=== PATIENT | male | born 1965 | race Caucasian/White ===

== ENCOUNTER 2021-08-20 12:25 | Outpatient (CLI) | payer OTHER, SELFPAY ==
--- NOTE | ~2021-08-20 | CT_ITS ---
EXAMINATION: CT brain wo con EXAM DATE: 08/20/2021 12:45 INDICATION: R51.9 - Headache, unspecified . Reportedly patient's symptoms started acutely during Than ksgiving with episode of vomiting. Unable to read for 2 weeks. TECHNIQUE: Spiral CT of the head was performed without contrast. Axial, coronal and sagittal images were reviewed. The dose-length product (DLP) for this examination was 605.33 mGy-cm. The exposure w as tailored according to patient size, and iterative reconstruction (ASIR) was used as additional dos e reduction technique. There is no prior study for comparison. FINDINGS: There is hyperdense mass in the left occipital lobe measuring 2.3 x 1.7 cm, with extensive associated adjacent vasogenic edema. Differential diagnosis includes hemorrhagic mass or metastatic l esion, intraparenchymal hemorrhage without underlying mass. No other masses are identified, no extra- axial collections or subarachnoid hemorrhage. No obstructive hydrocephalus. IMPRESSION: Hyperdense left occipital lobe mass likely hemorrhagic mass or intraparenchymal hematoma without underlying mass. I discussed this case with Viki Greenberg NP at 08/20/2021 12:51 ELEMENTARY SCHOOL LIBRARIAN. Reviewed, dictated and finalized at location B. ENTARY SCHOOL LIBRARIAN IMPRESSION: Hyperdense left occipital lobe mass likely hemorrhagic mass or int raparenchymal hematoma without underlying mass. I discussed this case with Viki Greenberg NP at 08/20/2021 12:51 ELEMENTARY SCHOOL LIBRARIAN.
[2021-08-20 13:01] LABS: Hematocrit 39.6 % (42.0-52.0); Mean Corpuscular HGB Conc 30.3 g/dl (32-36); Mean Corpuscular Hemoglobin 23.3 pg (26-34); Mean Corpuscular Volume 76.9 fl (80-100); Mean Platelet Volume 8.3 fl (7.4-10.4); Platelet Count Result 354 k/mm3 (150-375); Red Blood Count 5.15 M/mm3 (4.6-6.20); Red Cell Distribution Width 16.6 % (11.5-14.5); White Blood Count 7.1 K/mm3 (4.5-10.0)
[2021-08-20 13:17] LABS: Alanine Aminotransferase 17 U/L (4-50); Albumin Level 4.1 g/dL (3.5-5.1); Alkaline Phosphatase 216 U/L (38-126); Anion Gap 11 mmol/L (8-16); Aspartate Amino Transferase 16 U/L (17-59); Bilirubin,Total 0.6 mg/dL (0.2-1.3); Blood Urea Nitrogen 25 mg/dL (9-20); Carbon Dioxide 27 mmol/L (22-30); Chloride 99 mmol/L (98-107); Estimated Glomerular Filt Rate 52; Glucose 157 mg/dL (65-110); Sodium 137 mmol/L (137-145)
== END 2021-08-20 12:26 | disposition home or self-care (01) ==
PROVIDERS: PCP Family Medicine; Visit Provider Nurse Practitioner Family
DX: R11.10 Vomiting, unspecified (principal); R51.9 Headache, unspecified; R41.3 Other amnesia; G93.89 Other specified disorders of brain
CPT/HCPCS: 36415; 70450; 80053; 84443; 85027

== ENCOUNTER 2021-08-20 13:18 | Emergency (ER) | payer OTHER, SELFPAY ==
[2021-08-20] VITALS (18 sets, daily range): BP systolic 121–141; BP diastolic 65–86; PULSE 85–98; RESP 10–27; TEMP 36.6–36.7; O2SAT 95–98
--- NOTE | ~2021-08-20 | XR_ITS ---
EXAMINATION: XR chest 2V DATE: 08/20/2021 16:20 INDICATION: Cough and shortness of breath. TECHNIQUE: Frontal and lateral views of the chest were obtained. COMPARISON: None. FINDINGS: There are multiple nodules in the lungs. There is a mass in left lower lung zone. No pleura l effusion or pneumothorax. The heart size is normal. IMPRESSION: 1. Lung mass and nodules, consistent with metastatic disease. Chest CT with contrast is recommended. Reviewed, dictated and finalized at location A. ENT GRINDER IMPRESSION: 1. Lung mass and nodules, consistent with metastatic disease. Chest CT with con trast is recommended.
--- NOTE | ~2021-08-20 | MR_ITS ---
EXAMINATION: MR brain/brain stem wo/w con DATE: 08/20/2021 18:35 INDICATION: Left occipital lobe mass seen on recent CT. TECHNIQUE: Magnetic resonance imaging (MRI) of the brain and brainstem was performed without and with 20 cc MultiHance intravenous contrast. Sequences included sagittal and axial T1-weighted SE, axial d iffusion-weighted FS SE, axial T2*-weighted GRE, axial T2-weighted FLAIR Propeller, and axial T2-weig hted Propeller. Apparent diffusion coefficient (ADC) maps were created. COMPARISON: CT dated 08/20/2020. FINDINGS: There is an avidly enhancing intra-axial mass left occipital lobe measuring 2.4 x 2.1 x 1.7 cm with surrounding vasogenic edema. There is no apparent associated hemorrhage on GRE imaging seque nce. There is a small 3 mm enhancing satellite lesion of the left occipital lobe inferior to the dianne nant mass. No evidence for diffusion restriction to suggest acute infarction. No midline shift. No ve ntriculomegaly. Midline sagittal images are unremarkable. Paranasal sinuses are unremarkable. IMPRESSION: 1. Enhancing 2.4 cm left occipital lobe mass with moderate surrounding vasogenic edema. Additional sm all 3 mm enhancing satellite lesion of the left occipital lobe. Findings suspicious for metastatic di sease. Correlate for history of malignancy. Reviewed, dictated and finalized at location A. NE EQUIPMENT SALES ENGINEER IMPRESSION: 1. Enhancing 2.4 cm left occipital lobe mass with moderate surrounding vasogeni c edema. Additional small 3 mm enhancing satellite lesion of the left occipital lobe. Findings suspicious for metastatic disease. Correlate for history of mal ignancy.
--- NOTE | ~2021-08-20 | CT_ITS ---
EXAMINATION: CT chest abdomen pelvis w con DATE: 08/20/2021 20:45 GENERATING STATION MECHANIC INDICATION: Intracranial masses, concerning for metastatic disease. TECHNIQUE: Computed tomography (CT) of the chest, abdomen, and pelvis was performed with 100 cc Omnip aque 350 intravenous contrast. The dose-length product was 1474.22 mGy-cm. Automated exposure control and iterative reconstruction technique were employed. COMPARISON: None FINDINGS: CHEST CT: Heart size is normal. No thoracic lymphadenopathy. There are multiple bilateral bilateral pulmonary n odules, consistent with metastatic disease. Largest mass in the left lower lobe measures 6.2 x 3.2 cm . No evidence for aortic aneurysm or dissection. ABDOMEN/PELVIS CT: Fatty infiltration of the liver. There is splenomegaly. The pancreas, right adrenal gland are unremar kable. There is a 2 cm right adrenal mass, nonspecific. There is a large complex right renal mass, co nsistent with regional cell carcinoma until proven otherwise. This mass measures approximately 18.6 x 12.6 x 11.9 cm. There is abnormal perinephric stranding and fluid. There is possible tumor extension into the right renal vein. Gallstones. There is retroperitoneal lymphadenopathy at the level of the right renal artery. Colonic diverticulosis without evidence for diverticulitis. Normal appendix. There are degenerative changes a t the sacroiliac joints. No focal lytic or blastic lesions.. IMPRESSION: 1. Large abnormal right renal mass, compatible with renal cell carcinoma until proven otherwise. [place] static disease to the perinephric space, retroperitoneum, lungs and possibly the left adrenal gland. There is possible tumor extension into the right renal vein. Reviewed, dictated and finalized at location A. RATING STATION MECHANIC IMPRESSION: 1. Large abnormal right renal mass, compatible with renal cell carcinoma until proven otherwise. Metastatic disease to the perinephric space, retroperitoneum, lungs and possibly the left adrenal gland. There is possible tumor extension i nto the right renal vein.
--- NOTE | 2021-08-20 16:19 | PC.NURSE ---
Patient refusing blood draw at this time, states he had blood drawn this morning.
--- NOTE | 2021-08-20 17:27 | ED.GENADULT ---
HPI - General Adult General Chief complaint: Unspecified Stated complaint: Brought over from CT Time Seen by Provider: 08/20/21 14:07 Source: patient Mode of arrival: ambulatory Limitations: no limitations History of Present Illness HPI narrative: 56-year-old male Referred from radiology after they found a bleed on his outpatient brain CT scan Patient reports that he has been having fairly subtle neurologic symptoms for a little bit over 2 weeks starting around Thanksgiving He first noted feeling badly and having soaking sweats 1 night but those never came back He has subsequently had some cognitive issues, oddly finds that he can solve geometry problems but not story problems, and is having trouble eating although he does not think he is having any trouble seeing or focusing on the text He does not have any gait issues and does not have any focal weakness that he has noticed Notably he never had much of a headache He drove himself to the doctor into the hospital today and worked every day last week Related Data Allergies Allergy/AdvReac Type Severity Reaction Status Date / Time No Known Allergies Allergy Verified 08/20/21 13:55 Review of Systems Review of Systems: All systems reviewed & are unremarkable except as noted in HPI and below Constitutional: Constitutional: Reports no additional constitutional complaints, Denies chills, Denies fever(s), Reports night sweats and Reports weight loss Eyes: Eyes: Reports no additional eye complaints, Reports change in vision and Reports other visual disturbances ENT: Denies vertigo, Denies dizziness and Denies sore throat Cardiovascular: Cardiovascular: Denies chest pain and Denies dyspnea Respiratory: Respiratory: Denies cough and Denies dyspnea Gastrointestinal: Gastrointestinal: Denies abdominal pain and Denies vomiting Genitourinary: Genitourinary: Denies hematuria, Denies dysuria and Reports flank pain Musculoskeletal: Musculoskeletal: Denies deformity, Denies arthralgias, Denies joint swelling and Denies numbness Integumentary/Breasts: Skin/Breast: Denies rash and Denies wounds Neurologic: Denies headache(s), Denies focal weakness and Denies numbness Psychiatric: Psychiatric: Reports no additional psychiatric complaints Endocrine: Endocrine: Reports no additional endocrine complaints Hematologic/Lymphatic: Hematologic/Lymphatic: Reports no additional hematologic/lymphatic complaints Allergic/Immunologic: Allergic/Immunologic: Reports no additional allergic/immunologic complaints PMFSH Past Medical History Medical History BMI 29.0-29.9,adult BMI 32.0-32.9,adult BMI 33.0-33.9,adult Diabetes Hypertension Surgical History Surgical History History of tonsillectomy and adenoidectomy Family History Family History Father No problems noted. Mother No problems noted. Sibling No problems noted. 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
--- NOTE | 2021-08-20 17:45 | PC.NURSE ---
Patient to MRI
[2021-08-20] MEDS: levETIRAcetam 500MG/NACL 100ML 500 MG/100 ML BAG 400 MG IVPB (18:34)
[2021-08-20 19:00] LABS: Basophils Absolute Auto 0.1 K/mm3 (0.0-0.1); Basophils Percent Auto 0.7 % (0.2-1.2); Eosinophils Absolute Auto 0.1 K/mm3 (0-0.3); Eosinophils Percent Auto 0.9 % (0-4.4); Hematocrit 40.1 % (42.0-52.0); Hemoglobin 12.2 g/dL (14.0-18.0); Immature Granulocyte Absolute 0.03 K/mm3 (0.00-0.031); Immature Granulocyte Percent A 0.4 % (0-0.5); Lymphocytes Absolute Auto 1.59 K/mm3 (0.9-3.2); Lymphocytes Percent Auto 20.8 % (18.3-44.2); Mean Corpuscular HGB Conc 30.4 g/dl (32-36); Mean Corpuscular Hemoglobin 23.5 pg (26-34); Mean Corpuscular Volume 77.1 fl (80-100); Mean Platelet Volume 8.2 fl (7.4-10.4); Monocytes Absolute Auto 0.7 K/mm3 (0.1-0.6); Monocytes Percent Auto 9.6 % (2.6-8.5); Neutrophils Absolute Auto 5.2 K/mm3 (1.3-6.7); Neutrophils Percent Auto 67.6 % (45.5-73.1); Platelet Count Result 347 k/mm3 (150-375); Red Cell Distribution Width 16.8 % (11.5-14.5); White Blood Count 7.6 K/mm3 (4.5-10.0)
[2021-08-20 19:10] LABS: Alanine Aminotransferase 16 U/L (4-50); Albumin Level 4.3 g/dL (3.5-5.1); Alkaline Phosphatase 227 U/L (38-126); Anion Gap 9 mmol/L (8-16); Aspartate Amino Transferase 23 U/L (17-59); Bilirubin,Total 0.7 mg/dL (0.2-1.3); Blood Urea Nitrogen 23 mg/dL (9-20); Calcium 12.1 mg/dL (8.4-10.2); Carbon Dioxide 26 mmol/L (22-30); Chloride 100 mmol/L (98-107); Estimated CRCL calculation 62 ml/min; Estimated Glomerular Filt Rate 57; Glucose 120 mg/dL (65-110); Potassium 4.6 mmol/L (3.4-5.0); Sodium 135 mmol/L (137-145)
[2021-08-20 19:12] LABS: INR 1.2; Prothrombin Time 14.7 Seconds (11.1-14.7)
--- NOTE | 2021-08-20 19:50 | PC.NURSE ---
pt refusing to wear cardiac cath tech and pulse ox.
== END 2021-08-20 21:42 | disposition home or self-care (01) ==
PROVIDERS: Emergency Provider Emergency Medicine; PCP Family Medicine
DX: G93.89 Other specified disorders of brain (principal); N28.89 Other specified disorders of kidney and ureter; R91.8 Other nonspecific abnormal finding of lung field; E11.9 Type 2 diabetes mellitus without complications; I10 Essential (primary) hypertension; Z79.84 Long term (current) use of oral hypoglycemic drugs
CPT/HCPCS: 36415; 70450; 70553; 71046; 71260; 74177; 80053; 84443; 85025; 85027; 85610; 96365; 96375; 99284; A9577; J1100; J1953; Q9967

== ENCOUNTER 2021-10-19 17:47 | Inpatient (IN) | payer OTHER, SELFPAY ==
[2021-10-19] VITALS (8 sets, daily range): BP systolic 72–100; BP diastolic 48–75; PULSE 92–97; RESP 16–27; TEMP 36.6; O2SAT 93–100
--- NOTE | ~2021-10-19 | XR_ITS ---
EXAMINATION: XR abdomen/kub 1V DATE: 11/07/2021 05:59 INDICATION: Adynamic ileus. TECHNIQUE: A supine view of the abdomen on 2 radiographs was obtained. COMPARISON: Abdomen radiographs 11/05/2021 FINDINGS: There are no dilated loops of bowel. There is a surgical drain overlying the pelvis. The na sogastric tube tip is in the distal stomach. There are airspace opacities at the lung bases. IMPRESSION: 1. Nonobstructive bowel gas pattern. 2. Airspace opacities at the lung bases, consistent with atelectasis versus pneumonia. Reviewed, dictated and finalized at location A. F RESOURCE OFFICER IMPRESSION: 1. Nonobstructive bowel gas pattern. 2. Airspace opacities at the lung bases, consistent with atelectasis versus pne umonia.
--- NOTE | ~2021-10-19 | XR_ITS ---
EXAMINATION: XR abdomen obstructive series EXAM DATE: 11/03/2021 09:06 INDICATION: F/U on suspected ileus TECHNIQUE: Frontal semierect projection of the upper abdomen, frontal projection of the lower abdomen for interpretation. Comparison is made to prior examination from 11/02/2021. FINDINGS: Feeding tube is in position. There are several loops of moderately distended air-filled sm all bowel again identified, improvement compared to yesterday. There is a pelvic surgical drain. Righ t midlung zone mass like density is patient's right kidney, correlate with recent CT report. There is bibasilar airspace disease most consistent with atelectasis. No free intraperitoneal gas suspected. IMPRESSION: 1. Several loops of moderately distended small bowel probably postoperative ileus. Mild improvement. 2. Scattered basilar atelectasis. Reviewed, dictated and finalized at location A. O SPECIALIST IMPRESSION: 1. Several loops of moderately distended small bowel probably postoperative ile us. Mild improvement. 2. Scattered basilar atelectasis.
--- NOTE | ~2021-10-19 | XR_ITS ---
EXAMINATION: XR abdomen NG/feed tube insert INDICATION: OG placement TECHNIQUE: Portable AP KUB-NG at 0047 hours COMPARISON: None available FINDINGS: The OG tube is in the stomach. There are no dilated loops of bowel. Free intraperitoneal ga s is noted, consistent with known bowel perforation. IMPRESSION: 1. OG tube in the stomach. Reviewed, dictated and finalized at location A. MIXER IMPRESSION: 1. OG tube in the stomach.
--- NOTE | ~2021-10-19 | XR_ITS ---
EXAMINATION: XR chest 1V portable DATE: 11/01/2021 12:44 INDICATION: Confusion. TECHNIQUE: A single frontal view of the chest was obtained. COMPARISON: Chest single view 10/25/2021, CT abdomen and pelvis 10/29/2021 FINDINGS: The lung volumes are small. There are airspace opacities in the lower lung zones, likely at electasis. There are nodules in left mid and lower lung zones. No pleural effusion or pneumothorax. T he heart size is normal. A left internal jugular central venous catheter is seen with tip in the supe rior vena cava. IMPRESSION: 1. Small lung volumes with airspace opacities in the lower lung zones, likely atelectasis. 2. Left lung nodules, consistent with metastatic disease. Reviewed, dictated and finalized at location A. ITURE ASSEMBLER IMPRESSION: 1. Small lung volumes with airspace opacities in the lower lung zones, likely a telectasis. 2. Left lung nodules, consistent with metastatic disease.
--- NOTE | ~2021-10-19 | XR_ITS ---
EXAMINATION: XR chest 1V portable DATE: 10/19/2021 18:23 INDICATION: Syncope. Weakness. TECHNIQUE: A single frontal view of the chest was obtained. COMPARISON: Chest CT 08/20/2021 FINDINGS: There is mild atelectasis in the lower lung zones. There are scattered nodules in the lungs that are less well visualized than on the prior exam. No pleural effusion or pneumothorax. The heart size is normal. There is possible free intraperitoneal gas. There are fractures of right second rib and left third and fourth ribs. IMPRESSION: 1. Mild atelectasis in lower lung zones. 2. Scattered pulmonary nodules, consistent with metastatic disease. 3. Age-indeterminate fractures of right second rib and left third and fourth ribs. 4. Possible free intraperitoneal gas. If there has not been recent surgery, this finding would be samantha picious for perforated viscus. I called this result to Dr. Mitchlel. Reviewed, dictated and finalized at location E. URY RECOVERER IMPRESSION: 1. Mild atelectasis in lower lung zones. 2. Scattered pulmonary nodules, consistent with metastatic disease. 3. Age-indeterminate fractures of right second rib and left third and fourth r ibs. 4. Possible free intraperitoneal gas. If there has not been recent surgery, thi s finding would be suspicious for perforated viscus. I called this result to Dr Jude Mitchell.
--- NOTE | ~2021-10-19 | XR_ITS ---
EXAMINATION: XR chest 1V portable DATE: 10/21/2021 05:30 INDICATION: Acute respiratory failure. TECHNIQUE: A single frontal view of the chest was obtained on 2 radiographs. COMPARISON: Chest single view 10/20/2021, CT abdomen and pelvis 10/19/2021 FINDINGS: There is mild atelectasis in the lower lung zones. No pleural effusion or pneumothorax. The heart size is normal. The endotracheal tube tip is 5.8 cm above the sandeep. The nasogastric tube tip is beyond the inferior margin of the radiograph, but at least to the stomach. A left internal jugula r central venous catheter is seen with tip in the superior vena cava. IMPRESSION: 1. Mild atelectasis in the lower lung zones. 2. Pulmonary metastatic disease seen on other imaging is not well visualized. Reviewed, dictated and finalized at location A. ARATION SUPERVISOR CANNING
--- NOTE | ~2021-10-19 | US_ITS ---
EXAMINATION: US pelvic limited EXAM DATE: 11/14/2021 14:44 INDICATION: clots and hematuria . TECHNIQUE: Multiple grayscale and Doppler images of the pelvis, bladder were obtained (by a technolog ist who performed the scan) and subsequently reviewed. Correlation is made to CT abdomen pelvis 2021. FINDINGS: There is echogenic material surrounding the Higgins catheter balloon and portion of the catheter tubing . Could be blood clot given the history provided. Patient could only tolerate small amount of bladder distention. Bladder wall thickening, acute and/or chronic cystitis. IMPRESSION: 1. Echogenic material surrounding Higgins balloon in portion of catheter, could be blood clot. 2. Diffuse bladder wall thickening, acute and/or chronic cystitis. Reviewed, dictated and finalized at location A. OR C SOFTWARE ENGINEER
--- NOTE | ~2021-10-19 | XR_ITS ---
EXAMINATION: XR abdomen NG/feed tube insert INDICATION: Nasogastric tube insertion TECHNIQUE: Portable AP KUB-NG at 1720 hours COMPARISON: CT from today FINDINGS: A nasogastric tube is in the stomach. There are multiple mildly dilated loops of small reg l. IMPRESSION: 1. Nasogastric tube in the stomach. 2. Mildly dilated small bowel, likely ileus. Reviewed, dictated and finalized at location F. TARY EXCHANGE WIRELESS MANAGER
--- NOTE | ~2021-10-19 | XR_ITS ---
XR abdomen/kub 1V 11/05/2021 07:47 Indication: Postop ileus Procedure: KUB Comparison: Comparison to multiple prior studies sequentially, with oldest reviewed study dated 10/23. Findings: Bowel gas pattern is nonobstructive. Partially visualized NG tube in the stomach. There is a drainage catheter in the pelvis. Masslike density overlying the right mid abdomen, likely related t o subcapsular hematoma of the right kidney seen on CT dated 11/02/2021. Impression: 1: Nonobstructive bowel gas pattern. Reviewed, dictated and finalized at location A. RUCTIONAL WRITER Impression: 1: Nonobstructive bowel gas pattern.
--- NOTE | ~2021-10-19 | XR_ITS ---
EXAMINATION: XR chest 1V portable DATE: 10/22/2021 05:48 INDICATION: Acute respiratory failure. TECHNIQUE: A single frontal view of the chest was obtained. COMPARISON: Chest single view 10/21/2021, CT abdomen and pelvis 10/19/2021 FINDINGS: The lung volumes are small. There are airspace opacities in the perihilar regions and lower lung zones. There is a small right pleural effusion. No pneumothorax. The heart size is normal. The endotracheal tube tip is 6.2 cm above the sandeep. A left internal jugular central venous catheter is seen with tip in the superior vena cava. The nasogastric tube tip is in the stomach. IMPRESSION: 1. Small lung volumes with worsened airspace opacities in the perihilar regions and lower lung zones, consistent with atelectasis versus pneumonia versus pulmonary edema. 2. Small right pleural effusion. 3. Pulmonary metastatic disease seen on other imaging is not well visualized. Reviewed, dictated and finalized at location A. IST INSTRUMENTATION IMPRESSION: 1. Small lung volumes with worsened airspace opacities in the perihilar regions and lower lung zones, consistent with atelectasis versus pneumonia versus pulm onary edema. 2. Small right pleural effusion. 3. Pulmonary metastatic disease seen on other imaging is not well visualized.
--- NOTE | ~2021-10-19 | XR_ITS ---
EXAMINATION: XR chest 1V portable DATE: 10/23/2021 05:50 INDICATION: Acute respiratory failure. TECHNIQUE: A single frontal view of the chest was obtained. COMPARISON: Chest single view 10/22/2021, CT abdomen and pelvis 10/19/2021 FINDINGS: The lung volumes are small. There are airspace opacities in the lower lung zones and right perihilar region. No pleural effusion or pneumothorax. The heart size is normal. The endotracheal tub e tip is 5.3 cm above the sandeep. A left internal jugular central venous catheter is seen with tip in the superior vena cava. The nasogastric tube tip is beyond the inferior margin of the radiograph, bu t at least to the stomach. IMPRESSION: 1. Small lung volumes with stable airspace opacities in the lower lung zones and right perihilar bret on, consistent with atelectasis versus pneumonia. 2. Pulmonary metastatic disease seen on other imaging is not well visualized. Reviewed, dictated and finalized at location A. C INSTRUCTOR IMPRESSION: 1. Small lung volumes with stable airspace opacities in the lower lung zones an d right perihilar region, consistent with atelectasis versus pneumonia. 2. Pulmonary metastatic disease seen on other imaging is not well visualized.
--- NOTE | ~2021-10-19 | XR_ITS ---
EXAMINATION: XR chest 1V portable DATE: 10/24/2021 06:00 INDICATION: Acute respiratory failure. TECHNIQUE: A single frontal view of the chest was obtained. COMPARISON: Chest single view 10/23/2021, CT abdomen and pelvis 10/19/2021 FINDINGS: There are airspace opacities in all lung zones bilaterally with a perihilar and lower lung predominance. Again seen are nodules in left lung. No pleural effusion or pneumothorax. The heart siz e is normal. There is right paratracheal widening. The nasogastric tube tip is beyond the inferior ma rgin of the radiograph, but at least to the stomach. A left internal jugular central venous catheter is seen with tip in the superior vena cava. IMPRESSION: 1. Worsened diffuse lung disease, consistent with pulmonary edema versus pneumonia. 2. Left lung nodules and right paratracheal widening, consistent with metastatic disease. Reviewed, dictated and finalized at location A. WARE ENGINEER IMPRESSION: 1. Worsened diffuse lung disease, consistent with pulmonary edema versus pneumo aly. 2. Left lung nodules and right paratracheal widening, consistent with metastati c disease.
--- NOTE | ~2021-10-19 | XR_ITS ---
EXAMINATION: XR chest ET placement INDICATION: Intubation and central line insertion TECHNIQUE: Portable AP chest at 0046 hours COMPARISON: 10/19/2021 FINDINGS: The endotracheal tube ends approximately 2.6 cm above the sandeep. The nasogastric tube is f ollowed as far as the stomach. Its tip is beyond the inferior margin of the radiograph. A right inter nal jugular central venous catheter ends with its tip in the proximal superior vena cava. The lung vo lumes are low. Previously described lung nodules are not well demonstrated due to low lung volumes. I n addition, known free intraperitoneal gas is not well seen. There is mild atelectasis of the lung ba ses. The cardiomediastinal silhouette is normal. IMPRESSION: 1. Nasogastric tube, endotracheal tube, and left internal jugular central venous catheter in adequate position. Reviewed, dictated and finalized at location A. SPERSON NECKTIES IMPRESSION: 1. Nasogastric tube, endotracheal tube, and left internal jugular central venou s catheter in adequate position.
--- NOTE | ~2021-10-19 | CT_ITS ---
EXAMINATION: CT abdomen pelvis wo con DATE: 10/19/2021 19:19 INDICATION: Abdominal pain. Perforated viscus. TECHNIQUE: Computed tomography (CT) of the abdomen and pelvis was performed without intravenous contr ast. Automated exposure control and iterative reconstruction technique were employed. The dose-length product was 1508.13 mGy-cm. COMPARISON: CT abdomen and pelvis 08/20/2021 FINDINGS: The visualized portions of the lung bases demonstrate multiple pulmonary nodules measuring up to 4.3 x 2.5 cm in left lower lobe, improved from 5.9 x 3.2 cm on 08/20/2021. Other pulmonary nodu les are similarly decreased in size. There is mild dependent atelectasis bilaterally. The heart size is normal. There are coronary artery calcifications. There is a small pericardial effusion. The liver and spleen are normal. The gallbladder is distended. The pancreas, adrenal glands, and left kidney a re normal. There is a 14.1 cm mass in right kidney that enhances on the prior CT, consistent with graham al cell carcinoma. There is a mixed attenuation subcapsular hematoma in right kidney measuring 12.8 x 5.8 x 10.7 cm. There is a small volume of hematoma in the right retroperitoneal fat. There is a left inguinal hernia containing fat. There are scattered diverticula in the colon. There is wall thickeni ng of the sigmoid colon with surrounding fat stranding. There is a large volume of free intraperitone al gas including around the sigmoid colon. The appendix is normal. There is no free intraperitoneal f luid. There are no pathologically enlarged lymph nodes. There is no free intraperitoneal fluid. There is chronic height loss of multiple vertebral bodies. There are scattered lytic lesions of bone in th e pelvis and spine. IMPRESSION: 1. Free intraperitoneal gas, likely from perforated sigmoid diverticulitis. 2. Large right kidney mass, consistent with renal cell carcinoma. 3. Subcapsular hematoma of right kidney. 4. Improved pulmonary nodules and worsening lytic lesions of bone, consistent with metastatic disease . 5. Gallbladder distention, which may be secondary to fasting. Reviewed, dictated and finalized at location E. OR ORE CONTROLLER IMPRESSION: 1. Free intraperitoneal gas, likely from perforated sigmoid diverticulitis. 2. Large right kidney mass, consistent with renal cell carcinoma. 3. Subcapsular hematoma of right kidney. 4. Improved pulmonary nodules and worsening lytic lesions of bone, consistent w ith metastatic disease. 5. Gallbladder distention, which may be secondary to fasting.
--- NOTE | ~2021-10-19 | XR_ITS ---
EXAMINATION: XR chest 1V portable INDICATION: Acute respiratory TECHNIQUE: Portable AP chest at 0503 hours COMPARISON: 10/24/2021 FINDINGS: A left internal jugular catheter ends with its tip in the proximal superior vena cava. The nasogastric tube is in the stomach. The lung volumes are low. Airspace opacities persist throughout a ll lung zones without significant change. The heart size is normal. There is no pleural effusion or p neumothorax. IMPRESSION: 1. Stable diffuse lung disease, consistent with pneumonia and/or pulmonary edema. Reviewed, dictated and finalized at location A. DING TRADES TEACHER IMPRESSION: 1. Stable diffuse lung disease, consistent with pneumonia and/or pulmonary citlaly a.
--- NOTE | ~2021-10-19 | CT_ITS ---
EXAMINATION: CT abdomen pelvis wo con DATE: 11/02/2021 15:30 INDICATION: Abdominal pain. TECHNIQUE: Computed tomography (CT) of the abdomen and pelvis was performed without intravenous contr ast. Automated exposure control and iterative reconstruction technique were employed. The dose-length product was 1423.15 mGy-cm. COMPARISON: None FINDINGS: Multiple bilateral pulmonary nodules and masses, the largest a 3.2 cm left lower lobe mass consistent with metastatic disease. Small bilateral pleural effusions with dependent atelectasis in the bilater al lower lobes. Tiny calcified gallstone in the dependent aspect of the gallbladder. Liver, pancreas, right adrenal gland and left kidney are normal. Unchanged 7 mm left adrenal nodule. Splenomegaly emelina suring 17.1 cm maximal length. No significant change in approximately 8.1 x 3.5 x 1.2 cm loculated li janice subcapsular fluid collection along the medial margin of the spleen without inflammatory strandin g in the overlying fat. No significant change in a large mass arising from the lower pole of the righ t kidney which measures 12.4 x 10.0 x 9.6 and meter. No significant change in a large heterogeneous a ttenuation subcapsular hematoma surrounding the kidney with dependently layering likely hematocrit le vishnu at the posterior inferior aspect of the fluid collection. Small amount of ascites primarily along the liver where there is an unchanged small focus of gas as well as along the left paracolic gutter. Surgical drain in unchanged position in the pelvis. Postoperative change of prior sigmoidectomy with Toro's pouch and left lower quadrant and colostomy. There is some inflammatory stranding along wi th some soft tissue gas in the subcutaneous fat surrounding the ostomy. Multiple diverticula along th e remaining more proximal colon. Persistent inflammatory stranding and small foci of extraluminal gas surrounding a diverticulum at the proximal transverse colon consistent with diverticulitis. Normal a ppendix. Gas and fluid distention of the stomach and proximal duodenum which transitions to normal ca liber in the left lower quadrant without a discrete transition point to suggest obstruction is more l ikely related to ileus. Higgins catheter and small amount of gas within the decompressed bladder. Small fat-containing left inguinal hernia. There are a few unchanged relatively recent-appearing compressi on fractures at T5, T11, L3 and L5 with up to 20% vertebral body height loss. No significant change i n multiple lytic bone lesions consistent with metastatic disease. IMPRESSION: 1. Persistent diverticulitis at the proximal transverse colon. 2. Postoperative change of recent partial sigmoidectomy with left lower quadrant end colostomy and Mccallum rtman's pouch. There is some inflammatory stranding and soft tissue gas surrounding the ostomy which may represent residual postoperative changes both correlate clinically for signs/symptoms of infectio n or mucosal breakdown of the ostomy. 3. Small amount of ascites and persistent tiny focus of perihepatic pneumoperitoneum, the latter whic h could be related to either the prior surgery or adjacent diverticulitis. 4. No interval change in a small loculated/subcapsular fluid collection along the medial margin of th e enlarged spleen. This is nonspecific with differential including hematoma or abscess although there is no adjacent from trace stranding to more specifically suggest the latter. 5. Large right renal mass consistent with renal cell carcinoma with widespread metastatic disease inc luding multiple pulmonary nodules, small left adrenal nodule, upper abdominal lymphadenopathy and ful l scattered lytic bone lesions. 6. Unchanged no significant change in a large right perinephric hematoma with layering hematocrit lev el. 7. Cholelithiasis. 8. Small bilateral pleural effusions dependent atelectasis in the bilateral lower lobes. 9. Dilat
--- NOTE | ~2021-10-19 | CT_ITS ---
EXAMINATION: CT abdomen pelvis w con DATE: 10/29/2021 08:14 INDICATION: Abdominal pain TECHNIQUE: Computed tomography (CT) of the abdomen and pelvis was performed with 100 mL Omnipaque-350 intravenous contrast. Automated exposure control and iterative reconstruction technique were employe d. The dose-length product was 1589.83 mGy-cm. COMPARISON: 08/20/2021 and 10/19/21 FINDINGS: There is been some decrease in size since 08/20/2021 and multiple scattered pulmonary nodules at the bilateral lung bases, the largest in the left lower lobe measuring up to 1.9 cm which is decreased fr om 3.4 cm consistent with response to treatment of metastatic disease. Small bilateral pleural effusi ons with dependent compressive atelectasis. There are several mildly prominent paraesophageal and epi phrenic lymph nodes also suspicious for metastatic disease and which also appears slightly decreased in size. Heart size is normal. Atherosclerotic coronary artery calcific location. No pericardial effu lesly. Small amount of ascites scattered throughout the abdomen and pelvis. There is also a tiny focus of pn eumoperitoneum anterior to the liver likely related to recent surgery. Surgical drain is present in t he pelvis with distal tip in the left hemipelvis. Postoperative change of recent partial sigmoidectom y with left lower quadrant and colostomy and Toro's pouch formation. Numerous diverticula along th e remaining colon. There is inflammatory stranding surrounding a diverticulum in the proximal transve rse colon consistent with diverticulitis. No dilated loops of bowel to suggest obstruction. Thyromegaly measuring 16.2 cm in maximal length. 8.0 x 5.3 x 1.5 cm loculated fluid collection with p eripherally enhancing rim along the medial margin of the spleen upon which it exerts mild mass effect . No evident underlying splenic injury. Pancreas and right adrenal gland and left kidney are normal. Interval decrease in size of a previously 1.3 cm now 8 mm likely metastatic left adrenal nodule. Gall bladder remains distended but there is no intra or extra hepatic ductal or ductal dilation. Again see n is a large heterogeneously enhancing mass centered at the lower pole of the right kidney which is d ecreased from 13.2 x 13.1 x 13.8 cm to currently measuring 11.0 x 8.3 x 12.5 cm consistent with respo nse to treatment of what is likely a primary renal cell carcinoma. Minimal change in a large heteroge neous attenuation subcapsular hematoma surrounding the right kidney. 4.6 x 2.6 x 1.9 cm intraluminal filling defect with some heterogeneous enhancement in the inferior vena cava which arises from the ri ght renal vein consistent with tumor thrombus. There is been some decrease in size of multiple likely metastatic retroperitoneal and periportal lymph nodes. Extensive mesenteric and body wall edema. Sma ll fat-containing left inguinal hernia. There are a few unchanged relatively recent-appearing kaitlin lesly fractures at T5, T11, L3 and L5 with up to 20% vertebral body height loss. No significant change in multiple lytic bone lesions consistent with metastatic disease. IMPRESSION: 1. Diverticulitis along the proximal transverse colon. 2. Postoperative change of recent partial sigmoidectomy with left lower quadrant and colostomy and Mccallum rtman's pouch. 3. Small amount of ascites and a few tiny foci of pneumoperitoneum most likely still related to the r ecent surgery. Surgical drain in the pelvis. 4. Small rim enhancing loculated fluid collection along the medial margin of the spleen which could r epresent an abscess or hematoma. No evident underlying splenic injury. 5. Interval decrease in size of a now 12.5 cm right renal mass as well consistent with response to tr eatment of a likely primary renal cell carcinoma. Large surrounding subcapsular hematoma of the right kidney is unchanged. 6. 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
--- NOTE | ~2021-10-19 | XR_ITS ---
EXAMINATION: XR abdomen NG/feed tube insert INDICATION: Nasogastric tube placement TECHNIQUE: Portable AP KUB-NG at 0912 hours COMPARISON: 10/20/2021 FINDINGS: The nasogastric tube on the comparison study appears unchanged in position. There appears t o be a second nasogastric tube inserted which also ends in the stomach. A small right pleural effusio n is suggested. There is atelectasis of the lung bases. IMPRESSION: 1. Two nasogastric tubes which projects in the stomach. Reviewed, dictated and finalized at location A. BUILDER
--- NOTE | ~2021-10-19 | XR_ITS ---
EXAMINATION: XR abdomen/kub 1V DATE: 10/28/2021 17:11 INDICATION: Abdominal pain. TECHNIQUE: A supine view of the abdomen on 3 radiographs was obtained. COMPARISON: Radiographs dated 10/23/[address] dated 10/19/2021 FINDINGS: Surgical drain in the pelvis. There are few mildly dilated gas-filled loops of small bowel in the upp er abdomen. Small amount of gas scattered throughout the colon. Large ovoid opacity in the right abdo men corresponding in size and shape to the previous noted right kidney with renal mass and subcapsula r hematoma. Airspace opacities at bilateral lung bases which could represent atelectasis and/or pneum onia. IMPRESSION: 1. A few mildly dilated gas-filled loops of small bowel which could represent either obstruction or p ostoperative ileus. 2. Opacities at the bilateral lung bases consistent with atelectasis and/or pneumonia. 3. Large ovoid opacity in the right abdomen corresponding to the previously noted right renal mass wi th subcapsular hematoma. Reviewed, dictated and finalized at location A. GER FAST FOOD IMPRESSION: 1. A few mildly dilated gas-filled loops of small bowel which could represent e ither obstruction or postoperative ileus. 2. Opacities at the bilateral lung bases consistent with atelectasis and/or pne umonia. 3. Large ovoid opacity in the right abdomen corresponding to the previously not ed right renal mass with subcapsular hematoma.
--- NOTE | 2021-10-19 18:04 | ECG_ITS ---
Measurements Intervals [place] Rate: 94 P: 60 NH: 157 QRS: 74 QRSD: 93 T: 57 QT: 375 QTc: 470 Interpretive Statements SINUS RHYTHM NORMAL ECG Electronically Signed On 10-19-2021 20:46:14 THERMOSTAT MACHINE TENDER by Jadon Durand D.O.
[2021-10-19 18:36] LABS: Basophils Absolute Auto 0.1 K/mm3 (0.0-0.1); Basophils Percent Auto 0.6 % (0.2-1.2); Eosinophils Absolute Auto 0.1 K/mm3 (0-0.3); Eosinophils Percent Auto 1.2 % (0-4.4); Hematocrit 45.7 % (42.0-52.0); Immature Granulocyte Absolute 0.06 K/mm3 (0.00-0.031); Immature Granulocyte Percent A 0.6 % (0-0.5); Lymphocytes Absolute Auto 1.15 K/mm3 (0.9-3.2); Lymphocytes Percent Auto 10.7 % (18.3-44.2); Mean Corpuscular HGB Conc 30.6 g/dl (32-36); Mean Corpuscular Hemoglobin 24.6 pg (26-34); Mean Corpuscular Volume 80.5 fl (80-100); Mean Platelet Volume 8.9 fl (7.4-10.4); Monocytes Absolute Auto 0.6 K/mm3 (0.1-0.6); Monocytes Percent Auto 5.1 % (2.6-8.5); Neutrophils Absolute Auto 8.8 K/mm3 (1.3-6.7); Neutrophils Percent Auto 81.8 % (45.5-73.1); Platelet Count Result 344 k/mm3 (150-375); Red Blood Count 5.68 M/mm3 (4.6-6.20); Red Cell Distribution Width 19.1 % (11.5-14.5); White Blood Count 10.8 K/mm3 (4.5-10.0)
--- NOTE | 2021-10-19 18:36 | PC.NURSE ---
Pt received full 1L bag that EMS started. Pt BP 72/48. VRBO received for another liter of NS from Dr. Pena
[2021-10-19] MEDS: SODIUM CHLORIDE 0.9% IV 1,000 ML 999 ML IV CONT (18:39)
[2021-10-19 19:03] LABS: Alanine Aminotransferase 28 U/L (4-50); Albumin Level 3.3 g/dL (3.5-5.1); Alkaline Phosphatase 262 U/L (38-126); Anion Gap 20 mmol/L (8-16); Aspartate Amino Transferase 45 U/L (17-59); Bilirubin,Total 1.2 mg/dL (0.2-1.3); Blood Urea Nitrogen 39 mg/dL (9-20); Carbon Dioxide 23 mmol/L (22-30); Chloride 89 mmol/L (98-107); Estimated CRCL calculation 38 ml/min; Estimated Glomerular Filt Rate 27; Glucose 114 mg/dL (65-110); Lactic Acid Reflex 8.8 mmol/L (0.7-2.1); Potassium 4.6 mmol/L (3.4-5.0); Sodium 132 mmol/L (137-145)
--- NOTE | 2021-10-19 19:03 | ED.WEAKNESS ---
HPI - Weakness General Chief complaint: Weakness Stated complaint: weakness, syncope Time Seen by Provider: 10/19/21 18:49 Source: patient Mode of arrival: ambulatory Limitations: no limitations History of Present Illness HPI Narrative: Patient is a 56-year-old male complaining of generalized weakness for the past few days and low blood pressure today. Patient states that he has history of metastatic renal cell carcinoma currently on chemotherapy, but unable to have his regular IV chemotherapy last week due to being dehydrated . Patient denies any chest pain, shortness of breath, abdominal pain, nausea, vomiting, diarrhea, fever or chills. Related Data Allergies Allergy/AdvReac Type Severity Reaction Status Date / Time No Known Allergies Allergy Verified 08/22/21 09:03 Review of Systems Review of Systems: All systems reviewed & are unremarkable except as noted in HPI and below Constitutional: Constitutional: Denies body ache(s), Denies chills, Denies excessive sweating, Denies fatigue, Denies fever(s), Denies headache(s), Denies lethargy and Denies weight loss Eyes: Eyes: Denies blurry vision, Denies change in vision and Denies loss of vision ENT: Denies dizziness, Denies ear discharge, Denies headache(s), Denies lip swelling, Denies epistaxis, Denies nasal congestion, Denies neck pain, Denies throat swelling and Denies tongue swelling Cardiovascular: Cardiovascular: Denies chest pain, Denies chest pain at rest, Denies chest pain with activity, Denies diaphoresis, Denies rapid heart rate, Denies edema, Denies irregular heart rhythm, Denies lightheadedness, Denies palpitations, Denies dyspnea and Denies dyspnea on exertion Respiratory: Respiratory: Denies chest congestion, Denies cough, Denies hemoptysis, Denies dyspnea and Denies dyspnea on exertion Gastrointestinal: Gastrointestinal: Denies abdominal pain, Denies melena, Denies hematochezia, Denies diarrhea, Denies nausea, Denies vomiting and Denies hematemesis Musculoskeletal: Musculoskeletal: Denies abnormal gait, Denies deformity, Denies joint swelling, Denies limited range of motion, Denies neck pain and Denies numbness Neurologic: Denies Abnormal speech present, Denies abnormal gait, Denies confusion, Denies dizziness, Denies headache(s), Denies focal weakness, Denies loss of vision, Denies numbness, Denies Other visual disturbances and Denies Sensory deficit (Neuro) Psychiatric: Psychiatric: Denies confusion, Denies depression, Denies auditory hallucinations, Denies homicidal ideation and Denies suicidal ideation Endocrine: Endocrine: Denies cold intolerance, Denies excessive sweating, Denies fatigue, Denies heat intolerance and Denies palpitations Hematologic/Lymphatic: Hematologic/Lymphatic: Denies easy bleeding and Denies easy bruising Allergic/Immunologic: Allergic/Immunologic: Denies lip swelling, Denies throat swelling and Denies tongue swelling PMFSH Past Medical History Medical History Abnormal CT of the abdomen Abnormal CT of the chest Abnormal CT of the head Abnormal MRI of head BMI 29.0-29.9,adult BMI 32.0-32.9,adult BMI 33.0-33.9,adult Diabetes Hypertension Renal mass Surgical History Surgical History History of tonsillectomy and adenoidectomy Family History Family History Father No problems noted. Mother No problems noted. Sibling No problems noted. 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
[2021-10-19] MEDS: LACTATED RINGERS 1,000 ML 999 ML IV CONT ×2 (19:48→20:36)
[2021-10-19] MEDS: LIDOCAINE HCL 2% GEL UROJET 10 ML PKG (19:48)
[2021-10-19] MEDS: PIPERACILLIN/TAZOBACTAM SOD 4.5 GM in SODIUM CHLORIDE 0.9% IV 100 ML 200 ML IVPB (19:48)
[2021-10-19 20:21] LABS: Add Urine Microscopic? YES; Appearance Urine Clear (Clear); Bacteria Urine Trace /hpf; Bilirubin Urine Negative (Negative); Blood Urine 3+ (Negative); Color Urine Amber (Yellow); Glucose Urine UA Negative (Negative); Ketones Urine Negative (Negative); Leukocyte Esterase Ur Negative LEU/UL (Negative); Nitrate Urine Negative (Negative); Protein Urine 1+ mg/dL (Negative); RBC Urine 21-50 /hpf (0-2); Specific Grav Ur 1.023 (1.001-1.035); Urobilinogen Urine Negative mg/dL (<2.0); WBC Urine 0-3 /hpf
[2021-10-19] MEDS: NOREPINEPHRINE 8 MG/D5W 250 ML 8 MG/250 ML BAG 13.13 MG IV CONT (20:43)
[2021-10-19 21:00] LABS: SARS-CoV-2 RNA PCR Negative
[2021-10-19 21:34] LABS: Reflex Lactic Acid Yes or No Add Lactic
--- NOTE | 2021-10-19 21:51 | PM.IMHP ---
H&P: HPI History of Present Illness Date/Time: 10/19/21 21:51 Pt is 56 y/o M presenting to ED c/o severe lower abdominal pain, weakness, anorexia over at least the last week. Pt reports he has hardly any appetite and is very nauseous. Pt reports he has become progressively weaker and now cannot even get out of bed. Pt recently dx'd metastatic renal cell cancer and currently undergoing chemotherapy. Pt reports he has had pressure, bloating, poor appetite over last month but significantly worse over last wk. Chief Complaint: perforated viscus Review of Systems Constitutional: Constitutional: Reports anorexia, Reports body ache(s), Reports chills, Reports fatigue, Reports lethargy, Reports malaise, Reports poor appetite and Reports weakness Eyes: Eyes: Reports no additional eye complaints ENT: Reports system reviewed and no additional complaints, except as documented Cardiovascular: Cardiovascular: Reports no additional cardiovascular complaints Respiratory: Respiratory: Reports no additional respiratory complaints Gastrointestinal: Gastrointestinal: Reports as per HPI, Reports abdominal pain, Reports bloating, Reports GI cramping, Reports diarrhea, Reports nausea and Reports vomiting Genitourinary: Genitourinary: Reports no additional male genitourinary complaints Musculoskeletal: Musculoskeletal: Reports muscle weakness Integumentary/Breasts: Skin/Breast: Reports system reviewed and no additional complaints, except as docu Neurologic: Reports system reviewed and no additional complaints, except as documented Psychiatric: Psychiatric: Reports no additional psychiatric complaints Endocrine: Endocrine: Reports no additional endocrine complaints Hematologic/Lymphatic: Hematologic/Lymphatic: Reports no additional hematologic/lymphatic complaints Allergic/Immunologic: Allergic/Immunologic: Reports no additional allergic/immunologic complaints [facility] Past Medical History Medical History Abnormal CT of the abdomen Abnormal CT of the chest Abnormal CT of the head Abnormal MRI of head BMI 29.0-29.9,adult BMI 32.0-32.9,adult BMI 33.0-33.9,adult Diabetes Hypertension Renal mass Surgical History Surgical History History of tonsillectomy and adenoidectomy Family History Family History Father No problems noted. Mother No problems noted. Sibling No problems noted. 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[employer] Gender identity (if verbalized by the patient): Male Meds Home Medications and Allergies Home Medications Medication Instructions Recorded Confirmed Type metoprolol tartrate 50 mg tablet 50 mg PO Q12H #60 tablet 06/19/21 08/22/21 Rx sildenafil 100 mg tablet 100 mg PO DAILY PRN #8 tablet 06/19/21 08/22/21 Rx tamsulosin 0.4 mg capsule 0.4 mg PO DAILY #30 cap 06/25/21 08/22/21 Rx dexamethasone [Decadron] 4 mg PO BID #30 tablet 08/20/21 08/22/21 Rx dexamethasone [Decadron] 4 mg PO BID #30 tablet 08/20/21 08/22/21 Rx levetiracetam [Keppra] 500 mg PO BID #30 tablet 08/20/21 08/22/21 Rx levetiracetam [Keppra] 500 mg PO BID #30 tablet 08/20/21 08/22/21 Rx metformin 500 mg tablet,extended 1,000 mg PO QPM #90 tablet 08/22/21 08/22/21 Rx release 24 hr alprazolam 0.5 mg tablet 0.5 mg PO BID PRN #30 tablet 09/04/21 Rx lisinopril 40 mg tablet 40 mg PO DAILY #30 tablet 09/17/21 Rx Allergies Allergy/AdvReac Type Severity Reaction Status Date / Time No Known Allergies Allergy Verified 08/22/21 09:03 Vital Signs Vital Signs - 24 hr 10/19/21 17:59 10/19/21 18:40 10/19/21 19:
--- NOTE | 2021-10-19 22:55 | SUR.OPER ---
left subclavian triple lumen per Dr Schaefer 23:55. Flushed 3 caps on. Exp 2023-01-05. Lot [id number].
[2021-10-20] VITALS (49 sets, daily range): BP systolic 88–145; BP diastolic 48–86; PULSE 61–109; RESP 16–32; TEMP 35.1–37.2; O2SAT 91–99; BMI 31.8
--- NOTE | 2021-10-20 00:07 | W.PM.PROC2 ---
Procedure Note - Detailed Date of Procedure 10/20/21 Pre-op Diagnosis perforated viscus, septic shock Post-op Diagnosis other (perforated sigmoid diverticulitis, septic shock) Procedure Performed exploratory laparotomy, Hartmans' procedure, mobilization of splenic flexure, extensive intraabdominal washout Surgeon Petrona Monroe MD Anesthesia general Indications 56 y/o M presenting c septic shock secondary to perforated viscus Findings perforated sigmoid diverticulitis Description of Procedure The patient was taken to the operating room and placed in the supine position. After adequate induction of general anesthesia, the patient was prepped and draped in the normal sterile fashion. A time-out was then done to verify the patient's identity, as well as the procedure being performed. A generous midline incision was then done and taken down into the peritoneal cavity. Upon entering the peritoneum, a large amount of free air was evacuated. There was then noted to be a copious amount of intra-abdominal ascites, as well as feculent contamination. The abdomen was washed out at this point and there was approximately 1L of purulent succus. The entire abdominal cavity was noted to be massively inflamed. I then did an extensive lysis of adhesions, freeing up the small bowel. I then was able to identify the left colon. Again the left colon was massively dilated and inflamed. Continuing my dissection down to the distal sigmoid, an area of perforation was noted. This perforation was noted to be quite extensive with active leakage. Using very careful dissection, I was able to identify the distal sigmoid colon and upper rectum. At this point, I was able to get around the distal sigmoid, upper rectum. I then used a thick tissue contour stapler to transect this area. I then used the LigaSure to take down the mesenteric attachments of the distal sigmoid colon. I then found an area for our proximal transection in the mid sigmoid colon. Although this area was inflamed and dilated, it would be chosen as an optimal ostomy site given the entirety of the colon was inflamed. I transected the mid sigmoid colon with a 75 PA stapler. All mesenteric attachments were then taken down with the LigaSure device. I then removed the specimen and sent this to pathology for further review. I then examined the pelvis and hemostasis was noted. I then left a 19 [place] drain in the pelvis coming out through a small incision in the right lower quadrant. At this point, I prepared the ostomy. Given the patient's body habitus, I mobilized the splenic flexure to allow mobilization of the ostomy. Once this was done, it was noted that we had plenty of length for ostomy creation. I then chose a site in the left mid abdomen for the ostomy. The ostomy site was opened and a cruciate incision was made in the fascia and the rectus was split in the direction of its fibers. I was able to get 2 fingerbreadths through the ostomy site. I then was able to bring the mid sigmoid colon that was previously transected through this site. I then once again copiously irrigated the abdomen. No other pathology or abscess cavities were seen. Then closed the fascia with looped 0 PDS suture x2. The skin was closed with skin gianni. I then matured the ostomy with interrupted 3-0 Vicryl suture. Sterile dressing and ostomy supplies were placed. The patient tolerated the procedure relatively well and will be sent to the ICU in critical condition. Estimated Blood Loss 150 Drains Yes Packing No Pathology yes Complications No immediate complications Condition critical Disposition ICU
--- NOTE | 2021-10-20 00:11 | WPDANESEPPF ---
Anes - Initial Pre Proc Eval Procedure: Operation Date: 10/19/21 21:30 Proposed Procedures p Exploratory Laparotomy, Pos Bowel Resec - Petrona Monroe MD Date/Time: 10/20/21 00:11 Surgeon: Petrona Monroe MD Pre Op Diagnosis: weakness, syncope Patient Data Age: 56 Gender: M Height: 1.83 m Weight: 104 kg Last Vital Signs Temp 36.6 C 10/19/21 17:59 Pulse 97 10/19/21 21:49 Resp 16 10/19/21 21:49 BP 100/73 10/19/21 21:49 Pulse Ox 94 10/19/21 21:49 Allergies Allergy/AdvReac Type Severity Reaction Status Date / Time No Known Allergies Allergy Verified 08/22/21 09:03 Home Medications Medication Instructions Recorded Confirmed Type metoprolol tartrate 50 mg tablet 50 mg PO Q12H #60 tablet 06/19/21 08/22/21 Rx sildenafil 100 mg tablet 100 mg PO DAILY PRN #8 tablet 06/19/21 08/22/21 Rx tamsulosin 0.4 mg capsule 0.4 mg PO DAILY #30 cap 06/25/21 08/22/21 Rx dexamethasone [Decadron] 4 mg PO BID #30 tablet 08/20/21 08/22/21 Rx dexamethasone [Decadron] 4 mg PO BID #30 tablet 08/20/21 08/22/21 Rx levetiracetam [Keppra] 500 mg PO BID #30 tablet 08/20/21 08/22/21 Rx levetiracetam [Keppra] 500 mg PO BID #30 tablet 08/20/21 08/22/21 Rx metformin 500 mg tablet,extended 1,000 mg PO QPM #90 tablet 08/22/21 08/22/21 Rx release 24 hr alprazolam 0.5 mg tablet 0.5 mg PO BID PRN #30 tablet 09/04/21 Rx lisinopril 40 mg tablet 40 mg PO DAILY #30 tablet 09/17/21 Rx Laboratory Tests 10/19/21 10/19/21 10/19/21 18:22 18:22 18:22 WBC 10.8 K/mm3 H K/mm3 (4.5-10.0) RBC 5.68 M/mm3 M/mm3 (4.6-6.20) Hgb 14.0 g/dL g/dL (14.0-18.0) Hct 45.7 % % (42.0-52.0) MCV 80.5 fl fl (80-100) MCH 24.6 pg L pg (26-34) MCHC 30.6 g/dl L g/dl (32-36) RDW 19.1 % H % (11.5-14.5) Plt Count 344 k/mm3 k/mm3 (150-375) MPV 8.9 fl fl (7.4-10.4) Immature Gran % (Auto) 0.6 % H % (0-0.5) Neut % (Auto) 81.8 % H % (45.5-73.1) Lymph % (Auto) 10.7 % L % (18.3-44.2) [place] % (Auto) 5.1 % % (2.6-8.5) Eos % (Auto) 1.2 % % (0-4.4) Baso % (Auto) 0.6 % % (0.2-1.2) Lymph # (Auto) 1.15 K/mm3 K/mm3 (0.9-3.2) [place] # (Auto) 0.6 K/mm3 K/mm3 (0.1-0.6) Eos # (Auto) 0.1 K/mm3 K/mm3 (0-0.3) Baso # (Auto) 0.1 K/mm3 K/mm3 (0.0-0.1) Abs Immat Gran (auto) 0.06 K/mm3 H K/mm3 (0.00-0.031) Absolute Neuts (auto) 8.8 K/mm3 H K/mm3 (1.3-6.7) Absolute Nucleated RBC 0.0 K/mm3 K/mm3 (0.0-0.012) Nucleated RBC % 0.0 % % (0.0-0.2) Sodium 132 mmol/L L mmol/L (137-145) Potassium 4.6 mmol/L mmol/L (3.4-5.0) Chloride 89 mmol/L L mmol/L (98-107) Carbon Dioxide 23 mmol/L mmol/L (22-30) Anion Gap 20 mmol/L H mmol/L (8-16) BUN 39 mg/dL H D mg/dL (9-20) Creatinine 2.50 mg/dL H mg/dL (0.7-1.3) Estim Creat Clear Calc 38 ml/min ml/min Estimated GFR 27 L (59 - ) Glucose 114 mg/dL H mg/dL (65-110) Lactic Acid 8.8 mmol/L H* mmol/L (0.7-2.1) Calcium 9.0 mg/dL mg/dL (8.4-10.2) Total Bilirubin 1.2 mg/dL mg/dL (0.2-1.3) AST 45 U/L U/L (17-59) ALT 28 U/L U/L (4-50) Alkaline Phosphatase 262 U/L H U/L (38-126) Total Protein 7.0 g/dL g/dL (6.3-8.2) Albumin 3.3 g/dL L g/dL (3.5-5.1) Urine Color Urine Appearance Urine pH Ur Specific [place] Urine Protein Urine Glucose (UA) Urine Ketones Ur Blood (Man) Urine Nitrate Urine Bilirubin Urine Urobilinogen Leukocyte Esterase Rfl Urine RBC Urine WBC Urine Bacteria SARS-CoV-2 RNA (RT-P
--- NOTE | 2021-10-20 00:12 | WPDANESCVCPN ---
Anes - Cent Venous Cath Note Consent: I have discussed with the patient/family/POA, the non-emergent placement of a central venous catheter, including its clinical necessity/indication and associated potential risks and complications. The patient/family/POA understand(s) and acknowledge(s) the need to proceed with central venous catheter insertion as an important element of the patient's clinical management given emergent patient conditions, temporal constraints may have precluded informed consent. Time-Out: A pre-procedural Time-Out was completed immediately before starting the procedure and confirmed: Patient Identification, Site, Procedure, Patient Position and the Availability of Requisite Equipment. Procedure Note Clinical Indications: sepsis Patient position: trendelenburg Central venous catheter insertion site: left internal jugular (cannulated carotid removed pressure held LIJ u/s used) CVC method of insertion: ultrasound-guided Hand hygiene/Aseptic technique: Hand hygiene procedures were performed. Aseptic technique was maintained throughout the procedure. Sterile barrier precautions: Maximal sterile barrier precautions, including use of a cap, mask, sterile gown, sterile gloves and a sterile full body drape. Site prep: chlorhexidine Skin anesthesia: placed under general anesthesia Croatian: 7 Lumen: 3 Length (cm): 15 cm Depth of insertion (cm): 15 Closure/Dressing: suture, biopatch and tegaderm Complications: None immediately noted/suspected. Chest X Ray: Ordered/review to follow. Procedure comments: attempt RIJ cannulated carotid. Cath removed. LIJ u/s used to visualize placed single stick.
--- NOTE | 2021-10-20 00:14 | SUR.OPER ---
correction triple lumen placement left IJ. to ICU anesthesia head of bed, full monitor on, O2 via endotracheal tube.
--- NOTE | 2021-10-20 00:42 | WPDANESACPN ---
Arterial Cath Proc Note Consent: I have discussed with the patient/family/POA, the non-emergent placement of an arterial catheter, including its clinical necessity/indication and associated potential risks and complications. The patient/family/POA and/or understand(s) and acknowledge(s) the need to proceed with the arterial catheter insertion as an important element of the patient's clinical management. Given emergent patient conditions, temporal constraints may have precluded informed consent. Time-Out: A pre-procedural Time-Out was completed immediately before starting the procedure and confirmed: Patient Identification, Site, Procedure, Patient Position and the Availability of Requisite Equipment. Procedure Note Patient position: supine Insertion site: left radial Method of insertion: surface landmarks [employer] prep: sterile gloves, mask and hat Site prep: chlorahexadine Skin anesthesia: general anesthesia Gauge: 20 gauge Length (cm): 4.4 cm Closure/Dressing: tegaderm Complications: None immediately noted/suspected.
--- NOTE | 2021-10-20 01:08 | PM.IMCN ---
Assessment and Plan Assessment and plan (1) Septic shock: Code(s): A41.9 - Sepsis, unspecified organism; R65.21 - Severe sepsis with septic shock Status: Acute Assessment and Plan: Due to perforated viscus. Blood cultures have been obtained. Empiric antibiotic therapy with Zosyn ordered. The patient received adequate volume resuscitation with 7 L of isotonic fluids between ER in OR. Will continue IV fluid hydration with LR at 150 mL an hour. Patient remains hypotensive despite Levophed subsequently vasopressin has been ordered. (2) Perforation of sigmoid colon due to diverticulitis: Code(s): K57.20 - Diverticulitis of large intestine with perforation and abscess without bleeding Status: Acute Assessment and Plan: Patient is postop and has a new colostomy. PINA drain output of 80 mL immediately postop. Management per primary service. (3) Acute kidney injury: Code(s): N17.9 - Acute kidney failure, unspecified Status: Acute Assessment and Plan: Due to hypotension/septic shock. Continue IV fluid hydration and pressor support. Monitor urine output closely. Repeat CMP with a.m. 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 Will change the patient's Keppra 500 mg IV q.12 hours. Patient does have a large left subcapsular hematoma correlating with his renal mass. (5) Respiratory failure: Qualifiers: Chronicity: acute Respiratory failure complication: unspecified whether with hypoxia or hypercapnia Qualified Code(s): J96.00 - Acute respiratory failure, unspecified whether with hypoxia or hypercapnia Code(s): J96.90 - Respiratory failure, unspecified, unspecified whether with hypoxia or hypercapnia Status: Acute Assessment and Plan: Patient remains intubated postop for airway protection. Initial vent settings AC CMV tidal volume 450 rate of 18 peep of 5 patient's morning ABG reviewed demonstrated PO2 greater than 100 subsequently FiO2 has been weaned to 50%. Patient remains on sedation with fentanyl and Versed. (6) Lactic acidosis: Code(s): E87.2 - Acidosis Status: Acute Additional Plan 80 minute spent in critical care activities Due to a high probability of clinically significant, life threatening deterioration, the patient required my highest level of preparedness to intervene emergently and I personally spent this critical care time directly and personally managing the patient. This critical care time included obtaining a history; examining the patient; pulse oximetry; ordering and review of studies; arranging urgent treatment with development of a management plan; evaluation of patient's response to treatment; frequent reassessment; and discussions with other providers. It was exclusive of separately billable procedures and treating other patients and teaching time. Please see Assessment and Plan section and the rest of the note for further information on patient assessment and treatment. HPI Data of Consult Consult date: 10/20/21 Requesting Physician: Petrona Monroe MD Primary Care Provider: Ottoniel Cline MD Consult Narrative Reason for consult: Medical management Narrative: Jeffry Shaffer is a 56 year old male with past medical history of hypertension, diabetes, BPH and recent diagnosis of metastatic renal cell carcinoma who presented to the ER via EMS due to weakness. The patient was recently diagnosed with renal cell carcinoma August 20, 2021. At that time he presented with neurologic symptoms and has CT scan of brain and MRI of the brain which demonstrated multiple focal lesions consistent with metastatic disease. He has a known lar
[2021-10-20] MEDS: MIDAZOLAM HCL (*CRX) 2 MG/2 ML VIAL IV PUSH (01:09)
[2021-10-20] MEDS: MIDAZOLAM 100MG/NS 100ML(*CRX) 100 MG/100 ML BAG IV CONT (01:09)
[2021-10-20] MEDS: FENTANYL 2,500MCG/NS250ML(*CRX 2,500 MCG/250 ML BAG IV CONT (01:10)
--- NOTE | 2021-10-20 01:12 | PC.NURSE ---
This patient, Jeffry Shaffer, was received from OR on 10/20/21 at 0020. Levophed infusing at 20 mcg/min via peripheral line. Report reveived from Aixa VOGT. Patient/family oriented to unit policies and routines
[2021-10-20 01:13] LABS: Lactic Acid 8.2 mmol/L (0.7-2.1)
[2021-10-20 02:00] LABS: Hemoglobin 12.2 g/dL (14.0-18.0)
[2021-10-20 02:23] LABS: Glucose Point of Care 118 mg/dl (65-105)
[2021-10-20] MEDS: VASOPRESSIN INJ 100 UNITS in DEXTROSE 5% 95 ML IV CONT (02:30)
[2021-10-20] MEDS: DEXAMETHASONE SOD PHOS INJ 4 MG/ML VIAL IV PUSH (02:31)
[2021-10-20] MEDS: SODIUM BICARBONATE 8.4% 50 MEQ/50 ML SYRINGE 100 MEQ IV PUSH ×2 (02:32→04:20)
[2021-10-20 02:47] LABS: Lactic Acid Reflex 7.9 mmol/L (0.7-2.1)
[2021-10-20] MEDS: LACTATED RINGERS 1,000 ML 150 ML IV CONT ×3 (03:03→17:24)
[2021-10-20] MEDS: NOREPINEPHRINE 8 MG/D5W 250 ML 8 MG/250 ML BAG 56.25 MG IV CONT ×2 (04:27→08:56)
[2021-10-20 05:21] LABS: Alveolar/Arterial O2 Gradient 521.1 mmHg; Base Excess ABG 2.8 mEq/l (+/-2.0); Fractional Inspired Oxygen 100 %; HCO3 ABG 27.4 mEq/l (22.0-26.0); Methemoglobin ABG 0.3 %THb (0-1.5); Oxygen Content ABG 20.3 %vol (16.0-22.0); Oxyhemoglobin 97.6 % THb (90.0-100.0); PCO2 ABG 42.1 mmHg (35.0-45.0); PO2 ABG 149.8 mmHg (80.0-100.0); Reduced Hemoglobin 1.1 %THb (0-5.0); Total Hemoglobin 14.6 g/dL (12.0-18.0); pH ABG 7.431 (7.350-7.450)
[2021-10-20 05:23] LABS: Device VENTILATOR; Modified Allen's Test Pass; Site Drawn RIGHT RADIAL
[2021-10-20 05:24] LABS: Arterial Blood Gas PEEP 5 cmH2O; Arterial Blood Gas Tidal Volume 450 ml; Arterial Blood Gas Vent Mode CMV; Arterial Blood Gas Ventilator rate 18 /MIN
[2021-10-20 06:42] LABS: Hematocrit 40.9 % (42.0-52.0); Hemoglobin 12.5 g/dL (14.0-18.0); Mean Corpuscular HGB Conc 30.6 g/dl (32-36); Mean Corpuscular Volume 81.8 fl (80-100); Mean Platelet Volume 9.3 fl (7.4-10.4); Platelet Count Result 321 k/mm3 (150-375); Red Cell Distribution Width 18.6 % (11.5-14.5); White Blood Count 8.9 K/mm3 (4.5-10.0)
[2021-10-20 06:49] LABS: Alanine Aminotransferase 18 U/L (4-50); Albumin Level 2.5 g/dL (3.5-5.1); Alkaline Phosphatase 141 U/L (38-126); Anion Gap 11 mmol/L (8-16); Aspartate Amino Transferase 43 U/L (17-59); Bilirubin,Total 1.3 mg/dL (0.2-1.3); Blood Urea Nitrogen 32 mg/dL (9-20); Calcium 7.6 mg/dL (8.4-10.2); Carbon Dioxide 26 mmol/L (22-30); Chloride 96 mmol/L (98-107); Estimated CRCL calculation 49 ml/min; Estimated Glomerular Filt Rate 35; Glucose 128 mg/dL (65-110); Potassium 4.3 mmol/L (3.4-5.0); Sodium 133 mmol/L (137-145)
[2021-10-20] MEDS: CENTRAL LINE FLUSH 10 ML IV PUSH ×4 (06:52→20:02)
--- NOTE | 2021-10-20 08:10 | WPDANESPN ---
Anes - Prog Note Post-Op Date/Time: 10/20/21 08:10 Cardiovascular status: other (on vasopressin& norepi gtt) Respiratory status: other (intubated and on vent) Airway patency: baseline Mental status: other (sedated versed & fent gtt) Post-Op hydration status: normal Vital Signs: Last Vital Signs Temp 37.2 C 10/20/21 06:00 Pulse 89 10/20/21 06:00 Resp 21 H 10/20/21 06:00 BP 99/86 L 10/20/21 06:00 Pulse Ox 95 10/20/21 06:00 Pain Score (VAS): 0 I/O: Intake & Output 10/19/21 10/20/21 10/20/21 23:59 07:59 15:59 Intake Total 3100 300 Output Total 1560 Balance 3100 -1260 Laboratory Tests 10/20/21 06:23 10/19/21 10/19/21 10/19/21 18:22 18:22 18:22 WBC 10.8 H RBC 5.68 Hgb 14.0 Hct 45.7 MCV 80.5 MCH 24.6 L MCHC 30.6 L RDW 19.1 H Plt Count 344 MPV 8.9 Immature Gran % (Auto) 0.6 H Neut % (Auto) 81.8 H Lymph % (Auto) 10.7 L [place] % (Auto) 5.1 Eos % (Auto) 1.2 Baso % (Auto) 0.6 Lymph # (Auto) 1.15 [place] # (Auto) 0.6 Eos # (Auto) 0.1 Baso # (Auto) 0.1 Abs Immat Gran (auto) 0.06 H Absolute Neuts (auto) 8.8 H Absolute Nucleated RBC 0.0 Nucleated RBC % 0.0 Puncture Site ABG pH ABG pCO2 ABG pO2 ABG PO2/FiO2 Ratio ABG HCO3 ABG O2 Saturation ABG O2 Content ABG Base Excess A-a Gradient Oxyhemoglobin Carboxyhemoglobin Methemoglobin Reduced Hemoglobin Total Hemoglobin O2 Delivery Device O2 Liters/Min Minute Volume Vent Rate Vent Mode FiO2 Tidal Volume PEEP Peak Inspir Pressure Pressure Support Sodium 132 L Potassium 4.6 Chloride 89 L Carbon Dioxide 23 Anion Gap 20 H BUN 39 H D Creatinine 2.50 H Estim Creat Clear Calc 38 Estimated GFR 27 L Glucose 114 H POC Capillary Glucose Lactic Acid 8.8 H* Calcium 9.0 Total Bilirubin 1.2 AST 45 ALT 28 Alkaline Phosphatase 262 H Total Protein 7.0 Albumin 3.3 L Urine Color Urine Appearance Urine pH Ur Specific [place] Urine Protein Urine Glucose (UA) Urine Ketones Ur Blood (Man) Urine Nitrate Urine Bilirubin Urine Urobilinogen Leukocyte Esterase Rfl Urine RBC Urine WBC Urine Bacteria SARS-CoV-2 RNA (RT-PCR) Blood Type Antibody Screen 10/19/21 10/19/21 10/19/21 19:53 19:58 22:04 WBC RBC Hgb Hct MCV MCH MCHC RDW Plt Count MPV Immature Gran % (Auto) Neut % (Auto) Lymph % (Auto) [place] % (Auto) Eos % (Auto) Baso % (Auto) Lymph # (Auto) [place] # (Auto) Eos # (Auto) Baso # (Auto) Abs Immat Gran (auto) Absolute Neuts (auto) Absolute Nucleated RBC Nucleated RBC % Puncture Site ABG pH ABG pCO2 ABG pO2 ABG PO2/FiO2 Ratio ABG HCO3 ABG O2 Saturation ABG O2 Content ABG Base Excess A-a Gradient Oxyhemoglobin Carboxyhemoglobin Methemoglobin Reduced Hemoglobin Total Hemoglobin O2 Delivery Device O2 Liters/Min Minute Volume Vent Rate Vent Mode FiO2 Tidal Volume PEEP Peak Inspir Pressure Pressure Support Sodium Potassium Chloride Carbon Dioxide Anion Gap BUN Creatinine Estim Creat Clear Calc Estimated GFR Glucose POC Capillary Glucose Lactic Acid 8.2 H* Calcium Total Bilirubin AST ALT Alkaline Phosphatase Total Protein Albumin Urine Color [place] Urine Appearance Clear Urine pH 5.0 Ur Specific [place] 1.023 Urine Protein 1+ H Urine Glucose (UA) Negative Urine Ketones Negative Ur Blood (Man) 3+ H Urine Nitrate Negative Urine Bilirubin Negative Urine Urobilinogen Negative Leukocyte Esterase Rfl Negative Urine RBC 21-50 H Urine WBC 0-3 Urine Bacteria Trace SARS-CoV-2 RNA (RT-PCR) Negative Blood Typ
[2021-10-20] MEDS: PANTOPRAZOLE 40 MG TABLET PO (08:25)
[2021-10-20] MEDS: ENOXAPARIN 40 MG/0.4 ML SYRINGE SUB-Q (08:25)
[2021-10-20] MEDS: levETIRAcetam 500MG/NACL 100ML 500 MG/100 ML BAG 400 MG IVPB ×2 (08:27→20:01)
[2021-10-20] MEDS: hetaSTARCH 6%/NACL 500 ML 250 ML IV CONT (08:43)
[2021-10-20] MEDS: MINERAL OIL/WHITE PETROLATUM OINTMENT 1 APPLIC EACH EYE ×2 (08:43→20:02)
[2021-10-20 09:01] LABS: Band Neutrophils Percent 40 % (0-6); Lymphocytes Absolute Manual 1.06 K/mm3 (1.1-4.5); Monocytes Absolute Manual 0.26 K/mm3 (0.1-0.90); Monocytes Percent Manual 3 % (3-9); Neutrophils Absolute Manual 7.56 K/mm3 (1.3-6.7); Neutrophils Percent Manual 45 % (46-73); Platelet Estimate Adequate (Adequate); Total Cells Counted 100
[2021-10-20 09:34] LABS: Reflex Lactic Acid Yes or No Add Lactic
--- NOTE | 2021-10-20 10:55 | WPDCNINT ---
Assessment and Plan Assessment and plan (1) Septic shock: Code(s): A41.9 - Sepsis, unspecified organism; R65.21 - Severe sepsis with septic shock Status: Acute Assessment and Plan: Septic shock most likely related perforated bowel status post Porfirio procedure, ostomy, washout -patient received total of 7 L of IV fluids between the ER in the OR. -currently on Levophed and vasopressin, will maintain mean arterial pressures greater than 65 mmHg for adequate end organ perfusion -continue Zosyn (10/20) -continue monitor urine -lactic acid trending down, continue to monitor -started patient was stress dose steroids (2) Respiratory failure: Qualifiers: Chronicity: acute Respiratory failure complication: unspecified whether with hypoxia or hypercapnia Qualified Code(s): J96.00 - Acute respiratory failure, unspecified whether with hypoxia or hypercapnia Code(s): J96.90 - Respiratory failure, unspecified, unspecified whether with hypoxia or hypercapnia Status: Acute Assessment and Plan: Respiratory failure likely related to septic shock, post surgery Currently on CMV mode of ventilation, increase PEEP to 5 and decreased FiO2 to 50%, also increase the tidal volume to 500 decrease the rate to 60 -chest x-ray and ABGs reviewed -will add bronchodilators -fentanyl Versed infusion, maintain RASS of 0 to -2 (3) Bowel perforation: Code(s): K63.1 - Perforation of intestine (nontraumatic) Status: Acute Assessment and Plan: 10/19/2021: Perforated viscus, septic shock, ex lap with Porfirio's procedure, mobilization of splenic flexure, extensive intra-abdominal washout, colostomy -surgery following the patient, -continue Zosyn (4) Acute kidney injury: Code(s): N17.9 - Acute kidney failure, unspecified Status: Acute Assessment and Plan: Acute kidney injury likely related to perforated viscus, septic shock, hypotension, hypovolemia, ATN, infection -patient has received adequate amount of IV fluids - Continue maintenance IV fluids -continue vasopressors to maintain adequate mean arterial pressures for adequate end organ perfusion -monitor renal function, lytes and urine out (5) Renal cell carcinoma: Qualifiers: Laterality: unspecified laterality Qualified Code(s): C64.9 - Malignant neoplasm of unspecified kidney, except renal pelvis Code(s): C64.9 - Malignant neoplasm of unspecified kidney, except renal pelvis Status: Acute Assessment and Plan: Patient has a history of renal cell carcinoma with Mets to the brain, bones, adrenals, lung nodules, retroperitoneal -patient is on Decadron, which will hold as patient is on stress dose steroids -continue Keppra IV (6) DVT prophylaxis: Code(s): Z29.9 - Encounter for prophylactic measures, unspecified Status: Acute Assessment and Plan: Prophylactic Lovenox Additional Plan Stress ulcer prophylaxis: Protonix Nutrition: NPO for now Will update family Code status: Full code Critical care time spent: 51 minutes This dictation may have been done utilizing a voice recognition system. Attempts have been made to correct errors. However, there may be uncorrected grammatical, spelling, and recognition errors present. Due to a high probability of clinically significant, life threatening deterioration, the patient required my highest level of preparedness to intervene emergently and I personally spent this critical care time directly and personally managing the patient. This critical care time included obtaining a history; examining the patient; pulse oximetry; ordering and review of studies; arranging urgent treatment with development of a management plan; evaluation of patient's response to treatment; frequent reassessment; and discussions with other providers. It was exclusive of separately billable procedures and treating other patients and teaching time. Please see Assessment and Plan
[2021-10-20 11:12] LABS: Lactic Acid 4.9 mmol/L (0.7-2.1)
--- NOTE | 2021-10-20 11:17 | PM.PNGS ---
Progress Note: A&P Assessment and Plan (1) Perforation of sigmoid colon due to diverticulitis: Code(s): K57.20 - Diverticulitis of large intestine with perforation and abscess without bleeding Status: Acute Assessment and Plan: s/p Hartmans', cont routine postop care, await ostomy fxn (2) Septic shock: Code(s): A41.9 - Sepsis, unspecified organism; R65.21 - Severe sepsis with septic shock Status: Acute Assessment and Plan: wean pressors as jeison, cont abx, vent mgmt per green material value added assessor Subjective Subjective Date/Time Seen: 10/20/21 11:17 intubated, sedated, no acute issues overnight Review of Systems Review of Systems: ROS unobtainable: Yes unobtainable due to endotracheal tube Exam Resp: Auscultation: diminished lung sounds Cardio: Rate: tachycardic Rhythm: regular rhythm GI: Inspection: normal to inspection, distended and incision GI Palp: Yes Soft to palpation Other: ostomy - dusky, +sweat Objective Data Vital Signs Vital Signs: Vital Signs - 24 hr 10/19/21 17:59 10/19/21 18:40 10/19/21 19:24 Temperature 36.6 C Pulse Rate 95 95 96 Respiratory Rate 20 19 26 H Blood Pressure 87/67 L 72/48 L 90/75 L Pulse Oximetry 100 94 96 10/19/21 19:25 10/19/21 20:43 10/19/21 21:06 Temperature Pulse Rate 94 92 Respiratory Rate 20 Blood Pressure 84/58 L 88/62 L Pulse Oximetry 97 94 10/19/21 21:38 10/19/21 21:49 10/20/21 00:30 Temperature Pulse Rate 96 97 98 Respiratory Rate 27 H 16 16 Blood Pressure 100/73 100/73 133/81 Pulse Oximetry 93 94 95 10/20/21 01:00 10/20/21 01:10 10/20/21 01:11 Temperature Pulse Rate 106 H 108 H 108 H Respiratory Rate 31 H 32 H Blood Pressure 131/63 129/64 Pulse Oximetry 93 10/20/21 01:15 10/20/21 01:27 10/20/21 01:31 Temperature 35.1 C L Pulse Rate 108 H 109 H Respiratory Rate 25 H 32 H Blood Pressure 120/60 Pulse Oximetry 91 92 10/20/21 01:45 02/12/22 02:00 10/20/21 02:30 Temperature 35.2 C L Pulse Rate 105 H 108 H 106 H Respiratory Rate 27 H Blood Pressure 88/48 L 96/53 L Pulse Oximetry 92 10/20/21 02:45 10/20/21 04:00 10/20/21 05:37 Temperature 36.2 C L Pulse Rate 106 H 99 Respiratory Rate 22 H Blood Pressure 89/49 L Pulse Oximetry 98 93 10/20/21 06:00 10/20/21 08:22 10/20/21 08:23 Temperature 37.2 C Pulse Rate 89 84 89 Respiratory Rate 21 H 20 Blood Pressure 99/86 L 105/80 Pulse Oximetry 95 10/20/21 08:24 10/20/21 08:40 10/20/21 08:54 Temperature Pulse Rate 89 82 83 Respiratory Rate 21 H Blood Pressure 99/86 L 99/86 L Pulse Oximetry 97 10/20/21 08:56 Temperature Pulse Rate 83 Respiratory Rate Blood Pressure Pulse Oximetry Intake/Output Intake/Output: Intake & Output 10/17/21 10/18/21 10/19/21 10/20/21 23:59 23:59 23:59 23:59 Intake Total 3100 650 Output Total 1560 Balance 3100 -910 Meds/Results Medications: Active Medications Generic Name Dose Route Start Last Admin Trade Name Freq PRN Reason Stop Dose Admin Dextrose 12.5 gm 10/20/21 01:09 Dextrose 50% 25 Gm/50 Ml Syringe IV PUSH PRN PRN Hypoglycemia Protocol Enoxaparin Sodium 40 mg 10/20/21 09:00 10/20/21 08:25 Enoxaparin 40 Mg/0.4 Ml Syringe SUB-Q 40 mg DAILY JOHNSON Administration Glucagon 1 mg 10/20/21 01:09 Glucagon For Inj 1 Mg Vial IM PRN PRN Hypoglycemia Protocol Glucose 15 gm 10/20/21 01:09 Glucose Oral Gel 15 Gm Of Glucse In 37.5 Gm Tube PO PRN PRN Hypoglycemia Protocol Hydrocortisone Sodium Succinate 100 mg 10/20/21 14:00 Hydrocortisone Sodium Succinate 100 Mg/2 Ml Vial IV PUSH Q8HR JOHNSON Norepinephrine Bitartrate 8 mg in 250 mls @ 56.25 mls/hr 10/19/21 20:30 10/20/21 08:56 Levophed 8 Mg/D5w 250 Ml IV CONT 30 mcg/min .Q4H27M JOHNSON 56.25 mls/hr Administration Protocol 30 MCG/MIN Fentanyl Citrate 2,500 mcg in 250 mls @ 7.5 mls/hr 02
[2021-10-20 11:57] LABS: Glucose Point of Care 140 mg/dl (65-105)
[2021-10-20] MEDS: HYDROCORTISONE SODIUM SUCCINATE 100 MG/2 ML VIAL IV PUSH ×2 (13:04→20:02)
--- NOTE | 2021-10-20 14:18 | PM.IMPN ---
Progress Note: A&P Assessment and Plan (1) Septic shock: Code(s): A41.9 - Sepsis, unspecified organism; R65.21 - Severe sepsis with septic shock Status: Acute Assessment and Plan: Septic shock most likely related perforated bowel status post Porfirio procedure, ostomy, washout -patient received total of 7 L of IV fluids between the ER in the OR. -currently on Levophed and vasopressin, will maintain mean arterial pressures greater than 65 mmHg for adequate end organ perfusion -continue Zosyn (10/20) -continue monitor urine -lactic acid trending down, continue to monitor -started patient was stress dose steroids 10/20/2021 interval history: patient is a 56-year-old male with recent history of metastatic renal cell carcinoma with the largest right renal mass presented emergency department with weakness and abdominal pain CT scan abdomen showed perforated viscus, patient was hypotensive received total of 7 L of fluids, currently patient on vent, on pressors, and Zosyn, seen by rug underlay machine operator and surgery service and appreciate. (2) Respiratory failure: Qualifiers: Chronicity: acute Respiratory failure complication: unspecified whether with hypoxia or hypercapnia Qualified Code(s): J96.00 - Acute respiratory failure, unspecified whether with hypoxia or hypercapnia Code(s): J96.90 - Respiratory failure, unspecified, unspecified whether with hypoxia or hypercapnia Status: Acute Assessment and Plan: Respiratory failure likely related to septic shock, post surgery Currently on CMV mode of ventilation, increase PEEP to 5 and decreased FiO2 to 50%, also increase the tidal volume to 500 decrease the rate to 60 -chest x-ray and ABGs reviewed -will add bronchodilators -fentanyl Versed infusion, maintain RASS of 0 to -2 (3) Bowel perforation: Code(s): K63.1 - Perforation of intestine (nontraumatic) Status: Acute Assessment and Plan: 10/19/2021: Perforated viscus, septic shock, ex lap with Porfirio's procedure, mobilization of splenic flexure, extensive intra-abdominal washout, colostomy -surgery following the patient, -continue Zosyn (4) Acute kidney injury: Code(s): N17.9 - Acute kidney failure, unspecified Status: Acute Assessment and Plan: Acute kidney injury likely related to perforated viscus, septic shock, hypotension, hypovolemia, ATN, infection -patient has received adequate amount of IV fluids - Continue maintenance IV fluids -continue vasopressors to maintain adequate mean arterial pressures for adequate end organ perfusion -monitor renal function, lytes and urine out (5) Renal cell carcinoma: Qualifiers: Laterality: unspecified laterality Qualified Code(s): C64.9 - Malignant neoplasm of unspecified kidney, except renal pelvis Code(s): C64.9 - Malignant neoplasm of unspecified kidney, except renal pelvis Status: Acute Assessment and Plan: Patient has a history of renal cell carcinoma with Mets to the brain, bones, adrenals, lung nodules, retroperitoneal -patient is on Decadron, which will hold as patient is on stress dose steroids -continue Keppra IV (6) DVT prophylaxis: Code(s): Z29.9 - Encounter for prophylactic measures, unspecified Status: Acute Assessment and Plan: Prophylactic Lovenox Subjective Date/time seen: 10/20/21 14:18 HPI Jeffry Shaffer is a 56 year old male with past medical history of hypertension, diabetes, BPH and recent diagnosis of metastatic renal cell carcinoma who presented to the ER via EMS due to weakness. The patient was recently diagnosed with renal cell carcinoma August 20, 2021. At that time he presented with neurologic symptoms and has CT scan of brain and MRI of the brain which demonstrated multiple focal lesions consistent with metastatic disease. He has a known large right renal mass with metastases to retroperitoneal, lungs and left adrenal gland. The patient has had p
[2021-10-20] MEDS: NOREPINEPHRINE 8 MG/D5W 250 ML 8 MG/250 ML BAG 35.63 MG IV CONT (15:19)
--- NOTE | 2021-10-20 17:22 | PCRCNOTE ---
Window of time for administration has passed. See next scheduled administration.
[2021-10-20 17:33] LABS: Glucose Point of Care 160 mg/dl (65-105)
[2021-10-20] MEDS: IPRATROPIUM BR 0.02% INH SOLN 0.5 MG/2.5 ML VIAL INHALATION (20:24)
[2021-10-20] MEDS: LEVALBUTEROL NEB 1.25 MG/3 ML 0.63 MG INHALATION (20:24)
[2021-10-20] MEDS: NOREPINEPHRINE 8 MG/D5W 250 ML 8 MG/250 ML BAG 30 MG IV CONT (22:01)
[2021-10-21] VITALS (54 sets, daily range): BP systolic 92–131; BP diastolic 47–86; PULSE 60–109; RESP 14–32; TEMP 36.1–36.9; O2SAT 92–98
[2021-10-21] MEDS: LACTATED RINGERS 1,000 ML 150 ML IV CONT (00:21)
[2021-10-21 01:01] LABS: Glucose Point of Care 195 mg/dl (65-105)
[2021-10-21] MEDS: LEVALBUTEROL NEB 1.25 MG/3 ML 0.63 MG INHALATION ×4 (02:20→20:02)
[2021-10-21] MEDS: IPRATROPIUM BR 0.02% INH SOLN 0.5 MG/2.5 ML VIAL INHALATION ×4 (02:20→20:02)
[2021-10-21 05:02] LABS: Alveolar/Arterial O2 Gradient 151.3 mmHg; Fractional Inspired Oxygen 40 %; Methemoglobin ABG 0.3 %THb (0-1.5); Oxygen Content ABG 17.7 %vol (16.0-22.0); Oxygen Saturation ABG 96.4 % (95.0-100.0); Oxyhemoglobin 94.8 % THb (90.0-100.0); PCO2 ABG 42.9 mmHg (35.0-45.0); PO2 ABG 84.6 mmHg (80.0-100.0); PO2 FiO2 Ratio Arterial Blood 2.12 %; Reduced Hemoglobin 3.9 %THb (0-5.0); Total Hemoglobin 13.2 g/dL (12.0-18.0)
[2021-10-21 05:09] LABS: Device VENTILATOR; Site Drawn ARTLINE
[2021-10-21 05:10] LABS: Arterial Blood Gas PEEP 8 cmH2O; Arterial Blood Gas Tidal Volume 500 ml; Arterial Blood Gas Vent Mode CMV; Arterial Blood Gas Ventilator rate 16 /MIN
[2021-10-21 05:25] LABS: Hematocrit 34.9 % (42.0-52.0); Hemoglobin 10.5 g/dL (14.0-18.0); Mean Corpuscular HGB Conc 30.1 g/dl (32-36); Mean Corpuscular Hemoglobin 24.5 pg (26-34); Mean Corpuscular Volume 81.4 fl (80-100); Mean Platelet Volume 8.9 fl (7.4-10.4); Platelet Count Result 282 k/mm3 (150-375); Red Blood Count 4.29 M/mm3 (4.6-6.20); Red Cell Distribution Width 18.8 % (11.5-14.5); White Blood Count 10.2 K/mm3 (4.5-10.0)
[2021-10-21] MEDS: FENTANYL 2,500MCG/NS250ML(*CRX 2,500 MCG/250 ML BAG 10 MCG IV CONT (05:26)
[2021-10-21] MEDS: HYDROCORTISONE SODIUM SUCCINATE 100 MG/2 ML VIAL IV PUSH ×3 (05:27→21:02)
[2021-10-21] MEDS: CENTRAL LINE FLUSH 10 ML IV PUSH ×3 (05:27→21:15)
[2021-10-21 05:37] LABS: Lactic Acid Reflex 2.1 mmol/L (0.7-2.1)
[2021-10-21 05:41] LABS: Alanine Aminotransferase 16 U/L (4-50); Albumin Level 2.2 g/dL (3.5-5.1); Alkaline Phosphatase 126 U/L (38-126); Anion Gap 9 mmol/L (8-16); Aspartate Amino Transferase 34 U/L (17-59); Bilirubin,Total 0.9 mg/dL (0.2-1.3); Blood Urea Nitrogen 30 mg/dL (9-20); Calcium 7.1 mg/dL (8.4-10.2); Carbon Dioxide 28 mmol/L (22-30); Chloride 97 mmol/L (98-107); Estimated CRCL calculation 57 ml/min; Estimated Glomerular Filt Rate 42; Glucose 208 mg/dL (65-110); Magnesium 2.6 mg/dL (1.6-2.3); Phosphorus 4.6 mg/dL (2.5-4.5); Potassium 3.6 mmol/L (3.4-5.0); Sodium 134 mmol/L (137-145)
[2021-10-21] MEDS: INSULIN ASPART (*BKC) 100 UNITS/ML SUB-Q ×2 (06:40→18:18)
[2021-10-21] MEDS: LACTATED RINGERS 1,000 ML 100 ML IV CONT (06:42)
[2021-10-21 06:48] LABS: Glucose Point of Care 205 mg/dl (65-105)
[2021-10-21 06:58] LABS: Hemoglobin A1C 8.7 % (<5.7)
[2021-10-21 07:21] LABS: Band Neutrophils Percent 14 % (0-6); Lymphocytes Absolute Manual 1.53 K/mm3 (1.1-4.5); Monocytes Absolute Manual 0.51 K/mm3 (0.1-0.90); Monocytes Percent Manual 5 % (3-9); Neutrophils Absolute Manual 8.16 K/mm3 (1.3-6.7); Neutrophils Percent Manual 66 % (46-73); Platelet Estimate Adequate (Adequate); Total Cells Counted 100
[2021-10-21 08:22] LABS: Reflex Lactic Acid Yes or No Add Lactic
[2021-10-21] MEDS: NOREPINEPHRINE 8 MG/D5W 250 ML 8 MG/250 ML BAG 16.88 MG IV CONT (08:41)
[2021-10-21] MEDS: PANTOPRAZOLE SODIUM IV 40 MG VIAL IV PUSH ×2 (08:43→20:32)
[2021-10-21] MEDS: ENOXAPARIN 40 MG/0.4 ML SYRINGE SUB-Q (08:44)
[2021-10-21] MEDS: levETIRAcetam 500MG/NACL 100ML 500 MG/100 ML BAG 400 MG IVPB ×2 (08:46→20:54)
[2021-10-21 09:17] LABS: Lactic Acid 1.4 mmol/L (0.7-2.1)
--- NOTE | 2021-10-21 09:57 | WPDINTPN ---
Progress Note: A&P Assessment and Plan (1) Septic shock: Code(s): A41.9 - Sepsis, unspecified organism; R65.21 - Severe sepsis with septic shock Status: Acute Assessment and Plan: Septic shock most likely related perforated bowel status post Porfirio procedure, ostomy, washout -patient was adequately fluid-resuscitated in the ER and in the OR.. - Levophed and vasopressin requirements trending down, will maintain mean arterial pressures greater than 65 mmHg for adequate end organ perfusion -continue Zosyn (10/20) -lactic acid has normalized -continue stress dose steroids -urine output is much improved, renal function also improved -10/19: blood cultures growing gram-negative bacillary 10/10 bottles, identification and sensitivities pending (2) Respiratory failure: Qualifiers: Chronicity: acute Respiratory failure complication: unspecified whether with hypoxia or hypercapnia Qualified Code(s): J96.00 - Acute respiratory failure, unspecified whether with hypoxia or hypercapnia Code(s): J96.90 - Respiratory failure, unspecified, unspecified whether with hypoxia or hypercapnia Status: Acute Assessment and Plan: Respiratory failure likely related to septic shock, post surgery Currently on CMV mode of ventilation, increase PEEP to 5 and decreased FiO2 to 40%, also increase the tidal volume to 500 decrease the rate to 60 -chest x-ray and ABGs reviewed -continue bronchodilators -fentanyl Versed infusion, maintain RASS of 0 to -2, the vast bedside into wean of the sedation to try patient breathing trial (3) Bowel perforation: Code(s): K63.1 - Perforation of intestine (nontraumatic) Status: Acute Assessment and Plan: 10/19/2021: Perforated viscus, septic shock, ex lap with Porfirio's procedure, mobilization of splenic flexure, extensive intra-abdominal washout, colostomy -surgery following the patient, -continue Zosyn (4) Acute kidney injury: Code(s): N17.9 - Acute kidney failure, unspecified Status: Acute Assessment and Plan: Acute kidney injury likely related to perforated viscus, septic shock, hypotension, hypovolemia, ATN, infection -patient has received adequate amount of IV fluids - Continue maintenance IV fluids -continue vasopressors to maintain adequate mean arterial pressures for adequate end organ perfusion -monitor renal function, lytes and urine out -urine output and renal function improving (5) Renal cell carcinoma: Qualifiers: Laterality: unspecified laterality Qualified Code(s): C64.9 - Malignant neoplasm of unspecified kidney, except renal pelvis Code(s): C64.9 - Malignant neoplasm of unspecified kidney, except renal pelvis Status: Acute Assessment and Plan: Patient has a history of renal cell carcinoma with Mets to the brain, bones, adrenals, lung nodules, retroperitoneal -patient is on Decadron, which will hold as patient is on stress dose steroids -continue Keppra IV (6) DVT prophylaxis: Code(s): Z29.9 - Encounter for prophylactic measures, unspecified Status: Acute Assessment and Plan: Prophylactic Lovenox Additional Plan Stress ulcer prophylaxis: Protonix Nutrition: NPO for now Code status: Full code Critical care time spent: 35 minutes This dictation may have been done utilizing a voice recognition system. Attempts have been made to correct errors. However, there may be uncorrected grammatical, spelling, and recognition errors present. Due to a high probability of clinically significant, life threatening deterioration, the patient required my highest level of preparedness to intervene emergently and I personally spent this critical care time directly and personally managing the patient. This critical care time included obtaining a history; examining the patient; pulse oximetry; ordering and review of studies; arranging urgent treatment with development of a management plan; evaluation of
--- NOTE | 2021-10-21 10:44 | PM.IMPN ---
Progress Note: A&P Assessment and Plan (1) Septic shock: Code(s): A41.9 - Sepsis, unspecified organism; R65.21 - Severe sepsis with septic shock Status: Acute Assessment and Plan: Septic shock most likely related perforated bowel status post Porfirio procedure, ostomy, washout -patient received total of 7 L of IV fluids between the ER in the OR. -currently on Levophed and vasopressin, will maintain mean arterial pressures greater than 65 mmHg for adequate end organ perfusion -continue Zosyn (10/20) -continue monitor urine -lactic acid trending down, continue to monitor -started patient was stress dose steroids 10/20/2021 interval history: patient is a 56-year-old male with recent history of metastatic renal cell carcinoma with the largest right renal mass presented emergency department with weakness and abdominal pain CT scan abdomen showed perforated viscus, patient was hypotensive received total of 7 L of fluids, currently patient on vent, on pressors, and Zosyn, seen by religion department chair and surgery service and appreciate. 10/21/2021 interval history: patient is a 56-year-old male with recent history of metastatic renal cell carcinoma with the largest right renal mass presented emergency department with weakness and abdominal pain CT scan abdomen showed perforated viscus, patient was taken to the OR and had exploratory laparotomy and washout, patient was hypotensive received total of 7 L of fluids, currently patient on vent, on pressors, and Zosyn, seen by religion department chair and surgery service and appreciate. (2) Respiratory failure: Qualifiers: Chronicity: acute Respiratory failure complication: unspecified whether with hypoxia or hypercapnia Qualified Code(s): J96.00 - Acute respiratory failure, unspecified whether with hypoxia or hypercapnia Code(s): J96.90 - Respiratory failure, unspecified, unspecified whether with hypoxia or hypercapnia Status: Acute Assessment and Plan: Respiratory failure likely related to septic shock, post surgery Currently on CMV mode of ventilation, increase PEEP to 5 and decreased FiO2 to 50%, also increase the tidal volume to 500 decrease the rate to 60 -chest x-ray and ABGs reviewed -will add bronchodilators -fentanyl Versed infusion, maintain RASS of 0 to -2 (3) Bowel perforation: Code(s): K63.1 - Perforation of intestine (nontraumatic) Status: Acute Assessment and Plan: 10/19/2021: Perforated viscus, septic shock, ex lap with Porfirio's procedure, mobilization of splenic flexure, extensive intra-abdominal washout, colostomy -surgery following the patient, -continue Zosyn (4) Acute kidney injury: Code(s): N17.9 - Acute kidney failure, unspecified Status: Acute Assessment and Plan: Acute kidney injury likely related to perforated viscus, septic shock, hypotension, hypovolemia, ATN, infection -patient has received adequate amount of IV fluids - Continue maintenance IV fluids -continue vasopressors to maintain adequate mean arterial pressures for adequate end organ perfusion -monitor renal function, lytes and urine out (5) Renal cell carcinoma: Qualifiers: Laterality: unspecified laterality Qualified Code(s): C64.9 - Malignant neoplasm of unspecified kidney, except renal pelvis Code(s): C64.9 - Malignant neoplasm of unspecified kidney, except renal pelvis Status: Acute Assessment and Plan: Patient has a history of renal cell carcinoma with Mets to the brain, bones, adrenals, lung nodules, retroperitoneal -patient is on Decadron, which will hold as patient is on stress dose steroids -continue Keppra IV (6) DVT prophylaxis: Code(s): Z29.9 - Encounter for prophylactic measures, unspecified Status: Acute Assessment and Plan: Prophylactic Lovenox Subjective Date/time seen: 10/21/21 10:44 10/21/2021 interval history: patient is a 56-year-old male with recent history of metastati
[2021-10-21] MEDS: EUCERIN CREAM 120 GM JAR 1 APPLIC TOPICAL (12:09)
[2021-10-21 12:18] LABS: Glucose Point of Care 163 mg/dl (65-105)
--- NOTE | 2021-10-21 13:53 | PM.PNGS ---
Progress Note: A&P Assessment and Plan (1) Perforation of sigmoid colon due to diverticulitis: Code(s): K57.20 - Diverticulitis of large intestine with perforation and abscess without bleeding Status: Acute Assessment and Plan: improving, cont abx, wean pressor and vent as jeison, await ostomy fxn Subjective Subjective Date/Time Seen: 10/21/21 13:53 no acute issues, labs improved, pressor requirements significantly decreased Review of Systems Review of Systems: ROS unobtainable: Yes unobtainable due to endotracheal tube Exam Const: Other: intubated, sedated Resp: Effort & Inspection: normal respiratory effort Auscultation: diminished lung sounds Cardio: Rate: regular rate Rhythm: regular rhythm GI: Inspection: normal to inspection, distended and incision GI Palp: Yes Soft to palpation Other: ostomy - dusky, sweat noted, PINA c s/s output Objective Data Vital Signs Vital Signs: Vital Signs - 24 hr 10/20/21 14:00 10/20/21 15:19 10/20/21 15:37 Temperature 37.2 C Pulse Rate 77 77 77 Respiratory Rate 17 Blood Pressure 108/76 108/76 112/78 Pulse Oximetry 99 10/20/21 15:38 10/20/21 16:00 10/20/21 17:12 Temperature 37.2 C Pulse Rate 98 88 70 Respiratory Rate 27 H 18 Blood Pressure 130/81 Pulse Oximetry 96 97 99 10/20/21 18:00 10/20/21 19:56 10/20/21 20:00 Temperature 36.7 C Pulse Rate 71 63 Respiratory Rate 17 16 Blood Pressure 104/73 108/56 L Pulse Oximetry 99 99 10/20/21 20:03 10/20/21 20:20 10/20/21 20:30 Temperature Pulse Rate 62 72 72 Respiratory Rate 16 16 16 Blood Pressure 114/59 L Pulse Oximetry 97 10/20/21 22:00 10/20/21 22:30 10/20/21 23:03 Temperature Pulse Rate 62 61 62 Respiratory Rate 16 16 Blood Pressure 118/57 L 129/65 Pulse Oximetry 97 10/20/21 23:05 10/21/21 00:00 10/21/21 00:45 Temperature 36.4 C Pulse Rate 69 62 65 Respiratory Rate 16 Blood Pressure 117/57 L 117/55 L Pulse Oximetry 96 96 10/21/21 00:48 10/21/21 01:02 10/21/21 01:23 Temperature Pulse Rate 65 89 70 Respiratory Rate 17 Blood Pressure 131/64 123/60 Pulse Oximetry 10/21/21 02:00 10/21/21 02:15 10/21/21 02:25 Temperature Pulse Rate 66 68 68 Respiratory Rate 16 16 16 Blood Pressure 109/54 L Pulse Oximetry 96 96 10/21/21 03:01 10/21/21 04:00 10/21/21 04:05 Temperature 36.4 C L Pulse Rate 61 81 78 Respiratory Rate 16 16 Blood Pressure 106/51 L 126/62 Pulse Oximetry 95 10/21/21 04:06 10/21/21 05:26 10/21/21 05:45 Temperature Pulse Rate 78 69 65 Respiratory Rate 16 Blood Pressure 126/61 125/62 Pulse Oximetry 96 10/21/21 05:46 10/21/21 06:00 10/21/21 06:53 Temperature Pulse Rate 69 72 73 Respiratory Rate 32 H Blood Pressure 118/54 L 120/57 L 111/55 L Pulse Oximetry 96 10/21/21 07:48 10/21/21 07:52 10/21/21 07:53 Temperature Pulse Rate 77 63 71 Respiratory Rate 15 14 Blood Pressure Pulse Oximetry 96 10/21/21 08:00 10/21/21 08:41 10/21/21 08:50 Temperature 36.3 C L Pulse Rate 76 84 78 Respiratory Rate 14 16 Blood Pressure 114/55 L 125/80 Pulse Oximetry 96 10/21/21 08:51 10/21/21 08:54 10/21/21 09:50 Temperature Pulse Rate 78 75 66 Respiratory Rate 16 16 Blood Pressure 110/57 L Pulse Oximetry 10/21/21 10:00 10/21/21 10:32 10/21/21 10:58 Temperature Pulse Rate 60 62 65 Respiratory Rate 16 16 Blood Pressure 98/51 L 99/52 L Pulse Oximetry 96 10/21/21 11:23 10/21/21 11:50 10/21/21 11:59 Temperature Pulse Rate 75 72 70 Respiratory Rate 20 20 Blood Pressure Pulse Oximetry 97 10/21/21 12:00 10/21/21 12:08 10/21/21 12:17 Temperature 36.1 C L Pulse Rate 100 103 H 85 Respiratory Rate 27 H Blood Pressure 121/66 122/66 96/50 L Pulse Oximetry 94 10/21/21 12:47 10/21/21 13:33 10/21/21 13:35 Temperature Pulse Rate 85 88 93 Respiratory Rate 20 Blood Pressure 96/51 L Pulse Oximetry
[2021-10-21] MEDS: dexmedeTOMIDine 400 MCG/100 ML 400 MCG/100 ML BAG 5.49 MCG IV CONT (17:05)
[2021-10-21 17:41] LABS: Glucose Point of Care 207 mg/dl (65-105)
[2021-10-21] MEDS: FENTANYL 2,500MCG/NS250ML(*CRX 2,500 MCG/250 ML BAG IV CONT (18:39)
[2021-10-21] MEDS: MINERAL OIL/WHITE PETROLATUM OINTMENT 1 APPLIC EACH EYE (20:33)
[2021-10-21] MEDS: LACTATED RINGERS 1,000 ML 75 ML IV CONT (20:33)
[2021-10-21] MEDS: VASOPRESSIN INJ 100 UNITS in DEXTROSE 5% 95 ML IV CONT (20:53)
[2021-10-22] VITALS (40 sets, daily range): BP systolic 98–140; BP diastolic 67–107; PULSE 50–112; RESP 16–34; TEMP 36.2–36.9; O2SAT 91–98; BMI 32.4
[2021-10-22 00:19] LABS: Glucose Point of Care 187 mg/dl (65-105)
[2021-10-22] MEDS: LEVALBUTEROL NEB 1.25 MG/3 ML 0.63 MG INHALATION ×4 (02:41→19:50)
[2021-10-22] MEDS: IPRATROPIUM BR 0.02% INH SOLN 0.5 MG/2.5 ML VIAL INHALATION ×4 (02:41→19:50)
[2021-10-22] MEDS: dexmedeTOMIDine 400 MCG/100 ML 400 MCG/100 ML BAG 8.24 MCG IV CONT (03:10)
[2021-10-22 04:32] LABS: Alveolar/Arterial O2 Gradient 99.9 mmHg; Base Excess ABG 3.7 mEq/l (+/-2.0); Carboxyhemoglobin 0.4 % THb (0-2.0); Fractional Inspired Oxygen 30 %; HCO3 ABG 27.2 mEq/l (22.0-26.0); Methemoglobin ABG 0.1 %THb (0-1.5); Oxygen Content ABG 15.6 %vol (16.0-22.0); Oxygen Saturation ABG 95.4 % (95.0-100.0); Oxyhemoglobin 93.8 % THb (90.0-100.0); PCO2 ABG 36.7 mmHg (35.0-45.0); PO2 ABG 70.9 mmHg (80.0-100.0); PO2 FiO2 Ratio Arterial Blood 2.36 %; Reduced Hemoglobin 5.7 %THb (0-5.0); Total Hemoglobin 11.8 g/dL (12.0-18.0); pH ABG 7.487 (7.350-7.450)
[2021-10-22 04:39] LABS: Arterial Blood Gas PEEP 8 cmH2O; Arterial Blood Gas Vent Mode CMV; Arterial Blood Gas Ventilator rate 16 /MIN; Device VENTILATOR; Site Drawn ARTLINE
[2021-10-22 04:40] LABS: Arterial Blood Gas Tidal Volume 500 ml
[2021-10-22 04:55] LABS: Basophils Percent Auto 0.2 % (0.2-1.2); Hematocrit 34.7 % (42.0-52.0); Hemoglobin 10.4 g/dL (14.0-18.0); Immature Granulocyte Absolute 0.07 K/mm3 (0.00-0.031); Immature Granulocyte Percent A 0.8 % (0-0.5); Lymphocytes Absolute Auto 0.67 K/mm3 (0.9-3.2); Lymphocytes Percent Auto 7.2 % (18.3-44.2); Mean Corpuscular Hemoglobin 24.5 pg (26-34); Mean Corpuscular Volume 81.6 fl (80-100); Mean Platelet Volume 8.8 fl (7.4-10.4); Monocytes Absolute Auto 0.7 K/mm3 (0.1-0.6); Monocytes Percent Auto 7.3 % (2.6-8.5); Neutrophils Absolute Auto 7.9 K/mm3 (1.3-6.7); Neutrophils Percent Auto 84.5 % (45.5-73.1); Platelet Count Result 234 k/mm3 (150-375); Red Blood Count 4.25 M/mm3 (4.6-6.20); Red Cell Distribution Width 19.2 % (11.5-14.5); White Blood Count 9.3 K/mm3 (4.5-10.0)
[2021-10-22 05:03] LABS: Alanine Aminotransferase 16 U/L (4-50); Albumin Level 2.3 g/dL (3.5-5.1); Alkaline Phosphatase 134 U/L (38-126); Anion Gap 8 mmol/L (8-16); Aspartate Amino Transferase 32 U/L (17-59); Bilirubin,Total 0.9 mg/dL (0.2-1.3); Blood Urea Nitrogen 34 mg/dL (9-20); Calcium 7.2 mg/dL (8.4-10.2); Carbon Dioxide 30 mmol/L (22-30); Chloride 96 mmol/L (98-107); Estimated CRCL calculation 64 ml/min; Estimated Glomerular Filt Rate 48; Glucose 219 mg/dL (65-110); Magnesium 2.6 mg/dL (1.6-2.3); Phosphorus 3.7 mg/dL (2.5-4.5); Potassium 3.3 mmol/L (3.4-5.0); Sodium 134 mmol/L (137-145)
[2021-10-22 05:05] LABS: Lactic Acid Reflex 1.8 mmol/L (0.7-2.1)
[2021-10-22] MEDS: CENTRAL LINE FLUSH 10 ML IV PUSH ×3 (05:40→21:12)
[2021-10-22] MEDS: HYDROCORTISONE SODIUM SUCCINATE 100 MG/2 ML VIAL IV PUSH (05:52)
[2021-10-22] MEDS: INSULIN ASPART (*BKC) 100 UNITS/ML SUB-Q ×2 (05:55→12:15)
[2021-10-22 06:04] LABS: Glucose Point of Care 220 mg/dl (65-105)
[2021-10-22] MEDS: levETIRAcetam 500MG/NACL 100ML 500 MG/100 ML BAG 400 MG IVPB ×2 (08:06→21:38)
[2021-10-22] MEDS: MINERAL OIL/WHITE PETROLATUM OINTMENT 1 APPLIC EACH EYE ×2 (08:06→21:12)
[2021-10-22] MEDS: ENOXAPARIN 40 MG/0.4 ML SYRINGE SUB-Q (08:07)
[2021-10-22] MEDS: PANTOPRAZOLE SODIUM IV 40 MG VIAL IV PUSH ×2 (08:08→21:11)
[2021-10-22] MEDS: KCL 40 MEQ/WATER 100 ML 100 ML 25 ML IVPB (09:19)
--- NOTE | 2021-10-22 09:36 | WPDINTPN ---
Progress Note: A&P Assessment and Plan (1) Septic shock: Code(s): A41.9 - Sepsis, unspecified organism; R65.21 - Severe sepsis with septic shock Status: Acute Assessment and Plan: Septic shock most likely related perforated bowel status post Porfirio procedure, ostomy, washout -patient was adequately fluid-resuscitated in the ER and in the OR.. - continue levophed, OFF vasopressin, maintain mean arterial pressures greater than 65 mmHg for adequate end organ perfusion -continue Zosyn (10/20) -lactic acid has normalized -continue stress dose steroids -urine output low but renal function continue to improve -lactic is normal -10/19: blood cultures growing gram-negative bacilli 10/10 bottles, identification and sensitivities pending (2) Respiratory failure: Qualifiers: Chronicity: acute Respiratory failure complication: unspecified whether with hypoxia or hypercapnia Qualified Code(s): J96.00 - Acute respiratory failure, unspecified whether with hypoxia or hypercapnia Code(s): J96.90 - Respiratory failure, unspecified, unspecified whether with hypoxia or hypercapnia Status: Acute Assessment and Plan: Respiratory failure likely related to septic shock, post surgery Currently on CMV mode of ventilation,PEEP of 8 and FiO2 to 30%, -chest x-ray this morning Small lung volumes with worsened airspace opacities in the perihilar regions and lower lung zones, consistent with atelectasis versus pneumonia versus pulmonary edema ABGs reviewed -continue bronchodilators -currently on precedex,infusion, hve asked the RN to decrease and wake up the pt to evaluate for SBT (3) Bowel perforation: Code(s): K63.1 - Perforation of intestine (nontraumatic) Status: Acute Assessment and Plan: 10/19/2021: Perforated viscus, septic shock, ex lap with Porfirio's procedure, mobilization of splenic flexure, extensive intra-abdominal washout, colostomy -surgery following the patient, -continue Zosyn (4) Acute kidney injury: Code(s): N17.9 - Acute kidney failure, unspecified Status: Acute Assessment and Plan: Acute kidney injury likely related to perforated viscus, septic shock, hypotension, hypovolemia, ATN, infection -patient has received adequate amount of IV fluids - Continue maintenance IV fluids -continue vasopressors to maintain adequate mean arterial pressures for adequate end organ perfusion -monitor renal function, lytes and urine out -urine output and renal function improving (5) Renal cell carcinoma: Qualifiers: Laterality: unspecified laterality Qualified Code(s): C64.9 - Malignant neoplasm of unspecified kidney, except renal pelvis Code(s): C64.9 - Malignant neoplasm of unspecified kidney, except renal pelvis Status: Acute Assessment and Plan: Patient has a history of renal cell carcinoma with Mets to the brain, bones, adrenals, lung nodules, retroperitoneal -patient is on Decadron, which will hold as patient is on stress dose steroids -continue Keppra IV (6) DVT prophylaxis: Code(s): Z29.9 - Encounter for prophylactic measures, unspecified Status: Acute Assessment and Plan: Prophylactic Lovenox (7) Electrolyte abnormality: Code(s): E87.8 - Other disorders of electrolyte and fluid balance, not elsewhere classified Status: Acute Assessment and Plan: replace potassium Additional Plan Stress ulcer prophylaxis: Protonix Nutrition: NPO for now Code status: Full code Critical care time spent: 33 minutes This dictation may have been done utilizing a voice recognition system. Attempts have been made to correct errors. However, there may be uncorrected grammatical, spelling, and recognition errors present. Due to a high probability of clinically significant, life threatening deterioration, the patient required my highest level of preparedness to intervene emergently and I personally spent this criti
--- NOTE | 2021-10-22 10:51 | PM.PNGS ---
Progress Note: A&P Assessment and Plan (1) Perforation of sigmoid colon due to diverticulitis: Code(s): K57.20 - Diverticulitis of large intestine with perforation and abscess without bleeding Status: Acute Assessment and Plan: Improving. Continue IV antibiotics. Ostomy functioning, stoma dark/dusky, monitor Wean vent as tolerated. If patient unable to extubated, okay to start tube feeding diet. (2) Septic shock: Code(s): A41.9 - Sepsis, unspecified organism; R65.21 - Severe sepsis with septic shock Status: Acute Assessment and Plan: Secondary to perforated diverticulitis. WBC trending to normal. Lactic normalized. continue broad-spectrum IV antibiotics Wean vasopressors as tolerated blood cx NGTD (3) Respiratory failure: Qualifiers: Chronicity: acute Respiratory failure complication: unspecified whether with hypoxia or hypercapnia Qualified Code(s): J96.00 - Acute respiratory failure, unspecified whether with hypoxia or hypercapnia Code(s): J96.90 - Respiratory failure, unspecified, unspecified whether with hypoxia or hypercapnia Status: Acute Assessment and Plan: Wean vent per [employer]. Possibly trying to extubate today. Additional Plan I have discussed the plan of care with Dr. Monroe. Subjective Subjective Date/Time Seen: 10/22/21 10:51 Post Op day: 2 Patient reports: afebrile Interval history: Patient seen and examined in the ICU with the nurses at the bedside. Patient intubated and sedated. Nursing reports they are weaning sedation for possible extubation today. Only on very minimal vasopressor support with small dose of levophed, nurse reports planning on trying to wean this off this morning. No other reported acute issues at this time. Review of Systems Review of Systems: ROS unobtainable: Yes unobtainable due to endotracheal tube Exam Const: General: ill appearing and other (restless, weaning sedation, opens eyes) Orientation/consciousness: Other orientation findings (intubated) Resp: Effort & Inspection: other (on mechanical ventilator) Auscultation: clear to auscultation bilaterally Cardio: Rate: regular rate Rhythm: regular rhythm GI: Inspection: other (mildly distended) GI Palp: Yes Soft to palpation and Yes Other GI palpation findings present (limited d/t sedation/intubated) Auscultation: Hypoactive bowel sounds present Other: midline incision with gianni intact, small amount of perea drainage from bottom of incision and at the incision near umbilicus, no erythema or induration ostomy with brown stool in bag, stoma dark and dusky PINA drain RLQ with serosanguineous drainage : General: Yes other (bilateral groin and scrotum with erythematous rash and superf. maceration) Urinary Catheter: Urinary Catheter: patent and draining Skin: General skin exam: normal color Neuro: General: moves all extremities Other: opens eyes, does not follow commands purposefully, restless, nurse is weaning sedation Extrem: General: no clubbing, cyanosis or edema Psych: Insight: Limited insight present (Psych) Judgement: Limited judgement present (Psych) Objective Data Vital Signs Vital Signs: Vital Signs - 24 hr 10/21/21 10:58 10/21/21 11:23 10/21/21 11:50 Temperature Pulse Rate 65 75 72 Respiratory Rate 16 20 Blood Pressure Pulse Oximetry 97 10/21/21 11:59 10/21/21 12:00 10/21/21 12:08 Temperature 97.0 F L Pulse Rate 70 100 103 H Respiratory Rate 20 27 H Blood Pressure 121/66 122/66 Pulse Oximetry 94 10/21/21 12:17 10/21/21 12:47 10/21/21 13:33 Temperature Pulse Rate 85 85 88 Respiratory Rate 20 Blood Pressure 96/50 L 96/51 L Pulse Oximetry 10/21/21 13:35 10/21/21 14:00 10/21/21 14:46 Temperature Pulse Rate 93 71 69 Respiratory Rate 15 Blood Pressure 94/48 L 92/47 L Pulse Oximetry 95 96 10/21/21 16:00 10/21/21 17:03 10/21/21 17:05 Temperature 97.8 F Pulse Rate 63
[2021-10-22 11:54] LABS: Glucose Point of Care 202 mg/dl (65-105)
[2021-10-22] MEDS: LACTATED RINGERS 1,000 ML 75 ML IV CONT (12:15)
[2021-10-22 12:19] LABS: Add Urine Microscopic? YES; Appearance Urine Clear (Clear); Bilirubin Urine Negative (Negative); Blood Urine 3+ (Negative); Color Urine Amber (Yellow); Glucose Urine UA Negative (Negative); Ketones Urine Trace mg/dL (Negative); Leukocyte Esterase Ur Trace LEU/UL (Negative); Mucus Urine Rare /lpf; Nitrate Urine Negative (Negative); Protein Urine 2+ mg/dL (Negative); RBC Urine 21-50 /hpf (0-2); Squamous Epithelial Cell Urine Rare /hpf (Few); Urobilinogen Urine Negative mg/dL (<2.0)
[2021-10-22 12:20] LABS: Specific Grav Ur 1.033 (1.001-1.035)
--- NOTE | 2021-10-22 16:33 | PM.IMPN ---
Progress Note: A&P Assessment and Plan (1) Septic shock: Code(s): A41.9 - Sepsis, unspecified organism; R65.21 - Severe sepsis with septic shock Status: Acute Assessment and Plan: Septic shock most likely related perforated bowel status post Porfirio procedure, ostomy, washout -patient received total of 7 L of IV fluids between the ER in the OR. -currently on Levophed and vasopressin, will maintain mean arterial pressures greater than 65 mmHg for adequate end organ perfusion -continue Zosyn (10/20) -continue monitor urine -lactic acid trending down, continue to monitor -started patient was stress dose steroids 10/20/2021 interval history: patient is a 56-year-old male with recent history of metastatic renal cell carcinoma with the largest right renal mass presented emergency department with weakness and abdominal pain CT scan abdomen showed perforated viscus, patient was hypotensive received total of 7 L of fluids, currently patient on vent, on pressors, and Zosyn, seen by dot etcher apprentice and surgery service and appreciate. 10/21/2021 interval history: patient is a 56-year-old male with recent history of metastatic renal cell carcinoma with the largest right renal mass presented emergency department with weakness and abdominal pain CT scan abdomen showed perforated viscus, patient was taken to the OR and had exploratory laparotomy and washout, patient was hypotensive received total of 7 L of fluids, currently patient on vent, on pressors, and Zosyn, seen by dot etcher apprentice and surgery service and appreciate. 10/22/2021 interval history: patient is a 56-year-old male with recent history of metastatic renal cell carcinoma with the largest right renal mass presented emergency department with weakness and abdominal pain, CT scan abdomen showed perforated viscus, patient was taken to the OR and had exploratory laparotomy and washout, patient is seen surgery service ostomy is function and may start the tube feeding, continue IV antibiotic, patient was hypotensive received total of 7 L of fluids, currently patient on vent, on pressors, and Zosyn, seen by dot etcher apprentice and surgery service and appreciate. (2) Respiratory failure: Qualifiers: Chronicity: acute Respiratory failure complication: unspecified whether with hypoxia or hypercapnia Qualified Code(s): J96.00 - Acute respiratory failure, unspecified whether with hypoxia or hypercapnia Code(s): J96.90 - Respiratory failure, unspecified, unspecified whether with hypoxia or hypercapnia Status: Acute Assessment and Plan: Respiratory failure likely related to septic shock, post surgery Currently on CMV mode of ventilation, increase PEEP to 5 and decreased FiO2 to 50%, also increase the tidal volume to 500 decrease the rate to 60 -chest x-ray and ABGs reviewed -will add bronchodilators -fentanyl Versed infusion, maintain RASS of 0 to -2 (3) Bowel perforation: Code(s): K63.1 - Perforation of intestine (nontraumatic) Status: Acute Assessment and Plan: 10/19/2021: Perforated viscus, septic shock, ex lap with Porfirio's procedure, mobilization of splenic flexure, extensive intra-abdominal washout, colostomy -surgery following the patient, -continue Zosyn (4) Acute kidney injury: Code(s): N17.9 - Acute kidney failure, unspecified Status: Acute Assessment and Plan: Acute kidney injury likely related to perforated viscus, septic shock, hypotension, hypovolemia, ATN, infection -patient has received adequate amount of IV fluids - Continue maintenance IV fluids -continue vasopressors to maintain adequate mean arterial pressures for adequate end organ perfusion -monitor renal function, lytes and urine out (5) Renal cell carcinoma: Qualifiers: Laterality: unspecified laterality Qualified Code(s): C64.9 - Malignant neoplasm of unspecified kidney, except renal pelvis Code(s): C64.9 - Malignant neoplasm of unspec
[2021-10-22] MEDS: HYDROCORTISONE SODIUM SUCCINATE 100 MG/2 ML VIAL 50 MG IV PUSH (17:12)
[2021-10-22 17:20] LABS: Glucose Point of Care 171 mg/dl (65-105)
[2021-10-22] MEDS: FENTANYL 2,500MCG/NS250ML(*CRX 2,500 MCG/250 ML BAG IV CONT (22:23)
[2021-10-23] VITALS (30 sets, daily range): BP systolic 121–146; BP diastolic 85–97; PULSE 87–113; RESP 12–35; TEMP 36.4–37.1; O2SAT 90–99
[2021-10-23 00:06] LABS: Glucose Point of Care 164 mg/dl (65-105)
[2021-10-23] MEDS: IPRATROPIUM BR 0.02% INH SOLN 0.5 MG/2.5 ML VIAL INHALATION ×4 (02:36→20:31)
[2021-10-23] MEDS: LEVALBUTEROL NEB 1.25 MG/3 ML 0.63 MG INHALATION ×4 (02:37→20:31)
[2021-10-23 04:13] LABS: Basophils Percent Auto 0.1 % (0.2-1.2); Hemoglobin 9.1 g/dL (14.0-18.0); Immature Granulocyte Absolute 0.12 K/mm3 (0.00-0.031); Immature Granulocyte Percent A 1.4 % (0-0.5); Lymphocytes Absolute Auto 0.61 K/mm3 (0.9-3.2); Mean Corpuscular HGB Conc 29.4 g/dl (32-36); Mean Corpuscular Hemoglobin 23.9 pg (26-34); Mean Corpuscular Volume 81.6 fl (80-100); Mean Platelet Volume 8.7 fl (7.4-10.4); Monocytes Absolute Auto 0.6 K/mm3 (0.1-0.6); Monocytes Percent Auto 6.8 % (2.6-8.5); Neutrophils Absolute Auto 7.4 K/mm3 (1.3-6.7); Neutrophils Percent Auto 84.7 % (45.5-73.1); Platelet Count Result 178 k/mm3 (150-375); Red Cell Distribution Width 18.7 % (11.5-14.5); White Blood Count 8.7 K/mm3 (4.5-10.0)
[2021-10-23 04:24] LABS: Lactic Acid Reflex 1.3 mmol/L (0.7-2.1)
[2021-10-23 04:44] LABS: Alanine Aminotransferase 17 U/L (4-50); Alkaline Phosphatase 143 U/L (38-126); Anion Gap 3 mmol/L (8-16); Aspartate Amino Transferase 46 U/L (17-59); Bilirubin,Total 1.3 mg/dL (0.2-1.3); Blood Urea Nitrogen 29 mg/dL (9-20); Calcium 7.2 mg/dL (8.4-10.2); Carbon Dioxide 33 mmol/L (22-30); Chloride 104 mmol/L (98-107); Estimated CRCL calculation 87 ml/min; Estimated Glomerular Filt Rate > 60; Glucose 161 mg/dL (65-110); Magnesium 2.4 mg/dL (1.6-2.3); Phosphorus 1.7 mg/dL (2.5-4.5); Potassium 2.9 mmol/L (3.4-5.0); Sodium 140 mmol/L (137-145)
[2021-10-23 04:58] LABS: Hypochromasia 2+ (NORMAL); Platelet Estimate Adequate (Adequate)
[2021-10-23 04:59] LABS: Ovalocytes 1+ (NORMAL)
[2021-10-23 05:27] LABS: Base Excess ABG 7.7 mEq/l (+/-2.0); Carboxyhemoglobin 0.3 % THb (0-2.0); Fractional Inspired Oxygen 30 %; HCO3 ABG 30.7 mEq/l (22.0-26.0); Methemoglobin ABG 0.3 %THb (0-1.5); Oxygen Content ABG 13.6 %vol (16.0-22.0); Oxygen Saturation ABG 96.1 % (95.0-100.0); Oxyhemoglobin 94.1 % THb (90.0-100.0); PCO2 ABG 36.9 mmHg (35.0-45.0); PO2 ABG 72.5 mmHg (80.0-100.0); PO2 FiO2 Ratio Arterial Blood 2.42 %; Reduced Hemoglobin 5.3 %THb (0-5.0); Total Hemoglobin 10.2 g/dL (12.0-18.0)
[2021-10-23 05:28] LABS: Device VENTILATOR; Modified Allen's Test Unable to perform; Site Drawn RIGHT RADIAL; pH ABG 7.538 (7.350-7.450)
[2021-10-23 05:29] LABS: Arterial Blood Gas PEEP 5 cmH2O; Arterial Blood Gas Vent Mode ASV
[2021-10-23] MEDS: LACTATED RINGERS 1,000 ML 75 ML IV CONT ×2 (05:43→17:45)
[2021-10-23] MEDS: HYDROCORTISONE SODIUM SUCCINATE 100 MG/2 ML VIAL 50 MG IV PUSH ×2 (05:45→18:13)
[2021-10-23] MEDS: CENTRAL LINE FLUSH 10 ML IV PUSH ×3 (05:45→19:50)
[2021-10-23] MEDS: MORPHINE SULFATE (*CRX) 2 MG/ML INJ IV PUSH (08:42)
[2021-10-23] MEDS: levETIRAcetam 500MG/NACL 100ML 500 MG/100 ML BAG 400 MG IVPB ×2 (09:38→19:49)
[2021-10-23] MEDS: POTASSIUM PHOS,M-BASIC-D-BASIC 20 MMOL in SODIUM CHLORIDE 0.9% IV 250 ML 64.17 MMOL IVPB (09:39)
[2021-10-23] MEDS: CALCIUM GLUC 2,000 MG/NS 100ML 2,000 MG/100 ML BAG 100 MG IVPB (09:40)
[2021-10-23 09:41] LABS: Alveolar/Arterial O2 Gradient 97.7 mmHg; Base Excess ABG 7.6 mEq/l (+/-2.0); Fractional Inspired Oxygen 30 %; HCO3 ABG 30.8 mEq/l (22.0-26.0); Oxygen Content ABG 13.8 %vol (16.0-22.0); Oxygen Saturation ABG 95.9 % (95.0-100.0); Oxyhemoglobin 93.9 % THb (90.0-100.0); PCO2 ABG 38.1 mmHg (35.0-45.0); PO2 ABG 71.4 mmHg (80.0-100.0); PO2 FiO2 Ratio Arterial Blood 2.38 %; Total Hemoglobin 10.4 g/dL (12.0-18.0)
[2021-10-23] MEDS: ENOXAPARIN 40 MG/0.4 ML SYRINGE SUB-Q (09:41)
[2021-10-23] MEDS: MINERAL OIL/WHITE PETROLATUM OINTMENT 1 APPLIC EACH EYE (09:42)
[2021-10-23] MEDS: PANTOPRAZOLE SODIUM IV 40 MG VIAL IV PUSH ×2 (09:42→19:54)
[2021-10-23 09:43] LABS: Site Drawn RIGHT RADIAL; pH ABG 7.526 (7.350-7.450)
[2021-10-23 09:44] LABS: Arterial Blood Gas Vent Mode SPONTANEOUS; Device VENTILATOR; Modified Allen's Test Pass
[2021-10-23 09:45] LABS: Arterial Blood Gas PEEP 5 cmH2O; Arterial Blood Gas Pressure Support 5 cmH2O
[2021-10-23] MEDS: POTASSIUM CHLORIDE 20 MEQ PACKET (FOR LIQUID) 40 MEQ FEED TUBE (09:45)
--- NOTE | 2021-10-23 10:17 | WPDINTPN ---
Progress Note: A&P Assessment and Plan (1) Septic shock: Code(s): A41.9 - Sepsis, unspecified organism; R65.21 - Severe sepsis with septic shock Status: Acute Assessment and Plan: Septic shock most likely related perforated bowel status post Porfirio procedure, ostomy, washout -patient was adequately fluid-resuscitated in the ER and in the OR.. -off vasopressors at this time continue to monitor and maintain map> 65 mmHg for adequate end organ perfusion -continue Zosyn (10/20) -lactic acid has normalized -weaning stress dose steroids -urine output low but renal function continue to improve -lactic is normal -10/19: blood cultures growing gram-negative bacilli 10/10 bottles, identification and sensitivities pending (2) Respiratory failure: Qualifiers: Chronicity: acute Respiratory failure complication: unspecified whether with hypoxia or hypercapnia Qualified Code(s): J96.00 - Acute respiratory failure, unspecified whether with hypoxia or hypercapnia Code(s): J96.90 - Respiratory failure, unspecified, unspecified whether with hypoxia or hypercapnia Status: Acute Assessment and Plan: Respiratory failure likely related to septic shock, post surgery Currently on CMV mode of ventilation,PEEP of 8 and FiO2 to 30%, -chest x-ray reviewed - 01/10 PSV SBT done for more than 30 minutes. His RSBI slightly elevated but ABGI and Vitals acceptable. This could be secondary to pain or anxiety. Pt awake and following commands. Will extubate and monitor. NPO for now. -continue bronchodilators (3) Bowel perforation: Code(s): K63.1 - Perforation of intestine (nontraumatic) Status: Acute Assessment and Plan: 10/19/2021: Perforated viscus, septic shock, ex lap with Porfirio's procedure, mobilization of splenic flexure, extensive intra-abdominal washout, colostomy -surgery following the patient and managing -continue Zosyn (4) Acute kidney injury: Code(s): N17.9 - Acute kidney failure, unspecified Status: Acute Assessment and Plan: Acute kidney injury likely related to perforated viscus, septic shock, hypotension, hypovolemia, ATN, infection -patient has received adequate amount of IV fluids and renal function is improved - Continue maintenance IV fluids -monitor renal function, lytes and urine out -urine output and renal function improving (5) Renal cell carcinoma: Qualifiers: Laterality: unspecified laterality Qualified Code(s): C64.9 - Malignant neoplasm of unspecified kidney, except renal pelvis Code(s): C64.9 - Malignant neoplasm of unspecified kidney, except renal pelvis Status: Acute Assessment and Plan: Patient has a history of renal cell carcinoma with Mets to the brain, bones, adrenals, lung nodules, retroperitoneal -patient is on Decadron, which is hold as patient is on stress dose steroids -continue Keppra IV (6) DVT prophylaxis: Code(s): Z29.9 - Encounter for prophylactic measures, unspecified Status: Acute Assessment and Plan: Prophylactic Lovenox (7) Electrolyte abnormality: Code(s): E87.8 - Other disorders of electrolyte and fluid balance, not elsewhere classified Status: Acute Assessment and Plan: replace potassium, phosphate and calcium Additional Plan Stress ulcer prophylaxis: Protonix Nutrition: Patient was on trickle tube feeds which are on hold for breathing trial and potential extubation Code status: Full code Critical care time spent: 35 minutes This dictation may have been done utilizing a voice recognition system. Attempts have been made to correct errors. However, there may be uncorrected grammatical, spelling, and recognition errors present. Due to a high probability of clinically significant, life threatening deterioration, the patient required my highest level of preparedness to intervene emergently and I personally spent this critical care time directly and perso
--- NOTE | 2021-10-23 11:25 | PCNFU ---
Nutrition Follow-Up Complete: Inadequate Oral Intake as related to mechanical vent as evidenced by tube feedings. Goal: Meet estimated nutritional needs Patient is progressing towards goal. We will continue current goal. Pt current nutrition is NPO. Last recorded weight is 109.3 kg-stable. Bowel Motility:ostomy Labs Reviewed:Mg 2.4, BUN 29, Glu 161, Alb 2.0,Hct 31.0,Hgb 9.1 Meds Noted:Potassium Phosphate, Keppra, Protonix, LR, Atrovent, Lovenox, Solu-Cortef. Skin: WNL Additional Notes: Patient has been extubated today. NPO at this time. Monitoring: Will monitor in ICU rounds and reassessing every 3 days.
--- NOTE | 2021-10-23 13:22 | PM.PNGS ---
Progress Note: A&P Assessment and Plan (1) Perforation of sigmoid colon due to diverticulitis: Code(s): K57.20 - Diverticulitis of large intestine with perforation and abscess without bleeding Status: Acute Assessment and Plan: Improving. Continue IV antibiotics. Ostomy functioning, stoma dark/dusky, monitor Patient extubated today. Okay to initiate trickle tube feeding or try swallow eval for clear liquids from our standpoint when okay with CCP post extubation (2) Septic shock: Code(s): A41.9 - Sepsis, unspecified organism; R65.21 - Severe sepsis with septic shock Status: Acute Assessment and Plan: Secondary to perforated diverticulitis. WBC trending to normal. Lactic normalized. No longer on vasopressors. Creatinine and urine output improving. continue broad-spectrum IV antibiotics (3) Respiratory failure: Qualifiers: Chronicity: acute Respiratory failure complication: unspecified whether with hypoxia or hypercapnia Qualified Code(s): J96.00 - Acute respiratory failure, unspecified whether with hypoxia or hypercapnia Code(s): J96.90 - Respiratory failure, unspecified, unspecified whether with hypoxia or hypercapnia Status: Acute Assessment and Plan: Extubated this morning. Continue to monitor. Currently on 2 L NC and doing well. Additional Plan I have discussed the plan of care with Dr. Monroe. Subjective Subjective Date/Time Seen: 10/23/21 11:22 Post Op day: 3 (Porfirio's procedure) Patient reports: afebrile Interval history: Patient seen and examined in the ICU with his daughter, Margarita, at the bedside. He was extubated this morning and is alert when walking in the room. He is oriented to self and place, but was disoriented to time (easily redirected to be oriented). He reports having pain in his buttocks and sort of hurting all over but denies specifically abdominal pain. Denies nausea. He is currently NPO and still has an NG in place. No other complaints at this time. Per nursing, the patient had high residuals with the trickle tube feeding this morning (300 cc residual). Currently TF on hold. Exam Const: General: alert and ill appearing; No acute distress Orientation/consciousness: oriented to person, oriented to place and No oriented to time Resp: Effort & Inspection: no respiratory distress Auscultation: clear to auscultation bilaterally Cardio: Rate: regular rate Rhythm: regular rhythm GI: Inspection: other (mildly distended) GI Palp: Yes Soft to palpation, Yes Tenderness to palpation present (GI) (incisional), No Guarding due to palpation present (GI) and No Rebound tenderness present Other: midline incision with gianni intact, small amount of perea drainage from bottom of incision and at the middle of the incision near umbilicus, no erythema or induration stoma dark and dusky but ostomy functioning PINA drain RLQ with cloudy serosanguineous drainage : General: Yes other (bilateral groin and scrotum with erythematous rash and superf. maceration) Urinary Catheter: Urinary Catheter: patent and draining Extrem: General: normal to inspection and no clubbing, cyanosis or edema Psych: Insight: Fair insight present (Psych) Objective Data Vital Signs Vital Signs: Vital Signs - 24 hr 10/22/21 13:32 10/22/21 14:00 10/22/21 14:24 Temperature Pulse Rate 78 89 Respiratory Rate 18 Blood Pressure 106/75 Pulse Oximetry 93 94 94 10/22/21 16:00 10/22/21 17:04 10/22/21 18:00 Temperature 98 F Pulse Rate 95 88 96 Respiratory Rate 28 H 27 H Blood Pressure 102/67 113/75 Pulse Oximetry 95 94 93 10/22/21 19:49 10/22/21 19:53 10/22/21 20:00 Temperature 98.0 F Pulse Rate 100 97 100 Respiratory Rate 34 H 20 Blood Pressure 140/80 Pulse Oximetry 95 93 10/22/21 20:01 10/22/21 22:00 10/22/21 22:16 Temperature Pulse Rate 103 H 112 H 109 H Respiratory Rate 26 H 24 H Blood Pressure 139/90 Pulse Oximetry 91
[2021-10-23] MEDS: POTASSIUM CHLORIDE 20 MEQ PACKET (FOR LIQUID) FEED TUBE (13:27)
[2021-10-23 13:37] LABS: Glucose Point of Care 144 mg/dl (65-105)
[2021-10-23] MEDS: MORPHINE SULFATE (*CRX) 4 MG/ML INJ IV PUSH ×4 (13:40→23:08)
[2021-10-23 18:23] LABS: Glucose Point of Care 116 mg/dl (65-105)
[2021-10-23 19:09] LABS: Anion Gap 3 mmol/L (8-16); Blood Urea Nitrogen 25 mg/dL (9-20); Calcium 7.6 mg/dL (8.4-10.2); Carbon Dioxide 33 mmol/L (22-30); Chloride 104 mmol/L (98-107); Estimated CRCL calculation 86 ml/min; Estimated Glomerular Filt Rate > 60; Glucose 132 mg/dL (65-110); Potassium 3.5 mmol/L (3.4-5.0); Sodium 140 mmol/L (137-145)
[2021-10-23 23:31] LABS: Glucose Point of Care 146 mg/dl (65-105)
[2021-10-24] VITALS (24 sets, daily range): BP systolic 139–155; BP diastolic 90–98; PULSE 77–135; RESP 17–44; TEMP 36.8–37.4; O2SAT 92–99
[2021-10-24] MEDS: MORPHINE SULFATE (*CRX) 4 MG/ML INJ IV PUSH ×3 (01:28→05:54)
[2021-10-24] MEDS: LEVALBUTEROL NEB 1.25 MG/3 ML 0.63 MG INHALATION ×4 (02:50→20:11)
[2021-10-24] MEDS: IPRATROPIUM BR 0.02% INH SOLN 0.5 MG/2.5 ML VIAL INHALATION ×4 (02:50→20:11)
[2021-10-24 05:13] LABS: Alveolar/Arterial O2 Gradient 154.6 mmHg; Carboxyhemoglobin 0.2 % THb (0-2.0); Fractional Inspired Oxygen 36 %; HCO3 ABG 31.2 mEq/l (22.0-26.0); Oxygen Content ABG 13.7 %vol (16.0-22.0); Oxygen Saturation ABG 93.1 % (95.0-100.0); Oxyhemoglobin 90.8 % THb (90.0-100.0); PCO2 ABG 37.7 mmHg (35.0-45.0); PO2 ABG 58.4 mmHg (80.0-100.0); PO2 FiO2 Ratio Arterial Blood 1.62 %; Total Hemoglobin 10.7 g/dL (12.0-18.0)
[2021-10-24 05:17] LABS: Device NASAL CANNULA; Modified Allen's Test Pass; Site Drawn RIGHT RADIAL; pH ABG 7.535 (7.350-7.450)
[2021-10-24] MEDS: CENTRAL LINE FLUSH 10 ML IV PUSH ×3 (05:54→20:24)
[2021-10-24 06:21] LABS: Glucose Point of Care 131 mg/dl (65-105)
[2021-10-24 06:21] LABS: Basophils Percent Auto 0.3 % (0.2-1.2); Hematocrit 32.5 % (42.0-52.0); Hemoglobin 9.6 g/dL (14.0-18.0); Immature Granulocyte Absolute 0.29 K/mm3 (0.00-0.031); Immature Granulocyte Percent A 3.8 % (0-0.5); Lymphocytes Absolute Auto 0.98 K/mm3 (0.9-3.2); Lymphocytes Percent Auto 12.9 % (18.3-44.2); Mean Corpuscular HGB Conc 29.5 g/dl (32-36); Mean Corpuscular Volume 81.3 fl (80-100); Mean Platelet Volume 9.1 fl (7.4-10.4); Monocytes Absolute Auto 0.7 K/mm3 (0.1-0.6); Monocytes Percent Auto 9.4 % (2.6-8.5); Neutrophils Absolute Auto 5.6 K/mm3 (1.3-6.7); Neutrophils Percent Auto 73.6 % (45.5-73.1); Nucleated Red Blood Cells Perc 0.3 % (0.0-0.2); Platelet Count Result 195 k/mm3 (150-375); Red Cell Distribution Width 19.1 % (11.5-14.5); White Blood Count 7.6 K/mm3 (4.5-10.0)
[2021-10-24] MEDS: LACTATED RINGERS 1,000 ML 75 ML IV CONT (06:35)
[2021-10-24 06:39] LABS: Lactic Acid Reflex 1.4 mmol/L (0.7-2.1)
[2021-10-24 06:42] LABS: Alanine Aminotransferase 20 U/L (4-50); Albumin Level 2.4 g/dL (3.5-5.1); Alkaline Phosphatase 187 U/L (38-126); Anion Gap 4 mmol/L (8-16); Aspartate Amino Transferase 43 U/L (17-59); Bilirubin,Total 1.4 mg/dL (0.2-1.3); Blood Urea Nitrogen 22 mg/dL (9-20); Calcium 7.4 mg/dL (8.4-10.2); Carbon Dioxide 34 mmol/L (22-30); Chloride 105 mmol/L (98-107); Estimated CRCL calculation 86 ml/min; Estimated Glomerular Filt Rate > 60; Glucose 138 mg/dL (65-110); Magnesium 1.9 mg/dL (1.6-2.3); Phosphorus 2.4 mg/dL (2.5-4.5); Potassium 2.9 mmol/L (3.4-5.0); Sodium 143 mmol/L (137-145)
[2021-10-24] MEDS: ENOXAPARIN 40 MG/0.4 ML SYRINGE SUB-Q (08:42)
[2021-10-24] MEDS: PANTOPRAZOLE SODIUM IV 40 MG VIAL IV PUSH ×2 (08:42→20:24)
[2021-10-24] MEDS: POTASSIUM CHLORIDE 20 MEQ PACKET (FOR LIQUID) 40 MEQ FEED TUBE (08:50)
[2021-10-24] MEDS: KCL 40 MEQ/WATER 100 ML 100 ML 25 ML IVPB (08:50)
[2021-10-24] MEDS: MORPHINE SULFATE (*CRX) 2 MG/ML INJ IV PUSH (09:06)
[2021-10-24] MEDS: MORPHINE SULFATE PCA (*CRX) 30 MG/30 ML SYR IV CONT ×2 (10:10→18:55)
[2021-10-24] MEDS: TOLNAFTATE 1% POWDER 45 GM BTL 1 APPLIC TOPICAL ×2 (10:21→20:24)
[2021-10-24] MEDS: levETIRAcetam 500MG/NACL 100ML 500 MG/100 ML BAG 400 MG IVPB ×2 (10:25→20:25)
--- NOTE | 2021-10-24 10:27 | WPDINTPN ---
Progress Note: A&P Assessment and Plan (1) Septic shock: Code(s): A41.9 - Sepsis, unspecified organism; R65.21 - Severe sepsis with septic shock Status: Acute Assessment and Plan: Septic shock most likely related perforated bowel status post Porfirio procedure, ostomy, washout -patient was adequately fluid-resuscitated in the ER and in the OR.. -off vasopressors at this time continue to monitor and maintain map> 65 mmHg for adequate end organ perfusion -continue Zosyn (10/20) -lactic acid has normalized -weaning stress dose steroids -urine output low but renal function continue to improve -lactic is normal -DC IV fluids -10/19: blood cultures growing gram-negative bacilli 10/10 bottles, identification and sensitivities pending (2) Respiratory failure: Qualifiers: Chronicity: acute Respiratory failure complication: unspecified whether with hypoxia or hypercapnia Qualified Code(s): J96.00 - Acute respiratory failure, unspecified whether with hypoxia or hypercapnia Code(s): J96.90 - Respiratory failure, unspecified, unspecified whether with hypoxia or hypercapnia Status: Acute Assessment and Plan: Respiratory failure likely related to septic shock, post surgery He was extubated yesterday after a successful weaning trial. Maintaining adequate oxygenation on nasal cannula Chest x-ray reviewed DC IV fluids, incentive spirometry, up in chair, PT OT consult -continue bronchodilators (3) Bowel perforation: Code(s): K63.1 - Perforation of intestine (nontraumatic) Status: Acute Assessment and Plan: 10/19/2021: Perforated viscus, septic shock, ex lap with Porfirio's procedure, mobilization of splenic flexure, extensive intra-abdominal washout, colostomy -surgery following the patient and managing -continue Zosyn -his ostomy looks dusky and surgery is aware -trial of clear liquid diet and if patient tolerates will discontinue tube feeding and continue liquid diet (4) Acute kidney injury: Code(s): N17.9 - Acute kidney failure, unspecified Status: Acute Assessment and Plan: Acute kidney injury likely related to perforated viscus, septic shock, hypotension, hypovolemia, ATN, infection -patient has received adequate amount of IV fluids and renal function is improved -will discontinue maintenance IV fluids -monitor renal function, lytes and urine out -urine output and renal function improving (5) Renal cell carcinoma: Qualifiers: Laterality: unspecified laterality Qualified Code(s): C64.9 - Malignant neoplasm of unspecified kidney, except renal pelvis Code(s): C64.9 - Malignant neoplasm of unspecified kidney, except renal pelvis Status: Acute Assessment and Plan: Patient has a history of renal cell carcinoma with Mets to the brain, bones, adrenals, lung nodules, retroperitoneal -patient is on Decadron, will resume tomorrow -continue Keppra IV (6) DVT prophylaxis: Code(s): Z29.9 - Encounter for prophylactic measures, unspecified Status: Acute Assessment and Plan: Prophylactic Lovenox (7) Electrolyte abnormality: Code(s): E87.8 - Other disorders of electrolyte and fluid balance, not elsewhere classified Status: Acute Assessment and Plan: replace potassium, phosphate (8) Postoperative pain: Code(s): G89.18 - Other acute postprocedural pain Status: Acute Assessment and Plan: 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 She has been seeing patients since admission and states that area looks better Tolnaftate powder ordered for groin and miconazole cream ordered for back Additional Plan Stress ulcer prophylaxis: Protonix Nutrition: Patient was on trickle tube feeds will do a trial of justina
--- NOTE | 2021-10-24 11:26 | PCOTNOTE ---
Attempted OT evaluation, despite max encouragement from therapist and RN, patient adamantly refused all out of bed activities including rolling R/L in bed, stating f*ck that . Patient also stated I will punch you and f*ck you when attempting to assist position patient. Will follow and attempt at later time.
--- NOTE | 2021-10-24 11:43 | PM.PNGS ---
Progress Note: A&P Assessment and Plan (1) Perforation of sigmoid colon due to diverticulitis: Code(s): K57.20 - Diverticulitis of large intestine with perforation and abscess without bleeding Status: Acute Assessment and Plan: Improving. Continue IV antibiotics. Ostomy functioning, stoma dark/dusky, monitor Spoke with Tobacco Stemmer Machine. Plan for swallow test today, and okay to start clear liquids if passes swallow eval. (2) Septic shock: Code(s): A41.9 - Sepsis, unspecified organism; R65.21 - Severe sepsis with septic shock Status: Acute Assessment and Plan: Secondary to perforated diverticulitis. WBC normal. Lactic acid normalized. No longer on vasopressors. Creatinine and urine output improving. Continue broad-spectrum IV antibiotics Possibly will move out of ICU later today if patient continues to progress well. (3) Respiratory failure: Qualifiers: Chronicity: acute Respiratory failure complication: unspecified whether with hypoxia or hypercapnia Qualified Code(s): J96.00 - Acute respiratory failure, unspecified whether with hypoxia or hypercapnia Code(s): J96.90 - Respiratory failure, unspecified, unspecified whether with hypoxia or hypercapnia Status: Acute Assessment and Plan: Resolved. Extubated and stable. Continue to monitor. Additional Plan I have discussed the plan of care with Dr. Monroe. Subjective Subjective Date/Time Seen: 10/24/21 09:13 Post Op day: 4 (Porfirio's) Patient reports: feels better and afebrile Interval history: Patient seen and examined in the ICU. He has no new complaints. Currently has NG in place and [employer] Stem[employer] Machine reported that he has been tolerating tube feedings overnight. +ostomy functioning. Review of Systems Review of Systems: All systems reviewed & are unremarkable except as noted in HPI and below Exam Const: General: alert and ill appearing; No acute distress Orientation/consciousness: patient oriented x3 Resp: Effort & Inspection: no respiratory distress Auscultation: diminished lung sounds Cardio: Rate: tachycardic Rhythm: regular rhythm GI: Inspection: other (mildly distended) GI Palp: Yes Soft to palpation, Yes Tenderness to palpation present (GI) (incisional), No Guarding due to palpation present (GI) and No Rebound tenderness present Auscultation: Hypoactive bowel sounds present Other: midline incision with gianni intact, small amount of perea drainage from bottom of incision and at the middle of the incision near umbilicus, no erythema or induration stoma dark and dusky but ostomy functioning PINA drain RLQ with serosanguineous drainage : General: Yes other (bilateral groin and scrotum with erythematous rash and superf. maceration) Urinary Catheter: Urinary Catheter: patent and draining Neuro: General: moves all extremities Extrem: General: no clubbing, cyanosis or edema Psych: Insight: Fair insight present (Psych) Objective Data Vital Signs Vital Signs: Vital Signs - 24 hr 10/23/21 12:00 10/23/21 13:51 10/23/21 14:00 Temperature Pulse Rate 102 H 101 H 104 H Respiratory Rate 26 H 27 H 26 H Blood Pressure 132/97 H 142/96 H Pulse Oximetry 92 99 10/23/21 14:01 10/23/21 15:58 10/23/21 16:00 Temperature 98 F Pulse Rate 103 H 108 H 109 H Respiratory Rate 24 H 25 H 25 H Blood Pressure 146/95 H Pulse Oximetry 94 10/23/21 18:00 10/23/21 20:00 10/23/21 20:32 Temperature 98.7 F Pulse Rate 107 H 112 H 110 H Respiratory Rate 24 H 32 H 28 H Blood Pressure 143/85 H 138/91 H Pulse Oximetry 92 90 92 10/23/21 20:40 10/23/21 22:00 10/23/21 22:01 Temperature Pulse Rate 107 H 113 H 113 H Respiratory Rate 29 H 18 Blood Pressure 132/93 H Pulse Oximetry 92 92 10/24/21 00:00 10/24/21 00:01 10/24/21 02:00 Temperature 98.3 F Pulse Rate 110 H 109 H 106 H Respiratory Rate 44 H 31 H Blood Pressure 148/90 H 147/91 H Pulse Oximetry 93 92 94 10/24/21 02:51
--- NOTE | 2021-10-24 11:47 | PCFNICU ---
ICU Rounding Note: Pt current nutrition is Vital AF 1.2 at 10 ml/hr. Last recorded weight is 112.5 kg, up from 111.6 kg on admit. Bowel Motility:No BM Labs Reviewed:Alb 2.4,Hct 32.5, Hgb 9.6, K 29,P04 2.4 Meds Noted:Zosyn, Keppra, Protonix, Potassium Chloride. Skin: WNL Additional Notes:Patient on trickle feedings of Vital AF 1.2 at 10 ml/hr. Plans for trial of clear liquids today. Tube feeding is providing 264 kcals/17 gms protein/178 ml water. Following daily in ICU rounds. Will monitor every Friday and Friday.
--- NOTE | 2021-10-24 11:51 | PCPTNOTE ---
Attempted PT evaluation, despite max encouragement from therapist and RN, patient adamantly refused all out of bed activities including rolling R/L in bed, stating f*ck that . Patient also stated I will punch you and f*ck you when attempting to assist position patient. Will follow and attempt at later time.
[2021-10-24] MEDS: SODIUM PHOSPHATE 20 MM in DEXTROSE 5% IN WATER 250 ML 50 MM IVPB (15:51)
[2021-10-24 16:06] LABS: Glucose Point of Care 148 mg/dl (65-105)
--- NOTE | 2021-10-24 18:08 | PC.NURSE ---
Patient is requesting a transfer to [facility]. Dr Galarza informed.
[2021-10-24] MEDS: DEXAMETHASONE SOD PHOS INJ 4 MG/ML VIAL IV PUSH (20:24)
[2021-10-25] VITALS (20 sets, daily range): BP systolic 107–154; BP diastolic 71–107; PULSE 98–193; RESP 12–33; TEMP 36.6–36.8; O2SAT 88–97
[2021-10-25 00:08] LABS: Glucose Point of Care 201 mg/dl (65-105)
[2021-10-25] MEDS: INSULIN ASPART (*BKC) 100 UNITS/ML SUB-Q ×2 (00:28→17:28)
[2021-10-25] MEDS: LEVALBUTEROL NEB 1.25 MG/3 ML 0.63 MG INHALATION ×4 (02:11→19:50)
[2021-10-25] MEDS: IPRATROPIUM BR 0.02% INH SOLN 0.5 MG/2.5 ML VIAL INHALATION ×4 (02:11→19:50)
[2021-10-25 04:08] LABS: Basophils Percent Auto 0.2 % (0.2-1.2); Hematocrit 36.4 % (42.0-52.0); Hemoglobin 10.8 g/dL (14.0-18.0); Immature Granulocyte Absolute 0.19 K/mm3 (0.00-0.031); Immature Granulocyte Percent A 1.6 % (0-0.5); Lymphocytes Absolute Auto 0.91 K/mm3 (0.9-3.2); Lymphocytes Percent Auto 7.5 % (18.3-44.2); Mean Corpuscular HGB Conc 29.7 g/dl (32-36); Mean Corpuscular Hemoglobin 24.3 pg (26-34); Mean Platelet Volume 9.5 fl (7.4-10.4); Monocytes Percent Auto 8.3 % (2.6-8.5); Neutrophils Percent Auto 82.4 % (45.5-73.1); Platelet Count Result 164 k/mm3 (150-375); Red Blood Count 4.44 M/mm3 (4.6-6.20); Red Cell Distribution Width 19.3 % (11.5-14.5); White Blood Count 12.1 K/mm3 (4.5-10.0)
[2021-10-25 04:22] LABS: Lactic Acid Reflex 1.4 mmol/L (0.7-2.1)
[2021-10-25 04:34] LABS: Alanine Aminotransferase 19 U/L (4-50); Albumin Level 2.2 g/dL (3.5-5.1); Alkaline Phosphatase 186 U/L (38-126); Anion Gap 7 mmol/L (8-16); Aspartate Amino Transferase 36 U/L (17-59); Bilirubin,Total 2.4 mg/dL (0.2-1.3); Blood Urea Nitrogen 19 mg/dL (9-20); Calcium 7.4 mg/dL (8.4-10.2); Carbon Dioxide 27 mmol/L (22-30); Chloride 104 mmol/L (98-107); Estimated CRCL calculation 106 ml/min; Estimated Glomerular Filt Rate > 60; Glucose 176 mg/dL (65-110); Magnesium 1.5 mg/dL (1.6-2.3); Phosphorus 3.4 mg/dL (2.5-4.5); Potassium 3.5 mmol/L (3.4-5.0); Sodium 138 mmol/L (137-145)
[2021-10-25 04:35] LABS: Hypochromasia 1+ (NORMAL); Platelet Estimate Adequate (Adequate)
[2021-10-25] MEDS: CENTRAL LINE FLUSH 10 ML IV PUSH ×3 (05:08→21:10)
[2021-10-25] MEDS: MORPHINE SULFATE PCA (*CRX) 30 MG/30 ML SYR IV CONT ×3 (05:18→21:56)
[2021-10-25 05:21] LABS: Alveolar/Arterial O2 Gradient 138.5 mmHg; Base Excess ABG 4.5 mEq/l (+/-2.0); Carboxyhemoglobin 0.5 % THb (0-2.0); Device NASAL CANNULA; Fractional Inspired Oxygen 36 %; HCO3 ABG 28.2 mEq/l (22.0-26.0); Methemoglobin ABG 0.1 %THb (0-1.5); Modified Allen's Test Pass; Oxygen Content ABG 16.3 %vol (16.0-22.0); Oxygen Saturation ABG 95.7 % (95.0-100.0); PCO2 ABG 38.7 mmHg (35.0-45.0); PO2 ABG 73.3 mmHg (80.0-100.0); PO2 FiO2 Ratio Arterial Blood 2.04 %; Reduced Hemoglobin 5.4 %THb (0-5.0); Site Drawn RIGHT RADIAL; Total Hemoglobin 12.3 g/dL (12.0-18.0); pH ABG 7.481 (7.350-7.450)
--- NOTE | 2021-10-25 07:45 | PM.PNGS ---
Progress Note: A&P Assessment and Plan (1) Perforation of sigmoid colon due to diverticulitis: Code(s): K57.20 - Diverticulitis of large intestine with perforation and abscess without bleeding Status: Acute Assessment and Plan: stable, start clears and ADAT if mental status allows otherwise would increase TFs to goal, encouraged OOB/IS and work c PT/OT, cont abx, local wound care Subjective Subjective Date/Time Seen: 10/25/21 07:45 no acute issues, jeison ice chips, jeison trophic feeds, somewhat confused Review of Systems Review of Systems: All systems reviewed & are unremarkable except as noted in HPI and below Exam Const: General: alert, awake, Physically active and confusion Resp: Auscultation: diminished lung sounds Cardio: Rate: tachycardic GI: Inspection: Abdominal wall edema, distended and incision GI Palp: Yes Soft to palpation and Yes Tenderness to palpation present (GI) Other: PINA s/s, ostomy - +fxn, incision c some thick discharge near inferior portion Objective Data Vital Signs Vital Signs: Vital Signs - 24 hr 10/24/21 08:00 10/24/21 08:02 10/24/21 08:09 Temperature Pulse Rate 107 H 102 H 110 H Respiratory Rate 30 H 36 H 32 H Blood Pressure 154/92 H Pulse Oximetry 93 10/24/21 08:19 10/24/21 10:00 10/24/21 12:00 Temperature 37.3 C 37.2 C Pulse Rate 102 H 117 H 117 H Respiratory Rate 36 H 17 28 H Blood Pressure 153/97 H 141/92 H Pulse Oximetry 97 92 93 10/24/21 13:55 10/24/21 14:00 10/24/21 14:02 Temperature Pulse Rate 78 133 H 77 Respiratory Rate 27 H 33 H 25 H Blood Pressure 150/97 H Pulse Oximetry 94 10/24/21 16:00 10/24/21 18:00 10/24/21 18:55 Temperature 37.2 C 37.1 C Pulse Rate 135 H 134 H Respiratory Rate 22 H 22 H 26 H Blood Pressure 155/97 H 155/98 H Pulse Oximetry 94 94 96 10/24/21 20:00 10/24/21 20:12 10/24/21 20:22 Temperature 37.4 C Pulse Rate 125 H 130 H 125 H Respiratory Rate 23 H 35 H 30 H Blood Pressure 142/94 H Pulse Oximetry 95 10/24/21 21:10 10/24/21 22:00 10/25/21 00:00 Temperature 36.8 C Pulse Rate 118 H 118 H Respiratory Rate 19 22 H Blood Pressure 139/92 H 154/107 H Pulse Oximetry 95 94 95 10/25/21 02:00 10/25/21 02:11 10/25/21 02:21 Temperature Pulse Rate 116 H 113 H 111 H Respiratory Rate 17 33 H 33 H Blood Pressure 109/71 Pulse Oximetry 96 10/25/21 03:49 10/25/21 04:00 10/25/21 05:43 Temperature 36.8 C Pulse Rate 115 H 112 H 106 H Respiratory Rate 25 H 16 Blood Pressure 130/96 H 114/80 Pulse Oximetry 95 96 94 Intake/Output Intake/Output: Intake & Output 10/22/21 10/23/21 10/24/21 10/25/21 23:59 23:59 23:59 23:59 Intake Total 1600 3171.667 1802 439 Output Total 1425 2835 2780 880 Balance 175 336.667 -978 -441 Meds/Results Medications: Active Medications Generic Name Dose Route Start Last Admin Trade Name Freq PRN Reason Stop Dose Admin Dexamethasone Sodium Phosphate 4 mg 10/24/21 21:00 10/24/21 20:24 Dexamethasone Sod Phos Inj 4 Mg/Ml Vial IV PUSH 4 mg Q12H JOHNSON Administration Dextrose 12.5 gm 10/20/21 01:09 Dextrose 50% 25 Gm/50 Ml Syringe IV PUSH PRN PRN Hypoglycemia Protocol Enoxaparin Sodium 40 mg 10/20/21 09:00 10/24/21 08:42 Enoxaparin 40 Mg/0.4 Ml Syringe SUB-Q 40 mg DAILY JOHNSON Administration Glucagon 1 mg 10/20/21 01:09 Glucagon For Inj 1 Mg Vial IM PRN PRN Hypoglycemia Protocol Glucose 15 gm 10/20/21 01:09 Glucose Oral Gel 15 Gm Of Glucse In 37.5 Gm Tube PO PRN PRN Hypoglycemia Protocol Levetiracetam 500 mg in 100 mls @ 400 mls/hr 10/20/21 09:00 10/24/21 20:40 Keppra Iv IVPB Infused Q12HR JOHNSON Infusion Dextrose 1,000 mls @ 100 mls/hr 10/20/21 01:09 Dextrose 5% 1,000 Ml IVPB PRN PRN Hypoglycemia Protocol Piperacillin/Tazobactam/Dextrose 3.375 gm in 50 mls @ 100 mls/hr 10/20/21 13:00 10/25/21 05:07 Zosyn 3.375 Gm/D5w
[2021-10-25] MEDS: ENOXAPARIN 40 MG/0.4 ML SYRINGE SUB-Q (08:05)
[2021-10-25] MEDS: levETIRAcetam 500MG/NACL 100ML 500 MG/100 ML BAG 400 MG IVPB ×2 (08:05→21:13)
[2021-10-25] MEDS: DEXAMETHASONE SOD PHOS INJ 4 MG/ML VIAL IV PUSH ×2 (08:09→21:09)
[2021-10-25] MEDS: PANTOPRAZOLE SODIUM IV 40 MG VIAL IV PUSH ×2 (08:09→21:09)
[2021-10-25] MEDS: TOLNAFTATE 1% POWDER 45 GM BTL 1 APPLIC TOPICAL ×2 (08:13→21:09)
[2021-10-25] MEDS: MAGNESIUM SULF 2 GM/WATER 50ML 2 GM/50 ML BAG IVPB (09:05)
[2021-10-25] MEDS: POTASSIUM CHLORIDE 20 MEQ TABLET 40 MEQ PO (09:05)
[2021-10-25] MEDS: CALCIUM GLUC 2,000 MG/NS 100ML 2,000 MG/100 ML BAG 100 MG IVPB (09:48)
--- NOTE | 2021-10-25 11:02 | PM.IMPN ---
Progress Note: A&P Assessment and Plan (1) Septic shock: Code(s): A41.9 - Sepsis, unspecified organism; R65.21 - Severe sepsis with septic shock Status: Acute Assessment and Plan: Septic shock most likely related perforated bowel status post Porfirio procedure, ostomy, washout -patient was adequately fluid-resuscitated in the ER and in the OR.. -off vasopressors at this time continue to monitor and maintain map> 65 mmHg for adequate end organ perfusion -continue Zosyn (10/20) -lactic acid has normalized -of stress dose steroids -urine output low but renal function continue to improve -of IV fluids -10/19: blood cultures growing fusobacterium which will be covered by Zosyn (2) Respiratory failure: Qualifiers: Chronicity: acute Respiratory failure complication: unspecified whether with hypoxia or hypercapnia Qualified Code(s): J96.00 - Acute respiratory failure, unspecified whether with hypoxia or hypercapnia Code(s): J96.90 - Respiratory failure, unspecified, unspecified whether with hypoxia or hypercapnia Status: Acute Assessment and Plan: Respiratory failure likely related to septic shock, post surgery He was extubated yesterday after a successful weaning trial. Maintaining adequate oxygenation on nasal cannula Chest x-ray reviewed Of IV fluids, incentive spirometry, up in chair, PT OT consult Continue bronchodilators (3) Bowel perforation: Code(s): K63.1 - Perforation of intestine (nontraumatic) Status: Acute Assessment and Plan: 10/19/2021: Perforated viscus, septic shock, ex lap with Porfirio's procedure, mobilization of splenic flexure, extensive intra-abdominal washout, colostomy -surgery following the patient and managing -continue Zosyn -his ostomy looks dusky and surgery is aware -he tolerated clear liquid diet this morning. -will DC NG tube. Further diet advancement per General surgery (4) Acute kidney injury: Code(s): N17.9 - Acute kidney failure, unspecified Status: Acute Assessment and Plan: Acute kidney injury likely related to perforated viscus, septic shock, hypotension, hypovolemia, ATN, infection -patient has received adequate amount of IV fluids and renal function is improved -will discontinue maintenance IV fluids -monitor renal function, lytes and urine out -urine output and renal function improving (5) Renal cell carcinoma: Qualifiers: Laterality: unspecified laterality Qualified Code(s): C64.9 - Malignant neoplasm of unspecified kidney, except renal pelvis Code(s): C64.9 - Malignant neoplasm of unspecified kidney, except renal pelvis Status: Acute Assessment and Plan: Patient has a history of renal cell carcinoma with Mets to the brain, bones, adrenals, lung nodules, retroperitoneal -patient is on Decadron, will resume tomorrow -continue Keppra IV (6) DVT prophylaxis: Code(s): Z29.9 - Encounter for prophylactic measures, unspecified Status: Acute Assessment and Plan: Prophylactic Lovenox (7) Electrolyte abnormality: Code(s): E87.8 - Other disorders of electrolyte and fluid balance, not elsewhere classified Status: Acute Assessment and Plan: replace potassium and Mag (8) Postoperative pain: Code(s): G89.18 - Other acute postprocedural pain Status: Acute Assessment and Plan: 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 She has been seeing patients since admission and states that area looks better Continue Tolnaftate powder for groin and miconazole cream for back Additional Plan Stress ulcer prophylaxis: Protonix Nutrition: Clear liquid diet Code status: Full code Subjective Date/time seen: 10/25/21 11:02 Patient states
--- NOTE | 2021-10-25 11:16 | PCFNICU ---
ICU Rounding Note: Pt current nutrition is Clear liquids. Last recorded weight is 111.4 kg-stable Bowel Motility: colostomy Labs Reviewed:Mg 1.5,Alb 2.2,Hct 36.4,Hgb 10.8 Meds Noted:Lovenox, Atrovent, Keppra,Zosyn, Protonix. Skin: WNL Additional Notes: Spoke with nursing today. Tube feedings have been discontinues. Diet order is clear liquids with plans to advance as tolerated. Ensure clear will be provided on clear liquids trays providing an additional 240 kcals and 8 gms protein. Following daily in ICU rounds. Will monitor every Friday and Friday.
[2021-10-25 12:04] LABS: Glucose Point of Care 200 mg/dl (65-105)
[2021-10-25 17:47] LABS: Glucose Point of Care 229 mg/dl (65-105)
[2021-10-26] VITALS (21 sets, daily range): BP systolic 115–131; BP diastolic 79–97; PULSE 65–112; RESP 12–22; TEMP 36.3–36.9; O2SAT 92–100
[2021-10-26 00:01] LABS: Glucose Point of Care 206 mg/dl (65-105)
[2021-10-26] MEDS: INSULIN ASPART (*BKC) 100 UNITS/ML SUB-Q (00:07)
[2021-10-26] MEDS: IPRATROPIUM BR 0.02% INH SOLN 0.5 MG/2.5 ML VIAL INHALATION ×3 (01:50→19:34)
[2021-10-26] MEDS: LEVALBUTEROL NEB 1.25 MG/3 ML 0.63 MG INHALATION ×3 (01:50→19:34)
[2021-10-26] MEDS: MORPHINE SULFATE PCA (*CRX) 30 MG/30 ML SYR IV CONT ×3 (04:53→22:27)
[2021-10-26] MEDS: CENTRAL LINE FLUSH 10 ML IV PUSH ×3 (05:00→22:07)
[2021-10-26 05:07] LABS: Glucose Point of Care 169 mg/dl (65-105)
[2021-10-26 08:20] LABS: Hematocrit 34.8 % (42.0-52.0); Hemoglobin 10.4 g/dL (14.0-18.0); Mean Corpuscular HGB Conc 29.9 g/dl (32-36); Mean Corpuscular Hemoglobin 24.9 pg (26-34); Mean Corpuscular Volume 83.3 fl (80-100); Mean Platelet Volume 9.5 fl (7.4-10.4); Platelet Count Result 170 k/mm3 (150-375); Red Blood Count 4.18 M/mm3 (4.6-6.20); Red Cell Distribution Width 18.8 % (11.5-14.5); White Blood Count 11.3 K/mm3 (4.5-10.0)
[2021-10-26 08:32] LABS: Alanine Aminotransferase 22 U/L (4-50); Albumin Level 2.6 g/dL (3.5-5.1); Alkaline Phosphatase 233 U/L (38-126); Anion Gap 2 mmol/L (8-16); Aspartate Amino Transferase 40 U/L (17-59); Bilirubin,Total 1.7 mg/dL (0.2-1.3); Blood Urea Nitrogen 23 mg/dL (9-20); Calcium 8.3 mg/dL (8.4-10.2); Carbon Dioxide 31 mmol/L (22-30); Chloride 105 mmol/L (98-107); Estimated CRCL calculation 87 ml/min; Estimated Glomerular Filt Rate > 60; Glucose 156 mg/dL (65-110); Potassium 3.9 mmol/L (3.4-5.0); Sodium 138 mmol/L (137-145)
--- NOTE | 2021-10-26 08:52 | PM.PNGS ---
Progress Note: A&P Assessment and Plan (1) Perforation of sigmoid colon due to diverticulitis: Code(s): K57.20 - Diverticulitis of large intestine with perforation and abscess without bleeding Status: Acute Assessment and Plan: doing well, ADAT, ostomy care (2) Wound infection: Code(s): T14.8XXA - Other injury of unspecified body region, initial encounter; L08.9 - Local infection of the skin and subcutaneous tissue, unspecified Status: Acute Assessment and Plan: opened at bedside and will place vac, cont abx Subjective Subjective Date/Time Seen: 10/26/21 08:52 no acute issues, more alert this am Review of Systems Review of Systems: All systems reviewed & are unremarkable except as noted in HPI and below Exam Const: General: cooperative, no acute distress, confusion and ill appearing Orientation/consciousness: oriented to person and oriented to place Resp: Auscultation: diminished lung sounds Cardio: Rate: regular rate Rhythm: regular rhythm GI: Inspection: normal to inspection, distended and incision GI Palp: Yes Soft to palpation, Yes Tenderness to palpation present (GI), No Guarding due to palpation present (GI) and No Rigid due to palpation Other: wound c purulent drainage, sl redness, opened at bedside c mod amount of purulent drainage, fascia intact, ostomy dusky but viable and +fxn Objective Data Vital Signs Vital Signs: Vital Signs - 24 hr 10/25/21 10:00 10/25/21 12:00 10/25/21 14:00 Temperature 36.8 C Pulse Rate 111 H 115 H 120 H Respiratory Rate 22 H 18 24 H Blood Pressure 133/94 H 131/90 134/89 Pulse Oximetry 88 L 92 91 10/25/21 16:00 10/25/21 18:00 10/25/21 19:50 Temperature 36.6 C Pulse Rate 100 112 H 105 H Respiratory Rate 12 17 19 Blood Pressure 107/71 129/90 Pulse Oximetry 93 92 10/25/21 19:57 10/25/21 19:58 10/25/21 20:00 Temperature 36.8 C Pulse Rate 112 H 110 H Respiratory Rate 18 16 Blood Pressure 142/87 H Pulse Oximetry 96 97 10/25/21 22:00 10/26/21 00:00 10/26/21 02:00 Temperature 36.9 C Pulse Rate 98 98 98 Respiratory Rate 14 17 14 Blood Pressure 116/86 115/81 127/84 Pulse Oximetry 94 93 93 10/26/21 02:20 10/26/21 03:50 10/26/21 04:00 Temperature 36.8 C Pulse Rate 112 H 94 95 Respiratory Rate 18 14 13 Blood Pressure 117/80 Pulse Oximetry 96 95 10/26/21 04:53 10/26/21 06:00 10/26/21 08:04 Temperature 36.7 C Pulse Rate 92 98 Respiratory Rate 19 14 18 Blood Pressure 117/90 Pulse Oximetry 95 96 94 10/26/21 08:14 Temperature Pulse Rate 101 H Respiratory Rate 18 Blood Pressure Pulse Oximetry Intake/Output Intake/Output: Intake & Output 10/23/21 10/24/21 10/25/21 10/26/21 23:59 23:59 23:59 23:59 Intake Total 3171.667 1802 2099 180 Output Total 2835 2780 1590 420 Balance 336.773 -446 509 -347 Meds/Results Medications: Active Medications Generic Name Dose Route Start Last Admin Trade Name Freq PRN Reason Stop Dose Admin Dexamethasone Sodium Phosphate 4 mg 10/24/21 21:00 10/25/21 21:09 Dexamethasone Sod Phos Inj 4 Mg/Ml Vial IV PUSH 4 mg Q12H JOHNSON Administration Dextrose 12.5 gm 10/20/21 01:09 Dextrose 50% 25 Gm/50 Ml Syringe IV PUSH PRN PRN Hypoglycemia Protocol Enoxaparin Sodium 40 mg 10/20/21 09:00 10/25/21 08:05 Enoxaparin 40 Mg/0.4 Ml Syringe SUB-Q 40 mg DAILY JOHNSON Administration Glucagon 1 mg 10/20/21 01:09 Glucagon For Inj 1 Mg Vial IM PRN PRN Hypoglycemia Protocol Glucose 15 gm 10/20/21 01:09 Glucose Oral Gel 15 Gm Of Glucse In 37.5 Gm Tube PO PRN PRN Hypoglycemia Protocol Levetiracetam 500 mg in 100 mls @ 400 mls/hr 10/20/21 09:00 10/25/21 21:28 Keppra Iv IVPB Infused Q12HR JOHNSON Infusion Dextrose 1,000 mls @ 100 mls/hr 10/20/21 01:09 Dextrose 5% 1,000 Ml IVPB PRN PRN Hypoglycemia Protocol Piperacillin/Tazobactam/Dextrose 3.375 gm in 50
--- NOTE | 2021-10-26 09:09 | PM.IMPN ---
Progress Note: A&P Assessment and Plan (1) Septic shock: Code(s): A41.9 - Sepsis, unspecified organism; R65.21 - Severe sepsis with septic shock Status: Acute Assessment and Plan: Septic shock most likely related perforated bowel status post Porfirio procedure, ostomy, washout -patient was adequately fluid-resuscitated in the ER and in the OR.. -off vasopressors at this time continue to monitor and maintain map> 65 mmHg for adequate end organ perfusion -continue Zosyn (10/20) -lactic acid has normalized -off stress dose steroids and IVF -urine output low but renal function continue to improve -10/19: blood cultures growing fusobacterium which will be covered by Zosyn (2) Respiratory failure: Qualifiers: Chronicity: acute Respiratory failure complication: unspecified whether with hypoxia or hypercapnia Qualified Code(s): J96.00 - Acute respiratory failure, unspecified whether with hypoxia or hypercapnia Code(s): J96.90 - Respiratory failure, unspecified, unspecified whether with hypoxia or hypercapnia Status: Acute Assessment and Plan: Respiratory failure likely related to septic shock, post surgery He was extubated yesterday after a successful weaning trial. Maintaining adequate oxygenation on nasal cannula Chest x-ray reviewed Off IV fluids, incentive spirometry, up in chair, PT OT consult Continue bronchodilators (3) Bowel perforation: Code(s): K63.1 - Perforation of intestine (nontraumatic) Status: Acute Assessment and Plan: 10/19/2021: Perforated viscus, septic shock, ex lap with Porfirio's procedure, mobilization of splenic flexure, extensive intra-abdominal washout, colostomy -surgery following the patient and managing -continue Zosyn -his ostomy looks dusky and surgery is aware -he tolerated clear liquid diet this morning. -tolerating oral diet -discussed with Dr. Monroe who open and examined patient's wound and plans to place wound VAC at the site (4) Acute kidney injury: Code(s): N17.9 - Acute kidney failure, unspecified Status: Acute Assessment and Plan: Acute kidney injury likely related to perforated viscus, septic shock, hypotension, hypovolemia, ATN, infection -patient has received adequate amount of IV fluids and renal function is improved -patient now off of maintenance IV fluids -monitor renal function, lytes and urine out -his urine output has trended down over last 24 hours -his p.o. intake is still marginal. Will give small amount IV fluids in add 25% albumin to minimize third-spacing (5) Renal cell carcinoma: Qualifiers: Laterality: unspecified laterality Qualified Code(s): C64.9 - Malignant neoplasm of unspecified kidney, except renal pelvis Code(s): C64.9 - Malignant neoplasm of unspecified kidney, except renal pelvis Status: Acute Assessment and Plan: Patient has a history of renal cell carcinoma with Mets to the brain, bones, adrenals, lung nodules, retroperitoneal -patient is on Decadron which has been resumed -continue Keppra IV (6) DVT prophylaxis: Code(s): Z29.9 - Encounter for prophylactic measures, unspecified Status: Acute Assessment and Plan: Prophylactic Lovenox (7) Electrolyte abnormality: Code(s): E87.8 - Other disorders of electrolyte and fluid balance, not elsewhere classified Status: Acute Assessment and Plan: Improved after placement (8) Postoperative pain: Code(s): G89.18 - Other acute postprocedural pain Status: Acute Assessment and Plan: Improved with morphine PEARL HAND (9) Skin maceration: Code(s): L98.8 - Other specified disorders of the skin and subcutaneous tissue Status: Acute Assessment and Plan: Patient seen by and case discussed with wound care nurse. She has been seeing patients since admission and states that area looks better Continue Tolnaftate powder for groin and miconazole cream
[2021-10-26] MEDS: levETIRAcetam 500MG/NACL 100ML 500 MG/100 ML BAG 400 MG IVPB ×2 (09:19→22:06)
[2021-10-26] MEDS: TOLNAFTATE 1% POWDER 45 GM BTL 1 APPLIC TOPICAL ×2 (09:19→22:07)
[2021-10-26] MEDS: ENOXAPARIN 40 MG/0.4 ML SYRINGE SUB-Q (09:19)
[2021-10-26] MEDS: PANTOPRAZOLE SODIUM IV 40 MG VIAL IV PUSH ×2 (09:19→22:06)
[2021-10-26] MEDS: DEXAMETHASONE SOD PHOS INJ 4 MG/ML VIAL IV PUSH ×2 (09:19→22:06)
[2021-10-26] MEDS: SODIUM CHLORIDE 0.9% IV 500 ML IV CONT (10:12)
--- NOTE | 2021-10-26 11:15 | PCFNICU ---
ICU Rounding Note: Pt current nutrition is Soft and Bite Sized, Level 6 Last recorded weight is 111.6 kg, stable Bowel Motility:ostomy Labs Reviewed:Mg 1.5, Alb 2.2,Hct 36.4,Hgb 10.8 Meds Noted: Protonix, Decadron,Atrovent, Xopenex, Lovenox. Skin: WNL Additional Notes: Diet order has advanced to a soft and bite sized, Level 6/[facility] diet. Oral Intake has good, at least 75% of meals. Agree with diet orders. No further nutritional interventions needed. Monitoring: will monitor weekly.
[2021-10-26] MEDS: ALBUMIN HUMAN 25% 25 GM/100 ML 100 ML IVPB ×2 (11:31→18:30)
[2021-10-26 11:42] LABS: Glucose Point of Care 146 mg/dl (65-105)
--- NOTE | 2021-10-26 12:43 | PC.NURSE ---
Report given to TORIE Schaefer with the IMU department. All questions answered and plan of care reviewed. Patient to go to IMU room 204.
[2021-10-26 16:54] LABS: Glucose Point of Care 189 mg/dl (65-105)
--- NOTE | 2021-10-26 18:39 | PC.NURSE ---
Per Dr Cheek run LR at KVO 30 ml/hr to run with morphine.
[2021-10-26] MEDS: LACTATED RINGERS 1,000 ML 30 ML IV CONT (18:49)
[2021-10-27] VITALS (22 sets, daily range): BP systolic 116–135; BP diastolic 74–83; PULSE 70–118; RESP 12–22; TEMP 35.7–36.8; O2SAT 93–98
[2021-10-27] MEDS: ALBUMIN HUMAN 25% 25 GM/100 ML 100 ML IVPB ×2 (00:22→06:13)
[2021-10-27 01:30] LABS: Glucose Point of Care 151 mg/dl (65-105)
[2021-10-27] MEDS: IPRATROPIUM BR 0.02% INH SOLN 0.5 MG/2.5 ML VIAL INHALATION ×4 (01:40→20:13)
[2021-10-27] MEDS: LEVALBUTEROL NEB 1.25 MG/3 ML 0.63 MG INHALATION ×4 (01:40→20:13)
[2021-10-27] MEDS: MORPHINE SULFATE PCA (*CRX) 30 MG/30 ML SYR IV CONT (04:57)
[2021-10-27 06:12] LABS: Hematocrit 32.9 % (42.0-52.0); Hemoglobin 9.6 g/dL (14.0-18.0); Mean Corpuscular HGB Conc 29.2 g/dl (32-36); Mean Corpuscular Hemoglobin 24.8 pg (26-34); Mean Platelet Volume 9.9 fl (7.4-10.4); Platelet Count Result 162 k/mm3 (150-375); Red Blood Count 3.87 M/mm3 (4.6-6.20); Red Cell Distribution Width 18.7 % (11.5-14.5); White Blood Count 11.4 K/mm3 (4.5-10.0)
[2021-10-27 06:14] LABS: Glucose Point of Care 164 mg/dl (65-105)
[2021-10-27] MEDS: CENTRAL LINE FLUSH 10 ML IV PUSH ×3 (06:14→20:53)
[2021-10-27 06:24] LABS: Alanine Aminotransferase 21 U/L (4-50); Alkaline Phosphatase 214 U/L (38-126); Anion Gap 3 mmol/L (8-16); Aspartate Amino Transferase 40 U/L (17-59); Blood Urea Nitrogen 23 mg/dL (9-20); Calcium 8.6 mg/dL (8.4-10.2); Carbon Dioxide 32 mmol/L (22-30); Chloride 104 mmol/L (98-107); Estimated CRCL calculation 87 ml/min; Estimated Glomerular Filt Rate > 60; Glucose 152 mg/dL (65-110); Magnesium 1.8 mg/dL (1.6-2.3); Potassium 4.1 mmol/L (3.4-5.0); Sodium 139 mmol/L (137-145)
--- NOTE | 2021-10-27 10:48 | PCPTNOTE ---
The patient treatment was not able to be completed on 10/27 due to pt stating he was busy with his son. Will plan to continue treatment per plan of care.
[2021-10-27] MEDS: levETIRAcetam 500MG/NACL 100ML 500 MG/100 ML BAG 400 MG IVPB ×2 (12:38→20:51)
[2021-10-27] MEDS: DEXAMETHASONE SOD PHOS INJ 4 MG/ML VIAL IV PUSH ×2 (12:44→20:51)
[2021-10-27] MEDS: ENOXAPARIN 40 MG/0.4 ML SYRINGE SUB-Q (12:44)
[2021-10-27] MEDS: PANTOPRAZOLE SODIUM IV 40 MG VIAL IV PUSH ×2 (12:44→20:51)
[2021-10-27] MEDS: TOLNAFTATE 1% POWDER 45 GM BTL 1 APPLIC TOPICAL ×2 (12:44→20:52)
[2021-10-27 12:56] LABS: Glucose Point of Care 122 mg/dl (65-105)
--- NOTE | 2021-10-27 13:04 | PM.PNGS ---
Progress Note: A&P Assessment and Plan (1) Perforation of sigmoid colon due to diverticulitis: Code(s): K57.20 - Diverticulitis of large intestine with perforation and abscess without bleeding Status: Acute Assessment and Plan: Transition to oral pain meds MiraLax daily Continue wound vac and monitor ostomy function (2) Wound infection: Code(s): T14.8XXA - Other injury of unspecified body region, initial encounter; L08.9 - Local infection of the skin and subcutaneous tissue, unspecified Status: Acute (3) Renal cell carcinoma: Qualifiers: Laterality: unspecified laterality Qualified Code(s): C64.9 - Malignant neoplasm of unspecified kidney, except renal pelvis Code(s): C64.9 - Malignant neoplasm of unspecified kidney, except renal pelvis Status: Acute Subjective Subjective Date/Time Seen: 10/27/21 13:04 Interval history: Tolerates solid diet. Not much output from ostomy the past 2 days. 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 No nausea or vomiting. Exam GI: Other: Wound vac in place over midline incision. Ostomy dark but still intact at skin, no stool output in bag but appears patent. PINA drain serous. Objective Data Vital Signs Vital Signs: Vital Signs - 24 hr 10/26/21 14:00 10/26/21 16:00 10/26/21 17:16 Temperature 36.8 C Pulse Rate 96 98 93 Respiratory Rate 22 H Blood Pressure 126/84 Pulse Oximetry 95 92 10/26/21 18:00 10/26/21 19:32 10/26/21 20:00 Temperature 36.5 C Pulse Rate 93 90 Respiratory Rate 16 Blood Pressure 127/79 Pulse Oximetry 94 100 10/26/21 22:00 10/26/21 22:27 10/27/21 00:00 Temperature 35.7 C L Pulse Rate 91 85 Respiratory Rate 16 12 Blood Pressure 133/78 Pulse Oximetry 100 96 10/27/21 01:39 10/27/21 02:00 10/27/21 04:00 Temperature 36.2 C L Pulse Rate 96 73 70 Respiratory Rate 18 16 Blood Pressure 135/81 Pulse Oximetry 94 10/27/21 04:57 10/27/21 06:00 10/27/21 08:00 Temperature 36.8 C Pulse Rate 88 96 Respiratory Rate 20 18 Blood Pressure 116/74 Pulse Oximetry 98 93 10/27/21 08:15 10/27/21 08:22 10/27/21 08:33 Temperature Pulse Rate 99 100 Respiratory Rate 18 20 Blood Pressure Pulse Oximetry 95 Intake/Output Intake/Output: Intake & Output 10/24/21 10/25/21 10/26/21 10/27/21 23:59 23:59 23:59 23:59 Intake Total 1802 2099 1130 530 Output Total 2780 1590 820 490 Balance -978 509 310 40 Meds/Results Medications: Active Medications Generic Name Dose Route Start Last Admin Trade Name Freq PRN Reason Stop Dose Admin Dexamethasone Sodium Phosphate 4 mg 10/24/21 21:00 10/27/21 12:44 Dexamethasone Sod Phos Inj 4 Mg/Ml Vial IV PUSH 4 mg Q12H JOHNSON Administration Dextrose 12.5 gm 10/20/21 01:09 Dextrose 50% 25 Gm/50 Ml Syringe IV PUSH PRN PRN Hypoglycemia Protocol Enoxaparin Sodium 40 mg 10/20/21 09:00 10/27/21 12:44 Enoxaparin 40 Mg/0.4 Ml Syringe SUB-Q 40 mg DAILY JOHNSON Administration Glucagon 1 mg 10/20/21 01:09 Glucagon For Inj 1 Mg Vial IM PRN PRN Hypoglycemia Protocol Glucose 15 gm 10/20/21 01:09 Glucose Oral Gel 15 Gm Of Glucse In 37.5 Gm Tube PO PRN PRN Hypoglycemia Protocol Levetiracetam 500 mg in 100 mls @ 400 mls/hr 10/20/21 09:00 10/27/21 12:38 Keppra Iv IVPB 400 mls/hr Q12HR JOHNSON Administration Dextrose 1,000 mls @ 100 mls/hr 10/20/21 01:09 Dextrose 5% 1,000 Ml IVPB PRN PRN Hypoglycemia Protocol Piperacillin/Tazobactam/Dextrose 3.375 gm in 50 mls @ 100 mls/hr 10/20/21 13:00 10/27/21 06:42 Zosyn 3.375 Gm/D5w 50ml Pm IVPB Infused Q6HR JOHNSON Infusion Lactated Ringer's 1,000 mls @ 30 mls/hr 10/26/21 18:40 10/26/21 18:49 Lr - Lactated Ringers Iv IV CONT 30 mls/hr .Q24H JOHNSON Administration Insulin Aspart 2 - 5 units 10/20/21 06:00 10/27/21 12:45 Insulin Aspart (*Bkc) 100 Units/Ml SUB-Q Not Given Q6HR
[2021-10-27] MEDS: polyethylene glycoL 3350 17 GM POWD.PACK PO (13:33)
--- NOTE | 2021-10-27 13:59 | PM.IMPN ---
Progress Note: A&P Assessment and Plan (1) Septic shock: Code(s): A41.9 - Sepsis, unspecified organism; R65.21 - Severe sepsis with septic shock Status: Acute Assessment and Plan: Septic shock most likely related perforated bowel status post Porfirio procedure, ostomy, washout -patient was adequately fluid-resuscitated in the ER and in the OR.. -off vasopressors at this time continue to monitor and maintain map> 65 mmHg for adequate end organ perfusion -continue Zosyn (10/20) -lactic acid has normalized -off stress dose steroids and IVF -urine output low but renal function continue to improve -10/19: blood cultures growing fusobacterium which will be covered by Zosyn 10/20/2021 interval history: patient is a 56-year-old male with recent history of metastatic renal cell carcinoma with the largest right renal mass presented emergency department with weakness and abdominal pain CT scan abdomen showed perforated viscus, patient was hypotensive received total of 7 L of fluids, currently patient on vent, on pressors, and Zosyn, seen by upstairs maid and surgery service and appreciate. 10/21/2021 interval history: patient is a 56-year-old male with recent history of metastatic renal cell carcinoma with the largest right renal mass presented emergency department with weakness and abdominal pain CT scan abdomen showed perforated viscus, patient was taken to the OR and had exploratory laparotomy and washout, patient was hypotensive received total of 7 L of fluids, currently patient on vent, on pressors, and Zosyn, seen by upstairs maid and surgery service and appreciate. 10/22/2021 interval history: patient is a 56-year-old male with recent history of metastatic renal cell carcinoma with the largest right renal mass presented emergency department with weakness and abdominal pain, CT scan abdomen showed perforated viscus, patient was taken to the OR and had exploratory laparotomy and washout, patient is seen surgery service ostomy is function and may start the tube feeding, continue IV antibiotic, patient was hypotensive received total of 7 L of fluids, currently patient on vent, on pressors, and Zosyn, seen by upstairs maid and surgery service and appreciate. 10/27/2021 interval history: patient was successfully extubated on 10/26/2021 and now patient is on 4L NC and out of ICU, patient GI function have returned able to tolerate his diet and has a BM, patient seen by surgery service recommended continue wound VAC and monitor ostotomy function, patient complains of sore throat as he was intubated for sometime we will give the patient Chloraseptic lozenges, patient remains clinically stable will continue to monitor. (2) Respiratory failure: Qualifiers: Chronicity: acute Respiratory failure complication: unspecified whether with hypoxia or hypercapnia Qualified Code(s): J96.00 - Acute respiratory failure, unspecified whether with hypoxia or hypercapnia Code(s): J96.90 - Respiratory failure, unspecified, unspecified whether with hypoxia or hypercapnia Status: Acute Assessment and Plan: Respiratory failure likely related to septic shock, post surgery He was extubated yesterday after a successful weaning trial. Maintaining adequate oxygenation on nasal cannula Chest x-ray reviewed Off IV fluids, incentive spirometry, up in chair, PT OT consult Continue bronchodilators (3) Bowel perforation: Code(s): K63.1 - Perforation of intestine (nontraumatic) Status: Acute Assessment and Plan: 10/19/2021: Perforated viscus, septic shock, ex lap with Porfirio's procedure, mobilization of splenic flexure, extensive intra-abdominal washout, colostomy -surgery following the patient and managing -continue Zosyn -his ostomy looks dusky and surgery is aware -he tolerated clear liquid diet this morning. -tolerating oral diet -discussed with Dr. Monroe who open and examined patient's wound and plans to place wo
[2021-10-27 17:57] LABS: Glucose Point of Care 188 mg/dl (65-105)
[2021-10-27 23:22] LABS: Glucose Point of Care 182 mg/dl (65-105)
[2021-10-28] VITALS (16 sets, daily range): BP systolic 123–143; BP diastolic 70–88; PULSE 90–102; RESP 14–20; TEMP 35.9–36.7; O2SAT 91–99
[2021-10-28] MEDS: IPRATROPIUM BR 0.02% INH SOLN 0.5 MG/2.5 ML VIAL INHALATION ×3 (01:42→19:14)
[2021-10-28] MEDS: LEVALBUTEROL NEB 1.25 MG/3 ML 0.63 MG INHALATION ×3 (01:42→19:14)
[2021-10-28] MEDS: oxyCODONE HCL (*CRX) 5 MG TAB IR PO ×2 (04:20→14:49)
[2021-10-28] MEDS: CENTRAL LINE FLUSH 10 ML IV PUSH ×3 (05:56→20:37)
[2021-10-28 06:00] LABS: Hematocrit 34.3 % (42.0-52.0); Hemoglobin 10.3 g/dL (14.0-18.0); Mean Corpuscular Hemoglobin 25.2 pg (26-34); Mean Corpuscular Volume 84.1 fl (80-100); Mean Platelet Volume 10.1 fl (7.4-10.4); Platelet Count Result 228 k/mm3 (150-375); Red Blood Count 4.08 M/mm3 (4.6-6.20); Red Cell Distribution Width 18.6 % (11.5-14.5); White Blood Count 18.7 K/mm3 (4.5-10.0)
[2021-10-28 06:16] LABS: Alanine Aminotransferase 29 U/L (4-50); Albumin Level 2.9 g/dL (3.5-5.1); Alkaline Phosphatase 316 U/L (38-126); Anion Gap 5 mmol/L (8-16); Aspartate Amino Transferase 48 U/L (17-59); Bilirubin,Total 2.2 mg/dL (0.2-1.3); Blood Urea Nitrogen 22 mg/dL (9-20); Calcium 8.5 mg/dL (8.4-10.2); Carbon Dioxide 28 mmol/L (22-30); Chloride 102 mmol/L (98-107); Estimated CRCL calculation 95 ml/min; Estimated Glomerular Filt Rate > 60; Glucose 175 mg/dL (65-110); Magnesium 1.6 mg/dL (1.6-2.3); Potassium 3.8 mmol/L (3.4-5.0); Sodium 135 mmol/L (137-145)
[2021-10-28] MEDS: PANTOPRAZOLE SODIUM IV 40 MG VIAL IV PUSH ×2 (08:39→20:36)
[2021-10-28] MEDS: polyethylene glycoL 3350 17 GM POWD.PACK PO (08:40)
[2021-10-28] MEDS: DEXAMETHASONE SOD PHOS INJ 4 MG/ML VIAL IV PUSH ×2 (08:40→20:36)
[2021-10-28] MEDS: ENOXAPARIN 40 MG/0.4 ML SYRINGE SUB-Q (08:40)
[2021-10-28] MEDS: TOLNAFTATE 1% POWDER 45 GM BTL 1 APPLIC TOPICAL ×2 (08:41→20:37)
[2021-10-28] MEDS: levETIRAcetam 500MG/NACL 100ML 500 MG/100 ML BAG 400 MG IVPB ×2 (08:46→20:30)
[2021-10-28] MEDS: oxyCODONE HCL (*CRX) 5 MG TAB IR 10 MG PO ×2 (08:49→18:10)
[2021-10-28 12:17] LABS: Glucose Point of Care 177 mg/dl (65-105)
--- NOTE | 2021-10-28 12:35 | PM.PNGS ---
Progress Note: A&P Assessment and Plan (1) Perforation of sigmoid colon due to diverticulitis: Code(s): K57.20 - Diverticulitis of large intestine with perforation and abscess without bleeding Status: Acute Assessment and Plan: Stool noted in Ostomy bag today. Continue daily MiraLax and stimulate more as needed Continue oral pain meds Increase activity Will plan to change wound vac tomorrow (2) Wound infection: Code(s): T14.8XXA - Other injury of unspecified body region, initial encounter; L08.9 - Local infection of the skin and subcutaneous tissue, unspecified Status: Acute (3) Renal cell carcinoma: Qualifiers: Laterality: unspecified laterality Qualified Code(s): C64.9 - Malignant neoplasm of unspecified kidney, except renal pelvis Code(s): C64.9 - Malignant neoplasm of unspecified kidney, except renal pelvis Status: Acute Subjective Subjective Date/Time Seen: 10/28/21 12:35 Interval history: Still having abdominal pain. No fevers. Tolerating diet. Exam GI: Other: Wound vac in place over midline incision. Ostomy dark but still intact at skin, stool in bag. PINA drain serous. Objective Data Vital Signs Vital Signs: Vital Signs - 24 hr 10/27/21 13:50 10/27/21 14:00 10/27/21 16:00 Temperature 36.7 C Pulse Rate 97 118 H 118 H Respiratory Rate 20 20 Blood Pressure 122/83 Pulse Oximetry 96 10/27/21 18:00 10/27/21 20:00 10/27/21 20:15 Temperature 36.2 C L Pulse Rate 118 H 110 H 107 H Respiratory Rate 22 H 20 Blood Pressure 121/79 Pulse Oximetry 96 10/27/21 20:25 10/27/21 20:29 10/27/21 22:00 Temperature Pulse Rate 106 H 100 Respiratory Rate 20 Blood Pressure Pulse Oximetry 93 10/27/21 23:32 10/28/21 00:00 10/28/21 01:44 Temperature 36.5 C Pulse Rate 95 90 95 Respiratory Rate 22 H 20 Blood Pressure 127/77 Pulse Oximetry 96 96 10/28/21 02:00 10/28/21 03:45 10/28/21 04:00 Temperature 36.5 C Pulse Rate 90 91 95 Respiratory Rate 20 Blood Pressure 123/76 Pulse Oximetry 97 97 10/28/21 06:00 02/20/22 07:00 10/28/21 09:17 Temperature 36.7 C Pulse Rate 95 101 H 98 Respiratory Rate 20 20 Blood Pressure 125/75 Pulse Oximetry 99 10/28/21 09:19 10/28/21 12:00 Temperature 35.9 C L Pulse Rate 97 Respiratory Rate 14 Blood Pressure Pulse Oximetry 91 93 Intake/Output Intake/Output: Intake & Output 10/25/21 10/26/21 10/27/21 10/28/21 23:59 23:59 23:59 23:59 Intake Total 2099 1130 1740 340 Output Total 7585 920 6723 475 Balance 509 310 410 -135 Meds/Results Medications: Active Medications Generic Name Dose Route Start Last Admin Trade Name Freq PRN Reason Stop Dose Admin Dexamethasone Sodium Phosphate 4 mg 10/24/21 21:00 10/28/21 08:40 Dexamethasone Sod Phos Inj 4 Mg/Ml Vial IV PUSH 4 mg Q12H JOHNSON Administration Dextrose 12.5 gm 10/20/21 01:09 Dextrose 50% 25 Gm/50 Ml Syringe IV PUSH PRN PRN Hypoglycemia Protocol Enoxaparin Sodium 40 mg 10/20/21 09:00 10/28/21 08:40 Enoxaparin 40 Mg/0.4 Ml Syringe SUB-Q 40 mg DAILY JOHNSON Administration Glucagon 1 mg 10/20/21 01:09 Glucagon For Inj 1 Mg Vial IM PRN PRN Hypoglycemia Protocol Glucose 15 gm 10/20/21 01:09 Glucose Oral Gel 15 Gm Of Glucse In 37.5 Gm Tube PO PRN PRN Hypoglycemia Protocol Levetiracetam 500 mg in 100 mls @ 400 mls/hr 10/20/21 09:00 10/28/21 08:46 Keppra Iv IVPB 400 mls/hr Q12HR JOHNSON Administration Dextrose 1,000 mls @ 100 mls/hr 10/20/21 01:09 Dextrose 5% 1,000 Ml IVPB PRN PRN Hypoglycemia Protocol Piperacillin/Tazobactam/Dextrose 3.375 gm in 50 mls @ 100 mls/hr 10/20/21 13:00 10/28/21 06:39 Zosyn 3.375 Gm/D5w 50ml Pm IVPB Infused Q6HR JOHNSON Infusion Insulin Aspart 2 - 5 units 10/28/21 12:35 Insulin Aspart (*Bkc) 100 Units/Ml SUB-Q TIDWM JOHNSON Protocol Ipr
[2021-10-28] MEDS: MORPHINE SULFATE (*CRX) 2 MG/ML INJ IV PUSH ×4 (12:53→22:37)
--- NOTE | 2021-10-28 15:13 | PM.IMPN ---
Progress Note: A&P Assessment and Plan (1) Septic shock: Code(s): A41.9 - Sepsis, unspecified organism; R65.21 - Severe sepsis with septic shock Status: Acute Assessment and Plan: Septic shock most likely related perforated bowel status post Porfirio procedure, ostomy, washout -patient was adequately fluid-resuscitated in the ER and in the OR.. -off vasopressors at this time continue to monitor and maintain map> 65 mmHg for adequate end organ perfusion -continue Zosyn (10/20) -lactic acid has normalized -off stress dose steroids and IVF -urine output low but renal function continue to improve -10/19: blood cultures growing fusobacterium which will be covered by Zosyn 10/20/2021 interval history: patient is a 56-year-old male with recent history of metastatic renal cell carcinoma with the largest right renal mass presented emergency department with weakness and abdominal pain CT scan abdomen showed perforated viscus, patient was hypotensive received total of 7 L of fluids, currently patient on vent, on pressors, and Zosyn, seen by flatwork supervisor and surgery service and appreciate. 10/21/2021 interval history: patient is a 56-year-old male with recent history of metastatic renal cell carcinoma with the largest right renal mass presented emergency department with weakness and abdominal pain CT scan abdomen showed perforated viscus, patient was taken to the OR and had exploratory laparotomy and washout, patient was hypotensive received total of 7 L of fluids, currently patient on vent, on pressors, and Zosyn, seen by flatwork supervisor and surgery service and appreciate. 10/22/2021 interval history: patient is a 56-year-old male with recent history of metastatic renal cell carcinoma with the largest right renal mass presented emergency department with weakness and abdominal pain, CT scan abdomen showed perforated viscus, patient was taken to the OR and had exploratory laparotomy and washout, patient is seen surgery service ostomy is function and may start the tube feeding, continue IV antibiotic, patient was hypotensive received total of 7 L of fluids, currently patient on vent, on pressors, and Zosyn, seen by flatwork supervisor and surgery service and appreciate. 10/27/2021 interval history: patient was successfully extubated on 10/26/2021 and now patient is on 4L NC and out of ICU, patient GI function have returned able to tolerate his diet and has a BM, patient seen by surgery service recommended continue wound VAC and monitor ostotomy function, patient complains of sore throat as he was intubated for sometime we will give the patient Chloraseptic lozenges, patient remains clinically stable will continue to monitor. 10/28/2021 interval history: patient was successfully extubated on 10/26/2021 and now patient is on 4L NC and out of ICU, patient GI function have returned able to tolerate his diet and has a BM, patient seen by surgery service recommended continue wound VAC and will remove VAC tomorrow, monitor ostotomy function, today patient c/o abodminal pain, patient is recieving norco, will add flexreil and lidoderm patches, will do KUB, patient remains clinically stable will continue to monitor. (2) Respiratory failure: Qualifiers: Chronicity: acute Respiratory failure complication: unspecified whether with hypoxia or hypercapnia Qualified Code(s): J96.00 - Acute respiratory failure, unspecified whether with hypoxia or hypercapnia Code(s): J96.90 - Respiratory failure, unspecified, unspecified whether with hypoxia or hypercapnia Status: Acute Assessment and Plan: Respiratory failure likely related to septic shock, post surgery He was extubated yesterday after a successful weaning trial. Maintaining adequate oxygenation on nasal cannula Chest x-ray reviewed Off IV fluids, incentive spirometry, up in chair, PT OT consult Continue bronchodilators (3) Bowel perforation: Code(s): K63.1 - Perforat
--- NOTE | 2021-10-28 15:24 | PC.NURSE ---
This patient, Jeffry Shaffer, was received from [[facility]] on 10/28/21 at 1500. Patient/family oriented to unit policies and routines
[2021-10-28] MEDS: LIDOCAINE 5% PATCH 2 PATCH TRANSDERM (16:27)
[2021-10-28 16:56] LABS: Glucose Point of Care 175 mg/dl (65-105)
[2021-10-28] MEDS: CENTRAL LINE FLUSH 20 ML IV PUSH (18:20)
[2021-10-28] MEDS: CYCLOBENZAPRINE HCL 5 MG TABLET PO (20:30)
[2021-10-29] VITALS (12 sets, daily range): BP systolic 132–154; BP diastolic 72–91; PULSE 80–106; RESP 18–20; TEMP 36.5–36.8; O2SAT 92–96
[2021-10-29] MEDS: MORPHINE SULFATE (*CRX) 2 MG/ML INJ IV PUSH ×3 (02:12→07:15)
[2021-10-29] MEDS: CENTRAL LINE FLUSH 10 ML IV PUSH ×3 (05:39→22:26)
[2021-10-29] MEDS: CYCLOBENZAPRINE HCL 5 MG TABLET PO ×3 (05:39→22:26)
[2021-10-29] MEDS: oxyCODONE HCL (*CRX) 5 MG TAB IR 10 MG PO (05:48)
[2021-10-29 06:12] LABS: Hematocrit 32.9 % (42.0-52.0); Hemoglobin 9.9 g/dL (14.0-18.0); Mean Corpuscular HGB Conc 30.1 g/dl (32-36); Mean Corpuscular Hemoglobin 24.6 pg (26-34); Mean Corpuscular Volume 81.8 fl (80-100); Platelet Count Result 271 k/mm3 (150-375); Red Blood Count 4.02 M/mm3 (4.6-6.20); Red Cell Distribution Width 18.6 % (11.5-14.5); White Blood Count 21.5 K/mm3 (4.5-10.0)
[2021-10-29 06:20] LABS: Alanine Aminotransferase 23 U/L (4-50); Albumin Level 2.8 g/dL (3.5-5.1); Alkaline Phosphatase 251 U/L (38-126); Anion Gap 9 mmol/L (8-16); Aspartate Amino Transferase 35 U/L (17-59); Bilirubin,Total 1.5 mg/dL (0.2-1.3); Blood Urea Nitrogen 22 mg/dL (9-20); Calcium 8.3 mg/dL (8.4-10.2); Carbon Dioxide 25 mmol/L (22-30); Chloride 103 mmol/L (98-107); Estimated CRCL calculation 95 ml/min; Estimated Glomerular Filt Rate > 60; Glucose 144 mg/dL (65-110); Magnesium 1.7 mg/dL (1.6-2.3); Potassium 3.6 mmol/L (3.4-5.0); Sodium 137 mmol/L (137-145)
[2021-10-29] MEDS: LORazepam INJ (*CRX) 2 MG/ML VIAL 1 MG IV PUSH (07:49)
[2021-10-29] MEDS: HYDROmorphone HCL INJ (*CRX) 1 MG/ML SYR ×2 (07:56→07:57)
--- NOTE | 2021-10-29 08:00 | PC.NURSE ---
patient to CT per bed
[2021-10-29 08:12] LABS: Glucose Point of Care 138 mg/dl (65-105)
--- NOTE | 2021-10-29 08:30 | PC.NURSE ---
patient returned to floor from CT
[2021-10-29] MEDS: IPRATROPIUM BR 0.02% INH SOLN 0.5 MG/2.5 ML VIAL INHALATION ×3 (08:44→21:12)
[2021-10-29] MEDS: LEVALBUTEROL NEB 1.25 MG/3 ML 0.63 MG INHALATION ×3 (08:45→21:12)
[2021-10-29] MEDS: KETOROLAC 30 MG/ML VIAL (*BKC) IV PUSH ×2 (10:07→17:14)
[2021-10-29] MEDS: PANTOPRAZOLE SODIUM IV 40 MG VIAL IV PUSH ×2 (10:08→22:25)
[2021-10-29] MEDS: levETIRAcetam 500MG/NACL 100ML 500 MG/100 ML BAG 400 MG IVPB ×2 (10:08→22:21)
[2021-10-29] MEDS: DEXAMETHASONE SOD PHOS INJ 4 MG/ML VIAL IV PUSH ×2 (10:08→22:24)
[2021-10-29] MEDS: LIDOCAINE 5% PATCH 2 PATCH TRANSDERM (10:08)
--- NOTE | 2021-10-29 10:08 | PM.PNGS ---
Progress Note: A&P Assessment and Plan (1) Perforation of sigmoid colon due to diverticulitis: Code(s): K57.20 - Diverticulitis of large intestine with perforation and abscess without bleeding Status: Acute Assessment and Plan: Worsening abdominal pain this am and WBC up to 21,000. Repeat CT abd/pelvis ordered and showed diverticulitis of the transverse colon and some free fluid. No fluid collection amenable to drainage or perforation. Continue IV abx. Stool noted in Ostomy bag today. Continue daily MiraLax and stimulate more as needed Wound vac changed today. Midline wound is granulating well, continue wound vac therapy. Increase activity (2) Wound infection: Code(s): T14.8XXA - Other injury of unspecified body region, initial encounter; L08.9 - Local infection of the skin and subcutaneous tissue, unspecified Status: Acute (3) Renal cell carcinoma: Qualifiers: Laterality: unspecified laterality Qualified Code(s): C64.9 - Malignant neoplasm of unspecified kidney, except renal pelvis Code(s): C64.9 - Malignant neoplasm of unspecified kidney, except renal pelvis Status: Acute Additional Plan I have discussed the plan of care with Dr. Monroe. Subjective Subjective Date/Time Seen: 10/29/21 10:08 Post Op day: 9 Patient reports: afebrile Interval history: Patient seen and examined this morning with the wound care nurse. He has been complaining of severe abdominal pain most of the morning. He has had IV Dilaudid and now reports his pain has improved. He reports abdominal pain is across his entire abdomen. About 1/3 of the ostomy bag is filled with soft brown stool on my exam. Denies any nausea or bloating. No other complaints at this time. Exam Const: General: alert and awake; No acute distress Orientation/consciousness: oriented to person, oriented to place and No oriented to time Resp: Effort & Inspection: no respiratory distress Auscultation: clear to auscultation bilaterally Cardio: Rate: regular rate Rhythm: regular rhythm GI: Inspection: distended GI Palp: Yes Soft to palpation, Yes Tenderness to palpation present (GI) (throughout), No Guarding due to palpation present (GI) and No Rebound tenderness present Auscultation: normal bowel sounds Other: Wound vac changed, canister with perea/pink drainage, midline wound mostly with granulating pink tissue and a small area of slough on the lateral edge of the middle of the wound, fascia intact. Ostomy dark but still intact at skin, stool in bag, ostomy appliance changed and small area of dark tissues at the skin on the medial edge of stoma. PINA drain serous. Urinary Catheter: Urinary Catheter: patent and draining and urine clear Neuro: General: moves all extremities and no focal motor deficits Extrem: General: normal to inspection, no calf tenderness and no edema Psych: Insight: Fair insight present (Psych) Judgement: Fair judgement present (Psych) Objective Data Vital Signs Vital Signs: Vital Signs - 24 hr 10/28/21 12:00 10/28/21 15:10 10/28/21 19:13 Temperature 96.7 F L 97.7 F Pulse Rate 94 100 100 Respiratory Rate 14 16 20 Blood Pressure 133/70 Pulse Oximetry 93 96 10/28/21 19:41 10/28/21 22:26 10/29/21 02:14 Temperature 97.9 F Pulse Rate 100 99 Respiratory Rate 20 18 Blood Pressure 143/88 H Pulse Oximetry 96 91 94 10/29/21 06:22 10/29/21 08:30 10/29/21 08:40 Temperature 98.2 F Pulse Rate 81 88 89 Respiratory Rate 18 20 20 Blood Pressure 154/89 H Pulse Oximetry 92 10/29/21 08:45 Temperature Pulse Rate Respiratory Rate Blood Pressure Pulse Oximetry 94 Intake/Output Intake/Output: Intake & Output 10/26/21 10/27/21 10/28/21 10/29/21 23:59 23:59 23:59 23:59 Intake Total 1130 1740 1130 760 Output Total 820 1330 1075 580 Balance 310 410 55 180 Meds/Results Medications: Active Medications Generic Name Dose Route Start Last Admin Trade Name Freq
[2021-10-29] MEDS: TOLNAFTATE 1% POWDER 45 GM BTL 1 APPLIC TOPICAL ×2 (10:09→22:25)
[2021-10-29] MEDS: ENOXAPARIN 40 MG/0.4 ML SYRINGE SUB-Q (10:09)
--- NOTE | 2021-10-29 10:55 | PCOTNOTE ---
Attempted to see patient this date at 10:52am, patient refused OT services this date due to increased pain. RN aware.
[2021-10-29 11:56] LABS: Glucose Point of Care 149 mg/dl (65-105)
--- NOTE | 2021-10-29 13:46 | PM.IMPN ---
Progress Note: A&P Assessment and Plan (1) Septic shock: Code(s): A41.9 - Sepsis, unspecified organism; R65.21 - Severe sepsis with septic shock Status: Acute Assessment and Plan: Septic shock most likely related perforated bowel status post Porfirio procedure, ostomy, washout -patient was adequately fluid-resuscitated in the ER and in the OR.. -off vasopressors at this time continue to monitor and maintain map> 65 mmHg for adequate end organ perfusion -continue Zosyn (10/20) -lactic acid has normalized -off stress dose steroids and IVF -urine output low but renal function continue to improve -10/19: blood cultures growing fusobacterium which will be covered by Zosyn 10/20/2021 interval history: patient is a 56-year-old male with recent history of metastatic renal cell carcinoma with the largest right renal mass presented emergency department with weakness and abdominal pain CT scan abdomen showed perforated viscus, patient was hypotensive received total of 7 L of fluids, currently patient on vent, on pressors, and Zosyn, seen by abrasive mixer and surgery service and appreciate. 10/21/2021 interval history: patient is a 56-year-old male with recent history of metastatic renal cell carcinoma with the largest right renal mass presented emergency department with weakness and abdominal pain CT scan abdomen showed perforated viscus, patient was taken to the OR and had exploratory laparotomy and washout, patient was hypotensive received total of 7 L of fluids, currently patient on vent, on pressors, and Zosyn, seen by abrasive mixer and surgery service and appreciate. 10/22/2021 interval history: patient is a 56-year-old male with recent history of metastatic renal cell carcinoma with the largest right renal mass presented emergency department with weakness and abdominal pain, CT scan abdomen showed perforated viscus, patient was taken to the OR and had exploratory laparotomy and washout, patient is seen surgery service ostomy is function and may start the tube feeding, continue IV antibiotic, patient was hypotensive received total of 7 L of fluids, currently patient on vent, on pressors, and Zosyn, seen by abrasive mixer and surgery service and appreciate. 10/27/2021 interval history: patient was successfully extubated on 10/26/2021 and now patient is on 4L NC and out of ICU, patient GI function have returned able to tolerate his diet and has a BM, patient seen by surgery service recommended continue wound VAC and monitor ostotomy function, patient complains of sore throat as he was intubated for sometime we will give the patient Chloraseptic lozenges, patient remains clinically stable will continue to monitor. 10/28/2021 interval history: patient was successfully extubated on 10/26/2021 and now patient is on 4L NC and out of ICU, patient GI function have returned able to tolerate his diet and has a BM, patient seen by surgery service recommended continue wound VAC and will remove VAC tomorrow, monitor ostotomy function, today patient c/o abodminal pain, patient is recieving norco, will add flexreil and lidoderm patches, will do KUB, patient remains clinically stable will continue to monitor. 10/29/2021 interval history: patient was successfully extubated on 10/26/2021 and now patient is on RA and out of ICU, patient GI function have returned able to tolerate his diet and has a BM, patient seen by surgery service recommended continue wound VAC was changed today, ostotomy function, today patient c/o abdominal pain, his white counts are elevated 21,000, Patient was seen by surgery service and CT scan was done, concerning for diverticulitis of transverse colon, and no perforation surgeries recommending continue IV antibiotic, patient remains clinically stable will continue to monitor. (2) Respiratory failure: Qualifiers: Chronicity: acute Respiratory failure complication: unspecified whether with hypoxia or hypercapnia
--- NOTE | 2021-10-29 14:03 | PCOTNOTE ---
Attempted OT treatment, despite max encouragement to participate, patient reports I am not going to work with you today. . Will follow. RN notified.
[2021-10-29 17:05] LABS: Glucose Point of Care 154 mg/dl (65-105)
--- NOTE | 2021-10-29 21:19 | PCRCNOTE ---
Pt asking to not be woken up at 0200 for UPD treatment. Pt stated he would like to sleep due to exhaustion.
[2021-10-29 22:59] LABS: Glucose Point of Care 129 mg/dl (65-105)
[2021-10-30] VITALS (7 sets, daily range): BP systolic 141–152; BP diastolic 72–80; PULSE 86–97; RESP 18–24; TEMP 36.3–36.5; O2SAT 89–92
[2021-10-30] MEDS: KETOROLAC 30 MG/ML VIAL (*BKC) IV PUSH ×4 (01:30→23:13)
[2021-10-30] MEDS: ONDANSETRON INJ 4 MG/2 ML VIAL IV PUSH (02:31)
[2021-10-30] MEDS: HYDROmorphone HCL INJ (*CRX) 1 MG/ML SYR IV PUSH ×8 (03:46→23:14)
[2021-10-30] MEDS: CENTRAL LINE FLUSH 10 ML IV PUSH ×3 (06:21→21:11)
[2021-10-30 06:34] LABS: Hematocrit 32.4 % (42.0-52.0); Hemoglobin 9.6 g/dL (14.0-18.0); Mean Corpuscular HGB Conc 29.6 g/dl (32-36); Mean Corpuscular Hemoglobin 24.4 pg (26-34); Mean Corpuscular Volume 82.4 fl (80-100); Mean Platelet Volume 9.6 fl (7.4-10.4); Platelet Count Result 287 k/mm3 (150-375); Red Blood Count 3.93 M/mm3 (4.6-6.20); Red Cell Distribution Width 18.6 % (11.5-14.5); White Blood Count 19.2 K/mm3 (4.5-10.0)
[2021-10-30 06:52] LABS: Alanine Aminotransferase 21 U/L (4-50); Albumin Level 2.5 g/dL (3.5-5.1); Alkaline Phosphatase 250 U/L (38-126); Anion Gap 7 mmol/L (8-16); Aspartate Amino Transferase 29 U/L (17-59); Bilirubin,Total 1.4 mg/dL (0.2-1.3); Blood Urea Nitrogen 24 mg/dL (9-20); Calcium 8.2 mg/dL (8.4-10.2); Carbon Dioxide 25 mmol/L (22-30); Chloride 103 mmol/L (98-107); Estimated CRCL calculation 91 ml/min; Estimated Glomerular Filt Rate > 60; Glucose 130 mg/dL (65-110); Magnesium 1.7 mg/dL (1.6-2.3); Sodium 135 mmol/L (137-145)
[2021-10-30 08:05] LABS: Glucose Point of Care 129 mg/dl (65-105)
[2021-10-30] MEDS: LEVALBUTEROL NEB 1.25 MG/3 ML 0.63 MG INHALATION ×2 (08:25→20:37)
[2021-10-30] MEDS: IPRATROPIUM BR 0.02% INH SOLN 0.5 MG/2.5 ML VIAL INHALATION ×2 (08:25→20:37)
--- NOTE | 2021-10-30 10:33 | PCOTNOTE ---
Attempted to see Patient for A.M. treatment session. Patient refused stating, he had a dressing change this morning, it was horrible , i'm in to much pain to move . Per RN he is due for pain medications but has not called for them and has been sleeping.
--- NOTE | 2021-10-30 10:41 | PM.PNGS ---
Progress Note: A&P Assessment and Plan (1) Perforation of sigmoid colon due to diverticulitis: Code(s): K57.20 - Diverticulitis of large intestine with perforation and abscess without bleeding Status: Acute Assessment and Plan: WBC down to 19.2K, afebrile. Abd pain improving. Continue IV abx and low fiber diet. If pain worsens, may need to consider backing his diet off to liquids again. Ostomy functioning well, continue Miralax. Continue wound vac therapy, will change again tomorrow. Will plan on continuing this on discharge to SNF. Increase activity, continue PT/OT (2) Wound infection: Code(s): T14.8XXA - Other injury of unspecified body region, initial encounter; L08.9 - Local infection of the skin and subcutaneous tissue, unspecified Status: Acute (3) Renal cell carcinoma: Qualifiers: Laterality: unspecified laterality Qualified Code(s): C64.9 - Malignant neoplasm of unspecified kidney, except renal pelvis Code(s): C64.9 - Malignant neoplasm of unspecified kidney, except renal pelvis Status: Acute Additional Plan I have discussed the plan of care with Dr. Monroe. Subjective Subjective Date/Time Seen: 10/30/21 10:41 Patient reports: no new complaints, feels better, pain is less and afebrile Interval history: Patient seen and examined. He reports his abdominal pain has improved overnight. He did require a dose of Dilaudid IV this morning. He refused his lunch and dinner yesterday due to the abdominal pain. He did eat breakfast this morning and is having some pain now. No nausea or vomiting. Ostomy function well with 400 out overnight. Review of Systems Review of Systems: All systems reviewed & are unremarkable except as noted in HPI and below Exam Const: General: no acute distress, alert and awake; No acute distress Orientation/consciousness: patient oriented x3 GI: Inspection: normal to inspection and obesity GI Palp: Yes Soft to palpation and Yes Tenderness to palpation present (GI) (mild TTP in upper abdomen, and incisional tenderness) Auscultation: normal bowel sounds Other: Wound vac dry and intact. Ostomy functioning well, stoma dark. PINA drain serous. Urinary Catheter: Urinary Catheter: patent and draining and urine clear Skin: General skin exam: normal color Neuro: General: moves all extremities and no focal motor deficits Extrem: General: no calf tenderness and no edema Psych: Insight: Fair insight present (Psych) Judgement: Fair judgement present (Psych) Objective Data Vital Signs Vital Signs: Vital Signs - 24 hr 10/29/21 14:40 10/29/21 14:50 10/29/21 15:00 Temperature 97.7 F Pulse Rate 84 86 80 Respiratory Rate 20 20 18 Blood Pressure 132/72 Pulse Oximetry 96 10/29/21 20:00 10/29/21 21:14 10/29/21 21:18 Temperature Pulse Rate 99 106 H Respiratory Rate 20 20 Blood Pressure Pulse Oximetry 92 94 10/29/21 23:00 10/30/21 06:12 10/30/21 08:29 Temperature 97.7 F 97.3 F L Pulse Rate 99 95 88 Respiratory Rate 18 18 24 H Blood Pressure 138/91 H 142/80 H Pulse Oximetry 92 89 L 90 Intake/Output Intake/Output: Intake & Output 10/27/21 10/28/21 10/29/21 10/30/21 23:59 23:59 23:59 23:59 Intake Total 1740 1230 1110 950 Output Total 1330 1075 705 900 Balance 410 155 405 50 Meds/Results Medications: Active Medications Generic Name Dose Route Start Last Admin Trade Name Freq PRN Reason Stop Dose Admin Cyclobenzaprine HCl 5 mg 10/28/21 22:00 10/30/21 06:11 Cyclobenzaprine Hcl 5 Mg Tablet PO Not Given Q8HR JOHNSON Dexamethasone Sodium Phosphate 4 mg 10/24/21 21:00 10/29/21 22:24 Dexamethasone Sod Phos Inj 4 Mg/Ml Vial IV PUSH 4 mg Q12H JOHNSON Administration Dextrose 12.5 gm 10/20/21 01:09 Dextrose 50% 25 Gm/50 Ml Syringe IV PUSH PRN PRN Hypoglycemia Protocol Enoxaparin Sodium 40 mg 10/20/21 09:00 10/29/21 10:09 Enoxaparin 40 Mg/0.4 Ml Syringe OCONNOR
[2021-10-30] MEDS: levETIRAcetam 500MG/NACL 100ML 500 MG/100 ML BAG 400 MG IVPB ×2 (10:48→21:10)
[2021-10-30] MEDS: polyethylene glycoL 3350 17 GM POWD.PACK PO (10:49)
[2021-10-30] MEDS: ENOXAPARIN 40 MG/0.4 ML SYRINGE SUB-Q (10:49)
[2021-10-30] MEDS: PANTOPRAZOLE SODIUM IV 40 MG VIAL IV PUSH ×2 (10:49→21:09)
[2021-10-30] MEDS: LIDOCAINE 5% PATCH 2 PATCH TRANSDERM (10:49)
[2021-10-30] MEDS: DEXAMETHASONE SOD PHOS INJ 4 MG/ML VIAL IV PUSH ×2 (10:50→21:09)
[2021-10-30] MEDS: TOLNAFTATE 1% POWDER 45 GM BTL 1 APPLIC TOPICAL ×2 (10:50→21:11)
[2021-10-30 11:46] LABS: Glucose Point of Care 105 mg/dl (65-105)
[2021-10-30] MEDS: CYCLOBENZAPRINE HCL 5 MG TABLET PO ×2 (13:45→21:09)
[2021-10-30 16:44] LABS: Glucose Point of Care 134 mg/dl (65-105)
--- NOTE | 2021-10-30 17:37 | PM.IMPN ---
Progress Note: A&P Assessment and Plan (1) Septic shock: Code(s): A41.9 - Sepsis, unspecified organism; R65.21 - Severe sepsis with septic shock Status: Acute Assessment and Plan: Septic shock most likely related perforated bowel status post exploratory laparotomy with Porfirio procedure, ostomy, washout -patient was adequately fluid-resuscitated in the ER and in the OR.. -required vasopressor in the ICU currently off vasopressors -continue Zosyn (started 10/20) -lactic acid has normalized -received stress dose steroid but now back to his baseline steroid dose now Blood culture growing fusobacterium Repeat CT scan 10/29/2021 with diverticulitis of transverse colon with no perforation. General surgery recommending continuing IV antibiotics (2) Respiratory failure: Qualifiers: Chronicity: acute Respiratory failure complication: unspecified whether with hypoxia or hypercapnia Qualified Code(s): J96.00 - Acute respiratory failure, unspecified whether with hypoxia or hypercapnia Code(s): J96.90 - Respiratory failure, unspecified, unspecified whether with hypoxia or hypercapnia Status: Acute Assessment and Plan: Respiratory failure likely related to septic shock, post surgery He was extubated 10/26/2021 after a successful weaning trial. Maintaining adequate oxygenation on nasal cannula now currently off oxygen Chest x-ray reviewed Off IV fluids, incentive spirometry, up in chair, PT OT consult Continue bronchodilators (3) Bowel perforation: Code(s): K63.1 - Perforation of intestine (nontraumatic) Status: Acute Assessment and Plan: 10/19/2021: Perforated viscus, septic shock, ex lap with Porfirio's procedure, mobilization of splenic flexure, extensive intra-abdominal washout, colostomy -surgery following the patient and managing -continue Zosyn started 10/20/2021 -his ostomy looks dusky and surgery is aware -he tolerated diet or early Abdominal wound with wound VAC in place managed by General surgery (4) Acute kidney injury: Code(s): N17.9 - Acute kidney failure, unspecified Status: Acute Assessment and Plan: Acute kidney injury likely related to perforated viscus, septic shock, hypotension, hypovolemia, ATN, infection. 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, bones, adrenals, lung nodules, retroperitoneal -patient is on Decadron which has been resumed -continue Keppra IV (6) DVT prophylaxis: Code(s): Z29.9 - Encounter for prophylactic measures, unspecified Status: Acute Assessment and Plan: Prophylactic Lovenox (7) Electrolyte abnormality: Code(s): E87.8 - Other disorders of electrolyte and fluid balance, not elsewhere classified Status: Acute Assessment and Plan: Improved after placement (8) Postoperative pain: Code(s): G89.18 - Other acute postprocedural pain Status: Acute Assessment and Plan: Improved with morphine [employer] Now morphine [employer] is off (9) Skin maceration: Code(s): L98.8 - Other specified disorders of the skin and subcutaneous tissue Status: Acute Assessment and Plan: Patient seen by and case discussed with wound care nurse. She has been seeing patients since admission and states that area looks better Continue Tolnaftate powder for groin and miconazole cream for back Additi
[2021-10-30 22:24] LABS: Glucose Point of Care 127 mg/dl (65-105)
[2021-10-31] VITALS (14 sets, daily range): BP systolic 130–146; BP diastolic 77–88; PULSE 81–97; RESP 16–20; TEMP 35.9–36.4; O2SAT 91–94
[2021-10-31] MEDS: HYDROmorphone HCL INJ (*CRX) 1 MG/ML SYR IV PUSH ×8 (01:40→22:52)
[2021-10-31] MEDS: IPRATROPIUM BR 0.02% INH SOLN 0.5 MG/2.5 ML VIAL INHALATION ×4 (01:47→20:07)
[2021-10-31] MEDS: LEVALBUTEROL NEB 1.25 MG/3 ML 0.63 MG INHALATION ×4 (01:47→20:07)
[2021-10-31 04:48] LABS: Hematocrit 31.2 % (42.0-52.0); Hemoglobin 9.5 g/dL (14.0-18.0); Mean Corpuscular HGB Conc 30.4 g/dl (32-36); Mean Corpuscular Hemoglobin 24.5 pg (26-34); Mean Corpuscular Volume 80.6 fl (80-100); Mean Platelet Volume 9.8 fl (7.4-10.4); Platelet Count Result 333 k/mm3 (150-375); Red Blood Count 3.87 M/mm3 (4.6-6.20); Red Cell Distribution Width 18.7 % (11.5-14.5); White Blood Count 16.9 K/mm3 (4.5-10.0)
[2021-10-31 05:08] LABS: Alanine Aminotransferase 20 U/L (4-50); Albumin Level 2.8 g/dL (3.5-5.1); Alkaline Phosphatase 240 U/L (38-126); Anion Gap 8 mmol/L (8-16); Aspartate Amino Transferase 27 U/L (17-59); Bilirubin,Total 1.3 mg/dL (0.2-1.3); Blood Urea Nitrogen 25 mg/dL (9-20); Calcium 7.9 mg/dL (8.4-10.2); Carbon Dioxide 24 mmol/L (22-30); Chloride 104 mmol/L (98-107); Estimated CRCL calculation 75 ml/min; Estimated Glomerular Filt Rate > 60; Glucose 143 mg/dL (65-110); Magnesium 1.8 mg/dL (1.6-2.3); Potassium 3.9 mmol/L (3.4-5.0); Sodium 136 mmol/L (137-145)
[2021-10-31] MEDS: CYCLOBENZAPRINE HCL 5 MG TABLET PO ×3 (05:08→21:41)
[2021-10-31] MEDS: KETOROLAC 30 MG/ML VIAL (*BKC) IV PUSH ×4 (05:08→23:53)
[2021-10-31] MEDS: CENTRAL LINE FLUSH 10 ML IV PUSH ×3 (05:08→20:24)
[2021-10-31] MEDS: oxyCODONE HCL (*CRX) 5 MG TAB IR 10 MG PO (05:08)
[2021-10-31] MEDS: ONDANSETRON INJ 4 MG/2 ML VIAL IV PUSH (06:14)
--- NOTE | 2021-10-31 07:07 | PM.PNGS ---
Progress Note: A&P Assessment and Plan (1) Perforation of sigmoid colon due to diverticulitis: Code(s): K57.20 - Diverticulitis of large intestine with perforation and abscess without bleeding Status: Acute Assessment and Plan: stable, encourage po, encourage OOB/IS, cont abx, PINA, cont to work on transfer to [facility] Subjective Subjective Date/Time Seen: 10/31/21 07:07 feels ok, some mod abd pain, poor po intake Review of Systems Review of Systems: All systems reviewed & are unremarkable except as noted in HPI and below Exam Const: General: cooperative, no acute distress and ill appearing Orientation/consciousness: patient oriented x3 Resp: Auscultation: diminished lung sounds Cardio: Rate: regular rate Rhythm: regular rhythm GI: Inspection: normal to inspection, distended and incision GI Palp: Yes Soft to palpation, Yes Tenderness to palpation present (GI), No Guarding due to palpation present (GI) and No Rigid due to palpation Other: ostomy - +fxn, vac - C/D/I Objective Data Vital Signs Vital Signs: Vital Signs - 24 hr 10/30/21 08:29 10/30/21 15:00 10/30/21 20:39 Temperature 36.5 C Pulse Rate 88 87 90 Respiratory Rate 24 H 18 20 Blood Pressure 152/72 H Pulse Oximetry 90 91 10/30/21 20:41 10/30/21 20:49 10/30/21 22:07 Temperature 36.3 C L Pulse Rate 86 97 Respiratory Rate 20 18 Blood Pressure 141/80 H Pulse Oximetry 92 91 10/31/21 01:49 10/31/21 01:57 10/31/21 06:41 Temperature 36.0 C L Pulse Rate 82 81 84 Respiratory Rate 20 20 18 Blood Pressure 135/77 Pulse Oximetry 91 Intake/Output Intake/Output: Intake & Output 10/28/21 10/29/21 10/30/21 10/31/21 23:59 23:59 23:59 23:59 Intake Total 1230 1110 1200 150 Output Total 9468 238 4092 385 Balance 155 395 90 -235 Meds/Results Medications: Active Medications Generic Name Dose Route Start Last Admin Trade Name Freq PRN Reason Stop Dose Admin Cyclobenzaprine HCl 5 mg 10/28/21 22:00 10/31/21 05:08 Cyclobenzaprine Hcl 5 Mg Tablet PO 5 mg Q8HR JOHNSON Administration Dexamethasone Sodium Phosphate 4 mg 10/24/21 21:00 10/30/21 21:09 Dexamethasone Sod Phos Inj 4 Mg/Ml Vial IV PUSH 4 mg Q12H JOHNSON Administration Dextrose 12.5 gm 10/20/21 01:09 Dextrose 50% 25 Gm/50 Ml Syringe IV PUSH PRN PRN Hypoglycemia Protocol Enoxaparin Sodium 40 mg 10/20/21 09:00 10/30/21 10:49 Enoxaparin 40 Mg/0.4 Ml Syringe SUB-Q 40 mg DAILY JOHNSON Administration Glucagon 1 mg 10/20/21 01:09 Glucagon For Inj 1 Mg Vial IM PRN PRN Hypoglycemia Protocol Glucose 15 gm 10/20/21 01:09 Glucose Oral Gel 15 Gm Of Glucse In 37.5 Gm Tube PO PRN PRN Hypoglycemia Protocol Hydromorphone HCl 1 mg 10/29/21 10:15 10/31/21 06:43 Hydromorphone Hcl Inj (*Crx) 1 Mg/Ml Syr IV PUSH 1 mg Q2H PRN Administration Pain Rated 7-10 Levetiracetam 500 mg in 100 mls @ 400 mls/hr 10/20/21 09:00 10/30/21 21:10 Keppra Iv IVPB 400 mls/hr Q12HR JOHNSON Administration Dextrose 1,000 mls @ 100 mls/hr 10/20/21 01:09 Dextrose 5% 1,000 Ml IVPB PRN PRN Hypoglycemia Protocol Piperacillin/Tazobactam/Dextrose 3.375 gm in 50 mls @ 100 mls/hr 10/20/21 13:00 10/31/21 05:08 Zosyn 3.375 Gm/D5w 50ml Pm IVPB 100 mls/hr Q6HR JOHNSON Administration Insulin Aspart 2 - 5 units 10/28/21 12:35 10/30/21 17:03 Insulin Aspart (*Bkc) 100 Units/Ml SUB-Q Not Given TIDWM [facility] Protocol Ipratropium [place] 0.5 mg 10/20/21 14:00 10/31/21 01:47 Ipratropium Br 0.02% Inh Soln 0.5 Mg/2.5 Ml Vial INHALATION 0.5 mg Q6HRT JOHNSON Administration Ketorolac Tromethamine 30 mg 10/29/21 08:00 10/31/21 05:08 Ketorolac 30 Mg/Ml Vial (*Bkc) IV PUSH 30 mg Q6HR JOHNSON Administration Levalbuterol HCl 0.63 mg 10/20/21 14:00 10/31/21 01:47 Levalbuterol Neb 1.25 Mg/3 Ml INHALATION 0.63 mg Q6HRT JOHNSON Administration Lidocaine 2 patch
[2021-10-31 08:05] LABS: Glucose Point of Care 118 mg/dl (65-105)
[2021-10-31 08:43] LABS: Glucose Point of Care 127 mg/dl (65-105)
[2021-10-31] MEDS: polyethylene glycoL 3350 17 GM POWD.PACK PO (09:08)
[2021-10-31] MEDS: LIDOCAINE 5% PATCH 2 PATCH TRANSDERM (09:08)
[2021-10-31] MEDS: TOLNAFTATE 1% POWDER 45 GM BTL 1 APPLIC TOPICAL ×2 (09:10→20:23)
[2021-10-31] MEDS: ENOXAPARIN 40 MG/0.4 ML SYRINGE SUB-Q (09:12)
[2021-10-31] MEDS: DEXAMETHASONE SOD PHOS INJ 4 MG/ML VIAL IV PUSH ×2 (09:47→20:21)
[2021-10-31] MEDS: PANTOPRAZOLE SODIUM IV 40 MG VIAL IV PUSH ×2 (09:47→20:23)
[2021-10-31] MEDS: levETIRAcetam 500MG/NACL 100ML 500 MG/100 ML BAG 400 MG IVPB ×2 (09:48→20:22)
[2021-10-31 11:19] LABS: Glucose Point of Care 112 mg/dl (65-105)
--- NOTE | 2021-10-31 13:10 | PCWOUND ---
Addendum entered by Lisa Beltrán RN 10/31/21 13:39: Education was not positively received. Further education is required. Original Note: WOCN NOTE Met daughter in patient room to answer questions on wound care needs if patient would be discharged to home. Explained, ostomy needs, wound vac needs, skin care needs for healing maceration to buttocks, groin, scrotum, penis. Assistance with urinary needs, bathing, eating, Q2H turns, pressure reduction to high risk areas. Daughter requested we speak to her brother as patients will be taken care of by him. Let her know I would be happy to explain needs to brother.
--- NOTE | 2021-10-31 14:17 | P.PNIM_ITS ---
Progress Note: A&P Assessment and Plan (1) Septic shock: Code(s): A41.9 - Sepsis, unspecified organism; R65.21 - Severe sepsis with septic shock Status: Acute Assessment and Plan: Septic shock most likely related perforated bowel status post exploratory laparotomy with Porfirio procedure, ostomy, washout -patient was adequately fluid-resuscitated in the ER and in the OR.. -required vasopressor in the ICU currently off vasopressors -continue Zosyn (started 10/20) -lactic acid has normalized -received stress dose steroid but now back to his baseline steroid dose now Blood culture growing fusobacterium Repeat CT scan 10/29/2021 with diverticulitis of transverse colon with no perforation. General surgery recommending continuing IV antibiotics (2) Respiratory failure: Qualifiers: Chronicity: acute Respiratory failure complication: unspecified whether with hypoxia or hypercapnia Qualified Code(s): J96.00 - Acute respiratory failure, unspecified whether with hypoxia or hypercapnia Code(s): J96.90 - Respiratory failure, unspecified, unspecified whether with hypoxia or hypercapnia Status: Acute Assessment and Plan: Respiratory failure likely related to septic shock, post surgery He was extubated 10/26/2021 after a successful weaning trial. Maintaining adequate oxygenation on nasal cannula now currently off oxygen Chest x-ray reviewed Off IV fluids, incentive spirometry, up in chair, PT OT consult Continue bronchodilators (3) Bowel perforation: Code(s): K63.1 - Perforation of intestine (nontraumatic) Status: Acute Assessment and Plan: 10/19/2021: Perforated viscus, septic shock, ex lap with Porfirio's procedure, mobilization of splenic flexure, extensive intra-abdominal washout, colostomy -surgery following the patient and managing -continue Zosyn started 10/20/2021 -his ostomy looks dusky and surgery is aware -he tolerated diet or early Abdominal wound with wound VAC in place managed by General surgery (4) Acute kidney injury: Code(s): N17.9 - Acute kidney failure, unspecified Status: Acute Assessment and Plan: Acute kidney injury likely related to perforated viscus, septic shock, hypotension, hypovolemia, ATN, infection. 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, bones, adrenals, lung nodules, retroperitoneal -patient is on Decadron which has been resumed -continue Keppra IV (6) DVT prophylaxis: Code(s): Z29.9 - Encounter for prophylactic measures, unspecified Status: Acute Assessment and Plan: Prophylactic Lovenox (7) Electrolyte abnormality: Code(s): E87.8 - Other disorders of electrolyte and fluid balance, not elsewhere classified Status: Acute Assessment and Plan: Improved after placement (8) Postoperative pain: Code(s): G89.18 - Other acute postprocedural pain Status: Acute Assessment and Plan: Improved with morphine [employer]IST Now morphine [employer]IST is off (9)
--- NOTE | 2021-10-31 14:54 | PC.NURSE ---
On 10/31/21, the student, Milly Poon, provided care and completed [facility] documentation on this patient. I have reviewed the student's documentation and agree with the findings.
[2021-10-31 16:33] LABS: Glucose Point of Care 145 mg/dl (65-105)
[2021-10-31 22:00] LABS: Glucose Point of Care 125 mg/dl (65-105)
[2021-11-01] VITALS (8 sets, daily range): BP systolic 128–151; BP diastolic 62–89; PULSE 75–106; RESP 16–20; TEMP 36.1–36.8; O2SAT 92–95
[2021-11-01] MEDS: oxyCODONE HCL (*CRX) 5 MG TAB IR 10 MG PO (00:06)
[2021-11-01] MEDS: LORazepam INJ (*CRX) 2 MG/ML VIAL 1 MG IV PUSH (00:28)
[2021-11-01] MEDS: ONDANSETRON INJ 4 MG/2 ML VIAL IV PUSH (00:28)
[2021-11-01] MEDS: IPRATROPIUM BR 0.02% INH SOLN 0.5 MG/2.5 ML VIAL INHALATION ×2 (02:30→14:05)
[2021-11-01] MEDS: LEVALBUTEROL NEB 1.25 MG/3 ML 0.63 MG INHALATION ×2 (02:30→14:05)
[2021-11-01] MEDS: CYCLOBENZAPRINE HCL 5 MG TABLET PO (05:30)
[2021-11-01] MEDS: KETOROLAC 30 MG/ML VIAL (*BKC) IV PUSH (05:31)
[2021-11-01] MEDS: CENTRAL LINE FLUSH 10 ML IV PUSH ×3 (05:37→21:03)
[2021-11-01] MEDS: DEXAMETHASONE SOD PHOS INJ 4 MG/ML VIAL IV PUSH (05:40)
[2021-11-01 05:56] LABS: Basophils Percent Auto 0.2 % (0.2-1.2); Eosinophils Percent Auto 0.2 % (0-4.4); Hematocrit 31.3 % (42.0-52.0); Hemoglobin 9.3 g/dL (14.0-18.0); Immature Granulocyte Absolute 0.15 K/mm3 (0.00-0.031); Immature Granulocyte Percent A 1.1 % (0-0.5); Lymphocytes Absolute Auto 0.88 K/mm3 (0.9-3.2); Lymphocytes Percent Auto 6.4 % (18.3-44.2); Mean Corpuscular HGB Conc 29.7 g/dl (32-36); Mean Corpuscular Hemoglobin 24.7 pg (26-34); Mean Platelet Volume 9.7 fl (7.4-10.4); Monocytes Absolute Auto 0.7 K/mm3 (0.1-0.6); Neutrophils Percent Auto 87.1 % (45.5-73.1); Platelet Count Result 355 k/mm3 (150-375); Red Blood Count 3.77 M/mm3 (4.6-6.20); Red Cell Distribution Width 18.6 % (11.5-14.5); White Blood Count 13.8 K/mm3 (4.5-10.0)
[2021-11-01 06:14] LABS: Alanine Aminotransferase 18 U/L (4-50); Albumin Level 2.6 g/dL (3.5-5.1); Alkaline Phosphatase 221 U/L (38-126); Anion Gap 8 mmol/L (8-16); Aspartate Amino Transferase 28 U/L (17-59); Bilirubin,Total 1.1 mg/dL (0.2-1.3); Blood Urea Nitrogen 28 mg/dL (9-20); Calcium 7.8 mg/dL (8.4-10.2); Carbon Dioxide 25 mmol/L (22-30); Chloride 103 mmol/L (98-107); Estimated CRCL calculation 94 ml/min; Estimated Glomerular Filt Rate > 60; Glucose 126 mg/dL (65-110); Magnesium 1.8 mg/dL (1.6-2.3); Potassium 3.8 mmol/L (3.4-5.0); Sodium 136 mmol/L (137-145)
[2021-11-01] MEDS: polyethylene glycoL 3350 17 GM POWD.PACK PO (08:08)
[2021-11-01] MEDS: ENOXAPARIN 40 MG/0.4 ML SYRINGE SUB-Q (08:08)
[2021-11-01] MEDS: PANTOPRAZOLE SODIUM IV 40 MG VIAL IV PUSH (08:09)
[2021-11-01] MEDS: LIDOCAINE 5% PATCH 2 PATCH TRANSDERM (08:09)
[2021-11-01] MEDS: levETIRAcetam 500MG/NACL 100ML 500 MG/100 ML BAG 400 MG IVPB (08:13)
[2021-11-01] MEDS: oxyCODONE HCL (*CRX) 5 MG TAB IR PO ×2 (08:31→17:58)
--- NOTE | 2021-11-01 09:23 | PCWOUND ---
WOCN NOTE Left message with son to try and schedule colostomy teaching for today or tomorrow in case patient is being discharged over the weekend. Received report from managed care manager that son is not willing to come in during the day only in the evening. will try to connect with son again.
[2021-11-01 10:55] LABS: Glucose Point of Care 121 mg/dl (65-105)
[2021-11-01] MEDS: TOLNAFTATE 1% POWDER 45 GM BTL 1 APPLIC TOPICAL ×2 (11:00→21:02)
--- NOTE | 2021-11-01 11:25 | PCNFU ---
Nutrition Follow-Up Complete: Inadequate Oral Intake as related to mechanical vent as evidenced by tube feedings. Goal: Meet estimated nutritional needs Limited progress towards goal. We will continue current goal. Pt current nutrition is Soft and Bite Sized, Level 6/DBCC/Low Fiber Last recorded weight is 107 kg, down from 111.6 kg on admit. Bowel Motility:colostomy Labs Reviewed:Glu 126, BUN 28, Na 136, Alb 2.6 Meds Noted:Flexeril, Decadron, Lovenox, Keppra, Ativan, Lidoderm, Protonix, Zosyn, Miralax. Skin: Maceration-buttock/groin. Additional Notes: spoke with YOLANDA Lau today regarding patients nutritional status. He has been refusing meals. orders for Glucerna shakes BID providing an additional 220 kcals and 10 gms protein. Agree with diet orders. Monitoring: Will monitor every 5 days.
[2021-11-01 11:56] LABS: Glucose Point of Care 142 mg/dl (65-105)
--- NOTE | 2021-11-01 12:19 | PM.IMPN ---
Progress Note: A&P Assessment and Plan (1) Septic shock: Code(s): A41.9 - Sepsis, unspecified organism; R65.21 - Severe sepsis with septic shock Status: Acute Assessment and Plan: Septic shock most likely related perforated bowel status post exploratory laparotomy with Porfirio procedure, ostomy, washout -patient was adequately fluid-resuscitated in the ER and in the OR.. -required vasopressor in the ICU currently off vasopressors -continue Zosyn (started 10/20) -lactic acid has normalized -received stress dose steroid but now back to his baseline steroid dose now Blood culture growing fusobacterium Repeat CT scan 10/29/2021 with diverticulitis of transverse colon with no perforation. General surgery recommending continuing IV antibiotics (2) Respiratory failure: Qualifiers: Chronicity: acute Respiratory failure complication: unspecified whether with hypoxia or hypercapnia Qualified Code(s): J96.00 - Acute respiratory failure, unspecified whether with hypoxia or hypercapnia Code(s): J96.90 - Respiratory failure, unspecified, unspecified whether with hypoxia or hypercapnia Status: Acute Assessment and Plan: Respiratory failure likely related to septic shock, post surgery He was extubated 10/26/2021 after a successful weaning trial. Maintaining adequate oxygenation on nasal cannula now currently off oxygen Chest x-ray reviewed Off IV fluids, incentive spirometry, up in chair, PT OT consult Continue bronchodilators (3) Bowel perforation: Code(s): K63.1 - Perforation of intestine (nontraumatic) Status: Acute Assessment and Plan: 10/19/2021: Perforated viscus, septic shock, ex lap with Porfirio's procedure, mobilization of splenic flexure, extensive intra-abdominal washout, colostomy -surgery following the patient and managing -continue Zosyn started 10/20/2021 -his ostomy looks dusky and surgery is aware -he tolerated diet Abdominal wound with wound VAC in place managed by General surgery (4) Acute kidney injury: Code(s): N17.9 - Acute kidney failure, unspecified Status: Acute Assessment and Plan: Acute kidney injury likely related to perforated viscus, septic shock, hypotension, hypovolemia, ATN, infection. 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, bones, adrenals, lung nodules, retroperitoneal -patient is on Decadron which has been resumed -continue Keppra IV (6) DVT prophylaxis: Code(s): Z29.9 - Encounter for prophylactic measures, unspecified Status: Acute Assessment and Plan: Prophylactic Lovenox (7) Electrolyte abnormality: Code(s): E87.8 - Other disorders of electrolyte and fluid balance, not elsewhere classified Status: Acute Assessment and Plan: Improved after placement (8) Postoperative pain: Code(s): G89.18 - Other acute postprocedural pain Status: Acute Assessment and Plan: Improved with morphine GRINDER NEEDLE TIP Now morphine GRINDER NEEDLE TIP is off (9) Skin maceration: Code(s): L98.8 - Other specified disorders of the skin and subcutaneous tissue Status: Acute Assessment and Plan: Patient seen by and case discussed with wound care nurse. She has been seeing patients since admission and states that area looks better Continue Tolnaftate powder for groin and miconazole cream for back (10) Encephalop
[2021-11-01 12:40] LABS: Alveolar/Arterial O2 Gradient 42.9 mmHg; Fractional Inspired Oxygen 21 %; HCO3 ABG 23.7 mEq/l (22.0-26.0); Oxygen Content ABG 13.9 %vol (16.0-22.0); Oxygen Saturation ABG 95.5 % (95.0-100.0); Oxyhemoglobin 93.1 % THb (90.0-100.0); PO2 ABG 69.7 mmHg (80.0-100.0); PO2 FiO2 Ratio Arterial Blood 3.32 %; Total Hemoglobin 10.6 g/dL (12.0-18.0)
[2021-11-01 12:41] LABS: Device ROOM AIR; Modified Allen's Test Pass; Site Drawn LEFT RADIAL; pH ABG 7.501 (7.350-7.450)
[2021-11-01 12:58] LABS: Ammonia < 9 umol/L (9-30)
--- NOTE | 2021-11-01 13:32 | PCOTNOTE ---
Attempted to see patient this date at 13:30pm, patient asleep, unable to arouse patient this date, continue POC.
[2021-11-01 16:01] LABS: Glucose Point of Care 112 mg/dl (65-105)
[2021-11-01] MEDS: DEXAMETHASONE 4 MG TABLET PO (17:51)
[2021-11-01] MEDS: PANTOPRAZOLE 40 MG TABLET PO (21:02)
[2021-11-01] MEDS: levETIRAcetam 500 MG TABLET PO (21:02)
[2021-11-01] MEDS: HYDROmorphone HCL INJ (*CRX) 1 MG/ML SYR IV PUSH ×2 (21:04→23:55)
[2021-11-02] MEDS: oxyCODONE HCL (*CRX) 5 MG TAB IR PO ×2 (01:56→08:25)
[2021-11-02 03:54] LABS: Glucose Point of Care 125 mg/dl (65-105)
[2021-11-02] MEDS: HYDROmorphone HCL INJ (*CRX) 1 MG/ML SYR IV PUSH ×5 (04:33→20:32)
[2021-11-02] MEDS: CENTRAL LINE FLUSH 10 ML IV PUSH ×3 (06:09→20:18)
[2021-11-02 06:47] LABS: Basophils Absolute Auto 0.1 K/mm3 (0.0-0.1); Basophils Percent Auto 0.4 % (0.2-1.2); Eosinophils Absolute Auto 0.1 K/mm3 (0-0.3); Eosinophils Percent Auto 0.5 % (0-4.4); Hematocrit 34.2 % (42.0-52.0); Hemoglobin 10.2 g/dL (14.0-18.0); Immature Granulocyte Absolute 0.15 K/mm3 (0.00-0.031); Immature Granulocyte Percent A 0.9 % (0-0.5); Lymphocytes Absolute Auto 1.04 K/mm3 (0.9-3.2); Lymphocytes Percent Auto 6.4 % (18.3-44.2); Mean Corpuscular HGB Conc 29.8 g/dl (32-36); Mean Corpuscular Hemoglobin 24.1 pg (26-34); Mean Corpuscular Volume 80.7 fl (80-100); Mean Platelet Volume 9.8 fl (7.4-10.4); Monocytes Absolute Auto 1.1 K/mm3 (0.1-0.6); Monocytes Percent Auto 6.7 % (2.6-8.5); Neutrophils Absolute Auto 13.9 K/mm3 (1.3-6.7); Neutrophils Percent Auto 85.1 % (45.5-73.1); Platelet Count Result 420 k/mm3 (150-375); Red Blood Count 4.24 M/mm3 (4.6-6.20); White Blood Count 16.3 K/mm3 (4.5-10.0)
[2021-11-02 06:48] LABS: Alanine Aminotransferase 18 U/L (4-50); Albumin Level 2.5 g/dL (3.5-5.1); Alkaline Phosphatase 240 U/L (38-126); Anion Gap 8 mmol/L (8-16); Aspartate Amino Transferase 25 U/L (17-59); Bilirubin,Total 1.1 mg/dL (0.2-1.3); Blood Urea Nitrogen 22 mg/dL (9-20); Calcium 8.1 mg/dL (8.4-10.2); Carbon Dioxide 24 mmol/L (22-30); Chloride 102 mmol/L (98-107); Estimated CRCL calculation 103 ml/min; Estimated Glomerular Filt Rate > 60; Glucose 129 mg/dL (65-110); Magnesium 1.7 mg/dL (1.6-2.3); Sodium 134 mmol/L (137-145)
[2021-11-02 08:22] LABS: Glucose Point of Care 136 mg/dl (65-105)
[2021-11-02] MEDS: ENOXAPARIN 40 MG/0.4 ML SYRINGE SUB-Q (08:22)
[2021-11-02] MEDS: DEXAMETHASONE 4 MG TABLET PO (08:22)
[2021-11-02] MEDS: levETIRAcetam 500 MG TABLET PO (08:22)
[2021-11-02] MEDS: polyethylene glycoL 3350 17 GM POWD.PACK PO (08:22)
[2021-11-02] MEDS: PANTOPRAZOLE 40 MG TABLET PO (08:22)
[2021-11-02] MEDS: ALTEPLASE 2 MG VIAL (CATHFLO) IV PUSH (09:50)
[2021-11-02] MEDS: CYCLOBENZAPRINE HCL 5 MG TABLET PO (11:27)
[2021-11-02] MEDS: oxyCODONE HCL (*CRX) 5 MG TAB IR 10 MG PO (12:01)
--- NOTE | 2021-11-02 12:48 | PCOTNOTE ---
Per RN and patient report, patient in severe abdominal pain. Stabbing, pressure pain. RN aware and just gave pain meds. RN to talk with MD for additional pain meds. Patient declining to participate in OT secondary to pain. Will continue plan of care tomorrow, 11/03/21.
[2021-11-02 13:13] LABS: Glucose Point of Care 139 mg/dl (65-105)
[2021-11-02 14:00] VITALS: BP 142/74; PULSE 88; RESP 20; TEMP 36.4; O2SAT 96
--- NOTE | 2021-11-02 14:23 | PM.IMPN ---
Progress Note: A&P Assessment and Plan (1) Septic shock: Code(s): A41.9 - Sepsis, unspecified organism; R65.21 - Severe sepsis with septic shock Status: Acute Assessment and Plan: Septic shock most likely related perforated bowel status post exploratory laparotomy with Porfirio procedure, ostomy, washout -patient was adequately fluid-resuscitated in the ER and in the OR.. -required vasopressor in the ICU currently off vasopressors -continue Zosyn (started 10/20) -lactic acid has normalized -received stress dose steroid but now back to his baseline steroid dose now Blood culture growing fusobacterium Repeat CT scan 10/29/2021 with diverticulitis of transverse colon with no perforation. General surgery recommending continuing IV antibiotics (2) Respiratory failure: Qualifiers: Chronicity: acute Respiratory failure complication: unspecified whether with hypoxia or hypercapnia Qualified Code(s): J96.00 - Acute respiratory failure, unspecified whether with hypoxia or hypercapnia Code(s): J96.90 - Respiratory failure, unspecified, unspecified whether with hypoxia or hypercapnia Status: Acute Assessment and Plan: Respiratory failure likely related to septic shock, post surgery He was extubated 10/26/2021 after a successful weaning trial. Maintaining adequate oxygenation on nasal cannula now currently off oxygen Chest x-ray reviewed Off IV fluids, incentive spirometry, up in chair, PT OT consult Continue bronchodilators (3) Bowel perforation: Code(s): K63.1 - Perforation of intestine (nontraumatic) Status: Acute Assessment and Plan: 10/19/2021: Perforated viscus, septic shock, ex lap with Porfirio's procedure, mobilization of splenic flexure, extensive intra-abdominal washout, colostomy -surgery following the patient and managing -continue Zosyn started 10/20/2021 -his ostomy looks dusky and surgery is aware -he tolerated diet Abdominal wound with wound VAC in place managed by General surgery Abdominal pain today will recheck CT abdomen for further evaluation (4) Acute kidney injury: Code(s): N17.9 - Acute kidney failure, unspecified Status: Acute Assessment and Plan: Acute kidney injury likely related to perforated viscus, septic shock, hypotension, hypovolemia, ATN, infection. 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, bones, adrenals, lung nodules, retroperitoneal -patient is on Decadron which has been resumed -continue Keppra IV (6) DVT prophylaxis: Code(s): Z29.9 - Encounter for prophylactic measures, unspecified Status: Acute Assessment and Plan: Prophylactic Lovenox (7) Electrolyte abnormality: Code(s): E87.8 - Other disorders of electrolyte and fluid balance, not elsewhere classified Status: Acute Assessment and Plan: Improved after replacement (8) Postoperative pain: Code(s): G89.18 - Other acute postprocedural pain Status: Acute Assessment and Plan: Improved with morphine NEON INSTALLER Now morphine NEON INSTALLER is off (9) Skin maceration: Code(s): L98.8 - Other specified disorders of the skin and subcutaneous tissue Status: Acute Assessment and Plan: Patient seen by and case discussed with wound care nurse. She has been seeing patients since admission and states that area looks better Continue Evan
--- NOTE | 2021-11-02 14:39 | PCPTNOTE ---
Patient declined PT stating he has 10 out of 10 abdominal pain. RN is aware of patient's c/o pain and M.D. has been notified. PT will continue to follow per plan of care.
[2021-11-02] MEDS: CENTRAL LINE FLUSH 20 ML IV PUSH (15:01)
[2021-11-02 15:10] VITALS: BP 156/99; PULSE 108; RESP 20; TEMP 36.6; O2SAT 95
[2021-11-02 15:15] LABS: Lactic Acid Reflex 1.1 mmol/L (0.7-2.1)
[2021-11-02] MEDS: SODIUM CHLORIDE 0.9% IV 1,000 ML 100 ML IV CONT (15:15)
--- NOTE | 2021-11-02 15:34 | PM.PNGS ---
Progress Note: A&P Assessment and Plan (1) Wound infection: Code(s): T14.8XXA - Other injury of unspecified body region, initial encounter; L08.9 - Local infection of the skin and subcutaneous tissue, unspecified Status: Acute (2) Bowel perforation: Onset Date: ~10/23/21 Code(s): K63.1 - Perforation of intestine (nontraumatic) Status: Acute Assessment and Plan: Patient now proximally 12 days postoperative and stoma is apparently worsening. May have necrosis of some of the colon just below lower at the abdominal wall level. Also CT scan earlier this week showed possible diverticulitis of the proximal transverse colon in the upper abdomen just anterior to his large right kidney cancer. He has been on antibiotics but his white count went up again today. Therefore, I agree with proceeding back to a repeat CT scan and evaluation of the area of the stoma. It may be that the patient will need re-exploration if he wishes in view of his multiple medical problems he will be a high risk for need for re-intubation and mechanical ventilation after a repeat surgery and is at high risk for multiple complications in view of his diabetes and the fact that he is on steroids. This time I will talk to his son about these factors. Also reviewed the CT scan with radiologist prior to final decision about the surgery. At this time I am thinking that if we do do surgery I will probably remove the remaining of remainder of the colon if he can tolerate it and do ileostomy on the right side. The stoma therapy nurses have marked the right side in case I need to do this. We would then revised his midline incision and leave it open. We would also probably leave open the stoma site and wound VAC it after the surgery. (3) Diabetes: Qualifiers: Diabetes mellitus type: type 2 Diabetes mellitus exterminator helper insulin use: without mcc use Diabetes mellitus complication status: without complication Qualified Code(s): E11.9 - Type 2 diabetes mellitus without complications Code(s): E11.9 - Type 2 diabetes mellitus without complications Status: Acute (4) Hypertension: Qualifiers: Hypertension type: unspecified Qualified Code(s): I10 - Essential (primary) hypertension Code(s): I10 - Essential (primary) hypertension Status: Acute (5) Renal cell carcinoma: Qualifiers: Laterality: unspecified laterality Qualified Code(s): C64.9 - Malignant neoplasm of unspecified kidney, except renal pelvis Code(s): C64.9 - Malignant neoplasm of unspecified kidney, except renal pelvis Status: Acute Subjective Subjective Date/Time Seen: 11/02/21 15:34 Post Op day: Pod # 12 Interval history: I came in the room today when the ostomy nurses for changing his ostomy bag. They were also teaching his son how to take care of it. They noticed bleeding at the edge of the ostomy and that the entire surface of the ostomy was brownish in necrotic looking. Since I was called to the room to look at it also because there was some dark blood oozing out in 2 places 1 on the edge of the ostomy medially the other one laterally. Patient is wide awake and alert and complaining of pain in the area surrounding the ostomy and in the left upper quadrant. Discussion with his hospitalist Dr. Rebollar reveals that he is notice the patient was having increased pain poor appetite and today his white count went up some again. Patient states that he drank to discern is yesterday but did not feel like eating and had trouble eating. Review of Systems Review of Systems: All systems reviewed & are unremarkable except as noted in HPI and below Constitutional: Constitutional: Reports as per HPI, Denies chills and Denies fever(s) Cardiovascular: Cardiovascular: Denies chest pain and Denies dyspnea Respiratory: Respiratory: Reports no additional respiratory complaints and Denies dyspnea Gastrointestinal: Adrian
[2021-11-02] MEDS: TOLNAFTATE 1% POWDER 45 GM BTL 1 APPLIC TOPICAL ×2 (15:48→20:18)
[2021-11-02 16:24] LABS: Glucose Point of Care 161 mg/dl (65-105)
--- NOTE | 2021-11-02 17:12 | PM.PNGS ---
Progress Note: A&P Assessment and Plan (1) Complication of ostomy: Onset Date: ~10/2021 Status: Acute Assessment and Plan: See note above under exam. Since there is no intra-abdominal changes will try to stent the abdominal wall portion of the ostomy so that it drains well into the bag and continue to see if the mucosal sloughing occurring will allow healing without further surgery. For now will hold Lovenox. Also CT showed significantly dilated stomach possibly secondary to gastric ileus with air-fluid level. Therefore NG tube was placed and will recheck abdominal film in the morning. (2) Wound infection: Code(s): T14.8XXA - Other injury of unspecified body region, initial encounter; L08.9 - Local infection of the skin and subcutaneous tissue, unspecified Status: Acute (3) Ileus, postoperative: Onset Date: ~11/02/21 Code(s): K91.89 - Other postprocedural complications and disorders of digestive system; K56.7 - Ileus, unspecified Status: Acute Assessment and Plan: Seen on CT scan today. Will place NG tube to low intermittent suction. Time Spent With Patient Time with patient: 25 - 35 minutes Subjective Subjective Date/Time Seen: 11/02/21 17:12 Patient reports: feels better (After vomiting about 100 cc) Interval history: No other changes but more alert at this time. Exam Narrative: I reviewed the CT scan of the abdomen and pelvis just done with Dr. Samuel from her in Radiology. There are no changes inside the abdomen. The patient still has some element of some [id number] inflammation, diverticulitis in the proximal transverse colon. The colon just inferior to the ostomy is decompressed and fluid filled. There is no sign of obstruction at the ostomy level. There is some signs of inflammation in the subcu tissues surrounding the ostomy and on the colon itself within the ostomy. Probably also some blood that shows up. Therefore at this time since the patient is not a good candidate for surgical intervention and wishes to avoid surgery if possible I believe the best solution is to try to bypass the portion of the ostomy which is within abdominal wall and will do this with a Higgins catheter was which has a couple of holes extra holes cut in it. This was lubricated and slid down into the stoma such that the distal fiber 6 cm of the 24 Sami coude tip Higgins catheter is within the colon in the abdomen and the other end is cut off and left in the ostomy bag. This will help stent the lumen of the ostomy area and allow continued flow of stool out either around the tube or through it. Const: General: alert, awake, ill appearing and uncomfortable Nutritional Appearance: obese Orientation/consciousness: patient oriented x3 HENMT: Head: normal to inspection Mouth: Yes moist mucous membranes Eyes: Sclera: sclerae normal Pupils: Equal, round and reactive pupils present Neck: Neck: normal visual inspection and no JVD Chest: Chest palpation & inspection: normal inspection of the chest Resp: Effort & Inspection: normal respiratory effort Auscultation: clear to auscultation bilaterally Cardio: Jugular venous distension: no JVD Rate: regular rate Neuro: General: patient oriented x3 Cranial nerves: Yes Equal, round and reactive pupils present Objective Data Vital Signs Vital Signs: Vital Signs - 24 hr 11/01/21 22:00 11/02/21 14:00 11/02/21 15:10 Temperature 36.8 C 36.4 C L 36.6 C Pulse Rate 106 H 88 108 H Respiratory Rate 16 20 20 Blood Pressure 151/89 H 142/74 H 156/99 H Pulse Oximetry 92 96 95 Intake/Output Intake/Output: Intake & Output 10/30/21 10/31/21 11/01/21 11/02/21 23:59 23:59 23:59 23:59 Intake Total 1200 600 780 530 Output Total 7485 838 6971 1970 Balance 96 -205 -292 -1373 Meds/Results Medications: Active Medications Generic Name Dose Route Start Last Admin Trade Name Freq PRN Reason Stop Dose Admin Alteplase, Recombinant 2 mg
[2021-11-02 18:04] LABS: Hematocrit 34.7 % (42.0-52.0); Hemoglobin 10.6 g/dL (14.0-18.0)
--- NOTE | 2021-11-02 19:33 | PC.NURSE ---
Emptied 370cc of blood from patients colostomy bag. Day shift MD aware of the colostomy draining blood. To check H&H at 2300. Will continue to monitor.
[2021-11-02] MEDS: DEXAMETHASONE SOD PHOS INJ 4 MG/ML VIAL 2 MG IV PUSH (20:17)
[2021-11-02] MEDS: PANTOPRAZOLE SODIUM IV 40 MG VIAL IV PUSH (20:18)
[2021-11-02] MEDS: levETIRAcetam 500MG/NACL 100ML 500 MG/100 ML BAG 400 MG IVPB (20:18)
[2021-11-02 22:00] VITALS: BP 125/86; PULSE 133; RESP 16; TEMP 35.8; O2SAT 95
[2021-11-02 22:34] LABS: Glucose Point of Care 168 mg/dl (65-105)
[2021-11-02 22:40] LABS: Hematocrit 31.1 % (42.0-52.0); Hemoglobin 9.3 g/dL (14.0-18.0)
--- NOTE | 2021-11-02 23:04 | ECG_ITS ---
Measurements Intervals [place] Rate: 124 P: 34 AL: 135 QRS: 32 QRSD: 82 T: 19 QT: 333 QTc: 479 Interpretive Statements SINUS TACHYCARDIA FREQUENT ATRIAL PREMATURE COMPLEXES MINIMAL Q WAVES- INFERIOR LEADS ABNORMAL ECG Electronically Signed On 11-03-2021 6:19:21 CLINICAL REHABILITATION AIDE by Jadon Durand D.O.
[2021-11-03] VITALS (11 sets, daily range): BP systolic 118–153; BP diastolic 64–84; PULSE 89–126; RESP 16–20; TEMP 36.1–37.1; O2SAT 95–98
[2021-11-03] MEDS: SODIUM CHLORIDE 0.9% IV 1,000 ML 100 ML IV CONT (03:29)
[2021-11-03] MEDS: CENTRAL LINE FLUSH 10 ML IV PUSH ×2 (05:03→14:29)
[2021-11-03 05:14] LABS: Basophils Absolute Auto 0.1 K/mm3 (0.0-0.1); Basophils Percent Auto 0.4 % (0.2-1.2); Eosinophils Absolute Auto 0.1 K/mm3 (0-0.3); Eosinophils Percent Auto 0.4 % (0-4.4); Hematocrit 28.6 % (42.0-52.0); Hemoglobin 8.6 g/dL (14.0-18.0); Immature Granulocyte Absolute 0.24 K/mm3 (0.00-0.031); Immature Granulocyte Percent A 1.5 % (0-0.5); Lymphocytes Absolute Auto 1.57 K/mm3 (0.9-3.2); Lymphocytes Percent Auto 9.7 % (18.3-44.2); Mean Corpuscular HGB Conc 30.1 g/dl (32-36); Mean Corpuscular Hemoglobin 24.9 pg (26-34); Mean Corpuscular Volume 82.7 fl (80-100); Mean Platelet Volume 9.3 fl (7.4-10.4); Monocytes Percent Auto 6.2 % (2.6-8.5); Neutrophils Absolute Auto 13.3 K/mm3 (1.3-6.7); Neutrophils Percent Auto 81.8 % (45.5-73.1); Platelet Count Result 397 k/mm3 (150-375); Red Blood Count 3.46 M/mm3 (4.6-6.20); Red Cell Distribution Width 18.6 % (11.5-14.5); White Blood Count 16.2 K/mm3 (4.5-10.0)
[2021-11-03 05:26] LABS: Alanine Aminotransferase 16 U/L (4-50); Albumin Level 2.5 g/dL (3.5-5.1); Alkaline Phosphatase 177 U/L (38-126); Anion Gap 9 mmol/L (8-16); Aspartate Amino Transferase 24 U/L (17-59); Blood Urea Nitrogen 23 mg/dL (9-20); Calcium 7.8 mg/dL (8.4-10.2); Carbon Dioxide 25 mmol/L (22-30); Chloride 103 mmol/L (98-107); Estimated CRCL calculation 85 ml/min; Estimated Glomerular Filt Rate > 60; Glucose 146 mg/dL (65-110); Magnesium 1.8 mg/dL (1.6-2.3); Potassium 3.8 mmol/L (3.4-5.0); Sodium 137 mmol/L (137-145)
[2021-11-03 05:29] LABS: INR 1.3; Prothrombin Time 15.4 Seconds (11.1-14.7)
[2021-11-03 07:40] LABS: Glucose Point of Care 143 mg/dl (65-105)
[2021-11-03] MEDS: HYDROmorphone HCL INJ (*CRX) 1 MG/ML SYR IV PUSH ×3 (08:56→22:06)
[2021-11-03] MEDS: PANTOPRAZOLE SODIUM IV 40 MG VIAL IV PUSH ×2 (09:20→20:37)
[2021-11-03] MEDS: DEXAMETHASONE SOD PHOS INJ 4 MG/ML VIAL 2 MG IV PUSH ×2 (09:22→20:38)
[2021-11-03] MEDS: levETIRAcetam 500MG/NACL 100ML 500 MG/100 ML BAG 400 MG IVPB ×2 (09:26→20:38)
--- NOTE | 2021-11-03 09:27 | PM.IMPN ---
Progress Note: A&P Assessment and Plan (1) Septic shock: Code(s): A41.9 - Sepsis, unspecified organism; R65.21 - Severe sepsis with septic shock Status: Acute Assessment and Plan: Septic shock most likely related perforated bowel status post exploratory laparotomy with Porfirio procedure, ostomy, washout -patient was adequately fluid-resuscitated in the ER and in the OR.. -required vasopressor in the ICU currently off vasopressors -continue Zosyn (started 10/20) -lactic acid has normalized -received stress dose steroid but now back to his baseline steroid dose now Blood culture growing fusobacterium Repeat CT scan 10/29/2021 with diverticulitis of transverse colon with no perforation. General surgery recommending continuing IV antibiotics (2) Respiratory failure: Qualifiers: Chronicity: acute Respiratory failure complication: unspecified whether with hypoxia or hypercapnia Qualified Code(s): J96.00 - Acute respiratory failure, unspecified whether with hypoxia or hypercapnia Code(s): J96.90 - Respiratory failure, unspecified, unspecified whether with hypoxia or hypercapnia Status: Acute Assessment and Plan: Respiratory failure likely related to septic shock, post surgery He was extubated 10/26/2021 after a successful weaning trial. Maintaining adequate oxygenation on nasal cannula now currently off oxygen Chest x-ray reviewed Off IV fluids, incentive spirometry, up in chair, PT OT consult Continue bronchodilators (3) Bowel perforation: Onset Date: ~10/23/21 Code(s): K63.1 - Perforation of intestine (nontraumatic) Status: Acute Assessment and Plan: 10/19/2021: Perforated viscus, septic shock, ex lap with Porfirio's procedure, mobilization of splenic flexure, extensive intra-abdominal washout, colostomy -surgery following the patient and managing -continue Zosyn started 10/20/2021 -his ostomy looks dusky and surgery is aware -he tolerated diet Abdominal wound with wound VAC in place managed by General surgery Abdominal pain 11/02/[address] abdomen for further evaluation which revealed gaseous distension persistent transfers diverticulitis Bowel rest IV TPN this started today which is already been ordered by General surgery (4) Acute kidney injury: Code(s): N17.9 - Acute kidney failure, unspecified Status: Acute Assessment and Plan: Acute kidney injury likely related to perforated viscus, septic shock, hypotension, hypovolemia, ATN, infection. 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, bones, adrenals, lung nodules, retroperitoneal -patient is on Decadron which has been resumed -continue Keppra IV Discussed with his primary oncologist 11/02/2021 start tapering Decadron for the next few days (6) DVT prophylaxis: Code(s): Z29.9 - Encounter for prophylactic measures, unspecified Status: Acute Assessment and Plan: Prophylactic Lovenox this is been on hold due to ongoing GI bleed (7) Electrolyte abnormality: Code(s): E87.8 - Other disorders of electrolyte and fluid balance, not elsewhere classified Status: Acute Assessment and Plan: Improved after replacement (8) Postoperative pain: Code(s): G89.18 - Other acute postprocedural pain Status: Acute Assessment and Plan: Improved with morphine HARBOR TUG CAPTAIN Now morp
[2021-11-03] MEDS: TOLNAFTATE 1% POWDER 45 GM BTL 1 APPLIC TOPICAL (09:32)
--- NOTE | 2021-11-03 11:20 | PM.PNGS ---
Progress Note: A&P Assessment and Plan (1) Complication of ostomy: Onset Date: ~10/2021 Status: Acute Assessment and Plan: See note above under exam. Since there is no intra-abdominal changes will try to stent the abdominal wall portion of the ostomy so that it drains well into the bag and continue to see if the mucosal sloughing is occurring and whether or not it will allow healing without further surgery. Today's exam reveals less acute bleeding and significant swelling and maceration of the portion of the colon at the skin surface and in the subQ. For now will hold Lovenox. ( PT PT normal today) Also CT showed significantly dilated stomach possibly secondary to gastric ileus with air-fluid level. Therefore NG tube was placed and will recheck abdominal film in the morning. (2) Wound infection: Code(s): T14.8XXA - Other injury of unspecified body region, initial encounter; L08.9 - Local infection of the skin and subcutaneous tissue, unspecified Status: Acute Assessment and Plan: Wound VAC replaced yesterday. Wound/ostomy Nurses note that there is not good active granulation or healing yet and that they can see the fascial sutures. I but I believe it may be sorto to consider changing the wound VAC in the OR on Friday and at the same time carefully examining the ostomy and seen if I can pull up healthy year colon to the skin surface. ( Review all of Dr. Beltrán's operative note reveals that he did do a mobilization of the splenic flexure so there may still yet be some laxity that would allow healthy our colon to be pulled up into the ostomy site and then that that is seeming to now necrosis be able to be removed. Will re-evaluate ostomy tomorrow. (3) Ileus, postoperative: Onset Date: ~11/02/21 Code(s): K91.89 - Other postprocedural complications and disorders of digestive system; K56.7 - Ileus, unspecified Status: Acute Assessment and Plan: Seen on CT scan 11/02 . Has NG tube to low intermittent suction. There was last out overnight then initially and the patient feels significantly better. He has good bowel sounds now. He has had flatus come into the bag but not much stool. Will begin placing mylanta and down the NG and clamping for 1 hour q.6 hours. Additional Plan I have discussed the plan of care with Dr. Rebollar Since patient has ileus and NG, I have started TPN today with 10 units of regular insulin included. Subjective Subjective Date/Time Seen: 11/03/21 11:20 Post Op day: POD #15 Patient reports: feels better and still having pain Interval history: Patient's daughter in the room with patient. He states his comfort level is much better today compared to before NG was placed yesterday. Not having pain in the ostomy area at this time. Daughter states she heard gas come out the ostomy. Review of Systems Review of Systems: All systems reviewed & are unremarkable except as noted in HPI and below ROS unobtainable: Yes unobtainable due to endotracheal tube Eyes: Eyes: Reports no additional eye complaints ENT: Reports system reviewed and no additional complaints, except as documented Cardiovascular: Cardiovascular: Reports no additional cardiovascular complaints, Denies chest pain and Denies dyspnea Respiratory: Respiratory: Reports no additional respiratory complaints, Reports no additional respiratory complaints and Denies dyspnea Genitourinary: Genitourinary: Reports no additional male genitourinary complaints Musculoskeletal: Musculoskeletal: Reports no additional musculoskeletal complaints and Reports muscle weakness Integumentary/Breasts: Skin/Breast: Reports system reviewed and no additional complaints, except as docu Neurologic: Reports system reviewed and no additional complaints, except as documented, Reports confusion, Denies memory loss and Reports weakness Psychiatric: Psychiatric: Reports no additional psychiatric complaints, Denies anxiety, Reports
[2021-11-03] MEDS: SODIUM CHLORIDE 0.9% IV 250 ML 30 ML IV CONT (11:35)
[2021-11-03 11:40] LABS: Transferrin 100 mg/dL (206-381)
[2021-11-03] MEDS: BENZOCAINE/MENTHOL (*BKC) 18 EA LOZENGE 1 LOZENGE PO (11:47)
[2021-11-03 11:50] LABS: Glucose Point of Care 147 mg/dl (65-105)
[2021-11-03] MEDS: AMINO ACIDS 5%/D15W/E-LYTES/CA 2,000 ML with MULTIVITAMINS-12 INJ VIAL 1 2.5 ML, MULTIV... 40 ML IV CONT (12:35)
[2021-11-03] MEDS: FAT EMULSIONS IV 20% 250 ML 20.83 ML IVPB (12:36)
[2021-11-03] MEDS: MAG HYDROX/AL HYDROX/SIMETH 30 ML UDC FEED TUBE ×2 (12:37→18:11)
--- NOTE | 2021-11-03 15:20 | PCPTNOTE ---
Attempted to see patient for PT this date. Pt. was out of the room this morning when therapy attempted to see patient. This afternoon pt. declined therapy due to pt. feeling too fatigued.
[2021-11-03 17:43] LABS: Hematocrit 27.7 % (42.0-52.0); Hemoglobin 8.4 g/dL (14.0-18.0)
[2021-11-03] MEDS: SODIUM CHLORIDE 0.9% IV 1,000 ML 40 ML IV CONT (18:12)
[2021-11-03 18:16] LABS: Glucose Point of Care 195 mg/dl (65-105)
[2021-11-04] VITALS (9 sets, daily range): BP systolic 129–152; BP diastolic 75–90; PULSE 86–103; RESP 16–20; TEMP 36.1–37; O2SAT 93–96
[2021-11-04] MEDS: MAG HYDROX/AL HYDROX/SIMETH 30 ML UDC FEED TUBE ×5 (00:55→23:23)
[2021-11-04] MEDS: TOLNAFTATE 1% POWDER 45 GM BTL 1 APPLIC TOPICAL ×3 (00:56→21:04)
[2021-11-04] MEDS: CENTRAL LINE FLUSH 10 ML IV PUSH ×4 (00:57→21:02)
[2021-11-04 03:17] LABS: Glucose Point of Care 208 mg/dl (65-105)
[2021-11-04 07:02] LABS: Glucose Point of Care 182 mg/dl (65-105)
[2021-11-04 07:10] LABS: Triglycerides 170 mg/dL (<150)
[2021-11-04 07:13] LABS: Alanine Aminotransferase 16 U/L (4-50); Albumin Level 2.5 g/dL (3.5-5.1); Alkaline Phosphatase 148 U/L (38-126); Anion Gap 3 mmol/L (8-16); Aspartate Amino Transferase 27 U/L (17-59); Bilirubin,Total 0.8 mg/dL (0.2-1.3); Blood Urea Nitrogen 21 mg/dL (9-20); Calcium 7.8 mg/dL (8.4-10.2); Carbon Dioxide 27 mmol/L (22-30); Chloride 104 mmol/L (98-107); Estimated CRCL calculation 103 ml/min; Estimated Glomerular Filt Rate > 60; Glucose 189 mg/dL (65-110); Magnesium 1.8 mg/dL (1.6-2.3); Potassium 3.4 mmol/L (3.4-5.0); Sodium 134 mmol/L (137-145)
[2021-11-04] MEDS: levETIRAcetam 500MG/NACL 100ML 500 MG/100 ML BAG 400 MG IVPB ×2 (08:52→20:48)
[2021-11-04] MEDS: HYDROmorphone HCL INJ (*CRX) 1 MG/ML SYR IV PUSH ×4 (08:53→21:07)
[2021-11-04] MEDS: PANTOPRAZOLE SODIUM IV 40 MG VIAL IV PUSH ×2 (08:56→20:48)
[2021-11-04] MEDS: DEXAMETHASONE SOD PHOS INJ 4 MG/ML VIAL 2 MG IV PUSH ×2 (08:56→20:48)
[2021-11-04] MEDS: CENTRAL LINE FLUSH 20 ML IV PUSH (09:45)
[2021-11-04 10:00] LABS: Basophils Percent Auto 0.4 % (0.2-1.2); Eosinophils Absolute Auto 0.2 K/mm3 (0-0.3); Eosinophils Percent Auto 1.5 % (0-4.4); Hematocrit 26.9 % (42.0-52.0); Hemoglobin 8.1 g/dL (14.0-18.0); Immature Granulocyte Absolute 0.13 K/mm3 (0.00-0.031); Immature Granulocyte Percent A 1.2 % (0-0.5); Lymphocytes Absolute Auto 1.19 K/mm3 (0.9-3.2); Mean Corpuscular HGB Conc 30.1 g/dl (32-36); Mean Corpuscular Hemoglobin 24.5 pg (26-34); Mean Corpuscular Volume 81.5 fl (80-100); Mean Platelet Volume 9.3 fl (7.4-10.4); Monocytes Absolute Auto 0.7 K/mm3 (0.1-0.6); Monocytes Percent Auto 6.3 % (2.6-8.5); Neutrophils Absolute Auto 8.6 K/mm3 (1.3-6.7); Neutrophils Percent Auto 79.6 % (45.5-73.1); Platelet Count Result 329 k/mm3 (150-375); Red Cell Distribution Width 18.7 % (11.5-14.5); White Blood Count 10.8 K/mm3 (4.5-10.0)
[2021-11-04 12:00] LABS: Glucose Point of Care 228 mg/dl (65-105)
[2021-11-04] MEDS: FAT EMULSIONS IV 20% 250 ML 20.83 ML IVPB (12:09)
[2021-11-04] MEDS: AMINO ACIDS 5%/D15W/E-LYTES/CA 2,000 ML with MULTIVITAMINS-12 INJ VIAL 1 2.5 ML, MULTIV... 40 ML IV CONT (12:10)
[2021-11-04] MEDS: INSULIN ASPART (*BKC) 100 UNITS/ML SUB-Q ×2 (12:29→18:24)
--- NOTE | 2021-11-04 15:18 | PM.IMPN ---
Progress Note: A&P Assessment and Plan (1) Septic shock: Code(s): A41.9 - Sepsis, unspecified organism; R65.21 - Severe sepsis with septic shock Status: Acute Assessment and Plan: Septic shock most likely related perforated bowel status post exploratory laparotomy with Porfirio procedure, ostomy, washout -patient was adequately fluid-resuscitated in the ER and in the OR.. -required vasopressor in the ICU currently off vasopressors -continue Zosyn (started 10/20) -lactic acid has normalized -received stress dose steroid but now back to his baseline steroid dose now Blood culture growing fusobacterium Repeat CT scan 10/29/2021 with diverticulitis of transverse colon with no perforation. General surgery recommending continuing IV antibiotics (2) Respiratory failure: Qualifiers: Chronicity: acute Respiratory failure complication: unspecified whether with hypoxia or hypercapnia Qualified Code(s): J96.00 - Acute respiratory failure, unspecified whether with hypoxia or hypercapnia Code(s): J96.90 - Respiratory failure, unspecified, unspecified whether with hypoxia or hypercapnia Status: Acute Assessment and Plan: Respiratory failure likely related to septic shock, post surgery He was extubated 10/26/2021 after a successful weaning trial. Maintaining adequate oxygenation on nasal cannula now currently off oxygen Chest x-ray reviewed Off IV fluids, incentive spirometry, up in chair, PT OT consult Continue bronchodilators (3) Bowel perforation: Onset Date: ~10/23/21 Code(s): K63.1 - Perforation of intestine (nontraumatic) Status: Acute Assessment and Plan: 10/19/2021: Perforated viscus, septic shock, ex lap with Porfirio's procedure, mobilization of splenic flexure, extensive intra-abdominal washout, colostomy -surgery following the patient and managing -continue Zosyn started 10/20/2021 -his ostomy looks dusky and surgery is aware -he tolerated diet Abdominal wound with wound VAC in place managed by General surgery Abdominal pain 11/02/[address] abdomen for further evaluation which revealed gaseous distension persistent transfers diverticulitis Bowel rest IV TPN started 11/03/2021 Continue TPN (4) Acute kidney injury: Code(s): N17.9 - Acute kidney failure, unspecified Status: Acute Assessment and Plan: Acute kidney injury likely related to perforated viscus, septic shock, hypotension, hypovolemia, ATN, infection. 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, bones, adrenals, lung nodules, retroperitoneal -patient is on Decadron which has been resumed -continue Keppra IV Discussed with his primary oncologist 11/02/2021 start tapering Decadron every 3 days (6) DVT prophylaxis: Code(s): Z29.9 - Encounter for prophylactic measures, unspecified Status: Acute Assessment and Plan: Prophylactic Lovenox this is been on hold due to ongoing GI bleed (7) Electrolyte abnormality: Code(s): E87.8 - Other disorders of electrolyte and fluid balance, not elsewhere classified Status: Acute Assessment and Plan: Improved after replacement (8) Postoperative pain: Code(s): G89.18 - Other acute postprocedural pain Status: Acute Assessment and Plan: Improved with morphine CIRCULAR SAWYER STONE Now morphine CIRCULAR SAWYER STONE is off IV p.r.n. pain medication
--- NOTE | 2021-11-04 16:37 | PM.PNGS ---
Progress Note: A&P Assessment and Plan (1) Wound infection: Code(s): T14.8XXA - Other injury of unspecified body region, initial encounter; L08.9 - Local infection of the skin and subcutaneous tissue, unspecified Status: Acute Assessment and Plan: Wound VAC replaced yesterday. Wound/ostomy Nurses note that there is not good active granulation or healing yet and that they can see the fascial sutures. Current plan is that I will contact the Wound ostomy nurses early Friday a.m. and try to change the ostomy with them to re-evaluated after cleansing it carefully and being able to possibly do a digital exam on it in the room. Then depending on that exam will consider possibly further surgery to pull up healthier: If need be. At the current time he is not showing symptoms of problems or stool leakage within the abdomen. I believe it may be sorto to consider changing the wound VAC in the OR on Friday and at the same time carefully examining the ostomy and seen if I can pull up healthier colon to the skin surface. ( I reviewed all of Dr. Melendez operative note which reveals that he did do a mobilization of the splenic flexure so there may still yet be some laxity that would allow healthier colon to be pulled up into the ostomy [id number] the actual ostomy opening and then that is which is seeming to now be necrotic may be able to be removed). Will re-evaluate ostomy tomorrow. (2) Ileus, postoperative: Onset Date: ~11/02/21 Code(s): K91.89 - Other postprocedural complications and disorders of digestive system; K56.7 - Ileus, unspecified Status: Acute Assessment and Plan: Seen on CT scan 11/02 . Has NG tube to low intermittent suction. There was less out overnight then initially(375) and the patient feels significantly better. He has good bowel sounds now. He has had flatus come into the bag and also some khloe brown -red stool. On 11/04 I started placing mylanta and down the NG and clamping for 1 hour q.6 hours. (3) Complication of ostomy: Onset Date: ~10/2021 Status: Acute (4) Perforation of sigmoid colon due to diverticulitis: Code(s): K57.20 - Diverticulitis of large intestine with perforation and abscess without bleeding Status: Acute Assessment and Plan: This was the main reason for the patient's admission. He has had a Porfirio's procedure. To repeat CT scans of the abdomen reveals some diverticulitis still of the proximal transverse colon just under the right lobe of the liver but no signs of perforation there. Most recent CT scan also showed no significant inflammation of the colon underlying the ostomy and no signs of obstruction there. WBC count down to high normal today seeming to indicate lessening of his inflammation. Additional Plan I have discussed the plan of care with Dr. Rebollar Since patient has ileus and NG, I have started TPN with 10 units of regular insulin included. (started 11/03). will get repeat KUB of abdomen in a.m. to check on possible ileus. Continue current antibiotics. Subjective Subjective Date/Time Seen: 11/04/21 11:37 The patient is lying in bed watching TV with his son. States his abdominal pain is not bad. NG tube does not bother him a lot. Nurse reports slightly bloody stool in ostomy bag. Also gas in bag. Review of Systems Review of Systems: All systems reviewed & are unremarkable except as noted in HPI and below ROS unobtainable: Yes unobtainable due to endotracheal tube Constitutional: Constitutional: Reports as per HPI, Reports anorexia, Reports body ache(s), Denies chills, Reports fatigue, Denies fever(s), Reports lethargy, Reports malaise and Reports weakness Eyes: Eyes: Reports no additional eye complaints ENT: Reports system reviewed and no additional complaints, except as documented Cardiovascular: Cardiovascular: Reports no additional cardiovascular complaints, Denies chest pain and Denies dyspnea Respirator
[2021-11-04 17:04] LABS: Glucose Point of Care 210 mg/dl (65-105)
[2021-11-04] MEDS: SODIUM CHLORIDE 0.9% IV 1,000 ML 40 ML IV CONT (18:17)
[2021-11-04 19:51] LABS: Glucose Point of Care 184 mg/dl (65-105)
[2021-11-04 19:53] LABS: Hematocrit 27.6 % (42.0-52.0); Hemoglobin 8.2 g/dL (14.0-18.0)
[2021-11-05] VITALS (8 sets, daily range): BP systolic 125–148; BP diastolic 75–84; PULSE 87–104; RESP 16–20; TEMP 36.2–37; O2SAT 94–96
[2021-11-05] MEDS: HYDROmorphone HCL INJ (*CRX) 1 MG/ML SYR IV PUSH ×5 (01:49→23:02)
[2021-11-05] MEDS: MAG HYDROX/AL HYDROX/SIMETH 30 ML UDC FEED TUBE ×3 (05:55→17:33)
[2021-11-05] MEDS: CENTRAL LINE FLUSH 10 ML IV PUSH ×4 (05:57→21:46)
[2021-11-05 06:01] LABS: Glucose Point of Care 213 mg/dl (65-105)
[2021-11-05 06:01] LABS: Basophils Percent Auto 0.4 % (0.2-1.2); Eosinophils Absolute Auto 0.1 K/mm3 (0-0.3); Eosinophils Percent Auto 1.1 % (0-4.4); Hematocrit 26.6 % (42.0-52.0); Immature Granulocyte Absolute 0.15 K/mm3 (0.00-0.031); Immature Granulocyte Percent A 1.5 % (0-0.5); Lymphocytes Absolute Auto 1.29 K/mm3 (0.9-3.2); Lymphocytes Percent Auto 13.3 % (18.3-44.2); Mean Corpuscular HGB Conc 30.1 g/dl (32-36); Mean Corpuscular Hemoglobin 24.8 pg (26-34); Mean Corpuscular Volume 82.6 fl (80-100); Mean Platelet Volume 9.5 fl (7.4-10.4); Monocytes Absolute Auto 0.7 K/mm3 (0.1-0.6); Monocytes Percent Auto 7.1 % (2.6-8.5); Neutrophils Absolute Auto 7.4 K/mm3 (1.3-6.7); Neutrophils Percent Auto 76.6 % (45.5-73.1); Platelet Count Result 284 k/mm3 (150-375); Red Blood Count 3.22 M/mm3 (4.6-6.20); Red Cell Distribution Width 18.6 % (11.5-14.5); White Blood Count 9.7 K/mm3 (4.5-10.0)
[2021-11-05 06:10] LABS: INR 1.2; Prothrombin Time 14.8 Seconds (11.1-14.7)
[2021-11-05 06:11] LABS: Partial Thromboplastin Time 33.5 SECONDS (22.3-36.8)
[2021-11-05] MEDS: INSULIN ASPART (*BKC) 100 UNITS/ML SUB-Q ×2 (06:13→18:40)
[2021-11-05 06:15] LABS: Alanine Aminotransferase 16 U/L (4-50); Albumin Level 2.4 g/dL (3.5-5.1); Alkaline Phosphatase 132 U/L (38-126); Anion Gap 4 mmol/L (8-16); Aspartate Amino Transferase 26 U/L (17-59); Bilirubin,Total 0.8 mg/dL (0.2-1.3); Blood Urea Nitrogen 18 mg/dL (9-20); Calcium 7.8 mg/dL (8.4-10.2); Carbon Dioxide 27 mmol/L (22-30); Chloride 104 mmol/L (98-107); Estimated CRCL calculation 105 ml/min; Estimated Glomerular Filt Rate > 60; Glucose 211 mg/dL (65-110); Magnesium 1.8 mg/dL (1.6-2.3); Potassium 3.4 mmol/L (3.4-5.0); Sodium 135 mmol/L (137-145)
[2021-11-05 06:22] LABS: Transferrin 111 mg/dL (206-381)
[2021-11-05 07:41] LABS: Glucose Point of Care 192 mg/dl (65-105)
[2021-11-05] MEDS: levETIRAcetam 500MG/NACL 100ML 500 MG/100 ML BAG 400 MG IVPB ×2 (08:24→21:44)
[2021-11-05] MEDS: DEXAMETHASONE SOD PHOS INJ 4 MG/ML VIAL 2 MG IV PUSH ×2 (09:22→20:46)
[2021-11-05] MEDS: PANTOPRAZOLE SODIUM IV 40 MG VIAL IV PUSH ×2 (09:22→20:48)
[2021-11-05] MEDS: TOLNAFTATE 1% POWDER 45 GM BTL 1 APPLIC TOPICAL ×2 (09:26→20:47)
--- NOTE | 2021-11-05 10:13 | PCOTNOTE ---
Patient unavailable, having wound vac and ostomy changed. Will try again later to see for OT.
[2021-11-05] MEDS: FAT EMULSIONS IV 20% 250 ML 20.8 ML IVPB (11:23)
--- NOTE | 2021-11-05 11:24 | PC.NURSE ---
pt c/o of 10/10 pain but is sleeping (and snoring) every time I enter the room. With each new person that enters his room (surgeon, care coordination, COMPUTER SYSTEMS TECHNOLOGY INSTRUCTOR, student, et al.) he c/o of 10/10 pain but is awake only long enough to demand more Dilaudid. When administering the med, I inquired as to his pain level, location, description, etc. and pt stated that is more pressure from gas/bloating than pain but he still wants the pain med.
[2021-11-05 11:38] LABS: Glucose Point of Care 193 mg/dl (65-105)
--- NOTE | 2021-11-05 12:25 | PM.IMPN ---
Progress Note: A&P Assessment and Plan (1) Septic shock: Code(s): A41.9 - Sepsis, unspecified organism; R65.21 - Severe sepsis with septic shock Status: Acute Assessment and Plan: Septic shock most likely related perforated bowel status post exploratory laparotomy with Porfirio procedure, ostomy, washout -patient was adequately fluid-resuscitated in the ER and in the OR.. -required vasopressor in the ICU currently off vasopressors -continue Zosyn (started 10/20) -lactic acid has normalized -received stress dose steroid but now back to his baseline steroid dose now Blood culture growing fusobacterium Repeat CT scan 10/29/2021 with diverticulitis of transverse colon with no perforation. General surgery recommending continuing IV antibiotics currently on IV Zosyn. Normal WBC count today and continues to improve every day (2) Respiratory failure: Qualifiers: Chronicity: acute Respiratory failure complication: unspecified whether with hypoxia or hypercapnia Qualified Code(s): J96.00 - Acute respiratory failure, unspecified whether with hypoxia or hypercapnia Code(s): J96.90 - Respiratory failure, unspecified, unspecified whether with hypoxia or hypercapnia Status: Acute Assessment and Plan: Respiratory failure likely related to septic shock, post surgery He was extubated 10/26/2021 after a successful weaning trial. Maintaining adequate oxygenation on nasal cannula now currently off oxygen Chest x-ray reviewed Off IV fluids, incentive spirometry, up in chair, PT OT consult Continue bronchodilators (3) Bowel perforation: Onset Date: ~10/23/21 Code(s): K63.1 - Perforation of intestine (nontraumatic) Status: Acute Assessment and Plan: 10/19/2021: Perforated viscus, septic shock, ex lap with Porfirio's procedure, mobilization of splenic flexure, extensive intra-abdominal washout, colostomy -surgery following the patient and managing -continue Zosyn started 10/20/2021 -his ostomy looks dusky and surgery is aware -he tolerated diet Abdominal wound with wound VAC in place managed by General surgery Abdominal pain 11/02/[address] abdomen for further evaluation which revealed gaseous distension persistent transfers diverticulitis Bowel rest IV TPN started 11/03/2021 Continue TPN (4) Acute kidney injury: Code(s): N17.9 - Acute kidney failure, unspecified Status: Acute Assessment and Plan: Acute kidney injury likely related to perforated viscus, septic shock, hypotension, hypovolemia, ATN, infection. 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, bones, adrenals, lung nodules, retroperitoneal -patient is on Decadron which has been resumed -continue Keppra IV Discussed with his primary oncologist 11/02/2021 start tapering Decadron every 3 days (6) DVT prophylaxis: Code(s): Z29.9 - Encounter for prophylactic measures, unspecified Status: Acute Assessment and Plan: Prophylactic Lovenox this is been on hold due to ongoing GI bleed (7) Electrolyte abnormality: Code(s): E87.8 - Other disorders of electrolyte and fluid balance, not elsewhere classified Status: Acute Assessment and Plan: Improved after replacement. Due to ileus will replace potassium today (8) Postoperative pain: Code(s): G89.18 - Other acute postprocedural pain
--- NOTE | 2021-11-05 14:04 | PCNFU ---
Nutrition Follow-Up Complete: Inadequate Oral Intake as related to mechanical vent as evidenced by tube feedings. Goal: Meet estimanted nutritional needs Pt is slowly progressing towards goal. No new goal at this time. Pt current nutrition is NPO Last recorded weight is 110.7 kg, up 3.8kg from last reported weight on 11/04/21. Bowel Motility: +Colostomy output - Brown/dark red liquid Labs Reviewed: Hgb 8.0, Hct 26.6, Alb 2.4, Na 135, ALP 132, Triglycerides 170, Ca 7.8, Glu 193, Transferrin 111 Meds Noted: Mylanta, Decadron, Clinimix E 5%/15%, 20% Lipid Emulsion, Dilaudid, Keppra, Protonix, Zosyn Skin: medial abdomen incision - wound vac Additional Notes: Pt is currently NPO. NG tube in place. Per MD notes, ostomy site appears necrotic. TPN has been initiated and running at 40mL/hr over 24 hours with lipids to provide 1182kcal and 48g of protein meeting 62% of estimated kcal needs and 44% of estimated protein needs. Recommend increasing TPN rate by 10mL each day until a goal rate of 70mL/hr is met. TPN running at 70mL/hr over 24 hours with lipids will provide 1693kcal and 84g of protein to meet 89% of estimated kcal needs and 77% of estimated protein needs. Recommend re-checking triglycerides and holding lipids if triglyceride levels continue to rise. Agree with diet orders at this time. Will continue to follow. Will monitor every Friday and Friday.
--- NOTE | 2021-11-05 14:22 | PCOTNOTE ---
Patient in IV procedure this PM when attempted, unavailable to see for OT. Will continue per plan of care 11/06/21.
[2021-11-05] MEDS: LIDOCAINE HCL 1% PF INJ 5 ML VIAL INFILTRATE (14:30)
[2021-11-05] MEDS: MAGNESIUM HYDROXIDE SUSP 30 ML UDC FEED TUBE (15:16)
[2021-11-05] MEDS: KCL 40 MEQ/WATER 100 ML 100 ML 25 ML IVPB (15:16)
[2021-11-05] MEDS: SODIUM CHLORIDE 0.9% IV 1,000 ML 40 ML IV CONT (15:17)
--- NOTE | 2021-11-05 15:55 | PCPTNOTE ---
The patient treatment was not able to be completed today. Attempted PT in A.M. however patient requested therapy return in P.M. since he had wound vac changed this morning. Returned in P.M. and patient was having PIC line placed. Will plan to continue treatment per plan of care.
--- NOTE | 2021-11-05 16:01 | PM.PNGS ---
Progress Note: A&P Assessment and Plan (1) Ileus, postoperative: Onset Date: ~11/02/21 Code(s): K91.89 - Other postprocedural complications and disorders of digestive system; K56.7 - Ileus, unspecified Status: Acute Assessment and Plan: Seen on CT scan 11/02 . Has NG tube to low intermittent suction. ( total last 24 hours out N cc ). He has some bowel sounds now. He has had flatus come into the bag and also some khloe brown -red stool. On 11/04 I started placing mylanta and down the NG and clamping for 1 hour q.6 hours. X-ray today shows ileus seems to be improved will give a dose of milk of magnesia down the NG tube this afternoon. (2) Complication of ostomy: Onset Date: ~10/2021 Status: Acute Assessment and Plan: Ostomy site reexamined again with wound ostomy nurse. It is still dark and at least mucosa is necrotic. However the deeper portions of the bowel seemed to palpate as intact and patient has been having appropriate output through the ostomy of both gas and liquid stool. He is at significant risk for problems if we taken back to surgery so my decision today was to reapply the wound VAC and the ostomy the bleeding around the ostomy has subsided with holding his Lovenox and getting his INR under control. We now also know he will have trouble healing and sealing this area in view of the affects of the VEGF inhibitor axitinib. The current plan will then be to continue antibiotics, continue observation, Dr. Monroe is to be back on Friday so I will try to examine the ostomy and wound together with him at the time of the next wound VAC change. We will continue to monitor the patient closely. Patient knows that if the ostomy dies back further he may need a revision. In order for good healing will ask Medicine to continue to appropriately wean his Decadron/steroids. Which I believe from their note will be able to go down again tomorrow Monday 11/06. (3) Perforation of sigmoid colon due to diverticulitis: Code(s): K57.20 - Diverticulitis of large intestine with perforation and abscess without bleeding Status: Acute Assessment and Plan: POD #17 This was the main reason for the patient's admission. He has had a Porfirio's procedure. Two repeat CT scans of the abdomen have revealed some diverticulitis still of the proximal transverse colon just under the right lobe of the liver but no signs of perforation there. Most recent CT scan also showed no significant inflammation of the colon underlying the ostomy and no signs of obstruction there. Was however fluid and air surrounding the colon in the abdominal wall as it exited to the skin at the ostomy site. WBC count down to high normal today seeming to indicate lessening of his inflammation. Subjective Subjective Date/Time Seen: 11/05/21 15:01 Patient also seen her earlier this morning with Mago from Wound and ostomy. I was able to carefully examine the ostomy (see below ) and see the wound with the wound VAC off. Patient continues to seemed to do well with NG in view of his ileus. Tolerating TPN well. We know for now that he will not be able to heal well because of the axitinib so will continue to manage him very conservatively and slowly as far as his p.o. diet. He believes he still has some gas pains in the abdomen but otherwise is much better than he was Friday afternoon. Post Op day: POD # 17 Patient reports: no new complaints Interval history: Patient complains of on and off left upper quadrant abdominal gassy type pain. Nurse reports there was brownish red drainage from the ostomy bag. Patient reports that the nurse on nights tried empty his ostomy bag and got stool all or some of his equipment on his bedside table. PICC line nurse able to get a PICC line today in the right arm. We will be removing the left IJ central line since it has been there now approximately 16 days. He will however be able
[2021-11-05 18:29] LABS: Glucose Point of Care 214 mg/dl (65-105)
[2021-11-05 18:54] LABS: Hematocrit 26.7 % (42.0-52.0); Hemoglobin 9.4 g/dL (14.0-18.0)
[2021-11-06] VITALS (7 sets, daily range): BP systolic 122–134; BP diastolic 72–82; PULSE 89–110; RESP 16–20; TEMP 36.2–36.4; O2SAT 96–98
[2021-11-06] MEDS: MAG HYDROX/AL HYDROX/SIMETH 30 ML UDC FEED TUBE ×4 (01:34→18:16)
[2021-11-06] MEDS: INSULIN ASPART (*BKC) 100 UNITS/ML SUB-Q ×4 (01:38→18:16)
[2021-11-06 01:55] LABS: Glucose Point of Care 231 mg/dl (65-105)
[2021-11-06] MEDS: CENTRAL LINE FLUSH 10 ML IV PUSH ×3 (06:12→22:58)
[2021-11-06 06:22] LABS: Glucose Point of Care 209 mg/dl (65-105)
[2021-11-06 06:50] LABS: Anion Gap 5 mmol/L (8-16); Blood Urea Nitrogen 16 mg/dL (9-20); Calcium 7.8 mg/dL (8.4-10.2); Carbon Dioxide 24 mmol/L (22-30); Chloride 104 mmol/L (98-107); Estimated CRCL calculation 117 ml/min; Estimated Glomerular Filt Rate > 60; Glucose 207 mg/dL (65-110); Phosphorus 3.2 mg/dL (2.5-4.5); Potassium 3.7 mmol/L (3.4-5.0); Sodium 133 mmol/L (137-145)
[2021-11-06 07:48] LABS: Glucose Point of Care 201 mg/dl (65-105)
[2021-11-06 08:53] LABS: Triglycerides 140 mg/dL (<150)
[2021-11-06] MEDS: levETIRAcetam 500MG/NACL 100ML 500 MG/100 ML BAG 400 MG IVPB ×2 (09:34→22:56)
[2021-11-06] MEDS: HYDROmorphone HCL INJ (*CRX) 1 MG/ML SYR IV PUSH ×4 (09:35→18:46)
[2021-11-06] MEDS: PANTOPRAZOLE SODIUM IV 40 MG VIAL IV PUSH ×2 (09:35→22:58)
[2021-11-06] MEDS: DEXAMETHASONE SOD PHOS INJ 4 MG/ML VIAL 2 MG IV PUSH ×2 (09:35→22:57)
[2021-11-06] MEDS: TOLNAFTATE 1% POWDER 45 GM BTL 1 APPLIC TOPICAL ×2 (09:37→22:58)
[2021-11-06] MEDS: SODIUM CHLORIDE 0.9% IV 1,000 ML 40 ML IV CONT ×2 (09:37→22:55)
[2021-11-06] MEDS: AMINO ACIDS 5%/D15W/E-LYTES/CA 2,000 ML with MULTIVITAMINS-12 INJ VIAL 1 2.5 ML, MULTIV... 40 ML IV CONT (09:38)
--- NOTE | 2021-11-06 09:58 | PC.NURSE ---
Upon entering pt's room, he informed me that he had two bowel movements from/through his rectum with one being around 0500 and the other around 0600. I verified that pt had a bowel movement from his anus (despite having a colostomy) to which pt replied, Yes! Look at the sheet if you don't believe me! Upon examining the bedsheet, I observed a small smear of fecal matter but to classify it as scant would be overly generous. Pt was extremely anxious about it so I informed him that I would discuss the matter with the doctor. I spoke with the hospitalist, Dr. Galarza, who agreed that it was minimal residual; and, Dr. Galarza stated he would mention it to the surgeon, Dr. Monroe.
--- NOTE | 2021-11-06 11:56 | PCNFU ---
Nutrition Follow-Up Complete: Inadequate Oral Intake as related to mechanical vent as evidenced by tube feedings. Goal: Meet estimated nutritional needs Patient will continue with current goal. Pt current nutrition is TPN. Last recorded weight is 109.6 kg, down from 111.6 kg on admit. Bowel Motility:ostomy Labs Reviewed:Glu 207, Na 133 Meds Noted:Mylanta, Decadron, Clinimix E 5%/15%, 20% Lipid Emulsion, Dilaudid, Keppra, Protonix, Zosyn, NovoLog. Skin: wound vac-abdomen. Additional Notes: Patient has NGT and PICC. TPN continues at 40 ml/hr with 250 ml of 20% Lipid Emulsion, providing 1182 kcals and 48 gms protein. TG 140 today,WNL. Recommend increasing TPN today to 50 ml/hr meeting, meeting 71% caloric needs and 55% of protein needs. Will monitor every Friday and Friday.
[2021-11-06] MEDS: FAT EMULSIONS IV 20% 250 ML 20.8 ML IVPB (11:58)
[2021-11-06 12:44] LABS: Glucose Point of Care 198 mg/dl (65-105)
--- NOTE | 2021-11-06 13:56 | PM.PNGS ---
Progress Note: A&P Assessment and Plan (1) Ileus, postoperative: Onset Date: ~11/02/21 Code(s): K91.89 - Other postprocedural complications and disorders of digestive system; K56.7 - Ileus, unspecified Status: Acute Assessment and Plan: Seen on CT scan 11/02 . Has NG tube to low intermittent suction. ( total last 24 hours out N cc ). He has some bowel sounds now. He has had flatus come into the bag and also some khloe brown -red stool. (100 cc since MN) On 11/04 I started placing mylanta and down the NG and clamping for 1 hour q.6 hours. Will recheck abdominal x-ray tomorrow morning prior to dressing change. (2) Complication of ostomy: Onset Date: ~10/2021 Status: Acute Assessment and Plan: On 11/05 the Ostomy site was reexamined again with wound ostomy nurse. It was still dark and at least mucosa is necrotic. However the deeper portions of the bowel seemed to palpate as intact and patient has been having appropriate output through the ostomy of both gas and liquid stool. He is at significant risk for problems if we taken back to surgery so my decision today was to reapply the wound VAC and the ostomy the bleeding around the ostomy has subsided with holding his Lovenox and getting his INR under control. We now also know he will have trouble healing and sealing this area in view of the affects of the VEGF inhibitor axitinib. The current plan will then be to continue antibiotics, continue observation, Dr. Monroe is to be back on Friday so I will try to examine the ostomy and wound together with him at the time of the next wound VAC change. We will continue to monitor the patient closely. Patient knows that if the ostomy dies back further he may need a revision. In order for good healing will ask Medicine to continue to appropriately wean his Decadron/steroids. Which I believe from their note will be able to go down again tomorrow Monday 11/06. (3) Perforation of sigmoid colon due to diverticulitis: Code(s): K57.20 - Diverticulitis of large intestine with perforation and abscess without bleeding Status: Acute Assessment and Plan: POD #18 This was the main reason for the patient's admission. He has had a Porfirio's procedure. Two repeat CT scans of the abdomen have revealed some diverticulitis still of the proximal transverse colon just under the right lobe of the liver but no signs of perforation there. Most recent CT scan also showed no significant inflammation of the colon underlying the ostomy and no signs of obstruction there. There was however fluid and air surrounding the colon in the abdominal wall as it exited to the skin at the ostomy site. WBC count down to high normal on 11/05 seeming to indicate lessening of his inflammation. Additional Plan Since patient has ileus and NG, I have started TPN with 10 units of regular insulin included. (started 11/03). I will get repeat KUB of abdomen in a.m. to check on possible ileus. Continue current antibiotics. Subjective Subjective Date/Time Seen: 11/06/21 11:56 Patient awakened lying in bed when I walked in the room. States he has some occasional upper abdominal gas pains but otherwise still remains fairly comfortable. States he was very uncomfortable with the dressing change to the midline wound and ostomy yesterday. He would appreciate receiving some pain medicine 45-60 minutes prior to that tomorrow. Patient complains that he felt as if he was going to have a bowel movement and then had a small amount of mucus around stool that passed from the anal rectal area. (I discussed this with the nurse afterwards and she says they did clean him up and there was not a lot ). The patient states he knows that he should move but feels inhibited to do so. He likes to lay flat on his back. I warned him that he may get a bed sore if he continues to do this and does not roll on his sides. I especially encourage
--- NOTE | 2021-11-06 16:24 | P.PNIM_ITS ---
Progress Note: A&P Assessment and Plan (1) Septic shock: Code(s): A41.9 - Sepsis, unspecified organism; R65.21 - Severe sepsis with septic shock Status: Acute Assessment and Plan: Septic shock most likely related perforated bowel status post exploratory laparotomy with Porfirio procedure, ostomy, washout -patient was adequately fluid-resuscitated in the ER and in the OR.. -required vasopressor in the ICU currently off vasopressors -continue Zosyn (started 10/20) -lactic acid has normalized -received stress dose steroid but now back to his baseline steroid dose now Blood culture growing fusobacterium Repeat CT scan 10/29/2021 with diverticulitis of transverse colon with no perforation. General surgery recommending continuing IV antibiotics currently on IV Zosyn. Normal WBC count today and continues to improve every day (2) Respiratory failure: Qualifiers: Chronicity: acute Respiratory failure complication: unspecified whether with hypoxia or hypercapnia Qualified Code(s): J96.00 - Acute respiratory failure, unspecified whether with hypoxia or hypercapnia Code(s): J96.90 - Respiratory failure, unspecified, unspecified whether with hypoxia or hypercapnia Status: Acute Assessment and Plan: Respiratory failure likely related to septic shock, post surgery He was extubated 10/26/2021 after a successful weaning trial. Maintaining adequate oxygenation on nasal cannula now currently off oxygen Chest x-ray reviewed Off IV fluids, incentive spirometry, up in chair, PT OT consult Continue bronchodilators (3) Bowel perforation: Onset Date: ~10/23/21 Code(s): K63.1 - Perforation of intestine (nontraumatic) Status: Acute Assessment and Plan: 10/19/2021: Perforated viscus, septic shock, ex lap with Porfirio's procedure, mobilization of splenic flexure, extensive intra-abdominal washout, colostomy -surgery following the patient and managing -continue Zosyn started 10/20/2021 -his ostomy looks dusky and surgery is aware -he tolerated diet Abdominal wound with wound VAC in place managed by General surgery Abdominal pain 11/02/[address] abdomen for further evaluation which revealed gaseous distension persistent transfers diverticulitis Bowel rest IV TPN started 11/03/2021 Continue TPN (4) Acute kidney injury: Code(s): N17.9 - Acute kidney failure, unspecified Status: Acute Assessment and Plan: Acute kidney injury likely related to perforated viscus, septic shock, hypotension, hypovolemia, ATN, infection. 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, bones, adrenals, lung nodules, retroperitoneal -patient is on Decadron which has been resumed -continue Keppra IV Discussed with his primary oncologist 11/02/2021 start tapering Decadron every 3 days (6) DVT prophylaxis: Code(s): Z29.9 - Encounter for prophylactic measures, unspecified Status: Acute Assessment and Plan: Prophylactic Lovenox this is been on hold due to ongoing GI blee
[2021-11-06 18:14] LABS: Glucose Point of Care 215 mg/dl (65-105)
[2021-11-07] VITALS (18 sets, daily range): BP systolic 112–152; BP diastolic 54–91; PULSE 88–117; RESP 14–22; TEMP 36.1–37.1; O2SAT 93–100
[2021-11-07] MEDS: HYDROmorphone HCL INJ (*CRX) 1 MG/ML SYR IV PUSH ×4 (00:48→18:15)
[2021-11-07] MEDS: MAG HYDROX/AL HYDROX/SIMETH 30 ML UDC FEED TUBE ×4 (00:52→18:08)
[2021-11-07 01:04] LABS: Glucose Point of Care 191 mg/dl (65-105)
[2021-11-07] MEDS: CENTRAL LINE FLUSH 10 ML IV PUSH ×3 (06:35→21:17)
[2021-11-07 06:45] LABS: Glucose Point of Care 200 mg/dl (65-105)
[2021-11-07 07:12] LABS: Anion Gap 8 mmol/L (8-16); Blood Urea Nitrogen 15 mg/dL (9-20); Carbon Dioxide 24 mmol/L (22-30); Chloride 103 mmol/L (98-107); Estimated CRCL calculation 117 ml/min; Estimated Glomerular Filt Rate > 60; Glucose 222 mg/dL (65-110); Phosphorus 3.4 mg/dL (2.5-4.5); Potassium 3.7 mmol/L (3.4-5.0); Sodium 135 mmol/L (137-145)
[2021-11-07 07:57] LABS: Glucose Point of Care 214 mg/dl (65-105)
[2021-11-07] MEDS: levETIRAcetam 500MG/NACL 100ML 500 MG/100 ML BAG 400 MG IVPB ×2 (08:12→21:06)
[2021-11-07] MEDS: PANTOPRAZOLE SODIUM IV 40 MG VIAL IV PUSH ×2 (08:13→21:03)
[2021-11-07] MEDS: INSULIN ASPART (*BKC) 100 UNITS/ML SUB-Q ×2 (08:17→18:09)
[2021-11-07] MEDS: LORazepam INJ (*CRX) 2 MG/ML VIAL 1 MG IV PUSH (08:21)
[2021-11-07] MEDS: DEXAMETHASONE SOD PHOS INJ 4 MG/ML VIAL 2 MG IV PUSH ×2 (08:22→21:03)
[2021-11-07] MEDS: TOLNAFTATE 1% POWDER 45 GM BTL 1 APPLIC TOPICAL ×2 (08:23→21:08)
--- NOTE | 2021-11-07 11:52 | WPDHPUPDATE1 ---
History and Physical Update Update Date/Time: 11/07/21 11:52 History and Physical has been reviewed, including an updated exam of the patient. There are NO changes in the patient's condition. Risks, benefits, and alternatives have been discussed and questions answered. Patient agrees to proceed with procedure. Pt seen and examined. Ostomy seperating from skin edges. Will take to OR for revision.
[2021-11-07 12:21] LABS: Glucose Point of Care 191 mg/dl (65-105)
[2021-11-07] MEDS: AMINO ACIDS 5%/D15W/E-LYTES/CA 2,000 ML with MULTIVITAMINS-12 INJ VIAL 1 2.5 ML, MULTIV... 50 ML IV CONT (12:38)
[2021-11-07] MEDS: FAT EMULSIONS IV 20% 250 ML 20.8 ML IVPB (12:38)
--- NOTE | 2021-11-07 13:18 | WPDANESEPPF ---
Anes - Initial Pre Proc Eval Procedure: Operation Date: 11/07/21 13:45 Proposed Procedures p Revision of Colostomy - Petrona Monroe MD Date/Time: 11/07/21 13:18 Surgeon: Petrona Monroe MD Pre Op Diagnosis: perforated sigmoid bowel Patient Data Age: 56 Gender: M Height: 1.85 m Weight: 109.6 kg Last Vital Signs Temp 36.3 C L 11/07/21 04:00 Pulse 108 H 11/07/21 04:00 Resp 18 11/07/21 04:00 BP 121/76 11/07/21 04:00 Pulse Ox 96 11/07/21 12:02 Allergies Allergy/AdvReac Type Severity Reaction Status Date / Time No Known Allergies Allergy Verified 08/22/21 09:03 Home Medications Medication Instructions Recorded Confirmed Type metoprolol tartrate 50 mg tablet 50 mg PO Q12H #60 tablet 06/19/21 10/20/21 Rx tamsulosin 0.4 mg capsule 0.4 mg PO DAILY #30 cap 06/25/21 10/20/21 Rx dexamethasone [Decadron] 4 mg PO BID #30 tablet 08/20/21 10/20/21 Rx levetiracetam [Keppra] 500 mg PO BID #30 tablet 08/20/21 10/20/21 Rx metformin 500 mg tablet,extended 1,000 mg PO QPM #90 tablet 08/22/21 10/20/21 Rx release 24 hr alprazolam 0.5 mg tablet 0.5 mg PO BID PRN #30 tablet 09/04/21 10/20/21 Rx lisinopril 40 mg tablet 40 mg PO DAILY #30 tablet 09/17/21 10/20/21 Rx axitinib 5 mg PO Q12H 10/20/21 10/20/21 History hydrocodone-acetaminophen 5 - 325 tablet PO Q4H PRN 10/20/21 10/20/21 History oxycodone [OxyContin] 15 mg PO Q12H PRN 10/20/21 10/20/21 History prochlorperazine maleate 10 mg PO Q6H PRN 10/20/21 10/20/21 History Laboratory Tests 11/06/21 11/07/21 11/07/21 18:11 01:01 06:34 Sodium 135 mmol/L L mmol/L (137-145) Potassium 3.7 mmol/L mmol/L (3.4-5.0) Chloride 103 mmol/L mmol/L (98-107) Carbon Dioxide 24 mmol/L mmol/L (22-30) Anion Gap 8 mmol/L mmol/L (8-16) BUN 15 mg/dL mg/dL (9-20) Creatinine 0.80 mg/dL mg/dL (0.7-1.3) Estim Creat Clear Calc 117 ml/min ml/min Estimated GFR > 60 (59 - ) Glucose 222 mg/dL H mg/dL (65-110) POC Capillary Glucose 215 mg/dl H mg/dl 191 mg/dl H mg/dl (65-105) (65-105) Calcium 8.0 mg/dL L mg/dL (8.4-10.2) Phosphorus 3.4 mg/dL mg/dL (2.5-4.5) 11/07/21 11/07/21 11/07/21 06:42 07:52 12:10 Sodium Potassium Chloride Carbon Dioxide Anion Gap BUN Creatinine Estim Creat Clear Calc Estimated GFR Glucose POC Capillary Glucose 200 mg/dl H mg/dl 214 mg/dl H mg/dl 191 mg/dl H mg/dl (65-105) (65-105) (65-105) Calcium Phosphorus Patient hx anesthesia problems: none Family hx anesthesia problems: none Results Review: All pre-operative results and documents have been reviewed as part of the pre-operative evaluation. 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 Mother No problems noted. Sibling No problems noted. Other Hypertension Social History Social History (Updated 10/20/21 @ 05:47 by Paige Becerril DO) Smoking status: Never smoker Second hand tobacco smoke exposure: Yes Alcohol intake: current Substance use: current Substance use type: marijuana Additional occupation/education comments: [employer] Gender identity (if verbalized by the patient): Male Spiritual care concerns: No Anes - Eval Final PreProce
[2021-11-07] MEDS: LACTATED RINGERS 1,000 ML 30 ML IV CONT (13:35)
[2021-11-07] MEDS: BUPIVACAINE/EPINEPHRINE 0.25% 50 ML VIAL 10 ML INFILTRATE (14:30)
[2021-11-07 15:01] LABS: Glucose Point of Care 202 mg/dl (65-105)
[2021-11-07] MEDS: fentaNYL CITRATE INJ (*CRX) 100 MCG/2 ML VIAL 25 MCG IV PUSH ×4 (15:16→15:44)
--- NOTE | 2021-11-07 15:18 | W.PM.PROC2 ---
Procedure Note - Detailed Date of Procedure 11/07/21 Pre-op Diagnosis perforated sigmoid bowel s/p Hartmans' procedure, colostomy necrosis, retraction Post-op Diagnosis same Procedure Performed colostomy revision Surgeon Petrona Monroe MD Anesthesia general Indications 56-year-old male status post Porfirio's for perforated diverticulitis now with colostomy necrosis, retraction Findings necrosis at distal end of colostomy, retraction Description of Procedure The patient was taken to the operating room and placed in the supine position. After adequate induction of general anesthesia, the patient was prepped and draped in the normal sterile fashion. A time-out was then done to verify the patient's identity, as well as the procedure being performed. The colostomy was then examined and noted to be retracting as the stitches had pulled away from the entire inferior edge. The edge of the colostomy itself was noted to be necrotic and there was a large area of perforation. The superior edges were also necrotic appearing and appeared to also be retracting from the skin edge. I went ahead and cut out all the previously placed sutures. Using very careful blunt dissection, I was able to dissect the entire colostomy including the area around the fascia. Once this was achieved, I was able to bring out more colon. I then went ahead and removed the distal end of the colostomy to more viable tissue. It was noted that there was still quite a bit of inflammation in the colon. Once the edge was cleared, went ahead and matured the colostomy using interrupted 3-0 Vicryl sutures. I did close the opening was some skin gianni to allow better fit around the colostomy. Mago from wound care and then went ahead and replaced the wound VAC. The patient tolerated these procedures well and was extubated in the operating room postoperatively. He will be transferred to the recovery room in stable condition. Estimated Blood Loss 30 Drains No Packing No Pathology none sent Complications No immediate complications Condition stable Disposition PACU
[2021-11-07] MEDS: SODIUM CHLORIDE 0.9% IV 1,000 ML 50 ML IV CONT (16:43)
[2021-11-07 17:54] LABS: Glucose Point of Care 258 mg/dl (65-105)
[2021-11-08] VITALS (11 sets, daily range): BP systolic 129–147; BP diastolic 77–87; PULSE 95–112; RESP 16–19; TEMP 36.2–36.8; O2SAT 96–97
[2021-11-08] MEDS: HYDROmorphone HCL INJ (*CRX) 1 MG/ML SYR IV PUSH ×7 (00:13→23:16)
[2021-11-08] MEDS: MAG HYDROX/AL HYDROX/SIMETH 30 ML UDC FEED TUBE ×4 (00:15→16:59)
[2021-11-08 00:19] LABS: Glucose Point of Care 251 mg/dl (65-105)
[2021-11-08] MEDS: INSULIN ASPART (*BKC) 100 UNITS/ML SUB-Q ×4 (00:26→18:07)
[2021-11-08 05:38] LABS: Basophils Absolute Auto 0.1 K/mm3 (0.0-0.1); Basophils Percent Auto 0.5 % (0.2-1.2); Eosinophils Absolute Auto 0.1 K/mm3 (0-0.3); Eosinophils Percent Auto 0.7 % (0-4.4); Hematocrit 27.4 % (42.0-52.0); Hemoglobin 8.1 g/dL (14.0-18.0); Immature Granulocyte Absolute 0.11 K/mm3 (0.00-0.031); Immature Granulocyte Percent A 1.1 % (0-0.5); Lymphocytes Absolute Auto 1.26 K/mm3 (0.9-3.2); Lymphocytes Percent Auto 12.4 % (18.3-44.2); Mean Corpuscular HGB Conc 29.6 g/dl (32-36); Mean Corpuscular Hemoglobin 24.5 pg (26-34); Mean Platelet Volume 10.1 fl (7.4-10.4); Monocytes Absolute Auto 0.9 K/mm3 (0.1-0.6); Monocytes Percent Auto 8.7 % (2.6-8.5); Neutrophils Absolute Auto 7.8 K/mm3 (1.3-6.7); Neutrophils Percent Auto 76.6 % (45.5-73.1); Platelet Count Result 251 k/mm3 (150-375); Red Cell Distribution Width 17.7 % (11.5-14.5); White Blood Count 10.2 K/mm3 (4.5-10.0)
[2021-11-08 05:43] LABS: Glucose Point of Care 237 mg/dl (65-105)
[2021-11-08] MEDS: CENTRAL LINE FLUSH 10 ML IV PUSH ×3 (05:45→20:29)
[2021-11-08 05:55] LABS: Alanine Aminotransferase 14 U/L (4-50); Albumin Level 2.6 g/dL (3.5-5.1); Alkaline Phosphatase 137 U/L (38-126); Anion Gap 5 mmol/L (8-16); Aspartate Amino Transferase 21 U/L (17-59); Bilirubin,Total 0.7 mg/dL (0.2-1.3); Blood Urea Nitrogen 15 mg/dL (9-20); Calcium 7.9 mg/dL (8.4-10.2); Carbon Dioxide 26 mmol/L (22-30); Chloride 100 mmol/L (98-107); Estimated CRCL calculation 132 ml/min; Estimated Glomerular Filt Rate > 60; Glucose 252 mg/dL (65-110); Magnesium 1.9 mg/dL (1.6-2.3); Phosphorus 3.1 mg/dL (2.5-4.5); Potassium 3.8 mmol/L (3.4-5.0); Sodium 131 mmol/L (137-145); Triglycerides 129 mg/dL (<150)
[2021-11-08 06:02] LABS: Prealbumin 8.3 mg/dL (17.6-36.0)
[2021-11-08 06:29] LABS: Anisocytosis 1+ (NORMAL); Ovalocytes 1+ (NORMAL); Platelet Estimate Adequate (Adequate)
[2021-11-08] MEDS: PANTOPRAZOLE SODIUM IV 40 MG VIAL IV PUSH ×2 (09:15→20:28)
[2021-11-08] MEDS: levETIRAcetam 500MG/NACL 100ML 500 MG/100 ML BAG 400 MG IVPB ×2 (09:15→20:27)
[2021-11-08] MEDS: LORazepam INJ (*CRX) 2 MG/ML VIAL 1 MG IV PUSH (09:15)
[2021-11-08] MEDS: DEXAMETHASONE SOD PHOS INJ 4 MG/ML VIAL 2 MG IV PUSH ×2 (09:15→20:28)
[2021-11-08] MEDS: TOLNAFTATE 1% POWDER 45 GM BTL 1 APPLIC TOPICAL ×2 (09:16→20:27)
--- NOTE | 2021-11-08 09:16 | WPDANESPN ---
Anes - Prog Note Post-Op Date/Time: 11/08/21 09:16 Cardiovascular status: other (on vasopressin& norepi gtt) Respiratory status: other (intubated and on vent) Airway patency: baseline Mental status: other (sedated versed & fent gtt) Post-Op hydration status: normal Vital Signs: Last Vital Signs Temp 36.2 C L 11/08/21 06:03 Pulse 102 H 11/08/21 06:03 Resp 18 11/08/21 06:03 BP 129/77 11/08/21 06:03 Pulse Ox 97 11/08/21 06:03 Pain Score (VAS): 0 I/O: Intake & Output 11/07/21 11/08/21 11/08/21 23:59 07:59 15:59 Intake Total 1250 50 400 Output Total 175 1640 Balance 1075 -1590 400 Laboratory Tests 11/08/21 05:08 11/08/21 05:08 11/07/21 11/07/21 11/07/21 12:10 14:58 17:50 WBC RBC Hgb Hct MCV MCH MCHC RDW Plt Count MPV Immature Gran % (Auto) Neut % (Auto) Lymph % (Auto) [place] % (Auto) Eos % (Auto) Baso % (Auto) Lymph # (Auto) [place] # (Auto) Eos # (Auto) Baso # (Auto) Abs Immat Gran (auto) Absolute Neuts (auto) Absolute Nucleated RBC Nucleated RBC % Platelet Estimate Anisocytosis Ovalocytes Sodium Potassium Chloride Carbon Dioxide Anion Gap BUN Creatinine Estim Creat Clear Calc Estimated GFR Glucose POC Capillary Glucose 191 H 202 H 258 H Calcium Phosphorus Magnesium Total Bilirubin AST ALT Alkaline Phosphatase Total Protein Albumin Prealbumin Triglycerides 11/08/21 11/08/21 11/08/21 00:17 05:08 05:08 WBC 10.2 H RBC 3.30 L Hgb 8.1 L Hct 27.4 L MCV 83.0 MCH 24.5 L MCHC 29.6 L RDW 17.7 H Plt Count 251 MPV 10.1 Immature Gran % (Auto) 1.1 H Neut % (Auto) 76.6 H Lymph % (Auto) 12.4 L R[place] % (Auto) 8.7 H Eos % (Auto) 0.7 Baso % (Auto) 0.5 Lymph # (Auto) 1.26 Rusk # (Auto) 0.9 H Eos # (Auto) 0.1 Baso # (Auto) 0.1 Abs Immat Gran (auto) 0.11 H Absolute Neuts (auto) 7.8 H Absolute Nucleated RBC 0.0 Nucleated RBC % 0.0 Platelet Estimate Adequate Anisocytosis 1+ Ovalocytes 1+ Sodium 131 L Potassium 3.8 Chloride 100 Carbon Dioxide 26 Anion Gap 5 L BUN 15 Creatinine 0.70 Estim Creat Clear Calc 132 Estimated GFR > 60 Glucose 252 H POC Capillary Glucose 251 H Calcium 7.9 L Phosphorus 3.1 Magnesium 1.9 Total Bilirubin 0.7 AST 21 ALT 14 Alkaline Phosphatase 137 H Total Protein 6.0 L Albumin 2.6 L Prealbumin 8.3 L Triglycerides 129 11/08/21 05:37 WBC RBC Hgb Hct MCV MCH MCHC RDW Plt Count MPV Immature Gran % (Auto) Neut % (Auto) Lymph % (Auto) R[place] % (Auto) Eos % (Auto) Baso % (Auto) Lymph # (Auto) [place] # (Auto) Eos # (Auto) Baso # (Auto) Abs Immat Gran (auto) Absolute Neuts (auto) Absolute Nucleated RBC Nucleated RBC % Platelet Estimate Anisocytosis Ovalocytes Sodium Potassium Chloride Carbon Dioxide Anion Gap BUN Creatinine Estim Creat Clear Calc Estimated GFR Glucose POC Capillary Glucose 237 H Calcium Phosphorus Magnesium Total Bilirubin AST ALT Alkaline Phosphatase Total Protein Albumin Prealbumin Triglycerides Patient Feedback: Patient satisfied with anesthetic care.
[2021-11-08 11:58] LABS: Glucose Point of Care 227 mg/dl (65-105)
[2021-11-08] MEDS: AMINO ACIDS 5%/D15W/E-LYTES/CA 2,000 ML with MULTIVITAMINS-12 INJ VIAL 1 2.5 ML, MULTIV... 50 ML IV CONT (12:01)
[2021-11-08] MEDS: FAT EMULSIONS IV 20% 250 ML 20.83 ML IVPB (12:01)
[2021-11-08] MEDS: SODIUM CHLORIDE 0.9% IV 1,000 ML 50 ML IV CONT (12:27)
--- NOTE | 2021-11-08 12:42 | PM.PNGS ---
Progress Note: A&P Assessment and Plan (1) Complication of ostomy: Onset Date: ~10/2021 Status: Acute Assessment and Plan: Patient taken back to surgery yesterday for revision of colostomy due to necrosis and retraction of stoma. Awaiting return of bowel function. Continue NG tube, NPO, and TPN. No longer having any bleeding. Will restart prophylactic dose of Lovenox (held on 11/02 when having bleeding from the ostomy) (2) Ileus, postoperative: Onset Date: ~11/02/21 Code(s): K91.89 - Other postprocedural complications and disorders of digestive system; K56.7 - Ileus, unspecified Status: Acute Assessment and Plan: Continue NG tube and bowel rest. See above. (3) Perforation of sigmoid colon due to diverticulitis: Code(s): K57.20 - Diverticulitis of large intestine with perforation and abscess without bleeding Status: Acute Assessment and Plan: Nearly 3 weeks post-op Porfirio's procedure. Slowly improving. Has revision of colostomy yesterday. Continue IV antibiotics. Continue NG tube, NPO, and TPN. Wound vac functioning well in midline wound, will plan to change tomorrow. Additional Plan I have discussed the patient's case and plan of care with Dr. Monroe. Subjective Subjective Date/Time Seen: 11/08/21 12:42 Patient reports: afebrile Interval history: Patient seen and examined. He reports having some abdominal pain and points to across his central abdomen where the wound and ostomy is located. He denies any nausea. No other complaints at this time. Exam Const: General: no acute distress and alert Orientation/consciousness: patient oriented x3 Resp: Effort & Inspection: normal respiratory effort Auscultation: clear to auscultation bilaterally Cardio: Rate: regular rate Rhythm: regular rhythm GI: Inspection: other (PINA with scant serous drainage) GI Palp: Yes Soft to palpation, Yes Tenderness to palpation present (GI) (mildly tender throughout), No Guarding due to palpation present (GI) and No Rebound tenderness present Auscultation: Hypoactive bowel sounds present Other: Midline wound vac working well, dry and intact dressing. Stoma slightly dark/dusky, but some areas of pink, no gas or stool in bag. Neuro: General: moves all extremities and no focal motor deficits Extrem: General: no calf tenderness and no edema Psych: Insight: Fair insight present (Psych) Judgement: Fair judgement present (Psych) Objective Data Vital Signs Vital Signs: Vital Signs - 24 hr 11/07/21 13:50 11/07/21 14:50 11/07/21 15:05 Temperature 98.7 F 97.9 F Pulse Rate 110 H 115 H 117 H Respiratory Rate 16 22 H 22 H Blood Pressure 132/72 145/91 H 147/87 H Pulse Oximetry 98 100 100 11/07/21 15:20 11/07/21 15:35 11/07/21 15:50 Temperature Pulse Rate 117 H 113 H 113 H Respiratory Rate 22 H 20 22 H Blood Pressure 152/88 H 138/87 132/89 Pulse Oximetry 100 94 93 11/07/21 16:05 11/07/21 17:00 11/07/21 17:15 Temperature 97.6 F 97.4 F L Pulse Rate 110 H 107 H 109 H Respiratory Rate 22 H 14 16 Blood Pressure 141/86 H 142/81 H 137/81 Pulse Oximetry 94 95 96 11/07/21 17:45 11/07/21 20:00 11/07/21 22:08 Temperature 97.4 F L Pulse Rate 108 H 115 H Respiratory Rate 16 Blood Pressure 139/84 Pulse Oximetry 96 95 11/07/21 22:45 11/08/21 00:00 11/08/21 02:18 Temperature 98.1 F 98.0 F Pulse Rate 110 H 104 H 112 H Respiratory Rate 16 18 Blood Pressure 136/78 129/87 Pulse Oximetry 96 96 11/08/21 02:56 11/08/21 04:00 11/08/21 06:03 Temperature 97.9 F 97.1 F L Pulse Rate 99 95 102 H Respiratory Rate 18 18 Blood Pressure 132/83 129/77 Pulse Oximetry 96 97 11/08/21 08:00 11/08/21 11:58 Temperature 97.5 F L Pulse Rate 99 99 Respiratory Rate 19 Blood Pressure 141/82 H Pulse Oximetry 96 Intake/Output Intake/Output: Intake & Output 11/05/21 11/06/21 11/07/21 11/08/21 23:59 23:59 23:59 23:59 Intake Total 1700 4850 3250 2950 Outp
[2021-11-08] MEDS: ENOXAPARIN 40 MG/0.4 ML SYRINGE SUB-Q (14:38)
[2021-11-08 18:04] LABS: Glucose Point of Care 223 mg/dl (65-105)
[2021-11-09] VITALS (9 sets, daily range): BP systolic 118–143; BP diastolic 73–85; PULSE 87–97; RESP 16; TEMP 36.1–37; O2SAT 97
[2021-11-09 00:01] LABS: Glucose Point of Care 230 mg/dl (65-105)
[2021-11-09] MEDS: MAG HYDROX/AL HYDROX/SIMETH 30 ML UDC FEED TUBE ×4 (00:04→17:02)
[2021-11-09] MEDS: INSULIN ASPART (*BKC) 100 UNITS/ML SUB-Q ×2 (00:04→05:47)
[2021-11-09] MEDS: FAT EMULSIONS IV 20% 250 ML 20.83 ML IVPB ×2 (01:11→11:50)
[2021-11-09] MEDS: HYDROmorphone HCL INJ (*CRX) 1 MG/ML SYR IV PUSH ×7 (04:52→22:28)
[2021-11-09] MEDS: CENTRAL LINE FLUSH 10 ML IV PUSH ×3 (05:07→20:36)
[2021-11-09 05:16] LABS: Anion Gap 4 mmol/L (8-16); Blood Urea Nitrogen 16 mg/dL (9-20); Calcium 8.1 mg/dL (8.4-10.2); Carbon Dioxide 28 mmol/L (22-30); Chloride 101 mmol/L (98-107); Estimated CRCL calculation 129 ml/min; Estimated Glomerular Filt Rate > 60; Glucose 226 mg/dL (65-110); Phosphorus 3.5 mg/dL (2.5-4.5); Potassium 3.7 mmol/L (3.4-5.0); Sodium 133 mmol/L (137-145)
[2021-11-09 05:53] LABS: Glucose Point of Care 234 mg/dl (65-105)
[2021-11-09 07:25] LABS: Glucose Point of Care 210 mg/dl (65-105)
[2021-11-09] MEDS: levETIRAcetam 500MG/NACL 100ML 500 MG/100 ML BAG 400 MG IVPB (08:10)
[2021-11-09] MEDS: ENOXAPARIN 40 MG/0.4 ML SYRINGE SUB-Q (08:10)
[2021-11-09] MEDS: PANTOPRAZOLE SODIUM IV 40 MG VIAL IV PUSH ×2 (08:11→20:30)
[2021-11-09] MEDS: DEXAMETHASONE SOD PHOS INJ 4 MG/ML VIAL 2 MG IV PUSH ×2 (08:11→20:29)
[2021-11-09] MEDS: TOLNAFTATE 1% POWDER 45 GM BTL 1 APPLIC TOPICAL ×2 (08:12→20:28)
[2021-11-09 11:31] LABS: Glucose Point of Care 199 mg/dl (65-105)
--- NOTE | 2021-11-09 11:34 | PCNFU ---
Nutrition Follow-Up Complete: Inadequate Oral Intake as related to mechanical vent as evidenced by tube feedings. Goal: Meet estimanted nutritional needs Pt is slowly progressing towards goal. Continue with current goal at this time. Pt current nutrition is TPN Last recorded weight is 105 kg, 0.1kg from last reported weight on 11/08/21. Bowel Motility: colostomy Labs Reviewed: Hgb 8.1, Hct 27.4, Alb 2.6, Na 133, Pre Alb 8.3, Ca 8.1, ALP 137, Glu 226 Meds Noted: Clinimix E 5%/15%, 20% lipid Emulsion, mylanta, decadron, lovenox, dilaudid, keppra, protonix, zosyn Skin: wound vac-medial abdomen incision, left lower abdomen maceration, buttock maceration, bilateral groin ulcer Additional Notes: Current nutrition is TPN running at a rate of 50mL/hr with 20% lipids over 24 hours providing 1352kcal and 60g of protein, meeting 71% of estimated kcal needs and 55% of estimated protein needs. Pt underwent revision of ostomy 11/07/21. Recommend increasing TPN rate to 60mL/hr to provide 1522kcal and 72g of protein to meet 80% of estimated kcal needs and 66% of estimated protein needs. Recommend re-checking TG. Will monitor every Friday and Friday.
[2021-11-09] MEDS: SODIUM CHLORIDE 0.9% IV 1,000 ML 50 ML IV CONT (11:40)
[2021-11-09] MEDS: AMINO ACIDS 5%/D15W/E-LYTES/CA 2,000 ML with MULTIVITAMINS-12 INJ VIAL 1 2.5 ML, MULTIV... 50 ML IV CONT (11:42)
--- NOTE | 2021-11-09 12:41 | PM.PNGS ---
Progress Note: A&P Assessment and Plan (1) Perforation of sigmoid colon due to diverticulitis: Code(s): K57.20 - Diverticulitis of large intestine with perforation and abscess without bleeding Status: Acute Assessment and Plan: better, await ostomy fxn, cont TPN for now, encourage OOB/IS Subjective Subjective Date/Time Seen: 11/09/21 12:41 feels better today, decreased pain, still no ostomy output Review of Systems Review of Systems: All systems reviewed & are unremarkable except as noted in HPI and below Exam Const: General: cooperative, comfortable, no acute distress and ill appearing Nutritional Appearance: obese Resp: Effort & Inspection: normal respiratory effort Auscultation: clear to auscultation bilaterally Cardio: Rate: regular rate Rhythm: regular rhythm GI: Inspection: normal to inspection and distended GI Palp: Yes Soft to palpation, No Tenderness to palpation present (GI), No Guarding due to palpation present (GI) and No Rigid due to palpation Other: ostomy - +sweat, +gas Objective Data Vital Signs Vital Signs: Vital Signs - 24 hr 11/08/21 16:00 11/08/21 20:00 11/08/21 20:32 Temperature 36.4 C L 36.8 C Pulse Rate 99 97 98 Respiratory Rate 18 16 Blood Pressure 139/85 147/83 H Pulse Oximetry 97 97 96 11/09/21 00:00 11/09/21 04:00 11/09/21 07:47 Temperature 36.2 C L 36.1 C L 36.2 C L Pulse Rate 94 88 92 Respiratory Rate 16 16 16 Blood Pressure 118/73 126/75 141/78 H Pulse Oximetry 97 97 97 11/09/21 09:10 11/09/21 11:41 11/09/21 12:00 Temperature 36.2 C L Pulse Rate 92 93 90 Respiratory Rate 16 Blood Pressure 143/85 H Pulse Oximetry 97 Intake/Output Intake/Output: Intake & Output 11/06/21 11/07/21 11/08/21 11/09/21 23:59 23:59 23:59 23:59 Intake Total 4850 3250 3150 3755 Output Total 3400 1185 3390 1100 Balance 1450 2065 -240 2655 Meds/Results Medications: Active Medications Generic Name Dose Route Start Last Admin Trade Name Freq PRN Reason Stop Dose Admin Al Hydrox/Mg Hydrox/Simethicone 30 ml 11/03/21 12:00 11/09/21 11:44 Mag Hydrox/Al Hydrox/Simeth 30 Ml Udc FEED TUBE 30 ml Q6H JOHNSON Administration Alteplase, Recombinant 2 mg 11/02/21 09:10 11/02/21 09:50 Alteplase 2 Mg Vial (Cathflo) IV PUSH 2 mg ONCE PRN Administration Line Occlusion Benzocaine 1 lozenge 11/03/21 09:09 11/03/21 11:47 Benzocaine/Menthol (*Bkc) 18 Ea Lozenge PO 1 lozenge PRN PRN Administration Sore Throat Cyclobenzaprine HCl 5 mg 11/01/21 18:02 11/02/21 11:27 Cyclobenzaprine Hcl 5 Mg Tablet PO 5 mg Q8HR PRN Administration Muscle Spasm Dexamethasone Sodium Phosphate 2 mg 11/02/21 21:00 11/09/21 08:11 Dexamethasone Sod Phos Inj 4 Mg/Ml Vial IV PUSH 2 mg Q12HR JOHNSON Administration Dextrose 12.5 gm 10/20/21 01:09 Dextrose 50% 25 Gm/50 Ml Syringe IV PUSH PRN PRN Hypoglycemia Protocol Enoxaparin Sodium 40 mg 11/08/21 12:40 11/09/21 08:10 Enoxaparin 40 Mg/0.4 Ml Syringe SUB-Q 40 mg DAILY JOHNSON Administration Glucagon 1 mg 10/20/21 01:09 Glucagon For Inj 1 Mg Vial IM PRN PRN Hypoglycemia Protocol Glucose 15 gm 10/20/21 01:09 Glucose Oral Gel 15 Gm Of Glucse In 37.5 Gm Tube PO PRN PRN Hypoglycemia Protocol Hydromorphone HCl 1 mg 10/29/21 10:15 11/09/21 11:42 Hydromorphone Hcl Inj (*Crx) 1 Mg/Ml Syr IV PUSH 1 mg Q2H PRN Administration Pain Rated 7-10 Dextrose 1,000 mls @ 100 mls/hr 10/20/21 01:09 Dextrose 5% 1,000 Ml IVPB PRN PRN Hypoglycemia Protocol Piperacillin/Tazobactam/Dextrose 3.375 gm in 50 mls @ 100 mls/hr 10/20/21 13:00 11/09/21 12:15 Zosyn 3.375 Gm/D5w 50ml Pm IVPB Infused Q6HR JOHNSON Infusion Sodium Chloride 1,000 mls @ 50 mls/hr 11/02/21 15:20 11/09/21 11:40 Normal Saline Iv IV CONT 50 mls/hr .Q20H JOHNSON Administration Levetiracetam 500 mg in 100 mls @ 400 mls/hr
--- NOTE | 2021-11-09 13:41 | PCPTNOTE ---
Patient refused PT. Patient states I am watching the basketball game and having a good day. I have been doing my leg exercises. I educated patient on the importance of participating in sitting edge of bed and out of bed activity. Patient states I sat up yesterday. You don't understand what I am going through. Patient continued to refuse stating Put down patient refused. My ex- was a [employer] so I know how it works.
[2021-11-09 18:12] LABS: Glucose Point of Care 200 mg/dl (65-105)
[2021-11-09] MEDS: levETIRAcetam 500MG/NACL 100ML 500 MG/100 ML BAG 350 MG IVPB (20:28)
[2021-11-09 20:50] LABS: Glucose Point of Care 180 mg/dl (65-105)
[2021-11-09 23:54] LABS: Glucose Point of Care 215 mg/dl (65-105)
[2021-11-10] VITALS (10 sets, daily range): BP systolic 141–150; BP diastolic 76–87; PULSE 86–103; RESP 16–17; TEMP 36.1–36.8; O2SAT 94–97
[2021-11-10] MEDS: FAT EMULSIONS IV 20% 250 ML 20.83 ML IVPB ×2 (00:12→11:48)
[2021-11-10] MEDS: HYDROmorphone HCL INJ (*CRX) 1 MG/ML SYR IV PUSH ×9 (00:13→21:55)
[2021-11-10] MEDS: INSULIN ASPART (*BKC) 100 UNITS/ML SUB-Q ×4 (00:15→18:05)
[2021-11-10] MEDS: MAG HYDROX/AL HYDROX/SIMETH 30 ML UDC FEED TUBE ×4 (00:15→17:47)
[2021-11-10 05:09] LABS: Glucose Point of Care 211 mg/dl (65-105)
[2021-11-10] MEDS: CENTRAL LINE FLUSH 10 ML IV PUSH ×3 (05:43→21:57)
[2021-11-10 06:17] LABS: Triglycerides 145 mg/dL (<150)
[2021-11-10] MEDS: levETIRAcetam 500MG/NACL 100ML 500 MG/100 ML BAG 350 MG IVPB (08:04)
[2021-11-10] MEDS: ENOXAPARIN 40 MG/0.4 ML SYRINGE SUB-Q (08:04)
[2021-11-10] MEDS: TOLNAFTATE 1% POWDER 45 GM BTL 1 APPLIC TOPICAL ×2 (08:05→20:42)
[2021-11-10] MEDS: PANTOPRAZOLE SODIUM IV 40 MG VIAL IV PUSH ×2 (08:05→20:43)
[2021-11-10] MEDS: DEXAMETHASONE SOD PHOS INJ 4 MG/ML VIAL 2 MG IV PUSH ×2 (08:05→20:43)
--- NOTE | 2021-11-10 10:07 | PM.PNGS ---
Progress Note: A&P Assessment and Plan (1) Perforation of sigmoid colon due to diverticulitis: Code(s): K57.20 - Diverticulitis of large intestine with perforation and abscess without bleeding Status: Acute Assessment and Plan: better, clamp NG and start clears, encourage OOB/IS Subjective Subjective Date/Time Seen: 11/10/21 10:07 feels better today, decreased pain, worked c PT this am Review of Systems Review of Systems: All systems reviewed & are unremarkable except as noted in HPI and below Exam Const: General: cooperative, comfortable and no acute distress Resp: Auscultation: clear to auscultation bilaterally Cardio: Rate: regular rate Rhythm: regular rhythm GI: Inspection: normal to inspection GI Palp: Yes Soft to palpation, Yes Tenderness to palpation present (GI), No Guarding due to palpation present (GI) and No Rigid due to palpation Other: ostomy - +loose output Objective Data Vital Signs Vital Signs: Vital Signs - 24 hr 11/09/21 11:41 11/09/21 12:00 11/09/21 16:00 Temperature 36.2 C L Pulse Rate 93 90 94 Respiratory Rate 16 Blood Pressure 143/85 H Pulse Oximetry 97 11/09/21 20:00 11/09/21 22:00 11/10/21 00:00 Temperature 37.0 C Pulse Rate 96 94 96 Respiratory Rate 16 Blood Pressure 122/75 Pulse Oximetry 97 11/10/21 04:00 11/10/21 05:29 11/10/21 08:00 Temperature 36.1 C L Pulse Rate 86 88 88 Respiratory Rate 16 Blood Pressure 150/87 H Pulse Oximetry 97 11/10/21 09:43 Temperature Pulse Rate 92 Respiratory Rate Blood Pressure Pulse Oximetry 94 Intake/Output Intake/Output: Intake & Output 11/07/21 11/08/21 11/09/21 11/10/21 23:59 23:59 23:59 23:59 Intake Total 3250 3150 4155 150 Output Total 1185 3390 3450 1999 Balance 2065 -240 522 -0199 Meds/Results Medications: Active Medications Generic Name Dose Route Start Last Admin Trade Name Freq PRN Reason Stop Dose Admin Al Hydrox/Mg Hydrox/Simethicone 30 ml 11/03/21 12:00 11/10/21 05:38 Mag Hydrox/Al Hydrox/Simeth 30 Ml Udc FEED TUBE 30 ml Q6H JOHNSON Administration Alteplase, Recombinant 2 mg 11/02/21 09:10 11/02/21 09:50 Alteplase 2 Mg Vial (Cathflo) IV PUSH 2 mg ONCE PRN Administration Line Occlusion Benzocaine 1 lozenge 11/03/21 09:09 11/03/21 11:47 Benzocaine/Menthol (*Bkc) 18 Ea Lozenge PO 1 lozenge PRN PRN Administration Sore Throat Cyclobenzaprine HCl 5 mg 11/01/21 18:02 11/02/21 11:27 Cyclobenzaprine Hcl 5 Mg Tablet PO 5 mg Q8HR PRN Administration Muscle Spasm Dexamethasone Sodium Phosphate 2 mg 11/02/21 21:00 11/10/21 08:05 Dexamethasone Sod Phos Inj 4 Mg/Ml Vial IV PUSH 2 mg Q12HR JOHNSON Administration Dextrose 12.5 gm 10/20/21 01:09 Dextrose 50% 25 Gm/50 Ml Syringe IV PUSH PRN PRN Hypoglycemia Protocol Enoxaparin Sodium 40 mg 11/08/21 12:40 11/10/21 08:04 Enoxaparin 40 Mg/0.4 Ml Syringe SUB-Q 40 mg DAILY JOHNSON Administration Glucagon 1 mg 10/20/21 01:09 Glucagon For Inj 1 Mg Vial IM PRN PRN Hypoglycemia Protocol Glucose 15 gm 10/20/21 01:09 Glucose Oral Gel 15 Gm Of Glucse In 37.5 Gm Tube PO PRN PRN Hypoglycemia Protocol Hydromorphone HCl 1 mg 10/29/21 10:15 11/10/21 10:02 Hydromorphone Hcl Inj (*Crx) 1 Mg/Ml Syr IV PUSH 1 mg Q2H PRN Administration Pain Rated 7-10 Dextrose 1,000 mls @ 100 mls/hr 10/20/21 01:09 Dextrose 5% 1,000 Ml IVPB PRN PRN Hypoglycemia Protocol Piperacillin/Tazobactam/Dextrose 3.375 gm in 50 mls @ 100 mls/hr 10/20/21 13:00 11/10/21 05:39 Zosyn 3.375 Gm/D5w 50ml Pm IVPB 100 mls/hr Q6HR JOHNSON Administration Sodium Chloride 1,000 mls @ 50 mls/hr 11/02/21 15:20 11/09/21 11:40 Normal Saline Iv IV CONT 50 mls/hr .Q20H JOHNSON Administration Levetiracetam 500 mg in 100 mls @ 400 mls/hr 11/02/21 21:00 11/10/21 09:00 Keppra Iv IVPB Infused
--- NOTE | 2021-11-10 11:02 | PCOTNOTE ---
Attempted OT treatment, patient reports is done with therapy for today and has completed physical therapy today and will not participate with Occupational therapy today. Will follow.
[2021-11-10] MEDS: AMINO ACIDS 5%/D15W/E-LYTES/CA 2,000 ML with MULTIVITAMINS-12 INJ VIAL 1 2.5 ML, MULTIV... 83.55 ML IV CONT (11:47)
[2021-11-10 11:51] LABS: Glucose Point of Care 245 mg/dl (65-105)
[2021-11-10 12:08] LABS: Hematocrit 24.8 % (42.0-52.0); Hemoglobin 7.2 g/dL (14.0-18.0); Mean Corpuscular Hemoglobin 24.2 pg (26-34); Mean Corpuscular Volume 83.5 fl (80-100); Mean Platelet Volume 9.8 fl (7.4-10.4); Platelet Count Result 228 k/mm3 (150-375); Red Blood Count 2.97 M/mm3 (4.6-6.20); Red Cell Distribution Width 17.2 % (11.5-14.5); White Blood Count 7.1 K/mm3 (4.5-10.0)
[2021-11-10 12:18] LABS: Alanine Aminotransferase 15 U/L (4-50); Albumin Level 2.5 g/dL (3.5-5.1); Alkaline Phosphatase 159 U/L (38-126); Anion Gap 6 mmol/L (8-16); Aspartate Amino Transferase 23 U/L (17-59); Bilirubin,Total 0.5 mg/dL (0.2-1.3); Blood Urea Nitrogen 15 mg/dL (9-20); Calcium 7.8 mg/dL (8.4-10.2); Carbon Dioxide 26 mmol/L (22-30); Chloride 101 mmol/L (98-107); Estimated CRCL calculation 129 ml/min; Estimated Glomerular Filt Rate > 60; Glucose 231 mg/dL (65-110); Magnesium 1.8 mg/dL (1.6-2.3); Potassium 3.7 mmol/L (3.4-5.0); Sodium 133 mmol/L (137-145)
[2021-11-10 12:47] LABS: Phosphorus 3.4 mg/dL (2.5-4.5)
[2021-11-10] MEDS: SODIUM CHLORIDE 0.9% IV 1,000 ML 50 ML IV CONT (17:46)
[2021-11-10 18:03] LABS: Glucose Point of Care 217 mg/dl (65-105)
[2021-11-10] MEDS: levETIRAcetam 500MG/NACL 100ML 500 MG/100 ML BAG 400 MG IVPB (20:43)
[2021-11-11] VITALS (9 sets, daily range): BP systolic 142–148; BP diastolic 79–88; PULSE 86–102; RESP 18–20; TEMP 36.2–36.3; O2SAT 96–98
[2021-11-11] MEDS: INSULIN ASPART (*BKC) 100 UNITS/ML SUB-Q ×3 (00:10→12:27)
[2021-11-11] MEDS: MAG HYDROX/AL HYDROX/SIMETH 30 ML UDC FEED TUBE ×5 (00:48→23:31)
[2021-11-11] MEDS: HYDROmorphone HCL INJ (*CRX) 1 MG/ML SYR IV PUSH ×10 (00:48→23:31)
[2021-11-11 01:48] LABS: Glucose Point of Care 247 mg/dl (65-105)
[2021-11-11 04:39] LABS: Hematocrit 25.9 % (42.0-52.0); Hemoglobin 7.5 g/dL (14.0-18.0); Platelet Count Result 236 k/mm3 (150-375); Red Blood Count 3.12 M/mm3 (4.6-6.20); Red Cell Distribution Width 17.3 % (11.5-14.5); White Blood Count 7.2 K/mm3 (4.5-10.0)
[2021-11-11 04:54] LABS: Alanine Aminotransferase 15 U/L (4-50); Albumin Level 2.6 g/dL (3.5-5.1); Alkaline Phosphatase 161 U/L (38-126); Anion Gap 7 mmol/L (8-16); Aspartate Amino Transferase 23 U/L (17-59); Bilirubin,Total 0.5 mg/dL (0.2-1.3); Blood Urea Nitrogen 18 mg/dL (9-20); Calcium 8.3 mg/dL (8.4-10.2); Carbon Dioxide 28 mmol/L (22-30); Chloride 99 mmol/L (98-107); Estimated CRCL calculation 114 ml/min; Estimated Glomerular Filt Rate > 60; Glucose 262 mg/dL (65-110); Magnesium 1.9 mg/dL (1.6-2.3); Potassium 3.8 mmol/L (3.4-5.0); Sodium 134 mmol/L (137-145)
[2021-11-11 05:51] LABS: Glucose Point of Care 261 mg/dl (65-105)
[2021-11-11] MEDS: CENTRAL LINE FLUSH 10 ML IV PUSH ×3 (05:55→23:32)
--- NOTE | 2021-11-11 09:31 | PCPTNOTE ---
Pt stated that he wasn't feeling too well this morning after not having a good night. Will continue per plan of care.
[2021-11-11] MEDS: DEXAMETHASONE SOD PHOS INJ 4 MG/ML VIAL 2 MG IV PUSH ×2 (09:41→20:39)
[2021-11-11] MEDS: ENOXAPARIN 40 MG/0.4 ML SYRINGE SUB-Q (09:42)
[2021-11-11] MEDS: levETIRAcetam 500MG/NACL 100ML 500 MG/100 ML BAG 400 MG IVPB ×2 (09:42→20:38)
[2021-11-11] MEDS: PANTOPRAZOLE SODIUM IV 40 MG VIAL IV PUSH ×2 (09:42→20:39)
--- NOTE | 2021-11-11 10:24 | PM.PNGS ---
Progress Note: A&P Assessment and Plan (1) Perforation of sigmoid colon due to diverticulitis: Code(s): K57.20 - Diverticulitis of large intestine with perforation and abscess without bleeding Status: Acute Assessment and Plan: slowly improving, full liquids, encourage OOB/IS Subjective Subjective Date/Time Seen: 11/11/21 10:24 feels ok, some mild bloating but tube clamped all day, jeison clears Review of Systems Review of Systems: All systems reviewed & are unremarkable except as noted in HPI and below Exam Const: General: cooperative, comfortable and no acute distress Orientation/consciousness: patient oriented x3 Resp: Auscultation: clear to auscultation bilaterally and diminished lung sounds Cardio: Rate: regular rate Rhythm: regular rhythm GI: Inspection: normal to inspection and distended GI Palp: Yes Soft to palpation, Yes Tenderness to palpation present (GI), No Guarding due to palpation present (GI) and No Rigid due to palpation Other: ostomy - +fxn Objective Data Vital Signs Vital Signs: Vital Signs - 24 hr 11/10/21 12:00 11/10/21 13:40 11/10/21 16:00 Temperature 36.1 C L Pulse Rate 92 103 H 95 Respiratory Rate 17 Blood Pressure 141/82 H Pulse Oximetry 97 11/10/21 20:00 11/10/21 22:00 11/11/21 00:00 Temperature 36.8 C Pulse Rate 102 H 102 H 95 Respiratory Rate 16 Blood Pressure 141/76 H Pulse Oximetry 96 11/11/21 04:00 11/11/21 06:00 Temperature 36.2 C L Pulse Rate 89 86 Respiratory Rate 18 Blood Pressure 148/82 H Pulse Oximetry 98 Intake/Output Intake/Output: Intake & Output 11/08/21 11/09/21 11/10/21 11/11/21 23:59 23:59 23:59 23:59 Intake Total 3150 4155 2560 290 Output Total 3390 3450 4000 4815 Balance -240 197 -0091 -2064 Meds/Results Medications: Active Medications Generic Name Dose Route Start Last Admin Trade Name Freq PRN Reason Stop Dose Admin Al Hydrox/Mg Hydrox/Simethicone 30 ml 11/03/21 12:00 11/11/21 05:51 Mag Hydrox/Al Hydrox/Simeth 30 Ml Udc FEED TUBE 30 ml Q6H JOHNSON Administration Alteplase, Recombinant 2 mg 11/02/21 09:10 11/02/21 09:50 Alteplase 2 Mg Vial (Cathflo) IV PUSH 2 mg ONCE PRN Administration Line Occlusion Benzocaine 1 lozenge 11/03/21 09:09 11/03/21 11:47 Benzocaine/Menthol (*Bkc) 18 Ea Lozenge PO 1 lozenge PRN PRN Administration Sore Throat Cyclobenzaprine HCl 5 mg 11/01/21 18:02 11/02/21 11:27 Cyclobenzaprine Hcl 5 Mg Tablet PO 5 mg Q8HR PRN Administration Muscle Spasm Dexamethasone Sodium Phosphate 2 mg 11/02/21 21:00 11/11/21 09:41 Dexamethasone Sod Phos Inj 4 Mg/Ml Vial IV PUSH 2 mg Q12HR JOHNSON Administration Dextrose 12.5 gm 10/20/21 01:09 Dextrose 50% 25 Gm/50 Ml Syringe IV PUSH PRN PRN Hypoglycemia Protocol Enoxaparin Sodium 40 mg 11/08/21 12:40 11/11/21 09:42 Enoxaparin 40 Mg/0.4 Ml Syringe SUB-Q 40 mg DAILY JOHNSON Administration Glucagon 1 mg 10/20/21 01:09 Glucagon For Inj 1 Mg Vial IM PRN PRN Hypoglycemia Protocol Glucose 15 gm 10/20/21 01:09 Glucose Oral Gel 15 Gm Of Glucse In 37.5 Gm Tube PO PRN PRN Hypoglycemia Protocol Hydromorphone HCl 1 mg 10/29/21 10:15 11/11/21 08:14 Hydromorphone Hcl Inj (*Crx) 1 Mg/Ml Syr IV PUSH 1 mg Q2H PRN Administration Pain Rated 7-10 Dextrose 1,000 mls @ 100 mls/hr 10/20/21 01:09 Dextrose 5% 1,000 Ml IVPB PRN PRN Hypoglycemia Protocol Piperacillin/Tazobactam/Dextrose 3.375 gm in 50 mls @ 100 mls/hr 10/20/21 13:00 11/11/21 05:51 Zosyn 3.375 Gm/D5w 50ml Pm IVPB 100 mls/hr Q6HR JOHNSON Administration Sodium Chloride 1,000 mls @ 50 mls/hr 11/02/21 15:20 11/11/21 02:55 Normal Saline Iv IV CONT 60 mls/hr .Q20H JOHNSON Infusion Levetiracetam 500 mg in 100 mls @ 400 mls/hr 11/02/21 21:00 11/11/21 09:42 Keppra Iv IVPB 400 mls/hr Q12HR JOHNSON Administration De
--- NOTE | 2021-11-11 10:34 | PM.IMPN ---
Subjective Date/time seen: 11/11/21 10:34 Interval history: 10/29/2021 interval history: patient was successfully extubated on 10/26/2021 and now patient is on RA and out of ICU, patient GI function have returned able to tolerate his diet and has a BM, patient seen by surgery service recommended continue wound VAC was changed today, ostotomy function, today patient c/o abdominal pain, his white counts are elevated 21,000, Patient was seen by surgery service and CT scan was done, concerning for diverticulitis of transverse colon, and no perforation surgeries recommending continue IV antibiotic, patient remains clinically stable will continue to monitor. 10/30/2021 no overnight events. Feeling better. Abdomen is much better now compared to yesterday. Remains afebrile no nausea vomiting. 10/31/2021 no overnight events. Feeling sleepy. We discussed needing to work with therapy more. Remains afebrile no nausea vomiting tolerating diet. Labs reviewed and they remained stable and improved CC count down to 16,000 today 11/01/2021 overnight events. Patient work with therapy apparently earlier today. He has worn out and wakes up on verbal commands however very lethargic. Is afebrile blood pressure stable. 11/02/2021 patient complains of abdominal pain since morning at 11. He has been tried different pain medication including IV Dilaudid. He has many eating so well. No other complaints he is more awake today 11/03/2021 for awake and alert his Higgins from his colostomy site fell off. Your blood coming out of his colostomy. NG in place and bilious fluid draining. 1300 cc drained yesterday 500 so far today. Tachycardic overnight blood pressure stable labs reviewed 11/04/2021 feeling better today. Vitals reviewed. He is having more normal colored stool however with blood mixed. Abdomen is less sore states NG has helped a whole a lot 11/05/2021 no overnight events. Some soreness in abdomen persist. NG tube in place draining bilious output. Colostomy output is still with dark blood. Minimal in amount and decreasing as compared to few days back. H&H remains stable. Has unhealthy necrotic looking ostomy site 11/06/2021 interval history: patient with a discitis/osteomyelitis at T4-T5 with pathologic fractures. has been treated with IV antibiotics ertapenem plan was to transfer the patient to [facility] however they have declined the transfer due to limited bed capacity, today call the [facility] they also not accepting any new patients, patient remains clinically stable he denies any pain fever or chills will continue to monitor and further recommendation to follow. This note is for different patient. 11/06/2021 interval history: patient was successfully extubated on 10/26/2021 and now patient is on RA and out of ICU, patient GI function have returned able to tolerate his diet and has a BM, patient is have BM in Ostomy bag, however patient today c/o stool leakage from rectum, its normal process from remaining colon mostly mucus, he does not havy any other complaints, patient will he seen by surgery service and further recommendation to follow. 11/07/2021 interval history: today patient remains clinically stable and feels better, and was seen by his surgery service and will take the patient to OR for revision of ostomy, will continue to monitor and further recommendation to follow. 11/08/2021 interval history: today patient remains clinically stable and feels better, and on 11/07 was seen by his surgery service and was taken to OR for revision of ostomy, he remains clinically stable, will continue to monitor and further recommendation to follow. 11/09/2021 interval history: today patient remains clinically stable and feels better, and on 11/07 was seen by his surgery service and was taken to OR for revision of ostomy, seen by surgery service awaiting bowl function return, meanwhile on TPN he remains clinically stable, will continue to
[2021-11-11 11:41] LABS: Glucose Point of Care 228 mg/dl (65-105)
[2021-11-11] MEDS: AMINO ACIDS 5%/D15W/E-LYTES/CA 2,000 ML with MULTIVITAMINS-12 INJ VIAL 1 2.5 ML, MULTIV... 83.55 ML IV CONT (12:04)
[2021-11-11] MEDS: FAT EMULSIONS IV 20% 250 ML 20.83 ML IVPB (12:09)
[2021-11-11 18:13] LABS: Glucose Point of Care 165 mg/dl (65-105)
[2021-11-11] MEDS: SODIUM CHLORIDE 0.9% IV 1,000 ML 60 ML IV CONT (18:37)
[2021-11-11 23:44] LABS: Glucose Point of Care 171 mg/dl (65-105)
[2021-11-12] VITALS (10 sets, daily range): BP systolic 138–144; BP diastolic 82–91; PULSE 91–108; RESP 16–18; TEMP 36.1–36.4; O2SAT 95–98
[2021-11-12] MEDS: HYDROmorphone HCL INJ (*CRX) 1 MG/ML SYR IV PUSH ×7 (02:14→20:19)
[2021-11-12] MEDS: CENTRAL LINE FLUSH 10 ML IV PUSH ×3 (05:54→21:15)
[2021-11-12] MEDS: MAG HYDROX/AL HYDROX/SIMETH 30 ML UDC FEED TUBE ×4 (05:54→23:45)
[2021-11-12] MEDS: INSULIN ASPART (*BKC) 100 UNITS/ML SUB-Q ×4 (05:57→23:48)
[2021-11-12 05:58] LABS: Glucose Point of Care 257 mg/dl (65-105)
[2021-11-12 06:14] LABS: Basophils Absolute Auto 0.1 K/mm3 (0.0-0.1); Basophils Percent Auto 0.6 % (0.2-1.2); Eosinophils Absolute Auto 0.1 K/mm3 (0-0.3); Eosinophils Percent Auto 1.6 % (0-4.4); Hematocrit 26.4 % (42.0-52.0); Hemoglobin 7.9 g/dL (14.0-18.0); Immature Granulocyte Absolute 0.09 K/mm3 (0.00-0.031); Immature Granulocyte Percent A 1.1 % (0-0.5); Lymphocytes Absolute Auto 1.16 K/mm3 (0.9-3.2); Mean Corpuscular HGB Conc 29.9 g/dl (32-36); Mean Corpuscular Volume 80.2 fl (80-100); Mean Platelet Volume 10.1 fl (7.4-10.4); Monocytes Absolute Auto 0.7 K/mm3 (0.1-0.6); Monocytes Percent Auto 8.8 % (2.6-8.5); Neutrophils Absolute Auto 6.1 K/mm3 (1.3-6.7); Neutrophils Percent Auto 73.9 % (45.5-73.1); Platelet Count Result 242 k/mm3 (150-375); Red Blood Count 3.29 M/mm3 (4.6-6.20); Red Cell Distribution Width 17.1 % (11.5-14.5); White Blood Count 8.3 K/mm3 (4.5-10.0)
[2021-11-12 06:28] LABS: INR 1.2; Prothrombin Time 14.8 Seconds (11.1-14.7)
[2021-11-12 06:29] LABS: Partial Thromboplastin Time 34.7 SECONDS (22.3-36.8)
[2021-11-12 06:56] LABS: Alanine Aminotransferase 18 U/L (4-50); Albumin Level 2.9 g/dL (3.5-5.1); Alkaline Phosphatase 208 U/L (38-126); Anion Gap 4 mmol/L (8-16); Aspartate Amino Transferase 31 U/L (17-59); Bilirubin,Total 0.6 mg/dL (0.2-1.3); Blood Urea Nitrogen 19 mg/dL (9-20); Calcium 8.7 mg/dL (8.4-10.2); Carbon Dioxide 30 mmol/L (22-30); Chloride 97 mmol/L (98-107); Estimated CRCL calculation 114 ml/min; Estimated Glomerular Filt Rate > 60; Glucose 240 mg/dL (65-110); Magnesium 2.2 mg/dL (1.6-2.3); Potassium 4.1 mmol/L (3.4-5.0); Sodium 131 mmol/L (137-145); Triglycerides 135 mg/dL (<150)
[2021-11-12 07:06] LABS: Transferrin 133 mg/dL (206-381)
[2021-11-12] MEDS: oxyCODONE HCL (*CRX) 5 MG TAB IR 10 MG PO ×4 (08:04→21:09)
[2021-11-12] MEDS: PANTOPRAZOLE SODIUM IV 40 MG VIAL IV PUSH ×2 (08:05→21:08)
[2021-11-12] MEDS: levETIRAcetam 500MG/NACL 100ML 500 MG/100 ML BAG 400 MG IVPB ×2 (08:05→20:20)
[2021-11-12] MEDS: ENOXAPARIN 40 MG/0.4 ML SYRINGE SUB-Q (08:05)
[2021-11-12] MEDS: TOLNAFTATE 1% POWDER 45 GM BTL 1 APPLIC TOPICAL ×2 (08:06→21:15)
[2021-11-12] MEDS: DEXAMETHASONE SOD PHOS INJ 4 MG/ML VIAL 2 MG IV PUSH ×2 (08:06→21:08)
[2021-11-12 08:08] LABS: Hypochromasia 2+ (NORMAL); Platelet Estimate Adequate (Adequate)
[2021-11-12 08:10] LABS: Anisocytosis 1+ (NORMAL); Poikilocytosis 1+ (NORMAL); Stomatocytes 1+ (NORMAL)
--- NOTE | 2021-11-12 08:40 | PCPTNOTE ---
Attempted physical therapy, patient refused and stated not happening. Patient reporting increase pain since 5 AM this morning.
--- NOTE | 2021-11-12 08:41 | PCOTNOTE ---
Attempted Occupational Therapy, despite education on benefits of participating with therapy, patient reports I am absolutely not getting out of this bed right now . Will follow.
--- NOTE | 2021-11-12 08:52 | PC.NURSE ---
Reported Na 131 to MD Crockett, pt tolerating full liquid diet, NS infusing at 60ml/hr. Continue to monitor at this time.
--- NOTE | 2021-11-12 10:41 | PCOTNOTE ---
Attempted OT treatment x2 on 11/12/2020, despite max encouragement, patient reports getting out of bed today is not happening . Will follow.
[2021-11-12 11:11] LABS: Glucose Point of Care 259 mg/dl (65-105)
[2021-11-12] MEDS: AMINO ACIDS 5%/D15W/E-LYTES/CA 2,000 ML with MULTIVITAMINS-12 INJ VIAL 1 2.5 ML, MULTIV... 83.55 ML IV CONT (11:12)
[2021-11-12] MEDS: FAT EMULSIONS IV 20% 250 ML 20.83 ML IVPB (11:20)
--- NOTE | 2021-11-12 12:20 | PC.NURSE ---
Pt refusing T&P and bath this shift
[2021-11-12] MEDS: SODIUM CHLORIDE 0.9% IV 1,000 ML 40 ML IV CONT ×2 (12:31→19:48)
--- NOTE | 2021-11-12 13:11 | PC.NURSE ---
Pt stated ca med in bag, this nurse place medication in med room, pt advisory application developer Inlyta 5 mg tablet PO bottle.
--- NOTE | 2021-11-12 13:39 | PC.NURSE ---
wound vac changed per wound nurse this shift. wound vac changed MWF per wound nurse.
--- NOTE | 2021-11-12 14:10 | PC.NURSE ---
PINA drain removed and NG removed.
--- NOTE | 2021-11-12 14:34 | PM.PNGS ---
Progress Note: A&P Assessment and Plan (1) Perforation of sigmoid colon due to diverticulitis: Code(s): K57.20 - Diverticulitis of large intestine with perforation and abscess without bleeding Status: Acute Assessment and Plan: Continues to slowly improve Advance to low fiber diet. Will stop TPN tomorrow if oral intake improves. Still not eating or drinking much. Remove NG tube Remove PINA drain Encourage increasing activity and working with PT/OT Additional Plan I have discussed the patient's case and plan of care with Dr. Monroe. Subjective Subjective Date/Time Seen: 11/12/21 14:34 Patient reports: no new complaints, feels better, pain is less, tolerating liquids well (full liquids) and afebrile Interval history: Patient seen and examined. He denies any abdominal pain at the time of my exam. He is tolerating full liquids, but is not taking in much oral intake. He only took in about one cup of pudding and some liquids yesterday. He reports that he isn't eating much because he is a picky eater but is willing to try more solid foods. Denies nausea, vomiting, or bloating. Wound care has changed his ostomy appliance and wound vac today. They report more granulating tissue in the midline wound during his dressing change today. Review of Systems Review of Systems: All systems reviewed & are unremarkable except as noted in HPI and below Exam Const: General: comfortable and awake; No acute distress Orientation/consciousness: patient oriented x3 GI: Inspection: other (mildly disteded) GI Palp: Yes Soft to palpation, No Tenderness to palpation present (GI), No Guarding due to palpation present (GI) and No Rebound tenderness present Percussion: Yes normal to percussion Auscultation: normal bowel sounds Other: PINA with scant serous drainage wound vac in place over midline wound ostomy functioning with loose brown stool and gas in bag, unable to see stoma through bag due to stool Urinary Catheter: Urinary Catheter: patent and draining and urine clear Neuro: General: moves all extremities and no focal motor deficits Extrem: General: no calf tenderness and no edema Psych: Insight: Fair insight present (Psych) Judgement: Fair judgement present (Psych) Objective Data Vital Signs Vital Signs: Vital Signs - 24 hr 11/11/21 16:00 11/11/21 20:00 11/11/21 22:00 Temperature 97.3 F L Pulse Rate 100 102 H 102 H Respiratory Rate 18 Blood Pressure 145/79 H Pulse Oximetry 96 11/12/21 00:00 11/12/21 04:00 11/12/21 06:00 Temperature 97.2 F L Pulse Rate 101 H 92 94 Respiratory Rate 16 Blood Pressure 144/82 H Pulse Oximetry 98 11/12/21 08:00 11/12/21 08:41 11/12/21 12:00 Temperature Pulse Rate 96 91 Respiratory Rate 16 Blood Pressure Pulse Oximetry 98 95 11/12/21 14:22 Temperature 96.9 F L Pulse Rate 99 Respiratory Rate 16 Blood Pressure 138/91 H Pulse Oximetry 98 Intake/Output Intake/Output: Intake & Output 11/09/21 11/10/21 11/11/21 11/12/21 23:59 23:59 23:59 23:59 Intake Total 4155 2810 3645.1 3525.1 Output Total 3450 4000 6815 1975 Balance 705 -1190 -3169.9 1550.1 Meds/Results Medications: Active Medications Generic Name Dose Route Start Last Admin Trade Name Freq PRN Reason Stop Dose Admin Al Hydrox/Mg Hydrox/Simethicone 30 ml 11/03/21 12:00 11/12/21 11:06 Mag Hydrox/Al Hydrox/Simeth 30 Ml Udc FEED TUBE 30 ml Q6H JOHNSON Administration Alteplase, Recombinant 2 mg 11/02/21 09:10 11/02/21 09:50 Alteplase 2 Mg Vial (Cathflo) IV PUSH 2 mg ONCE PRN Administration Line Occlusion Benzocaine 1 lozenge 11/03/21 09:09 11/03/21 11:47 Benzocaine/Menthol (*Bkc) 18 Ea Lozenge PO 1 lozenge PRN PRN Administration Sore Throat Cyclobenzaprine HCl 5 mg 11/01/21 18:02 11/02/21 11:27 Cyclobenzaprine Hcl 5 Mg Tablet PO 5 mg Q8HR PRN Administration Muscle Spasm Dexamethasone Sodium Phosphate 2 mg 11/02/21 2
--- NOTE | 2021-11-12 14:36 | PC.NURSE ---
pt to stop tpn tomorrow per surgery 11/13/21. see pharmacy communication note in NOV.
[2021-11-12 16:35] LABS: Glucose Point of Care 282 mg/dl (65-105)
[2021-11-12 23:59] LABS: Glucose Point of Care 251 mg/dl (65-105)
[2021-11-13] VITALS (10 sets, daily range): BP systolic 133–152; BP diastolic 82–88; PULSE 94–116; RESP 18–20; TEMP 36.5–36.8; O2SAT 95–98
[2021-11-13] MEDS: HYDROmorphone HCL INJ (*CRX) 1 MG/ML SYR IV PUSH ×2 (00:43→04:36)
[2021-11-13] MEDS: oxyCODONE HCL (*CRX) 5 MG TAB IR 10 MG PO ×5 (02:35→22:28)
[2021-11-13] MEDS: MAG HYDROX/AL HYDROX/SIMETH 30 ML UDC FEED TUBE ×3 (05:12→18:37)
[2021-11-13] MEDS: INSULIN ASPART (*BKC) 100 UNITS/ML SUB-Q ×2 (05:14→13:09)
[2021-11-13 05:23] LABS: Glucose Point of Care 288 mg/dl (65-105)
[2021-11-13] MEDS: CENTRAL LINE FLUSH 10 ML IV PUSH ×3 (05:23→22:19)
[2021-11-13 08:03] LABS: Glucose Point of Care 244 mg/dl (65-105)
[2021-11-13] MEDS: DEXAMETHASONE SOD PHOS INJ 4 MG/ML VIAL 2 MG IV PUSH ×2 (08:33→22:15)
[2021-11-13] MEDS: ENOXAPARIN 40 MG/0.4 ML SYRINGE SUB-Q (08:34)
[2021-11-13 08:36] LABS: Hematocrit 27.5 % (42.0-52.0); Mean Corpuscular HGB Conc 29.1 g/dl (32-36); Mean Corpuscular Hemoglobin 23.8 pg (26-34); Mean Corpuscular Volume 81.8 fl (80-100); Mean Platelet Volume 9.9 fl (7.4-10.4); Platelet Count Result 230 k/mm3 (150-375); Red Blood Count 3.36 M/mm3 (4.6-6.20); Red Cell Distribution Width 17.2 % (11.5-14.5); White Blood Count 8.3 K/mm3 (4.5-10.0)
[2021-11-13] MEDS: PANTOPRAZOLE SODIUM IV 40 MG VIAL IV PUSH ×2 (08:36→22:18)
[2021-11-13] MEDS: levETIRAcetam 500MG/NACL 100ML 500 MG/100 ML BAG 400 MG IVPB ×2 (08:36→22:16)
[2021-11-13] MEDS: TOLNAFTATE 1% POWDER 45 GM BTL 1 APPLIC TOPICAL ×2 (08:37→22:19)
[2021-11-13 11:09] LABS: Alanine Aminotransferase 21 U/L (4-50); Alkaline Phosphatase 243 U/L (38-126); Anion Gap 4 mmol/L (8-16); Aspartate Amino Transferase 31 U/L (17-59); Bilirubin,Total 0.6 mg/dL (0.2-1.3); Blood Urea Nitrogen 22 mg/dL (9-20); Calcium 8.9 mg/dL (8.4-10.2); Carbon Dioxide 29 mmol/L (22-30); Chloride 96 mmol/L (98-107); Estimated CRCL calculation 114 ml/min; Estimated Glomerular Filt Rate > 60; Glucose 230 mg/dL (65-110); Magnesium 2.3 mg/dL (1.6-2.3); Potassium 4.1 mmol/L (3.4-5.0); Sodium 129 mmol/L (137-145)
--- NOTE | 2021-11-13 11:59 | PM.IMPN ---
Progress Note: A&P Assessment and Plan (1) Ileus, postoperative: Onset Date: ~11/02/21 Code(s): K91.89 - Other postprocedural complications and disorders of digestive system; K56.7 - Ileus, unspecified Status: Acute (2) Complication of ostomy: Onset Date: ~10/2021 Status: Acute (3) Encephalopathy: Code(s): G93.40 - Encephalopathy, unspecified Status: Acute (4) Wound infection: Code(s): T14.8XXA - Other injury of unspecified body region, initial encounter; L08.9 - Local infection of the skin and subcutaneous tissue, unspecified Status: Acute (5) Skin maceration: Code(s): L98.8 - Other specified disorders of the skin and subcutaneous tissue Status: Acute (6) Postoperative pain: Code(s): G89.18 - Other acute postprocedural pain Status: Acute (7) DVT prophylaxis: Code(s): Z29.9 - Encounter for prophylactic measures, unspecified Status: Acute (8) Electrolyte abnormality: Code(s): E87.8 - Other disorders of electrolyte and fluid balance, not elsewhere classified Status: Acute (9) Lactic acidosis: Code(s): E87.2 - Acidosis Status: Acute (10) Respiratory failure: Qualifiers: Chronicity: acute Respiratory failure complication: unspecified whether with hypoxia or hypercapnia Qualified Code(s): J96.00 - Acute respiratory failure, unspecified whether with hypoxia or hypercapnia Code(s): J96.90 - Respiratory failure, unspecified, unspecified whether with hypoxia or hypercapnia Status: Acute (11) Perforation of sigmoid colon due to diverticulitis: Code(s): K57.20 - Diverticulitis of large intestine with perforation and abscess without bleeding Status: Acute (12) Septic shock: Code(s): A41.9 - Sepsis, unspecified organism; R65.21 - Severe sepsis with septic shock Status: Acute (13) Sepsis: Code(s): A41.9 - Sepsis, unspecified organism Status: Acute (14) Bowel perforation: Onset Date: ~10/23/21 Code(s): K63.1 - Perforation of intestine (nontraumatic) Status: Acute (15) Acute kidney injury: Code(s): N17.9 - Acute kidney failure, unspecified Status: Acute (16) Renal cell carcinoma: Qualifiers: Laterality: unspecified laterality Qualified Code(s): C64.9 - Malignant neoplasm of unspecified kidney, except renal pelvis Code(s): C64.9 - Malignant neoplasm of unspecified kidney, except renal pelvis Status: Acute (17) Headache: Code(s): R51.9 - Headache, unspecified Status: Acute (18) Screening for malignant neoplasm of prostate: Code(s): Z12.5 - Encounter for screening for malignant neoplasm of prostate Status: Acute (19) Diabetes: Qualifiers: Diabetes mellitus complication status: without complication Diabetes mellitus retirement insulin use: without emt intermediate use Diabetes mellitus type: type 2 Qualified Code(s): E11.9 - Type 2 diabetes mellitus without complications Code(s): E11.9 - Type 2 diabetes mellitus without complications Status: Acute (20) Hypertension: Qualifiers: Hypertension type: unspecified Qualified Code(s): I10 - Essential (primary) hypertension Code(s): I10 - Essential (primary) hypertension Status: Acute (21) BMI 33.0-33.9,adult: Code(s): Z68.33 - Body mass index [BMI] 33.0-33.9, adult Status: Acute Additional Plan 10/29/2021 interval history: patient was successfully extubated on 10/26/2021 and now patient is on RA and out of ICU, patient GI function have returned able to tolerate his diet and has a BM, patient seen by surgery service recommended continue wound VAC was changed today, ostotomy function, today patient c/o abdominal pain, his white counts are elevated 21,000, Patient was seen by surgery service and CT scan was done, concerning for diverticulitis of transverse colon, and no pe
--- NOTE | 2021-11-13 12:52 | PCNFU ---
Nutrition Follow-Up Complete: Inadequate Oral Intake as related to mechanical vent as evidenced by tube feedings. Goal: Meet estimated nutritional needs Patient is progressing towards goal. We will continue current goal. Pt current nutrition is Low Fiber with Ensure Compact BID. Last recorded weight is 104 kg, down from 111.6 kg on admit. Bowel Motility: ostomy Labs Reviewed:BUN 22, Glu 230,Hgb 8.0,Hct 27.5, Na 129, Alb 3.0 Meds Noted:Mylanta,Dilaudid, NovoLog, Decadron, Roxicodone, Keppra, Protonix Skin: wound vac-abdomen, maceration-buttock. Additional Notes: Nutrition follow up. TPN has been discontinued. Diet order advanced to a Low Fiber diet today. Breakfast 10% of pancakes. Liquids-milk. orders for Ensure Compact BID providing an additional 220 kcals and 9 gms protein. PO intake encouraged. Agree with diet orders. Monitoring: Will monitor every 3 days.
--- NOTE | 2021-11-13 13:00 | PM.PNGS ---
Progress Note: A&P Assessment and Plan (1) Perforation of sigmoid colon due to diverticulitis: Code(s): K57.20 - Diverticulitis of large intestine with perforation and abscess without bleeding Status: Acute Assessment and Plan: Continues to slowly improve Stop TPN/lipids today. Continue low fiber diet, add supplements, encouraged intake of more fluids Stop IV Zosyn Encourage increasing activity and working with PT/OT. We had a long discussion again today about him being compliant with therapy and not refusing, try taking oral analgesics prior to therapy, etc. Spoke with care coordination, patient will need to go to a half-way facility on discharge for continued therapy and wound care. We will plan for him to be discharged with the wound vac. I spoke with the patient about this as well. He could be stable for discharge in the next 1-2 days if he continues to do well. Additional Plan I have discussed the patient's case and plan of care with Dr. Monroe. Subjective Subjective Date/Time Seen: 11/13/21 10:20 Patient reports: no new complaints, pain is less, tolerating a regular diet and afebrile Interval history: Patient seen and examined. He continues to improve and denies any abdominal pain today. He did have one dose of Dilaudid around 4am but is otherwise sticking to oral pain medication. He is tolerating a low fiber diet. Denies nausea, vomiting, or bloating. He refused PT again yesterday, which I talked to him today about the importance of continuing to work with PT/OT to increase strength and activity. PINA drain removed yesterday. Exam Const: General: comfortable and alert; No acute distress Orientation/consciousness: patient oriented x3 GI: Inspection: other (mildly disteded) GI Palp: Yes Soft to palpation, Yes Tenderness to palpation present (GI) (only tender at midline wound, no other TTP), No Guarding due to palpation present (GI) and No Rebound tenderness present Auscultation: normal bowel sounds Other: PINA removed with a dry and intact gauze dressing in RLQ wound vac in place over midline wound with dressing dry and intact ostomy functioning with loose brown stool and gas in bag, unable to see stoma through bag due to stool Urinary Catheter: Urinary Catheter: patent and draining and urine clear Neuro: General: moves all extremities and no focal motor deficits Extrem: General: no calf tenderness and no edema Psych: Insight: Fair insight present (Psych) Judgement: Fair judgement present (Psych) Objective Data Vital Signs Vital Signs: Vital Signs - 24 hr 11/12/21 14:22 11/12/21 16:00 11/12/21 20:00 Temperature 96.9 F L Pulse Rate 99 100 107 H Respiratory Rate 16 Blood Pressure 138/91 H Pulse Oximetry 98 11/12/21 21:58 11/13/21 00:00 11/13/21 04:00 Temperature 97.5 F L Pulse Rate 108 H 106 H 95 Respiratory Rate 18 Blood Pressure 140/85 Pulse Oximetry 96 11/13/21 05:45 11/13/21 08:00 Temperature 98.2 F Pulse Rate 98 94 Respiratory Rate 20 Blood Pressure 136/82 Pulse Oximetry 96 Intake/Output Intake/Output: Intake & Output 11/10/21 11/11/21 11/12/21 11/13/21 23:59 23:59 23:59 23:59 Intake Total 2810 3645.1 4925.1 2515.1 Output Total 4000 6815 3825 2070 Balance -1190 -3169.9 1100.1 445.1 Meds/Results Medications: Active Medications Generic Name Dose Route Start Last Admin Trade Name Freq PRN Reason Stop Dose Admin Al Hydrox/Mg Hydrox/Simethicone 30 ml 11/03/21 12:00 11/13/21 05:12 Mag Hydrox/Al Hydrox/Simeth 30 Ml Udc FEED TUBE 30 ml Q6H JOHNSON Administration Alteplase, Recombinant 2 mg 11/02/21 09:10 11/02/21 09:50 Alteplase 2 Mg Vial (Cathflo) IV PUSH 2 mg ONCE PRN Administration Line Occlusion Benzocaine 1 lozenge 11/03/21 09:09 11/03/21 11:47 Benzocaine/Menthol (*Bkc) 18 Ea Lozenge PO 1 lozenge PRN PRN Administration Sore Throat Cyclobenzaprine HCl 5 mg 11/01/21 18:02 11/02/21 11:27 Cyc
[2021-11-13 13:14] LABS: Glucose Point of Care 227 mg/dl (65-105)
[2021-11-13] MEDS: fentaNYL (*CRX) 12 MCG PATCH TRANSDERM (13:28)
[2021-11-13 17:32] LABS: Glucose Point of Care 172 mg/dl (65-105)
[2021-11-14] VITALS (10 sets, daily range): BP systolic 123–135; BP diastolic 78–95; PULSE 102–116; RESP 17–20; TEMP 36.5–36.6; O2SAT 95–96
[2021-11-14] MEDS: MAG HYDROX/AL HYDROX/SIMETH 30 ML UDC FEED TUBE ×4 (01:34→17:35)
[2021-11-14] MEDS: CENTRAL LINE FLUSH 10 ML IV PUSH ×3 (06:17→21:52)
[2021-11-14 06:25] LABS: Glucose Point of Care 196 mg/dl (65-105)
[2021-11-14 06:25] LABS: Glucose Point of Care 174 mg/dl (65-105)
[2021-11-14 06:35] LABS: Hematocrit 29.3 % (42.0-52.0); Hemoglobin 8.5 g/dL (14.0-18.0); Mean Corpuscular Hemoglobin 24.4 pg (26-34); Mean Corpuscular Volume 84.2 fl (80-100); Mean Platelet Volume 10.3 fl (7.4-10.4); Platelet Count Result 258 k/mm3 (150-375); Red Blood Count 3.48 M/mm3 (4.6-6.20); Red Cell Distribution Width 17.3 % (11.5-14.5); White Blood Count 12.3 K/mm3 (4.5-10.0)
[2021-11-14 06:46] LABS: Alanine Aminotransferase 23 U/L (4-50); Albumin Level 3.1 g/dL (3.5-5.1); Alkaline Phosphatase 259 U/L (38-126); Anion Gap 7 mmol/L (8-16); Aspartate Amino Transferase 30 U/L (17-59); Bilirubin,Total 0.5 mg/dL (0.2-1.3); Blood Urea Nitrogen 23 mg/dL (9-20); Carbon Dioxide 27 mmol/L (22-30); Chloride 97 mmol/L (98-107); Estimated CRCL calculation 114 ml/min; Estimated Glomerular Filt Rate > 60; Glucose 174 mg/dL (65-110); Magnesium 2.4 mg/dL (1.6-2.3); Potassium 4.5 mmol/L (3.4-5.0); Sodium 131 mmol/L (137-145)
[2021-11-14] MEDS: oxyCODONE HCL (*CRX) 5 MG TAB IR 10 MG PO ×4 (08:01→21:56)
[2021-11-14] MEDS: DEXAMETHASONE SOD PHOS INJ 4 MG/ML VIAL 2 MG IV PUSH ×2 (08:40→21:52)
[2021-11-14] MEDS: ENOXAPARIN 40 MG/0.4 ML SYRINGE SUB-Q (08:40)
[2021-11-14] MEDS: PANTOPRAZOLE SODIUM IV 40 MG VIAL IV PUSH ×2 (08:40→21:52)
[2021-11-14] MEDS: levETIRAcetam 500MG/NACL 100ML 500 MG/100 ML BAG 400 MG IVPB ×2 (08:40→21:52)
[2021-11-14] MEDS: TOLNAFTATE 1% POWDER 45 GM BTL 1 APPLIC TOPICAL ×2 (08:40→21:52)
[2021-11-14 08:52] LABS: Triglycerides 170 mg/dL (<150)
--- NOTE | 2021-11-14 09:48 | PM.PNGS ---
Progress Note: A&P Assessment and Plan (1) Perforation of sigmoid colon due to diverticulitis: Code(s): K57.20 - Diverticulitis of large intestine with perforation and abscess without bleeding Status: Acute Assessment and Plan: cont local wound care, encourage OOB, PT/OT (2) Renal cell carcinoma: Qualifiers: Laterality: unspecified laterality Qualified Code(s): C64.9 - Malignant neoplasm of unspecified kidney, except renal pelvis Code(s): C64.9 - Malignant neoplasm of unspecified kidney, except renal pelvis Status: Acute Assessment and Plan: now c clots, hematuria, will get urology consult Subjective Subjective Date/Time Seen: 11/14/21 09:48 c/o pain from blood clots in castillo, bladder, otherwise largely unchanged Review of Systems Review of Systems: All systems reviewed & are unremarkable except as noted in HPI and below Exam Const: General: cooperative, comfortable and ill appearing Orientation/consciousness: patient oriented x3 Resp: Auscultation: clear to auscultation bilaterally Cardio: Rate: regular rate Rhythm: regular rhythm GI: Inspection: normal to inspection and distended GI Palp: Yes Soft to palpation, Yes Tenderness to palpation present (GI), No Guarding due to palpation present (GI) and No Rigid due to palpation Other: ostomy sl retracted, viable, +fxn, midline incision slowly improving Objective Data Vital Signs Vital Signs: Vital Signs - 24 hr 11/13/21 12:00 11/13/21 14:00 11/13/21 16:00 Temperature 36.5 C Pulse Rate 104 H 96 114 H Respiratory Rate 18 Blood Pressure 133/88 Pulse Oximetry 98 11/13/21 20:00 11/13/21 22:00 11/14/21 00:00 Temperature 36.6 C Pulse Rate 116 H 116 H 116 H Respiratory Rate 18 Blood Pressure 152/85 H Pulse Oximetry 95 11/14/21 04:00 11/14/21 05:51 Temperature 36.5 C Pulse Rate 105 H 104 H Respiratory Rate 20 Blood Pressure 134/86 Pulse Oximetry 96 Intake/Output Intake/Output: Intake & Output 11/11/21 11/12/21 11/13/21 11/14/21 23:59 23:59 23:59 23:59 Intake Total 3645.1 4925.1 3745.1 140 Output Total 6815 3825 4020 550 Balance -3169.9 1100.1 -274.9 -410 Meds/Results Medications: Active Medications Generic Name Dose Route Start Last Admin Trade Name Freq PRN Reason Stop Dose Admin Al Hydrox/Mg Hydrox/Simethicone 30 ml 11/03/21 12:00 11/14/21 06:15 Mag Hydrox/Al Hydrox/Simeth 30 Ml Udc FEED TUBE 30 ml Q6H JOHNSON Administration Alteplase, Recombinant 2 mg 11/02/21 09:10 11/02/21 09:50 Alteplase 2 Mg Vial (Cathflo) IV PUSH 2 mg ONCE PRN Administration Line Occlusion Benzocaine 1 lozenge 11/03/21 09:09 11/03/21 11:47 Benzocaine/Menthol (*Bkc) 18 Ea Lozenge PO 1 lozenge PRN PRN Administration Sore Throat Cyclobenzaprine HCl 5 mg 11/01/21 18:02 11/02/21 11:27 Cyclobenzaprine Hcl 5 Mg Tablet PO 5 mg Q8HR PRN Administration Muscle Spasm Dexamethasone Sodium Phosphate 2 mg 11/02/21 21:00 11/14/21 08:40 Dexamethasone Sod Phos Inj 4 Mg/Ml Vial IV PUSH 2 mg Q12HR JOHNSON Administration Dextrose 12.5 gm 10/20/21 01:09 Dextrose 50% 25 Gm/50 Ml Syringe IV PUSH PRN PRN Hypoglycemia Protocol Enoxaparin Sodium 40 mg 11/08/21 12:40 11/14/21 08:40 Enoxaparin 40 Mg/0.4 Ml Syringe SUB-Q 40 mg DAILY JOHNSON Administration Fentanyl 12 mcg 11/13/21 09:00 11/13/21 13:28 Fentanyl (*Crx) 12 Mcg Patch TRANSDERM 12 mcg Q72HR JOHNSON Administration Glucagon 1 mg 10/20/21 01:09 Glucagon For Inj 1 Mg Vial IM PRN PRN Hypoglycemia Protocol Glucose 15 gm 10/20/21 01:09 Glucose Oral Gel 15 Gm Of Glucse In 37.5 Gm Tube PO PRN PRN Hypoglycemia Protocol Dextrose 1,000 mls @ 100 mls/hr 10/20/21 01:09 Dextrose 5% 1,000 Ml IVPB PRN PRN Hypoglycemia Protocol Levetiracetam 500 mg in 100 mls @ 400 mls/hr 11/02/21 21:00 11/14/21 08:40
--- NOTE | 2021-11-14 11:30 | PCPTNOTE ---
Patient refused treatment this session. PT requested patient perform bed mobility and sitting edge of bed to perform lower extremity exercises, patient reported he is not doing that. Educated patient on the importance of therapy and sitting up, patient reported he will do leg exercises supine and that's it, did not feel that was therapeutic.
[2021-11-14 11:57] LABS: Glucose Point of Care 186 mg/dl (65-105)
[2021-11-14] MEDS: WATER FOR IRRIGATION, STERILE 1,000 ML BOTTLE 1000 ML (13:55)
--- NOTE | 2021-11-14 13:59 | PCPTNOTE ---
Patient refused treatment session this afternoon.
--- NOTE | 2021-11-14 15:29 | WPDURCON ---
Assessment and Plan Assessment and plan (1) Hematuria: Code(s): R31.9 - Hematuria, unspecified Status: Acute Assessment and Plan: Patient had a 20fr [address] castillo inserted this afternoon and manual clot irrigation was done via 240cc of NS with a 60cc catheter tip syringe. I was able to remove many clots, but he was not able to tolerate the start of CBI nor did his catheter drain well. We couldn't fill his bladder with a large amount of fluid for the HUSSEIN, however the US does show clots present around the catheter. He previously had a 16fr coude catheter in place that wasn't draining well and had red bloody urine with clots present. I then came back later this afternoon after the HUSSEIN results to re-place 20fr. [address] with a 24fr [address] castillo to do more manual irrigation and try to remove his clots at the bedside to get his CBI to flow and catheter to drain. I was successful in removing the clots from the bladder, the patient had some pain during the exchange of the larger catheter and during manual irrigation, but reported improvement of pain after clot removal. His urine is now clear/pink and CBI is on low flow. Ok to wean CBI to off when clear, restart CBI if urine should start becoming bloody again. The hematuria is most likely a result of his large renal cell carcinoma, unfortunately the only other option to improve bleeding other than CBI would be to hold his Lovenox injections if bleeding persists. A nephrectomy is not an option d/t widespread metastatic disease. (2) Blood clot in bladder: Code(s): N32.89 - Other specified disorders of bladder Status: Acute Assessment and Plan: Removed at bedside with a 60cc catheter tip syringe and 240cc of Sterile Water, catheter is now draining and output is clear, no other clots noted, patient is tolerating CBI well. We will continue to monitor patient. No surgical intervention needed at this time. (3) Renal cell carcinoma: Qualifiers: Laterality: unspecified laterality Qualified Code(s): C64.9 - Malignant neoplasm of unspecified kidney, except renal pelvis Code(s): C64.9 - Malignant neoplasm of unspecified kidney, except renal pelvis Status: Acute Assessment and Plan: Patient will resume chemo and care under oncology post discharge. Urology Consult Note HPI Date Seen: 11/14/21 Requesting Physician: Petrona Monroe MD Primary Care Provider: Ottoniel Cline MD Consult Narrative Narrative: Jeffry Shaffer is a 56 year old male who presented to the ER initially on 10/19/21 for generalized weakness and hypotension. He is known to our practice by DR. Cohen who saw him on 08/22/22 for evaluation of a large right renal mass that was thought to be renal cell carcinoma on CT scan from three days prior. The cancer is unfortunately metastatic to the bones, lungs and brain. He is undergoing chemotherapy currently for the cancer, but it was cancelled prior to his ER visit for dehydration. On 10/20/21 he had an exploratory laparotomy, Hartmans' procedure, mobilization of splenic flexure, extensive intraabdominal washout with Dr. Monroe. He then had to have a revision of the colostomy on 11/07/[address] Monroe. He has since developed gross hematuria with clots that began yesterday noted by his catheter. His catheter isn't draining well, he has abdominal pain at this time. His WBC is 12.3, he is tachycardic, creatinine is 0.80 today. NO recent UA has been collected from his castillo, which has been in for I&O purposes. Review of Systems Cardiovascular: Cardiovascular: Denies chest pain Respiratory: Respiratory: Reports no additional respiratory complaints Gastrointestinal: Gastrointestinal: Reports abdominal pain, Denies nausea and Denies vomiting Genitourinary: Genitourinary: Reports hematuria, Reports genital pain and Denies flank pain PMFSH Past Medical History Medical History Anxiety
[2021-11-14 15:37] LABS: Glucose Point of Care 170 mg/dl (65-105)
[2021-11-14 16:07] LABS: Glucose Point of Care 230 mg/dl (65-105)
--- NOTE | 2021-11-14 16:51 | PM.IMPN ---
Progress Note: A&P Assessment and Plan (1) Ileus, postoperative: Onset Date: ~11/02/21 Code(s): K91.89 - Other postprocedural complications and disorders of digestive system; K56.7 - Ileus, unspecified Status: Acute (2) Complication of ostomy: Onset Date: ~10/2021 Status: Acute (3) Encephalopathy: Code(s): G93.40 - Encephalopathy, unspecified Status: Acute (4) Wound infection: Code(s): T14.8XXA - Other injury of unspecified body region, initial encounter; L08.9 - Local infection of the skin and subcutaneous tissue, unspecified Status: Acute (5) Skin maceration: Code(s): L98.8 - Other specified disorders of the skin and subcutaneous tissue Status: Acute (6) Postoperative pain: Code(s): G89.18 - Other acute postprocedural pain Status: Acute (7) DVT prophylaxis: Code(s): Z29.9 - Encounter for prophylactic measures, unspecified Status: Acute (8) Electrolyte abnormality: Code(s): E87.8 - Other disorders of electrolyte and fluid balance, not elsewhere classified Status: Acute (9) Lactic acidosis: Code(s): E87.2 - Acidosis Status: Acute (10) Respiratory failure: Qualifiers: Chronicity: acute Respiratory failure complication: unspecified whether with hypoxia or hypercapnia Qualified Code(s): J96.00 - Acute respiratory failure, unspecified whether with hypoxia or hypercapnia Code(s): J96.90 - Respiratory failure, unspecified, unspecified whether with hypoxia or hypercapnia Status: Acute (11) Perforation of sigmoid colon due to diverticulitis: Code(s): K57.20 - Diverticulitis of large intestine with perforation and abscess without bleeding Status: Acute (12) Septic shock: Code(s): A41.9 - Sepsis, unspecified organism; R65.21 - Severe sepsis with septic shock Status: Acute (13) Sepsis: Code(s): A41.9 - Sepsis, unspecified organism Status: Acute (14) Bowel perforation: Onset Date: ~10/23/21 Code(s): K63.1 - Perforation of intestine (nontraumatic) Status: Acute (15) Acute kidney injury: Code(s): N17.9 - Acute kidney failure, unspecified Status: Acute (16) Renal cell carcinoma: Qualifiers: Laterality: unspecified laterality Qualified Code(s): C64.9 - Malignant neoplasm of unspecified kidney, except renal pelvis Code(s): C64.9 - Malignant neoplasm of unspecified kidney, except renal pelvis Status: Acute (17) Headache: Code(s): R51.9 - Headache, unspecified Status: Acute (18) Screening for malignant neoplasm of prostate: Code(s): Z12.5 - Encounter for screening for malignant neoplasm of prostate Status: Acute (19) Diabetes: Qualifiers: Diabetes mellitus complication status: without complication Diabetes mellitus halfway insulin use: without ad terminal makeup operator use Diabetes mellitus type: type 2 Qualified Code(s): E11.9 - Type 2 diabetes mellitus without complications Code(s): E11.9 - Type 2 diabetes mellitus without complications Status: Acute (20) Hypertension: Qualifiers: Hypertension type: unspecified Qualified Code(s): I10 - Essential (primary) hypertension Code(s): I10 - Essential (primary) hypertension Status: Acute (21) BMI 33.0-33.9,adult: Code(s): Z68.33 - Body mass index [BMI] 33.0-33.9, adult Status: Acute (22) Blood clot in bladder: Code(s): N32.89 - Other specified disorders of bladder Status: Acute (23) Hematuria: Code(s): R31.9 - Hematuria, unspecified Status: Acute Additional Plan 10/29/2021 interval history: patient was successfully extubated on 10/26/2021 and now patient is on RA and out of ICU, patient GI function have returned able to tolerate his diet and has a BM, patient seen by surgery service recommended continue wound VAC was changed today, ostotomy f
[2021-11-14] MEDS: HYOSCYAMINE SULFATE 0.125 MG TABLET PO (17:30)
[2021-11-14] MEDS: PHENAZOPYRIDINE HCL 100 MG TABLET PO (17:31)
[2021-11-14 18:09] LABS: Add Urine Microscopic? YES; Appearance Urine Clear (Clear); Bacteria Urine Trace /hpf; Bilirubin Urine Negative (Negative); Blood Urine 3+ (Negative); Color Urine Straw (Yellow); Glucose Urine UA Negative (Negative); Ketones Urine Negative (Negative); Leukocyte Esterase Ur Negative LEU/UL (NEGATIVE); Mucus Urine Rare /lpf; Nitrate Urine Negative (Negative); Protein Urine Negative (Negative); RBC Urine >75 /hpf (0-2); Specific Grav Ur 1.005 (1.001-1.035); Urobilinogen Urine Negative mg/dL (<2.0); WBC Urine 0-3 /hpf (0-3)
[2021-11-15] VITALS (11 sets, daily range): BP systolic 122–139; BP diastolic 64–94; PULSE 77–110; RESP 16–18; TEMP 36.6–37.1; O2SAT 94–96
[2021-11-15] MEDS: MAG HYDROX/AL HYDROX/SIMETH 30 ML UDC FEED TUBE ×2 (00:56→06:19)
[2021-11-15] MEDS: PHENAZOPYRIDINE HCL 100 MG TABLET PO ×2 (02:11→08:58)
[2021-11-15] MEDS: oxyCODONE HCL (*CRX) 5 MG TAB IR 10 MG PO ×3 (02:11→21:55)
[2021-11-15] MEDS: HYOSCYAMINE SULFATE 0.125 MG TABLET PO ×2 (04:55→14:49)
[2021-11-15 05:28] LABS: Basophils Absolute Auto 0.1 K/mm3 (0.0-0.1); Basophils Percent Auto 0.6 % (0.2-1.2); Eosinophils Percent Auto 0.3 % (0-4.4); Hematocrit 29.5 % (42.0-52.0); Hemoglobin 8.6 g/dL (14.0-18.0); Immature Granulocyte Absolute 0.11 K/mm3 (0.00-0.031); Lymphocytes Absolute Auto 1.54 K/mm3 (0.9-3.2); Lymphocytes Percent Auto 13.4 % (18.3-44.2); Mean Corpuscular HGB Conc 29.2 g/dl (32-36); Mean Corpuscular Volume 82.4 fl (80-100); Mean Platelet Volume 10.5 fl (7.4-10.4); Monocytes Absolute Auto 0.8 K/mm3 (0.1-0.6); Monocytes Percent Auto 6.6 % (2.6-8.5); Neutrophils Absolute Auto 8.9 K/mm3 (1.3-6.7); Neutrophils Percent Auto 78.1 % (45.5-73.1); Platelet Count Result 263 k/mm3 (150-375); Red Blood Count 3.58 M/mm3 (4.6-6.20); Red Cell Distribution Width 17.2 % (11.5-14.5); White Blood Count 11.5 K/mm3 (4.5-10.0)
[2021-11-15 05:30] LABS: Potassium 4.4 mmol/L (3.4-5.0)
[2021-11-15 05:54] LABS: Alanine Aminotransferase 21 U/L (4-50); Albumin Level 3.2 g/dL (3.5-5.1); Alkaline Phosphatase 246 U/L (38-126); Anion Gap 7 mmol/L (8-16); Aspartate Amino Transferase 27 U/L (17-59); Bilirubin,Total 0.6 mg/dL (0.2-1.3); Blood Urea Nitrogen 22 mg/dL (9-20); Calcium 8.9 mg/dL (8.4-10.2); Carbon Dioxide 26 mmol/L (22-30); Chloride 98 mmol/L (98-107); Estimated CRCL calculation 102 ml/min; Estimated Glomerular Filt Rate > 60; Glucose 169 mg/dL (65-110); Magnesium 2.5 mg/dL (1.6-2.3); Sodium 131 mmol/L (137-145)
[2021-11-15] MEDS: CENTRAL LINE FLUSH 10 ML IV PUSH ×3 (06:20→20:54)
[2021-11-15 08:46] LABS: Glucose Point of Care 121 mg/dl (65-105)
[2021-11-15] MEDS: levETIRAcetam 500MG/NACL 100ML 500 MG/100 ML BAG 400 MG IVPB ×2 (08:46→20:53)
[2021-11-15] MEDS: PANTOPRAZOLE SODIUM IV 40 MG VIAL IV PUSH ×2 (08:47→20:52)
[2021-11-15] MEDS: DEXAMETHASONE SOD PHOS INJ 4 MG/ML VIAL 2 MG IV PUSH ×2 (08:47→20:52)
[2021-11-15] MEDS: ENOXAPARIN 40 MG/0.4 ML SYRINGE SUB-Q (08:48)
[2021-11-15] MEDS: TOLNAFTATE 1% POWDER 45 GM BTL 1 APPLIC TOPICAL ×2 (08:49→20:54)
[2021-11-15 11:38] LABS: Glucose Point of Care 158 mg/dl (65-105)
--- NOTE | 2021-11-15 11:54 | PM.PNGS ---
Progress Note: A&P Assessment and Plan (1) Perforation of sigmoid colon due to diverticulitis: Code(s): K57.20 - Diverticulitis of large intestine with perforation and abscess without bleeding Status: Acute Assessment and Plan: Continue wound VAC therapy, will change dressing tomorrow IV antibiotics stopped on 11/13, no signs of ongoing infection Encouraged increasing activity daily and will stress the importance of working with PT/OT (2) Renal cell carcinoma: Qualifiers: Laterality: unspecified laterality Qualified Code(s): C64.9 - Malignant neoplasm of unspecified kidney, except renal pelvis Code(s): C64.9 - Malignant neoplasm of unspecified kidney, except renal pelvis Status: Acute Assessment and Plan: Urology consulted, recommendations noted. Not a candidate for a nephrectomy. CBI running. Additional Plan I have discussed the patient's case and plan of care with Dr. Monroe. Subjective Subjective Date/Time Seen: 11/15/21 09:34 Patient reports: no new complaints and afebrile Interval history: Patient seen and examined today. He is feeling depressed this morning reportedly due to dealing with pain, thinking of the length of recovery, and his overall outlook of his current situation. No feelings of harming himself and he still wants to continue with aggressive treatment. He refuse therapy again yesterday. He is starting to eat with each meal and tolerated breakfast well this morning. No nausea or vomiting. Ostomy functioning well. Urology saw the patient yesterday for hematuria and placed a 3-way urinary catheter with CBI. He reports dealing with pain during that procedure yesterday, but it is better today. He denies any new or worsening abdominal pain today. Review of Systems Review of Systems: All systems reviewed & are unremarkable except as noted in HPI and below Exam Const: General: comfortable and alert; No acute distress Orientation/consciousness: patient oriented x3 GI: Inspection: distended GI Palp: Yes Soft to palpation, Yes Tenderness to palpation present (GI) (only tender at midline wound), No Guarding due to palpation present (GI) and No Rebound tenderness present Auscultation: normal bowel sounds Other: Ostomy functioning well, stoma retracted but viable Midline incision with wound vac in place, dressing dry and intact Urinary Catheter: Urinary Catheter: patent and draining and urine red (light red/pink) Neuro: General: moves all extremities and no focal motor deficits Extrem: General: no calf tenderness and no edema Psych: Insight: Fair insight present (Psych) Judgement: Fair judgement present (Psych) Objective Data Vital Signs Vital Signs: Vital Signs - 24 hr 11/14/21 12:00 11/14/21 14:00 11/14/21 16:00 Temperature Pulse Rate 102 H 106 H 109 H Respiratory Rate 17 Blood Pressure 135/95 H Pulse Oximetry 95 11/14/21 16:06 11/14/21 20:00 11/14/21 21:54 Temperature 97.9 F Pulse Rate 107 H 108 H Respiratory Rate 18 Blood Pressure 123/78 Pulse Oximetry 95 95 11/15/21 00:00 11/15/21 02:24 11/15/21 04:00 Temperature Pulse Rate 108 H 98 Respiratory Rate Blood Pressure Pulse Oximetry 96 11/15/21 06:00 11/15/21 08:00 Temperature 97.9 F Pulse Rate 96 97 Respiratory Rate 18 Blood Pressure 130/75 Pulse Oximetry 95 Intake/Output Intake/Output: Intake & Output 11/12/21 11/13/21 11/14/21 11/15/21 23:59 23:59 23:59 23:59 Intake Total 4925.1 3745.1 460 100 Output Total 3825 4020 2050 950 Balance 1100.1 -274.9 -1590 -850 Meds/Results Medications: Active Medications Generic Name Dose Route Start Last Admin Trade Name Freq PRN Reason Stop Dose Admin Al Hydrox/Mg Hydrox/Simethicone 30 ml 11/03/21 12:00 11/15/21 06:19 Mag Hydrox/Al Hydrox/Simeth 30 Ml Udc FEED TUBE 30 ml Q6H JOHNSON Administration Alteplase, Recombinant 2 mg 11/02/21 09:10 11/02/21 09:50 Altepl
--- NOTE | 2021-11-15 12:28 | WPDUROPN2 ---
Progress Note: A&P Assessment and Plan (1) Blood clot in bladder: Code(s): N32.89 - Other specified disorders of bladder Status: Acute Assessment and Plan: Resolved via manual removal through his 3 way 24fr. catheter yesterday. Patient states his abdominal pain is much improved today since clearning his urine. Will continue to monitor. (2) Hematuria: Code(s): R31.9 - Hematuria, unspecified Status: Acute Assessment and Plan: Improved on CBI, it is running slowly. Wean CBI to off. Culture is pending. Will look for results and treat accordingly. (3) Anxiety about health: Code(s): F41.8 - Other specified anxiety disorders Status: Acute Assessment and Plan: He has a history of anxiety with treatment of Xanax PRN. He was excessively sobbing at the bedside today and states he has lost himself and motivation. He has seen a psychiatrist in the past when he has felt this way and it was helpful. He is very down and not motivated to do PT, he just wants to do it when he feels like it. He would like to have a physiatric consult to determine what plan could help him more than just Xanax PRN. Subjective Subjective Date/Time Seen: 11/15/21 12:28 Patient's urine has improved greatly today on CBI after a bedside clot evacuation and insertion of a 24fr [address] castillo. His CBI is running on a slow drip and he has clear, pink urine without clots that is draining and he denies abdominal pain. He is very tearful at the bedside and is upset that he feels that he has to do PT but isn't up to it everyday, but that if he doesn't he will decline. He states he wanted xanax which he has taken for years last night d/t anxiety prior to bedtime and has a history of depression. He has seen a psychiatrist in the past when he has felt down and not motivated like he is now and it helped him. His primary care doctor prescribes his Xanax PRN now. Review of Systems Cardiovascular: Cardiovascular: Denies chest pain Respiratory: Respiratory: Reports no additional respiratory complaints Gastrointestinal: Gastrointestinal: Denies abdominal pain, Denies nausea and Denies vomiting Genitourinary: Genitourinary: Denies hematuria, Denies dysuria and Denies flank pain Psychiatric: Psychiatric: Reports abnormal sleep pattern, Reports anxiety, Reports depression, Reports irritability and Reports mood swings Exam Resp: Effort & Inspection: normal respiratory effort Cardio: Rate: regular rate GI: GI Palp: Yes Soft to palpation and No Tenderness to palpation present (GI) : General: Yes no CVA tenderness Urinary Catheter: Urinary Catheter: patent and draining, urine clear and urine pink Extrem: General: no edema Psych: Affect: Sad affect present Attitude: Guarded attititude/behavior present Thought process: Normal thought process present Thought content: Yes Depressive thoughts present Insight: Good insight present (Psych) Judgement: Good judgement present (Psych) Objective Data Vital Signs Vital Signs: Vital Signs - 24 hr 11/14/21 14:00 11/14/21 16:00 11/14/21 16:06 Temperature Pulse Rate 106 H 109 H Respiratory Rate 17 Blood Pressure 135/95 H Pulse Oximetry 95 95 11/14/21 20:00 11/14/21 21:54 11/15/21 00:00 Temperature 97.9 F Pulse Rate 107 H 108 H 108 H Respiratory Rate 18 Blood Pressure 123/78 Pulse Oximetry 95 11/15/21 02:24 11/15/21 04:00 11/15/21 06:00 Temperature 97.9 F Pulse Rate 98 96 Respiratory Rate 18 Blood Pressure 130/75 Pulse Oximetry 96 95 11/15/21 08:00 Temperature Pulse Rate 97 Respiratory Rate Blood Pressure Pulse Oximetry Intake/Output Intake/Output: Intake & Output 11/12/21 11/13/21 11/14/21 11/15/21 23:59 23:59 23:59 23:59 Intake Total 4925.1 3745.1 460 220 Output Total 3825 4020 2050 950 Balance 1100.1 -274.9 -1590 -730 Meds/Results Medications: Active Medications Generic Name Dose Route Start Last Adm
[2021-11-15] MEDS: oxyCODONE HCL (*CRX) 5 MG TAB IR PO ×2 (12:52→17:22)
--- NOTE | 2021-11-15 13:30 | PCPTNOTE ---
Attempted to see patient for PT 2 times today, once in the morning and once this afternoon, per RN patient is having difficulty emotionally today, and recommend to allow patient to visit with son and watch the basketball game.
[2021-11-15 17:49] LABS: Glucose Point of Care 141 mg/dl (65-105)
[2021-11-15 18:13] LABS: Glucose Point of Care 129 mg/dl (65-105)
--- NOTE | 2021-11-15 19:34 | P.PNIM_ITS ---
Progress Note: A&P Assessment and Plan (1) Ileus, postoperative: Onset Date: ~11/02/21 Code(s): K91.89 - Other postprocedural complications and disorders of digestive system; K56.7 - Ileus, unspecified Status: Acute (2) Complication of ostomy: Onset Date: ~10/2021 Status: Acute (3) Encephalopathy: Code(s): G93.40 - Encephalopathy, unspecified Status: Acute (4) Wound infection: Code(s): T14.8XXA - Other injury of unspecified body region, initial encounter; L08.9 - Local infection of the skin and subcutaneous tissue, unspecified Status: Acute (5) Skin maceration: Code(s): L98.8 - Other specified disorders of the skin and subcutaneous tissue Status: Acute (6) Postoperative pain: Code(s): G89.18 - Other acute postprocedural pain Status: Acute (7) DVT prophylaxis: Code(s): Z29.9 - Encounter for prophylactic measures, unspecified Status: Acute (8) Electrolyte abnormality: Code(s): E87.8 - Other disorders of electrolyte and fluid balance, not elsewhere classified Status: Acute (9) Lactic acidosis: Code(s): E87.2 - Acidosis Status: Acute (10) Respiratory failure: Qualifiers: Chronicity: acute Respiratory failure complication: unspecified whether with hypoxia or hypercapnia Qualified Code(s): J96.00 - Acute respiratory failure, unspecified whether with hypoxia or hypercapnia Code(s): J96.90 - Respiratory failure, unspecified, unspecified whether with hypoxia or hypercapnia Status: Acute (11) Perforation of sigmoid colon due to diverticulitis: Code(s): K57.20 - Diverticulitis of large intestine with perforation and abscess without bleeding Status: Acute (12) Septic shock: Code(s): A41.9 - Sepsis, unspecified organism; R65.21 - Severe sepsis with septic shock Status: Acute (13) Sepsis: Code(s): A41.9 - Sepsis, unspecified organism Status: Acute (14) Bowel perforation: Onset Date: ~10/23/21 Code(s): K63.1 - Perforation of intestine (nontraumatic) Status: Acute (15) Acute kidney injury: Code(s): N17.9 - Acute kidney failure, unspecified Status: Acute (16) Renal cell carcinoma: Qualifiers: Laterality: unspecified laterality Qualified Code(s): C64.9 - Malignant neoplasm of unspecified kidney, except renal pelvis Code(s): C64.9 - Malignant neoplasm of unspecified kidney, except renal pelvis Status: Acute (17) Headache: Code(s): R51.9 - Headache, unspecified Status: Acute (18) Screening for malignant neoplasm of prostate: Code(s): Z12.5 - Encounter for screening for malignant neoplasm of prostate Status: Acute (19) Diabetes: Qualifiers: Diabetes mellitus complication status: without complication Diabetes mellitus detention insulin use: without termite control representative use Diabetes mellitus type: type 2 Qualified Code(s): E11.9 - Type 2 diabetes mellitus without complications Code(s): E11.9 - Type 2 diabetes mellitus without complications Status: Acute (20) Hypertension: Qualifiers: Hypertension type: unspecified Qualified Code(s): I10 - Essential (primary) hypertension Code(s): I10 - Essential (primary) hypertension Status: Acute (21) BMI 33.0-33.9,adult: Code(s): Z68.33 - Body mass index [BMI] 33.0-33.9, adult Status: Acute (22) Blood clot in bladder: Code(s): N32.89 - Other specified di
[2021-11-15 20:53] LABS: Glucose Point of Care 126 mg/dl (65-105)
[2021-11-16] VITALS (9 sets, daily range): BP systolic 129–136; BP diastolic 81–90; PULSE 97–110; RESP 14–18; TEMP 36.4–36.7; O2SAT 95–96
[2021-11-16] MEDS: ZOLPIDEM TARTRATE (*CRX) 5 MG TABLET PO ×2 (00:53→21:44)
[2021-11-16] MEDS: oxyCODONE HCL (*CRX) 5 MG TAB IR 10 MG PO ×4 (05:40→21:43)
[2021-11-16] MEDS: CENTRAL LINE FLUSH 10 ML IV PUSH ×3 (05:41→21:54)
[2021-11-16 06:14] LABS: Hematocrit 29.5 % (42.0-52.0); Hemoglobin 8.7 g/dL (14.0-18.0); Mean Corpuscular HGB Conc 29.5 g/dl (32-36); Mean Corpuscular Hemoglobin 24.4 pg (26-34); Mean Corpuscular Volume 82.6 fl (80-100); Platelet Count Result 224 k/mm3 (150-375); Red Blood Count 3.57 M/mm3 (4.6-6.20); Red Cell Distribution Width 17.1 % (11.5-14.5); White Blood Count 9.9 K/mm3 (4.5-10.0)
[2021-11-16 06:19] LABS: Alanine Aminotransferase 22 U/L (4-50); Albumin Level 3.3 g/dL (3.5-5.1); Alkaline Phosphatase 248 U/L (38-126); Anion Gap 5 mmol/L (8-16); Aspartate Amino Transferase 34 U/L (17-59); Bilirubin,Total 0.5 mg/dL (0.2-1.3); Blood Urea Nitrogen 23 mg/dL (9-20); Calcium 9.1 mg/dL (8.4-10.2); Carbon Dioxide 28 mmol/L (22-30); Chloride 99 mmol/L (98-107); Estimated CRCL calculation 84 ml/min; Estimated Glomerular Filt Rate > 60; Glucose 149 mg/dL (65-110); Magnesium 2.5 mg/dL (1.6-2.3); Sodium 132 mmol/L (137-145)
[2021-11-16 08:09] LABS: Glucose Point of Care 130 mg/dl (65-105)
[2021-11-16 08:27] LABS: Triglycerides 173 mg/dL (<150)
[2021-11-16] MEDS: fentaNYL (*CRX) 25 MCG PATCH TRANSDERM (09:04)
[2021-11-16] MEDS: PANTOPRAZOLE SODIUM IV 40 MG VIAL IV PUSH (09:05)
[2021-11-16] MEDS: ENOXAPARIN 40 MG/0.4 ML SYRINGE SUB-Q (09:05)
[2021-11-16] MEDS: DEXAMETHASONE SOD PHOS INJ 4 MG/ML VIAL 2 MG IV PUSH (09:05)
[2021-11-16] MEDS: levETIRAcetam 500MG/NACL 100ML 500 MG/100 ML BAG 400 MG IVPB (09:06)
[2021-11-16] MEDS: TOLNAFTATE 1% POWDER 45 GM BTL 1 APPLIC TOPICAL ×2 (09:07→21:55)
[2021-11-16] MEDS: HYOSCYAMINE SULFATE 0.125 MG TABLET PO (09:18)
[2021-11-16] MEDS: oxyCODONE HCL (*CRX) 5 MG TAB IR PO (09:18)
[2021-11-16 12:11] LABS: Glucose Point of Care 155 mg/dl (65-105)
--- NOTE | 2021-11-16 12:23 | PM.PNGS ---
Progress Note: A&P Assessment and Plan (1) Perforation of sigmoid colon due to diverticulitis: Code(s): K57.20 - Diverticulitis of large intestine with perforation and abscess without bleeding Status: Acute Assessment and Plan: cont to encourage po, OOB, PT/OT, await placement Subjective Subjective Date/Time Seen: 11/16/21 12:23 no acute issues, reports he is eating better, reports slowly getting stronger Review of Systems Review of Systems: All systems reviewed & are unremarkable except as noted in HPI and below Exam Const: General: cooperative, comfortable and no acute distress Resp: Auscultation: diminished lung sounds Cardio: Rate: regular rate Rhythm: regular rhythm GI: Inspection: normal to inspection and non-distended GI Palp: Yes Soft to palpation, No Tenderness to palpation present (GI), No Guarding due to palpation present (GI) and No Rigid due to palpation Other: ostomy - +fxn Objective Data Vital Signs Vital Signs: Vital Signs - 24 hr 11/15/21 14:00 11/15/21 16:00 11/15/21 20:00 Temperature 36.9 C Pulse Rate 77 105 H 110 H Respiratory Rate 18 Blood Pressure 122/64 Pulse Oximetry 95 11/15/21 22:00 11/15/21 22:48 11/16/21 00:00 Temperature 37.1 C Pulse Rate 109 H 102 H Respiratory Rate 16 Blood Pressure 139/94 H Pulse Oximetry 94 95 11/16/21 04:00 11/16/21 06:00 Temperature 36.7 C Pulse Rate 97 98 Respiratory Rate 18 Blood Pressure 136/89 Pulse Oximetry 96 Intake/Output Intake/Output: Intake & Output 11/13/21 11/14/21 11/15/21 11/16/21 23:59 23:59 23:59 23:59 Intake Total 3745.1 460 560 400 Output Total 4020 0 1994 97 Balance -274.9 -1590 -1435 -570 Meds/Results Medications: Active Medications Generic Name Dose Route Start Last Admin Trade Name Freq PRN Reason Stop Dose Admin Alteplase, Recombinant 2 mg 11/02/21 09:10 11/02/21 09:50 Alteplase 2 Mg Vial (Cathflo) IV PUSH 2 mg ONCE PRN Administration Line Occlusion Benzocaine 1 lozenge 11/03/21 09:09 11/03/21 11:47 Benzocaine/Menthol (*Bkc) 18 Ea Lozenge PO 1 lozenge PRN PRN Administration Sore Throat Cyclobenzaprine HCl 5 mg 11/01/21 18:02 11/02/21 11:27 Cyclobenzaprine Hcl 5 Mg Tablet PO 5 mg Q8HR PRN Administration Muscle Spasm Dexamethasone Sodium Phosphate 2 mg 11/02/21 21:00 11/16/21 09:05 Dexamethasone Sod Phos Inj 4 Mg/Ml Vial IV PUSH 2 mg Q12HR JOHNSON Administration Dextrose 12.5 gm 10/20/21 01:09 Dextrose 50% 25 Gm/50 Ml Syringe IV PUSH PRN PRN Hypoglycemia Protocol Enoxaparin Sodium 40 mg 11/08/21 12:40 11/16/21 09:05 Enoxaparin 40 Mg/0.4 Ml Syringe SUB-Q 40 mg DAILY JOHNSON Administration Fentanyl 25 mcg 11/16/21 09:00 11/16/21 09:04 Fentanyl (*Crx) 25 Mcg Patch TRANSDERM 25 mcg Q72HR JOHNSON Administration Glucagon 1 mg 10/20/21 01:09 Glucagon For Inj 1 Mg Vial IM PRN PRN Hypoglycemia Protocol Glucose 15 gm 10/20/21 01:09 Glucose Oral Gel 15 Gm Of Glucse In 37.5 Gm Tube PO PRN PRN Hypoglycemia Protocol Hyoscyamine 0.125 mg 11/14/21 17:02 11/16/21 09:18 Hyoscyamine Sulfate 0.125 Mg Tablet PO 0.125 mg Q4H PRN Administration Bladder Spasm Dextrose 1,000 mls @ 100 mls/hr 10/20/21 01:09 Dextrose 5% 1,000 Ml IVPB PRN PRN Hypoglycemia Protocol Levetiracetam 500 mg in 100 mls @ 400 mls/hr 11/02/21 21:00 11/16/21 09:06 Keppra Iv IVPB 400 mls/hr Q12HR JOHNSON Administration Dextrose 1,000 mls @ 50 mls/hr 11/03/21 09:01 Dextrose 10% IV CONT .Q20H PRN if PN is interrupted Insulin Aspart 3 - 6 units 11/13/21 17:00 11/16/21 09:05 Insulin Aspart (*Bkc) 100 Units/Ml SUB-Q Not Given TIDWM JOHNSON Protocol Ipratropium [place] 0.5 mg 11/02/21 08:14 Ipratropium Br 0.02% Inh Soln 0.5 Mg/2.5 Ml Vial INHALATION Q6HRT PRN Shortness Of Breath Levalbuter
--- NOTE | 2021-11-16 12:49 | WPDUROPN2 ---
Progress Note: A&P Assessment and Plan (1) Hematuria: Code(s): R31.9 - Hematuria, unspecified Status: Acute Assessment and Plan: Improved on CBI, culture is still pending. I turned CBI back on low flow d/t clots and sediment in the urine as well as it being very dark. Treat with appropriate antibiotics if urine culture is positive. Ok to do a voiding trial and remove castillo once urine remains clear off CBI without clots. Subjective Subjective Date/Time Seen: 11/16/21 12:49 Patient's urine is still improved today on CBI after a bedside clot evacuation and insertion of a 24fr [address] way castillo on 11/14/21. His CBI is off currently and urine is dark rui in color with sediment and small clots. His mood is much better today. Review of Systems Cardiovascular: Cardiovascular: Denies chest pain Respiratory: Respiratory: Reports no additional respiratory complaints Gastrointestinal: Gastrointestinal: Denies abdominal pain, Denies nausea and Denies vomiting Genitourinary: Genitourinary: Reports hematuria and Denies flank pain Exam Resp: Effort & Inspection: normal respiratory effort Cardio: Rate: regular rate GI: GI Palp: Yes Soft to palpation and No Tenderness to palpation present (GI) : General: Yes no CVA tenderness Urinary Catheter: Urinary Catheter: patent and draining, urine dark and urine with clots Extrem: General: no edema Objective Data Vital Signs Vital Signs: Vital Signs - 24 hr 11/15/21 14:00 11/15/21 16:00 11/15/21 20:00 Temperature 98.4 F Pulse Rate 77 105 H 110 H Respiratory Rate 18 Blood Pressure 122/64 Pulse Oximetry 95 11/15/21 22:00 11/15/21 22:48 11/16/21 00:00 Temperature 98.8 F Pulse Rate 109 H 102 H Respiratory Rate 16 Blood Pressure 139/94 H Pulse Oximetry 94 95 11/16/21 04:00 11/16/21 06:00 Temperature 98.0 F Pulse Rate 97 98 Respiratory Rate 18 Blood Pressure 136/89 Pulse Oximetry 96 Intake/Output Intake/Output: Intake & Output 11/13/21 11/14/21 11/15/21 11/16/21 23:59 23:59 23:59 23:59 Intake Total 3745.1 460 560 400 Output Total 4020 2049 1994 97 Balance -274.9 -1590 -1435 -570 Meds/Results Medications: Active Medications Generic Name Dose Route Start Last Admin Trade Name Freq PRN Reason Stop Dose Admin Alteplase, Recombinant 2 mg 11/02/21 09:10 11/02/21 09:50 Alteplase 2 Mg Vial (Cathflo) IV PUSH 2 mg ONCE PRN Administration Line Occlusion Benzocaine 1 lozenge 11/03/21 09:09 11/03/21 11:47 Benzocaine/Menthol (*Bkc) 18 Ea Lozenge PO 1 lozenge PRN PRN Administration Sore Throat Cyclobenzaprine HCl 5 mg 11/01/21 18:02 11/02/21 11:27 Cyclobenzaprine Hcl 5 Mg Tablet PO 5 mg Q8HR PRN Administration Muscle Spasm Dexamethasone Sodium Phosphate 2 mg 11/02/21 21:00 11/16/21 09:05 Dexamethasone Sod Phos Inj 4 Mg/Ml Vial IV PUSH 2 mg Q12HR JOHNSON Administration Dextrose 12.5 gm 10/20/21 01:09 Dextrose 50% 25 Gm/50 Ml Syringe IV PUSH PRN PRN Hypoglycemia Protocol Enoxaparin Sodium 40 mg 11/08/21 12:40 11/16/21 09:05 Enoxaparin 40 Mg/0.4 Ml Syringe SUB-Q 40 mg DAILY JOHNSON Administration Fentanyl 25 mcg 11/16/21 09:00 11/16/21 09:04 Fentanyl (*Crx) 25 Mcg Patch TRANSDERM 25 mcg Q72HR JOHNSON Administration Glucagon 1 mg 10/20/21 01:09 Glucagon For Inj 1 Mg Vial IM PRN PRN Hypoglycemia Protocol Glucose 15 gm 10/20/21 01:09 Glucose Oral Gel 15 Gm Of Glucse In 37.5 Gm Tube PO PRN PRN Hypoglycemia Protocol Hyoscyamine 0.125 mg 11/14/21 17:02 11/16/21 09:18 Hyoscyamine Sulfate 0.125 Mg Tablet PO 0.125 mg Q4H PRN Administration Bladder Spasm Dextrose 1,000 mls @ 100 mls/hr 10/20/21 01:09 Dextrose 5% 1,000 Ml IVPB PRN PRN Hypoglycemia Protocol Levetiracetam 500 mg in 100 mls @ 400 mls/hr 11/02/21 21:00 11/16/21 09:06 Keppra Iv IVPB 400 mls/hr
--- NOTE | 2021-11-16 14:52 | PCNFU ---
Nutrition Follow-Up Complete: Inadequate Oral Intake as related to mechanical vent as evidenced by tube feedings. Goal: Meet estimanted nutritional needs Pt is slowly progressing towards goal. Pt current nutrition is Low fiber diet and dietary supplements Last recorded weight is 110.6 kg, up 6.5kg from last reported weight on 11/15/21. Recommend re-weighing prior to discharge. Bowel Motility: ostomy Labs Reviewed: Hgb 8.7, Hct 29.5, Alb 3.3, Na 132, TG 173, BUN 23, ALP 248, Glu 155 Meds Noted: Decadron, lovenox, fentanyl, levsin, keppra, oxycodone, protonix, ambien Skin: wound vac - medial abdomen incision, left lower abdomen maceration, bj]uttock maceration, bilateral groin ulcer Additional Notes: Current nutrition is a low fiber diet and dietary supplements. Reports intake is 0% x2 and 10% x3. RDN increased orders for dietary supplement of Ensure Compact BID to TID w/meals to provide an additional 220kcal and 9g of protein to increase caloric intake. Continue to encourage intake. Agree with diet orders at this time. Will continue to follow. Will monitor every 3 days.
--- NOTE | 2021-11-16 15:38 | PM.IMPN ---
Progress Note: A&P Assessment and Plan (1) Ileus, postoperative: Onset Date: ~11/02/21 Code(s): K91.89 - Other postprocedural complications and disorders of digestive system; K56.7 - Ileus, unspecified Status: Acute (2) Complication of ostomy: Onset Date: ~10/2021 Status: Acute (3) Encephalopathy: Code(s): G93.40 - Encephalopathy, unspecified Status: Acute (4) Wound infection: Code(s): T14.8XXA - Other injury of unspecified body region, initial encounter; L08.9 - Local infection of the skin and subcutaneous tissue, unspecified Status: Acute (5) Skin maceration: Code(s): L98.8 - Other specified disorders of the skin and subcutaneous tissue Status: Acute (6) Postoperative pain: Code(s): G89.18 - Other acute postprocedural pain Status: Acute (7) DVT prophylaxis: Code(s): Z29.9 - Encounter for prophylactic measures, unspecified Status: Acute (8) Electrolyte abnormality: Code(s): E87.8 - Other disorders of electrolyte and fluid balance, not elsewhere classified Status: Acute (9) Lactic acidosis: Code(s): E87.2 - Acidosis Status: Acute (10) Respiratory failure: Qualifiers: Chronicity: acute Respiratory failure complication: unspecified whether with hypoxia or hypercapnia Qualified Code(s): J96.00 - Acute respiratory failure, unspecified whether with hypoxia or hypercapnia Code(s): J96.90 - Respiratory failure, unspecified, unspecified whether with hypoxia or hypercapnia Status: Acute (11) Perforation of sigmoid colon due to diverticulitis: Code(s): K57.20 - Diverticulitis of large intestine with perforation and abscess without bleeding Status: Acute (12) Septic shock: Code(s): A41.9 - Sepsis, unspecified organism; R65.21 - Severe sepsis with septic shock Status: Acute (13) Sepsis: Code(s): A41.9 - Sepsis, unspecified organism Status: Acute (14) Bowel perforation: Onset Date: ~10/23/21 Code(s): K63.1 - Perforation of intestine (nontraumatic) Status: Acute (15) Acute kidney injury: Code(s): N17.9 - Acute kidney failure, unspecified Status: Acute (16) Renal cell carcinoma: Qualifiers: Laterality: unspecified laterality Qualified Code(s): C64.9 - Malignant neoplasm of unspecified kidney, except renal pelvis Code(s): C64.9 - Malignant neoplasm of unspecified kidney, except renal pelvis Status: Acute (17) Headache: Code(s): R51.9 - Headache, unspecified Status: Acute (18) Screening for malignant neoplasm of prostate: Code(s): Z12.5 - Encounter for screening for malignant neoplasm of prostate Status: Acute (19) Diabetes: Qualifiers: Diabetes mellitus type: type 2 Diabetes mellitus nursing home insulin use: without nursing home use Diabetes mellitus complication status: without complication Qualified Code(s): E11.9 - Type 2 diabetes mellitus without complications Code(s): E11.9 - Type 2 diabetes mellitus without complications Status: Acute (20) Hypertension: Qualifiers: Hypertension type: unspecified Qualified Code(s): I10 - Essential (primary) hypertension Code(s): I10 - Essential (primary) hypertension Status: Acute (21) BMI 33.0-33.9,adult: Code(s): Z68.33 - Body mass index [BMI] 33.0-33.9, adult Status: Acute (22) Blood clot in bladder: Code(s): N32.89 - Other specified disorders of bladder Status: Acute (23) Hematuria: Code(s): R31.9 - Hematuria, unspecified Status: Acute Additional Plan 10/29/2021 interval history: patient was successfully extubated on 10/26/2021 and now patient is on RA and out of ICU, patient GI function have returned able to tolerate his diet and has a BM, patient seen by surgery service recommended continue wound VAC was changed today, ostotomy f
[2021-11-16 16:41] LABS: Glucose Point of Care 135 mg/dl (65-105)
[2021-11-16] MEDS: levETIRAcetam 500 MG TABLET PO (21:43)
[2021-11-16 22:10] LABS: Glucose Point of Care 115 mg/dl (65-105)
[2021-11-17] VITALS (9 sets, daily range): BP systolic 119–123; BP diastolic 69–77; PULSE 100–109; RESP 16–18; TEMP 36.1–36.4; O2SAT 94–96
[2021-11-17] MEDS: oxyCODONE HCL (*CRX) 5 MG TAB IR 10 MG PO ×3 (06:38→19:56)
[2021-11-17] MEDS: CENTRAL LINE FLUSH 10 ML IV PUSH ×3 (06:40→21:01)
[2021-11-17 07:21] LABS: Hematocrit 30.1 % (42.0-52.0); Hemoglobin 8.9 g/dL (14.0-18.0); Mean Corpuscular HGB Conc 29.6 g/dl (32-36); Mean Corpuscular Hemoglobin 24.1 pg (26-34); Mean Corpuscular Volume 81.6 fl (80-100); Mean Platelet Volume 9.9 fl (7.4-10.4); Platelet Count Result 172 k/mm3 (150-375); Red Blood Count 3.69 M/mm3 (4.6-6.20); Red Cell Distribution Width 17.2 % (11.5-14.5); White Blood Count 9.7 K/mm3 (4.5-10.0)
[2021-11-17 07:27] LABS: Alanine Aminotransferase 22 U/L (4-50); Albumin Level 3.2 g/dL (3.5-5.1); Alkaline Phosphatase 242 U/L (38-126); Anion Gap 7 mmol/L (8-16); Aspartate Amino Transferase 36 U/L (17-59); Bilirubin,Total 0.7 mg/dL (0.2-1.3); Blood Urea Nitrogen 21 mg/dL (9-20); Calcium 9.3 mg/dL (8.4-10.2); Carbon Dioxide 26 mmol/L (22-30); Chloride 98 mmol/L (98-107); Estimated CRCL calculation 86 ml/min; Estimated Glomerular Filt Rate > 60; Glucose 127 mg/dL (65-110); Potassium 3.8 mmol/L (3.4-5.0); Sodium 131 mmol/L (137-145)
[2021-11-17 07:34] LABS: Glucose Point of Care 135 mg/dl (65-105)
[2021-11-17] MEDS: TOLNAFTATE 1% POWDER 45 GM BTL 1 APPLIC TOPICAL ×2 (08:57→21:02)
[2021-11-17] MEDS: DEXAMETHASONE 2 MG TABLET PO (08:57)
[2021-11-17] MEDS: PANTOPRAZOLE 40 MG TABLET PO (08:57)
[2021-11-17] MEDS: levETIRAcetam 500 MG TABLET PO ×2 (08:57→19:57)
[2021-11-17] MEDS: ENOXAPARIN 40 MG/0.4 ML SYRINGE SUB-Q (08:57)
--- NOTE | 2021-11-17 10:55 | PM.PNGS ---
Progress Note: A&P Assessment and Plan (1) Perforation of sigmoid colon due to diverticulitis: Code(s): K57.20 - Diverticulitis of large intestine with perforation and abscess without bleeding Status: Acute Assessment and Plan: Status post sigmoidectomy with Porfirio procedure. Wound VAC in place over midline abdominal wound and functioning well. Patient tolerating oral intake. Okay to transfer to [facility] when others agree. (2) Complication of ostomy: Onset Date: ~10/2021 Status: Acute Assessment and Plan: Stoma functioning well and viable at this time. Okay to transfer. (3) Blood clot in bladder: Code(s): N32.89 - Other specified disorders of bladder Status: Acute Assessment and Plan: Urine clear today. Consider voiding trial as suggested by urology progress notes. Subjective Subjective Date/Time Seen: 11/17/21 10:55 Patient reports: no new complaints, tolerating a regular diet and bowel movement Review of Systems Review of Systems: All systems reviewed & are unremarkable except as noted in HPI and below (HPI and those items below) Constitutional: Constitutional: Denies body ache(s), Denies chills, Denies fever(s), Denies headache(s), Reports increased appetite and Denies night sweats Gastrointestinal: Gastrointestinal: Denies abdominal pain, Denies GI cramping, Denies heartburn, Denies nausea and Denies vomiting Exam GI: Inspection: non-distended, incision (Wound VAC in place, working well) and other (Stoma functioning, looks okay) GI Palp: Yes Soft to palpation and No Tenderness to palpation present (GI) Auscultation: normal bowel sounds Urinary Catheter: Urinary Catheter: urine clear Objective Data Vital Signs Vital Signs: Vital Signs - 24 hr 11/16/21 12:00 11/16/21 14:00 11/16/21 16:00 Temperature 36.4 C L Pulse Rate 108 H 110 H 110 H Respiratory Rate 14 Blood Pressure 133/90 Pulse Oximetry 95 11/16/21 20:45 11/16/21 22:00 11/17/21 00:00 Temperature 36.4 C L Pulse Rate 109 H 109 H 105 H Respiratory Rate 16 Blood Pressure 129/81 Pulse Oximetry 95 11/17/21 04:00 11/17/21 05:57 11/17/21 08:00 Temperature 36.1 C L Pulse Rate 101 H 100 105 H Respiratory Rate 16 Blood Pressure 123/69 Pulse Oximetry 96 Intake/Output Intake/Output: Intake & Output 11/14/21 11/15/21 11/16/21 11/17/21 23:59 23:59 23:59 23:59 Intake Total 410 410 6523 750 Output Total 2049 1994 1944 3079 [facility] -1590 -1435 -[phone] -[id number] Meds/Results Medications: Active Medications Generic Name Dose Route Start Last Admin Trade Name Freq PRN Reason Stop Dose Admin Alteplase, Recombinant 2 mg 11/02/21 09:10 11/02/21 09:50 Alteplase 2 Mg Vial (Cathflo) IV PUSH 2 mg ONCE PRN Administration Line Occlusion Benzocaine 1 lozenge 11/03/21 09:09 11/03/21 11:47 Benzocaine/Menthol (*Bkc) 18 Ea Lozenge PO 1 lozenge PRN PRN Administration Sore Throat Dexamethasone 2 mg 11/17/21 08:00 11/17/21 08:57 Dexamethasone 2 Mg Tablet PO 2 mg DAILY@0800 JOHNSON Administration Dextrose 12.5 gm 10/20/21 01:09 Dextrose 50% 25 Gm/50 Ml Syringe IV PUSH PRN PRN Hypoglycemia Protocol Enoxaparin Sodium 40 mg 11/08/21 12:40 11/17/21 08:57 Enoxaparin 40 Mg/0.4 Ml Syringe SUB-Q 40 mg DAILY JOHNSON Administration Fentanyl 25 mcg 11/16/21 09:00 11/16/21 09:04 Fentanyl (*Crx) 25 Mcg Patch TRANSDERM 25 mcg Q72HR JOHNSON Administration Glucagon 1 mg 10/20/21 01:09 Glucagon For Inj 1 Mg Vial IM PRN PRN Hypoglycemia Protocol Glucose 15 gm 10/20/21 01:09 Glucose Oral Gel 15 Gm Of Glucse In 37.5 Gm Tube PO PRN PRN Hypoglycemia Protocol Hyoscyamine 0.125 mg 11/14/21 17:02 11/16/21 09:18 Hyoscyamine Sulfate 0.125 Mg Tablet PO 0.125 mg Q4H PRN Administration Bladder Spasm Dextrose 1,000 mls @ 100 mls/hr 10/20/21 01:09 Dextrose 5
[2021-11-17 11:28] LABS: Glucose Point of Care 157 mg/dl (65-105)
[2021-11-17 16:44] LABS: Glucose Point of Care 164 mg/dl (65-105)
[2021-11-17] MEDS: ZOLPIDEM TARTRATE (*CRX) 5 MG TABLET PO (21:00)
[2021-11-17 21:35] LABS: Glucose Point of Care 129 mg/dl (65-105)
[2021-11-18] VITALS (7 sets, daily range): BP systolic 108–129; BP diastolic 62–79; PULSE 95–107; RESP 18–22; TEMP 36.2–36.4; O2SAT 93–95
[2021-11-18] MEDS: oxyCODONE HCL (*CRX) 5 MG TAB IR 10 MG PO ×5 (01:03→20:13)
--- NOTE | 2021-11-18 01:53 | PC.NURSE ---
Daylight Savings Time For Daylight Savings Time Ending in the Fall - Clocks are moved back. For Daylight Savings Time Beginning in the Spring - Clocks are moved ahead. For [facility], the time of change occurs at 0200 hrs. Time is taken from the enlisted aircrew/aerial observer/gunner. This entry on the patient's chart recognizes the change in time reflected during documentation. Example: 2 entries for vital signs may be charted for 0200 hrs.
[2021-11-18 05:57] LABS: Hematocrit 30.4 % (42.0-52.0); Hemoglobin 8.8 g/dL (14.0-18.0); Mean Corpuscular HGB Conc 28.9 g/dl (32-36); Mean Corpuscular Hemoglobin 24.3 pg (26-34); Mean Platelet Volume 9.9 fl (7.4-10.4); Platelet Count Result 183 k/mm3 (150-375); Red Blood Count 3.62 M/mm3 (4.6-6.20); Red Cell Distribution Width 17.2 % (11.5-14.5); White Blood Count 8.9 K/mm3 (4.5-10.0)
[2021-11-18 06:12] LABS: Alanine Aminotransferase 20 U/L (4-50); Albumin Level 3.1 g/dL (3.5-5.1); Alkaline Phosphatase 234 U/L (38-126); Anion Gap 6 mmol/L (8-16); Aspartate Amino Transferase 30 U/L (17-59); Bilirubin,Total 0.5 mg/dL (0.2-1.3); Blood Urea Nitrogen 18 mg/dL (9-20); Calcium 9.2 mg/dL (8.4-10.2); Carbon Dioxide 29 mmol/L (22-30); Chloride 97 mmol/L (98-107); Estimated CRCL calculation 94 ml/min; Estimated Glomerular Filt Rate > 60; Glucose 127 mg/dL (65-110); Magnesium 1.9 mg/dL (1.6-2.3); Potassium 3.6 mmol/L (3.4-5.0); Sodium 132 mmol/L (137-145)
[2021-11-18] MEDS: CENTRAL LINE FLUSH 10 ML IV PUSH ×3 (06:43→23:29)
[2021-11-18] MEDS: DEXAMETHASONE 2 MG TABLET PO (08:39)
[2021-11-18] MEDS: ENOXAPARIN 40 MG/0.4 ML SYRINGE SUB-Q (08:39)
[2021-11-18] MEDS: levETIRAcetam 500 MG TABLET PO ×2 (08:39→20:08)
[2021-11-18] MEDS: PANTOPRAZOLE 40 MG TABLET PO (08:39)
[2021-11-18] MEDS: TOLNAFTATE 1% POWDER 45 GM BTL 1 APPLIC TOPICAL ×2 (08:40→20:09)
[2021-11-18 08:58] LABS: Glucose Point of Care 144 mg/dl (65-105)
[2021-11-18 12:20] LABS: Glucose Point of Care 155 mg/dl (65-105)
--- NOTE | 2021-11-18 14:45 | P.PNIM_ITS ---
Progress Note: A&P Assessment and Plan (1) Ileus, postoperative: Onset Date: ~11/02/21 Code(s): K91.89 - Other postprocedural complications and disorders of digestive system; K56.7 - Ileus, unspecified Status: Acute (2) Complication of ostomy: Onset Date: ~10/2021 Status: Acute (3) Encephalopathy: Code(s): G93.40 - Encephalopathy, unspecified Status: Acute (4) Wound infection: Code(s): T14.8XXA - Other injury of unspecified body region, initial encounter; L08.9 - Local infection of the skin and subcutaneous tissue, unspecified Status: Acute (5) Skin maceration: Code(s): L98.8 - Other specified disorders of the skin and subcutaneous tissue Status: Acute (6) Postoperative pain: Code(s): G89.18 - Other acute postprocedural pain Status: Acute (7) DVT prophylaxis: Code(s): Z29.9 - Encounter for prophylactic measures, unspecified Status: Acute (8) Electrolyte abnormality: Code(s): E87.8 - Other disorders of electrolyte and fluid balance, not elsewhere classified Status: Acute (9) Lactic acidosis: Code(s): E87.2 - Acidosis Status: Acute (10) Respiratory failure: Qualifiers: Chronicity: acute Respiratory failure complication: unspecified whether with hypoxia or hypercapnia Qualified Code(s): J96.00 - Acute respiratory failure, unspecified whether with hypoxia or hypercapnia Code(s): J96.90 - Respiratory failure, unspecified, unspecified whether with hypoxia or hypercapnia Status: Acute (11) Perforation of sigmoid colon due to diverticulitis: Code(s): K57.20 - Diverticulitis of large intestine with perforation and abscess without bleeding Status: Acute (12) Septic shock: Code(s): A41.9 - Sepsis, unspecified organism; R65.21 - Severe sepsis with septic shock Status: Acute (13) Sepsis: Code(s): A41.9 - Sepsis, unspecified organism Status: Acute (14) Bowel perforation: Onset Date: ~10/23/21 Code(s): K63.1 - Perforation of intestine (nontraumatic) Status: Acute (15) Acute kidney injury: Code(s): N17.9 - Acute kidney failure, unspecified Status: Acute (16) Renal cell carcinoma: Qualifiers: Laterality: unspecified laterality Qualified Code(s): C64.9 - Malignant neoplasm of unspecified kidney, except renal pelvis Code(s): C64.9 - Malignant neoplasm of unspecified kidney, except renal pelvis Status: Acute (17) Headache: Code(s): R51.9 - Headache, unspecified Status: Acute (18) Screening for malignant neoplasm of prostate: Code(s): Z12.5 - Encounter for screening for malignant neoplasm of prostate Status: Acute (19) Diabetes: Qualifiers: Diabetes mellitus type: type 2 Diabetes mellitus penitentiary insulin use: without penitentiary use Diabetes mellitus complication status: without complication Qualified Code(s): E11.9 - Type 2 diabetes mellitus without complications Code(s): E11.9 - Type 2 diabetes mellitus without complications Status: Acute (20) Hypertension: Qualifiers: Hypertension type: unspecified Qualified Code(s): I10 - Essential (primary) hypertension Code(s): I10 - Essential (primary) hypertension Status: Acute (21) BMI 33.0-33.9,adult: Code(s): Z68.33 - Body mass index [BMI] 33.0-33.9, adult Status: Acute (22) Blood clot in bladder: Code(s): N32.89 - Other specified dis
[2021-11-18 17:55] LABS: Glucose Point of Care 128 mg/dl (65-105)
[2021-11-18 20:55] LABS: Glucose Point of Care 111 mg/dl (65-105)
[2021-11-19] MEDS: oxyCODONE HCL (*CRX) 5 MG TAB IR 10 MG PO ×4 (01:10→19:41)
[2021-11-19 05:28] LABS: Alanine Aminotransferase 18 U/L (4-50); Albumin Level 3.1 g/dL (3.5-5.1); Alkaline Phosphatase 220 U/L (38-126); Anion Gap 7 mmol/L (8-16); Aspartate Amino Transferase 29 U/L (17-59); Bilirubin,Total 0.7 mg/dL (0.2-1.3); Blood Urea Nitrogen 18 mg/dL (9-20); Calcium 9.4 mg/dL (8.4-10.2); Carbon Dioxide 27 mmol/L (22-30); Chloride 99 mmol/L (98-107); Estimated CRCL calculation 104 ml/min; Estimated Glomerular Filt Rate > 60; Glucose 106 mg/dL (65-110); INR 1.2; Magnesium 1.9 mg/dL (1.6-2.3); Potassium 3.7 mmol/L (3.4-5.0); Prothrombin Time 14.6 Seconds (11.1-14.7); Sodium 133 mmol/L (137-145)
[2021-11-19 05:29] LABS: Partial Thromboplastin Time 31.2 SECONDS (22.3-36.8)
[2021-11-19 05:35] LABS: Transferrin 141 mg/dL (206-381)
[2021-11-19 05:59] LABS: Basophils Absolute Auto 0.1 K/mm3 (0.0-0.1); Basophils Percent Auto 0.7 % (0.2-1.2); Eosinophils Absolute Auto 0.1 K/mm3 (0-0.3); Hematocrit 31.4 % (42.0-52.0); Hemoglobin 8.9 g/dL (14.0-18.0); Immature Granulocyte Absolute 0.08 K/mm3 (0.00-0.031); Immature Granulocyte Percent A 0.9 % (0-0.5); Immature Platelet Fraction Pct 2.9 % (0.9-11.2); Lymphocytes Absolute Auto 1.52 K/mm3 (0.9-3.2); Lymphocytes Percent Auto 17.4 % (18.3-44.2); Mean Corpuscular HGB Conc 28.3 g/dl (32-36); Mean Corpuscular Hemoglobin 23.7 pg (26-34); Mean Corpuscular Volume 83.7 fl (80-100); Mean Platelet Volume 9.9 fl (7.4-10.4); Monocytes Absolute Auto 0.7 K/mm3 (0.1-0.6); Monocytes Percent Auto 8.4 % (2.6-8.5); Neutrophils Absolute Auto 6.2 K/mm3 (1.3-6.7); Neutrophils Percent Auto 71.6 % (45.5-73.1); Platelet Count Result 133 k/mm3 (150-375); Red Blood Count 3.75 M/mm3 (4.6-6.20); Red Cell Distribution Width 17.3 % (11.5-14.5); White Blood Count 8.7 K/mm3 (4.5-10.0)
[2021-11-19 06:00] VITALS: BP 112/67; PULSE 84; RESP 18; TEMP 36.1; O2SAT 97
[2021-11-19 07:48] LABS: Glucose Point of Care 104 mg/dl (65-105)
[2021-11-19 08:00] VITALS: PULSE 98; RESP 19; O2SAT 96
[2021-11-19] MEDS: DEXAMETHASONE 2 MG TABLET PO (08:28)
[2021-11-19] MEDS: levETIRAcetam 500 MG TABLET PO ×2 (08:28→19:41)
[2021-11-19] MEDS: PANTOPRAZOLE 40 MG TABLET PO (08:28)
[2021-11-19] MEDS: TOLNAFTATE 1% POWDER 45 GM BTL 1 APPLIC TOPICAL ×2 (08:29→21:47)
[2021-11-19] MEDS: CENTRAL LINE FLUSH 10 ML IV PUSH ×2 (08:29→21:47)
[2021-11-19] MEDS: ENOXAPARIN 40 MG/0.4 ML SYRINGE SUB-Q (08:30)
--- NOTE | 2021-11-19 10:13 | PCPTNOTE ---
Attempted to see patient for PT and perform transfer to chair like he did yesterday, however patient reported he does not want to transfer or sit up in the recliner. Patient reported the recliner is very uncomfortable and that he almost fell getting back to bed, and that it was useless effort. Attempted to explain the importance and benefits of getting up to chair, however patient reported everyone keeps saying the same thing and that you just sound like a robot repeating yourself.
--- NOTE | 2021-11-19 11:10 | PCOTNOTE ---
Attempted to see patient for OT. Patient reports willing to sit EOB and perform UB exercises, but declined other activities. Patient educated on importance of participating in functional activities out of bed to regain muscle and begin ambulating again. Therapist suggested patient perform bed level/sitting EOB to bathe, performing UB exercises, and standing. Patient refused. Patient became rude, stating, I already told you what I'm willing to do, but you're not listening. Again, therapist attempted to discuss benefits, consequences, and progress potential with patient currently not participating much. Patient verbalized, I find it funny that even though you guys say you're from therapy that if someone doesn't do what you want them to do, you just leave them. You all are babies. If you don't get what you want, you act like babies. patient still unwilling to participate as suggested by therapist for optimal benefits and progress. patient still declining skilled interventions suggested by therapist. Patient not seen for OT.
[2021-11-19] MEDS: fentaNYL (*CRX) 25 MCG PATCH TRANSDERM (11:46)
[2021-11-19 11:58] LABS: Glucose Point of Care 118 mg/dl (65-105)
--- NOTE | 2021-11-19 12:55 | PCNFU ---
Nutrition Follow-Up Complete: Inadequate Oral Intake as related to mechanical vent as evidenced by tube feedings. Goal: Meet estimated nutritional needs Pt is making little progress towards goal. Pt current nutrition is Low fiber diet and dietary supplements Last recorded weight is 108 kg, down 1.7kg from admit weight reported on 10/20/21. Bowel Motility: ostomy Labs Reviewed:Hgb 8.9, Hct 31.4, Alb 3.1, Na 133, ALP 220, POC Glu 118, Transferrin 141 Meds Noted: Dexamethasone, Lovenox, Fentanyl Patch, Keppra, Oxycodone, Protonix Skin: Wound Vac-Medial abdomen incision, buttock maceration, bilateral groin ulcer Additional Notes: Current nutrition is a low fiber diet and dietary supplements of Ensure Compact TID w/meals providing an additional 220kcal and 9g of protein to increase caloric intake. Reported intake is 0% x4 and 20% with report of pt refusing meals. Spoke with pt today (11/19/21) who reports that he has been having stomach pain which has been making it difficult for him to eat. He reports that his daughter will be brining him a tiny turkey and cymraes slider from [employer] and a chiu turn over with sugar free lemonade today. He reports that the Ensure Compact coats his mouth and makes it feel weird. RDN offered to switch dietary supplement from Ensure Compact to Ensure Clear to see if pt would tolerate thin consistency better. He reports that sounds the same and did not seem interested in switching the supplements at this time. RDN asked about adding a dietary supplement of Frozen Nutrition Treat and pt agreed to try it at this time. RDN placed orders for Frozen Nutritional Treat BID to provide an additional 300kcal and 9g of protein to increase caloric intake. RDN encouraged intake of a low fiber diet and dietary supplements. Recommend switching supplements if pt continues not to tolerate them and continue to encourage intake. Plans for pt to D/C to [facility]. Agree with diet orders at this time. Will continue to follow if pt is not discharged. Will monitor every 3 days.
[2021-11-19 14:00] VITALS: BP 133/74; PULSE 98; RESP 19; TEMP 36.3; O2SAT 96
--- NOTE | 2021-11-19 15:48 | PM.PNGS ---
Progress Note: A&P Assessment and Plan (1) Perforation of sigmoid colon due to diverticulitis: Code(s): K57.20 - Diverticulitis of large intestine with perforation and abscess without bleeding Status: Acute Assessment and Plan: Status post sigmoidectomy with Porfirio procedure. Continue wound VAC therapy. Hospitalist removing Higgins this afternoon. CC working on discharge insurance approval for kathleen arriaga. Will plan discharge tomorrow if he is doing well and we have approval from insurance. (2) Complication of ostomy: Onset Date: ~10/2021 Status: Acute Assessment and Plan: Stoma functioning well and viable. [place] adjacent to the stoma have pulled apart with dehiscence of the skin leaving a larger open wound near the stoma. Change ostomy appliance to wound management system. (3) Blood clot in bladder: Code(s): N32.89 - Other specified disorders of bladder Status: Acute Assessment and Plan: Plans to remove Higgins today. Hopefully discharge tomorrow. Additional Plan I have discussed the plan of care with Dr. Monroe. Subjective Subjective Date/Time Seen: 11/19/21 13:48 Patient reports: no new complaints and afebrile Interval history: Patient seen and examined with the wound care nurses. No new complaints. Eating more today. His daughter is at the bedside. His children have been bringing him in food from outside the hospital almost every meal and this is what he has been eating - therefore the diet/meal documentation does not reflect how much oral intake he is having. No acute issues overnight. Review of Systems Review of Systems: All systems reviewed & are unremarkable except as noted in HPI and below Exam Const: General: awake; No acute distress Orientation/consciousness: patient oriented x3 Resp: Effort & Inspection: normal respiratory effort Auscultation: clear to auscultation bilaterally Cardio: Rate: regular rate Rhythm: regular rhythm GI: Inspection: non-distended GI Palp: Yes Soft to palpation, Yes Tenderness to palpation present (GI) (only mildly tender at abdominal wound, no other tenderness to palpation), No Guarding due to palpation present (GI) and No Rebound tenderness present Auscultation: normal bowel sounds Other: Wound vac removed, wound is granulating nicely with only a scant amount of yellow slough at the base of the wound, no purulent drainage or necrotic tissue. Ostomy appliance removed and all 3 remaining gianni adjacent to the ostomy had come through the skin and were lying in the wound or attached to the wafer of the appliance - there is now a large open wound that has granulating pink tissue at the base next to the stoma. The stoma is from the skin about 3/4 around with only a small area on the superior aspect that is attached with two sutures, remaining sutures which were only attached at the skin and no longer on the stoma were removed at the bedside today. Changed the appliance to a wound management system. Skin: General skin exam: normal color Neuro: General: moves all extremities and no focal motor deficits Extrem: General: no calf tenderness and no edema Psych: Affect: Irritable affect present Judgement: Fair judgement present (Psych) Objective Data Vital Signs Vital Signs: Vital Signs - 24 hr 11/18/21 20:00 11/18/21 21:47 11/19/21 06:00 Temperature 97.4 F L 97.0 F L Pulse Rate 103 H 103 H 84 Respiratory Rate 20 20 18 Blood Pressure 108/62 112/67 Pulse Oximetry 95 95 97 11/19/21 14:00 Temperature 97.4 F L Pulse Rate 98 Respiratory Rate 19 Blood Pressure 133/74 Pulse Oximetry 96 Intake/Output Intake/Output: Intake & Output 11/16/21 11/17/21 11/18/21 11/19/21 22:59 22:59 23:59 23:59 Intake Total 30 Output Total 305 Balance -275 Meds/Results Medications: Active Medications Generic Name Dose Route Start Last Admin Trade Name Freq PRN Reason Stop Dose Admin Alteplase, Recom
[2021-11-19 16:46] LABS: Glucose Point of Care 95 mg/dl (65-105)
[2021-11-19 20:00] VITALS: PULSE 98; RESP 19; O2SAT 96
[2021-11-19 21:56] VITALS: BP 129/83; PULSE 103; RESP 16; TEMP 36.6; O2SAT 97
[2021-11-19] MEDS: ZOLPIDEM TARTRATE (*CRX) 5 MG TABLET PO (22:36)
[2021-11-20] MEDS: SIMETHICONE 80 MG TAB.CHEW PO (02:14)
[2021-11-20 02:27] VITALS: O2SAT 96
[2021-11-20 04:35] LABS: Hematocrit 37.5 % (42.0-52.0); Hemoglobin 10.7 g/dL (14.0-18.0); Mean Corpuscular HGB Conc 28.5 g/dl (32-36); Mean Corpuscular Hemoglobin 23.5 pg (26-34); Mean Corpuscular Volume 82.2 fl (80-100); Mean Platelet Volume 9.8 fl (7.4-10.4); Platelet Count Result 122 k/mm3 (150-375); Red Blood Count 4.56 M/mm3 (4.6-6.20); Red Cell Distribution Width 17.6 % (11.5-14.5); White Blood Count 8.1 K/mm3 (4.5-10.0)
[2021-11-20 04:53] LABS: Alanine Aminotransferase 17 U/L (4-50); Albumin Level 3.1 g/dL (3.5-5.1); Alkaline Phosphatase 234 U/L (38-126); Anion Gap 7 mmol/L (8-16); Aspartate Amino Transferase 27 U/L (17-59); Bilirubin,Total 0.5 mg/dL (0.2-1.3); Blood Urea Nitrogen 16 mg/dL (9-20); Calcium 9.5 mg/dL (8.4-10.2); Carbon Dioxide 26 mmol/L (22-30); Chloride 99 mmol/L (98-107); Estimated CRCL calculation 116 ml/min; Estimated Glomerular Filt Rate > 60; Glucose 118 mg/dL (65-110); Magnesium 1.7 mg/dL (1.6-2.3); Potassium 3.6 mmol/L (3.4-5.0); Sodium 132 mmol/L (137-145)
[2021-11-20 05:48] VITALS: BP 118/77; PULSE 103; RESP 16; TEMP 36.3; O2SAT 96
[2021-11-20] MEDS: CENTRAL LINE FLUSH 10 ML IV PUSH (06:55)
[2021-11-20 07:50] LABS: Glucose Point of Care 110 mg/dl (65-105)
[2021-11-20] MEDS: levETIRAcetam 500 MG TABLET PO (09:12)
[2021-11-20] MEDS: ENOXAPARIN 40 MG/0.4 ML SYRINGE SUB-Q (09:12)
[2021-11-20] MEDS: PANTOPRAZOLE 40 MG TABLET PO (09:13)
[2021-11-20] MEDS: DEXAMETHASONE 2 MG TABLET PO (09:13)
[2021-11-20] MEDS: TOLNAFTATE 1% POWDER 45 GM BTL 1 APPLIC TOPICAL (09:14)
[2021-11-20] MEDS: oxyCODONE HCL (*CRX) 5 MG TAB IR 10 MG PO ×2 (09:20→15:33)
[2021-11-20 11:58] LABS: Glucose Point of Care 135 mg/dl (65-105)
[2021-11-20 12:44] LABS: EDCOVIDSCREEN Negative (Negative)
--- NOTE | 2021-11-20 13:08 | WPDUROPN2 ---
Progress Note: A&P Assessment and Plan (1) Blood clot in bladder: Code(s): N32.89 - Other specified disorders of bladder Status: Acute Assessment and Plan: Resolved via manual irrigation and clot removal at the bedside last week. (2) Hematuria: Code(s): R31.9 - Hematuria, unspecified Status: Acute Assessment and Plan: CBI was turned to off, urine remained pink/clear. Castillo removed yesterday, patient voiding well without any difficulty. Obtain a bladder scan and call with results, if <300cc ok to discharge without a castillo. I expect urine to remain bloody secondary to metastatic right renal carcinoma versus lovenox use s/p sigmoidectomy. Urine culture was negative. CT scan shows no concern for bladder wall tumors or changes of right renal tumor. No need for a cystoscope at this time, if blood in urine would become worse or clots would develop, he should follow up with Dr. Cohen. No further evaluation needed at this time. (3) Renal cell carcinoma: Qualifiers: Laterality: unspecified laterality Qualified Code(s): C64.9 - Malignant neoplasm of unspecified kidney, except renal pelvis Code(s): C64.9 - Malignant neoplasm of unspecified kidney, except renal pelvis Status: Acute Assessment and Plan: Continue with Oncology for chemotherapy. Ok to discharge at any time. Subjective Subjective Date/Time Seen: 11/20/21 13:08 Patient's gross hematuria with clots has improved. He had his castillo taken out yesterday and is urinating without difficultly, although urine remains pink/red in color. His urine was pink off of CBI prior to castillo removal. Urine culture was negative. He remains on Lovenox s/p sigmoidectomy with Porfirio procedure. Review of Systems Cardiovascular: Cardiovascular: Denies chest pain Respiratory: Respiratory: Reports no additional respiratory complaints Gastrointestinal: Gastrointestinal: Denies abdominal pain, Denies nausea and Denies vomiting Genitourinary: Genitourinary: Reports hematuria, Denies dysuria, Denies flank pain, Denies urinary frequency, Denies urinary hesitancy and Denies urinary urgency Exam Resp: Effort & Inspection: normal respiratory effort Cardio: Rate: regular rate GI: GI Palp: Yes Soft to palpation and No Tenderness to palpation present (GI) : General: Yes bladder normal to palpation, Yes no CVA tenderness and Yes other (urine is a light red color in the urinal) Extrem: General: no edema Objective Data Vital Signs Vital Signs: Vital Signs - 24 hr 11/19/21 14:00 11/19/21 20:00 11/19/21 21:56 Temperature 97.4 F L 97.8 F Pulse Rate 98 98 103 H Respiratory Rate 19 19 16 Blood Pressure 133/74 129/83 Pulse Oximetry 96 96 97 11/20/21 02:27 11/20/21 05:48 Temperature 97.4 F L Pulse Rate 103 H Respiratory Rate 16 Blood Pressure 118/77 Pulse Oximetry 96 96 Intake/Output Intake/Output: Intake & Output 11/17/21 11/18/21 11/19/21 11/20/21 22:59 23:59 23:59 23:59 Intake Total 530 480 Output Total 505 75 Balance 25 405 Meds/Results Medications: Active Medications Generic Name Dose Route Start Last Admin Trade Name Freq PRN Reason Stop Dose Admin Alteplase, Recombinant 2 mg 11/02/21 09:10 11/02/21 09:50 Alteplase 2 Mg Vial (Cathflo) IV PUSH 2 mg ONCE PRN Administration Line Occlusion Benzocaine 1 lozenge 11/03/21 09:09 11/03/21 11:47 Benzocaine/Menthol (*Bkc) 18 Ea Lozenge PO 1 lozenge PRN PRN Administration Sore Throat Dexamethasone 2 mg 11/17/21 08:00 11/20/21 09:13 Dexamethasone 2 Mg Tablet PO 2 mg DAILY@0800 JOHNSON Administration Enoxaparin Sodium 40 mg 11/08/21 12:40 11/20/21 09:12 Enoxaparin 40 Mg/0.4 Ml Syringe SUB-Q 40 mg DAILY JOHNSON Administration Fentanyl 25 mcg 11/16/21 09:00 11/19/21 11:46 Fentanyl (*Crx) 25 Mcg Patch TRANSDERM 25 mcg Q72HR JOHNSON Administration Hyoscyamine 0.125 mg 11/14/21 17:02
--- NOTE | 2021-11-20 13:57 | PM.DS ---
DS: Discharge Diagnosis Discharge Diagnosis (1) Ileus, postoperative: Onset Date: ~11/02/21 Code(s): K91.89 - Other postprocedural complications and disorders of digestive system; K56.7 - Ileus, unspecified Status: Acute (2) Complication of ostomy: Onset Date: ~10/2021 Status: Acute (3) Encephalopathy: Code(s): G93.40 - Encephalopathy, unspecified Status: Acute Assessment and Plan: More encephalopathic 11/01/2021 more awake and alert 11/02/2021 ABG and ammonia reviewed Flexeril stopped (4) Wound infection: Code(s): T14.8XXA - Other injury of unspecified body region, initial encounter; L08.9 - Local infection of the skin and subcutaneous tissue, unspecified Status: Acute (5) Skin maceration: Code(s): L98.8 - Other specified disorders of the skin and subcutaneous tissue Status: Acute Assessment and Plan: Patient seen by and case discussed with wound care nurse. She has been seeing patients since admission and states that area looks better Continue Tolnaftate powder for groin and miconazole cream for back (6) Postoperative pain: Code(s): G89.18 - Other acute postprocedural pain Status: Acute Assessment and Plan: Improved with morphine ICT SYSTEMS TEST ENGINEER Now morphine ICT SYSTEMS TEST ENGINEER is off IV p.r.n. pain medication (7) DVT prophylaxis: Code(s): Z29.9 - Encounter for prophylactic measures, unspecified Status: Acute Assessment and Plan: Prophylactic Lovenox this is been on hold due to ongoing GI bleed (8) Electrolyte abnormality: Code(s): E87.8 - Other disorders of electrolyte and fluid balance, not elsewhere classified Status: Acute Assessment and Plan: Improved after replacement. Due to ileus will replace potassium today (9) Lactic acidosis: Code(s): E87.2 - Acidosis Status: Acute (10) Respiratory failure: Qualifiers: Chronicity: acute Respiratory failure complication: unspecified whether with hypoxia or hypercapnia Qualified Code(s): J96.00 - Acute respiratory failure, unspecified whether with hypoxia or hypercapnia Code(s): J96.90 - Respiratory failure, unspecified, unspecified whether with hypoxia or hypercapnia Status: Acute Assessment and Plan: Respiratory failure likely related to septic shock, post surgery He was extubated 10/26/2021 after a successful weaning trial. Maintaining adequate oxygenation on nasal cannula now currently off oxygen Chest x-ray reviewed Off IV fluids, incentive spirometry, up in chair, PT OT consult Continue bronchodilators (11) Perforation of sigmoid colon due to diverticulitis: Code(s): K57.20 - Diverticulitis of large intestine with perforation and abscess without bleeding Status: Acute (12) Septic shock: Code(s): A41.9 - Sepsis, unspecified organism; R65.21 - Severe sepsis with septic shock Status: Acute Assessment and Plan: Septic shock most likely related perforated bowel status post exploratory laparotomy with Porfirio procedure, ostomy, washout -patient was adequately fluid-resuscitated in the ER and in the OR.. -required vasopressor in the ICU currently off vasopressors -continue Zosyn (started 10/20) -lactic acid has normalized -received stress dose steroid but now back to his baseline steroid dose now Blood culture growing fusobacterium Repeat CT scan 10/29/2021 with diverticulitis of transverse colon with no perforation. General surgery recommending continuing IV antibiotics currently on IV Zosyn. Normal WBC count today and continues to improve every day (13) Sepsis: Code(s): A41.9 - Sepsis, unspecified organism Status: Acute (14) Bowel perforation: Onset Date: ~10/23/21 Code(s): K63.1 - Perforation of intestine (nontraumatic) Status: Acute Assessment and Plan: 10/19/2021: Perforated viscus, septic shock, ex lap with Porfirio's procedure, mobiliz
[2021-11-20] MEDS: NEOMYCIN/POLYMYXIN/BACITRACIN OINTMENT PACKET 1 PACKET (13:58)
[2021-11-20 14:00] VITALS: BP 121/79; PULSE 89; RESP 18; TEMP 36.4; O2SAT 95
[2021-11-20 14:25] VITALS: O2SAT 96
--- NOTE | 2021-11-20 14:49 | PC.NURSE ---
On 11/20/21, the student, Erika Oquendo, provided care and completed [facility] documentation on this patient. I have reviewed the student's documentation and agree with the findings.
--- NOTE | 2021-11-20 15:24 | PM.DS ---
DS: Admitting Diagnosis Discharge Date 11/20/21 Admitting Diagnosis Bowel perforation Sepsis Metastatic renal cell carcinoma on neoadjuvant chemotherapy DS: Discharge Diagnosis Discharge Diagnosis (1) Perforation of sigmoid colon due to diverticulitis: Code(s): K57.20 - Diverticulitis of large intestine with perforation and abscess without bleeding Status: Acute Assessment and Plan: 10/20/21 - exploratory laparotomy, Porfirio's procedure, mobilization of splenic flexure, extensive intraabdominal washout by Dr. Monroe (2) Complication of ostomy: Onset Date: ~10/2021 Status: Acute Assessment and Plan: Following the Porfirio's procedure, the patient's ostomy was functioning well but his stoma appeared dark and dusky. This eventually became necrotic and the stoma from the skin. About 2 weeks post-op he developed significant bleeding from his colostomy and increased abdominal pain. He was given 1 unit PRBCs. He had a CT scan of the abdomen and pelvis following this episode on 11/02/21 that showed diverticulitis in the proximal transverse colon (initially seen on 10/29 CT, already on IV Zosyn), ileus, small bilateral pleural effusions, and a small loculated fluid collection along medial margin of enlarged spleen. The bleeding improved and this was monitored closely for a few more days. Treatment for the ileus was initiated as well. With monitoring, his ostomy function declined and the stoma from the skin with areas of necrosis extending through the stoma with stool leaking into the wound between the skin and stoma. Decision was made to take the patient back to the OR for revision of his colostomy by Dr. Monroe on 11/07/21. Wound care continued to follow the patient after this surgery and his ostomy function returned (3) Blood clot in bladder: Code(s): N32.89 - Other specified disorders of bladder Status: Acute Assessment and Plan: Resolved. Found to have blood clots in his castillo catheter on 11/14/21 and Urology was consulted. Pelvic US showed echogenic material surrounding castillo balloon, likely blood clot, and diffuse bladder wall thickening. They placed a 20fr 3way castillo and manually irrigated this with normal saline and had lots of clots removed. They initiated a CBI that was gradually weaned off when clear. Urology's recommendations is that he is not a candidate for a nephrectomy due to the widespread metastatic disease and his hematuria is likely a result of his large renal cell carcinoma. Lovenox was continued, but considered holding if hematuria continued. Urine culture negative. Castillo was removed yesterday per Urology and he had a voiding trial. Stable for discharge from Urology standpoint and they are not recommending any further evaluation, just f/u with Oncology for plans for chemotherapy. Gross hematuria improved. (4) Hematuria: Code(s): R31.9 - Hematuria, unspecified Status: Acute Assessment and Plan: Likely a result of his large renal cell carcinoma. See above under blood clot in bladder . (5) Ileus, postoperative: Onset Date: ~11/02/21 Code(s): K91.89 - Other postprocedural complications and disorders of digestive system; K56.7 - Ileus, unspecified Status: Acute Assessment and Plan: Developed a post-operative ileus, which was treated with NG tube decompression, bowel rest, IV fluids, and laxatives. This was a prolonged ileus and he was eventually started on TPN for nutrition, which was continued until he was able to start tolerating a solid diet. Ostomy functioning well, even after revision. Ileus resolved. (6) Encephalopathy: Code(s): G93.40 - Encephalopathy, unspecified Status: Acute Assessment and Plan: Resolved. Encephalopathic following surgery and extubation. He would have intermittent confusion. This seemed to be slightly worse about 2 weeks post op and an ammonia level and ABG were checked on 11/01, which we
== END 2021-11-20 15:45 | DRG 853 ==
LOC: ANHED 21:01 → ANHSURGERY 21:39 → ANHICU 10-20 01:04 → ANH3MEDSUR 10-30 14:05 → ANHICU 11-21 09:50 → ANHIMU 11-21 09:50
PROVIDERS: Emergency Medicine; Family Medicine; Internal Medicine; Nurse Practitioner Adult Health; Surgery; Admitting Provider Internal Medicine; Emergency Provider Emergency Medicine; PCP Family Medicine; Visit Provider Nurse Practitioner Family
PROC: (CPT 49000; principal; 2021-10-19 21:30)
PROC: 0WQFXZ2 Repair Abdominal Wall, Stoma, External Approach (ICD-10-PCS; CPT 49000; principal; 2021-11-07 13:45)
DX: A41.9 Sepsis, unspecified organism (principal); R65.21 Severe sepsis with septic shock; N17.0 Acute kidney failure with tubular necrosis; J95.821 Acute postprocedural respiratory failure; K57.20 Diverticulitis of large intestine with perforation and abscess without bleeding; C79.9 Secondary malignant neoplasm of unspecified site; C64.1 Malignant neoplasm of right kidney, except renal pelvis; C79.31 Secondary malignant neoplasm of brain; C78.6 Secondary malignant neoplasm of retroperitoneum and peritoneum; C78.00 Secondary malignant neoplasm of unspecified lung; C79.72 Secondary malignant neoplasm of left adrenal gland; C79.51 Secondary malignant neoplasm of bone; G93.40 Encephalopathy, unspecified; K91.89 Other postprocedural complications and disorders of digestive system; K56.7 Ileus, unspecified; M46.24 Osteomyelitis of vertebra, thoracic region; M84.48XA Pathological fracture, other site, initial encounter for fracture; K94.01 Colostomy hemorrhage; K94.09 Other complications of colostomy; T81.49XA Infection following a procedure, other surgical site, initial encounter; Z20.822 Contact with and (suspected) exposure to COVID-19; I95.9 Hypotension, unspecified; E11.9 Type 2 diabetes mellitus without complications; I10 Essential (primary) hypertension; F12.90 Cannabis use, unspecified, uncomplicated; N40.0 Benign prostatic hyperplasia without lower urinary tract symptoms; F41.9 Anxiety disorder, unspecified; E86.1 Hypovolemia; K66.0 Peritoneal adhesions (postprocedural) (postinfection); E87.8 Other disorders of electrolyte and fluid balance, not elsewhere classified; G89.18 Other acute postprocedural pain; L98.8 Other specified disorders of the skin and subcutaneous tissue; Y83.8 Other surgical procedures as the cause of abnormal reaction of the patient, or of later complication, without mention of misadventure at the time of the procedure; Y92.230 Patient room in hospital as the place of occurrence of the external cause; R51.9 Headache, unspecified; M46.44 Discitis, unspecified, thoracic region; R31.0 Gross hematuria; Y83.3 Surgical operation with formation of external stoma as the cause of abnormal reaction of the patient, or of later complication, without mention of misadventure at the time of the procedure; N32.89 Other specified disorders of bladder
CPT/HCPCS: 36415; 36430; 36569; 36600; 51702; 71045; 74018; 74019; 74176; 74177; 76857; 80048; 80053; 81001; 82140; 82375; 82805; 82948; 83036; 83050; 83605; 83735; 84100; 84134; 84466; 84478; 85014; 85018; 85025; 85027; 85055; 85610; 85730; 86850; 86900; 86901; 86920; 87040; 87076; 87086; 87185; 87426; 88307; 93005; 94002; 94003; 94640; 96361; 96365; 97110; 97162; 97166; 97168; 97530; 97535; 99285; A9270; C1751; C9113; C9803; J0330; J0610; J1100; J1170; J1650; J1720; J1815; J1885; J1953; J2060; J2250; J2270; J2370; J2405; J2543; J2704; J2997; J3010; J3475; J3480; J7030; J7040; J7050; J7060; J7120; J8540; P9016; P9047; Q9967; U0003; U0005

== ENCOUNTER 2022-01-13 02:23 | Emergency (ER) | payer SELFPAY ==
--- NOTE | ~2022-01-13 | XR_ITS ---
EXAMINATION: XR chest 1V portable INDICATION: Chest pain TECHNIQUE: Portable AP chest at 0401 hours COMPARISON: 11/01/2021 FINDINGS: Multiple pulmonary nodules are again seen. There is medial airspace opacity in the right ri ght lung base. There is no pneumothorax. A small right pleural effusion is present. The heart size is normal. IMPRESSION: 1. Right basilar airspace opacity, consistent with atelectasis versus pneumonia. 2. Scattered pulmonary nodules, consistent with metastatic disease. 3. Small right pleural effusion. Reviewed, dictated and finalized at location A. IMPRESSION: 1. Right basilar airspace opacity, consistent with atelectasis versus pneumonia . 2. Scattered pulmonary nodules, consistent with metastatic disease. 3. Small right pleural effusion.
[2022-01-13 02:23] VITALS: BP 94/63; PULSE 114; RESP 20; TEMP 36.5; O2SAT 96
[2022-01-13 02:29] VITALS: PULSE 118; O2SAT 96
--- NOTE | 2022-01-13 02:32 | ECG_ITS ---
Measurements Intervals [place] Rate: 110 P: 38 LA: 171 QRS: 57 QRSD: 81 T: 55 QT: 282 QTc: 383 Interpretive Statements SINUS TACHYCARDIA BORDERLINE ST-T WAVE ABNORMALITY- DIFFUSE LEADS BASELINE ARTIFACT- I, II, AVR, AVL, V1, V3-V6 ABNORMAL ECG Electronically Signed On 01-13-2022 8:54:00 CDT by Jadon Durand D.O.
--- NOTE | 2022-01-13 02:34 | ED.CHESTPAIN ---
HPI - Chest Pain General Chief Complaint: Chest Pain <Bo Nunes APRN - Last Filed: 01/13/22 02:45> Stated Complaint: hypotension cp weakness <Bo Nunes APRN - Last Filed: 01/13/22 02:45> Time Seen by Provider: 01/13/22 02:32 <Bo Nunes APRN - Last Filed: 01/13/22 02:45> History of Present Illness HPI narrative: 56-year-old man with a history of kidney cancer [facility] for evaluation of elevated heart rate and low blood pressure. Patient states he was experiencing nausea, diaphoresis and a headache when he called for staff to come evaluate him. Patient was given Zofran for his nausea at that time. Staff found that the patient was hypotensive blood pressures of 70/40s, and elevated heart rate in the 180s. EMS was called to the scene. An IV was established and EMS delivered 6 of adenosine and initiated fluids. Patient's heart rate dropped from the 180s to the 110s. Presentation to the emergency room patient does not have any complaints. Patient alert and oriented x3. <Bo Nunes APRN - Last Filed: 01/13/22 02:45> Related Data Allergies/Adverse Reactions: Allergies Allergy/AdvReac Type Severity Reaction Status Date / Time No Known Allergies Allergy Verified 01/13/22 03:17 <Bo Nunse APRN - Last Filed: 01/13/22 02:45> Review of Systems Review of Systems: CONSTITUTIONAL: Denies fever, chills, or sweats. EYES: Denies visual changes, redness, or discharge. ENT: Denies rhinorrhea, congestion, sore throat, or otalgia. CARDIOVASCULAR: Denies chest pain, palpitations, or edema. RESPIRATORY: Denies cough or dyspnea. GASTROINTESTINAL: Denies abdominal pain. GENITOURINARY: Denies dysuria or hematuria. SKIN: Denies rash or itching. MUSCULOSKELETAL: Denies back pain, joint pain, or myalgia. NEUROLOGIC: Denies headache, numbness, dizziness, or weakness. PSYCHIATRIC: Denies anxiety or depression. <Bo uNnes APRN - Last Filed: 01/13/22 02:45> Exam Narrative: GENERAL: ill-appearing, well-nourished, and in no acute distress. HEAD: Normocephalic, atraumatic. EYES: PERRLA and EOMI. CHEST: Clear to auscultation. No respiratory distress. No wheezes rales or rhonchi HEART: Tachycardia and regular rhythm. No murmur heard. Normal peripheral pulses. ABDOMEN: Soft, nontender, distended, normal active bowel sounds, colostomy with appliance EXTREMITIES: Normal range of motion. No edema. SKIN: Warm, dry, no rash. NEURO: No focal deficits. Alert and oriented x3. PSYCH: Normal mood and affect. <Bo Nunes, CABLE WORKER HELPER - Last Filed: 01/13/22 02:45> Course CADD OPERATOR/PA Physician Supervision I reviewed the CADD OPERATOR's documentation and agree with the CADD OPERATOR's assessment and plan of care I had [id number] time with the patient my medical decision management Patient presented with a narrow complex tachycardia that was treated with adenosine in the field by EMS. Patient reports he is back to his baseline status. Patient was found to be slightly low on his magnesium <Sourav Marroquin MD - Last Filed: 01/13/22 04:41> Vital Signs Vital signs: Vital Signs Temperature 36.5 C 01/13/22 02:23 Pulse Rate 114 H 01/13/22 02:23 Respiratory Rate 20 01/13/22 02:23 Blood Pressure 94/63 L 01/13/22 02:23 Pulse Oximetry 96 01/13/22 02:23 Temperature 36.5 C 01/13/22 02:23 Pulse Rate 98 01/13/22 04:03 Respiratory Rate 18 01/13/22 04:03 Blood Pressure 91/65 L 01/13/22 04:03 Pulse Oximetry 100 01/13/22 04:03 <Bo Nunes APRN - Last Filed: 01/13/22 02:45> Vital Signs Temperature 36.5 C 01/13/22 02:23 Pulse Rate 114 H 01/13/22 02:23 Respiratory Rate 20 01/13/22 02:23 Blood Pressure 94/63 L 01/13/22 02:23 Pulse Oximetry 96 01/13/22 02:23 Temperature 36.5 C 01/13/22 02:23 Pulse Rate 98 01/13/22 04:03 Respiratory Rate 18 01/13/22 04:03 Blood Pressure 91/65 L 01/13/22 04
[2022-01-13 02:57] VITALS: BP 91/68; PULSE 107; RESP 18; O2SAT 97
[2022-01-13 02:58] LABS: Basophils Percent Auto 0.4 % (0.2-1.2); Eosinophils Percent Auto 0.6 % (0-4.4); Hematocrit 37.5 % (42.0-52.0); Hemoglobin 11.2 g/dL (14.0-18.0); Immature Granulocyte Absolute 0.03 K/mm3 (0.00-0.031); Immature Granulocyte Percent A 0.4 % (0-0.5); Lymphocytes Percent Auto 23.6 % (18.3-44.2); Mean Corpuscular HGB Conc 29.9 g/dl (32-36); Mean Corpuscular Hemoglobin 24.1 pg (26-34); Mean Corpuscular Volume 80.6 fl (80-100); Mean Platelet Volume 9.5 fl (7.4-10.4); Monocytes Absolute Auto 0.5 K/mm3 (0.1-0.6); Monocytes Percent Auto 7.4 % (2.6-8.5); Neutrophils Absolute Auto 4.6 K/mm3 (1.3-6.7); Neutrophils Percent Auto 67.6 % (45.5-73.1); Platelet Count Result 205 k/mm3 (150-375); Red Blood Count 4.65 M/mm3 (4.6-6.20); Red Cell Distribution Width 19.1 % (11.5-14.5); White Blood Count 6.8 K/mm3 (4.5-10.0)
[2022-01-13 03:08] LABS: Lactic Acid Reflex 1.9 mmol/L (0.7-2.0)
[2022-01-13 03:09] LABS: Alanine Aminotransferase 14 U/L (4-50); Albumin Level 2.3 g/dL (3.5-5.1); Alkaline Phosphatase 534 U/L (38-126); Anion Gap 9 mmol/L (8-16); Aspartate Amino Transferase 47 U/L (17-59); Bilirubin,Total 1.6 mg/dL (0.2-1.3); Blood Urea Nitrogen 11 mg/dL (9-20); Calcium 9.7 mg/dL (8.4-10.2); Carbon Dioxide 21 mmol/L (22-30); Chloride 100 mmol/L (98-107); Estimated CRCL calculation 111 ml/min; Estimated Glomerular Filt Rate > 60; Glucose 80 mg/dL (65-110); Potassium 3.4 mmol/L (3.4-5.0); Sodium 130 mmol/L (137-145)
[2022-01-13 03:12] LABS: Anisocytosis 2+ (NORMAL); Hypochromasia 1+ (NORMAL); Platelet Estimate Adequate (Adequate)
[2022-01-13 03:13] LABS: Ovalocytes 1+ (NORMAL)
[2022-01-13] MEDS: MORPHINE SULFATE (*CRX) 4 MG/ML INJ IV PUSH ×2 (03:18→06:01)
[2022-01-13 03:20] LABS: Troponin I < 0.012 ng/mL (0.000-0.034)
--- NOTE | 2022-01-13 03:49 | PC.NURSE ---
Pt to xray at this time. Pt upright and alert.
[2022-01-13 03:52] LABS: Magnesium 1.5 mg/dL (1.6-2.3)
--- NOTE | 2022-01-13 03:56 | PC.NURSE ---
Pt informed that we will need a urine sample from him. Pt refuses a catheter but is able to drink water and will try to give us a sample.
[2022-01-13 04:03] VITALS: BP 91/65; PULSE 98; RESP 18; O2SAT 100
[2022-01-13 04:10] LABS: Procalcitonin 0.5 ng/mL
[2022-01-13] MEDS: MAGNESIUM SULF 2 GM/WATER 50ML 2 GM/50 ML BAG IVPB (05:04)
[2022-01-13] MEDS: SODIUM CHLORIDE 0.9% IV 1,000 ML 999 ML IV CONT (05:20)
[2022-01-13 05:21] VITALS: BP 91/65; PULSE 91; RESP 19; O2SAT 95
--- NOTE | 2022-01-13 05:25 | PC.NURSE ---
called [facility] to request transport. RANDA trip #[id number]
--- NOTE | 2022-01-13 05:54 | PC.NURSE ---
[facility] here.
[2022-01-13 06:17] VITALS: BP 94/65; PULSE 89; RESP 14; O2SAT 94
== END 2022-01-13 06:21 | disposition home or self-care (01) ==
PROVIDERS: Nurse Practitioner Family; Emergency Provider Emergency Medicine; PCP Family Medicine
DX: I47.1 Supraventricular tachycardia (principal); E83.42 Hypomagnesemia; C64.9 Malignant neoplasm of unspecified kidney, except renal pelvis; Z85.528 Personal history of other malignant neoplasm of kidney; R94.31 Abnormal electrocardiogram [ECG] [EKG]; R91.8 Other nonspecific abnormal finding of lung field
CPT/HCPCS: 36415; 71045; 80053; 82308; 83605; 83735; 84145; 84484; 85025; 93005; 96361; 96365; 96375; 96376; 99284; J2270; J3475; J7030

== ENCOUNTER 2022-01-21 14:54 | Inpatient (IN) | payer SELFPAY ==
[2022-01-21] VITALS (54 sets, daily range): BP systolic 82–118; BP diastolic 46–89; PULSE 76–174; RESP 7–32; TEMP 36.2; O2SAT 87–100
--- NOTE | ~2022-01-21 | CT_ITS ---
EXAMINATION: CT chest abdomen pelvis w con DATE: 01/25/2022 08:57 CDT INDICATION: Septic shock. Acute anemia. TECHNIQUE: Computed tomography (CT) of the chest and abdomen was performed with 75 cc Omnipaque 300 i ntravenous contrast. The dose-length product was 1097.34 mGy-cm. Automated exposure control and iterative reconstruction technique were employed. COMPARISON: CT dated 01/21/2022 FINDINGS: CHEST CT: There are multiple pulmonary nodules/masses, consistent with metastatic disease. There are multiple a reas of groundglass opacification with more focal consolidation in the lower lobes, suspicious for iyer perimposed pneumonia. Moderate bilateral pleural effusions. Heart size normal. No thoracic lymphadeno nadia. There are are multiple lytic lesions including the right second rib, L3, T11 as well as the pe lvis, consistent with metastatic disease. ABDOMEN CT: Fatty infiltration of the liver. There are small amount of perihepatic fluid. There are gallstones. G allbladder is distended. There is a large complex encapsulated fluid collection surrounding the right kidney. There is a complex next solid and cystic mass containing amorphous calcifications within the right kidney, consistent with renal cell carcinoma with widespread metastatic disease. There are lef t adrenal nodules, possibly metastatic disease. There is nonobstructing left nephrolithiasis. There i s a left internal ureteral stent in expected position. There are are postoperative changes consistent with partial sigmoidectomy with left lower quadrant colostomy. Higgins catheter present. There is flui d and stranding in the mesentery. No bowel obstruction. There is persistent presacral thickening with some more perirectal edema. There is atherosclerosis. There are enlarged retroperitoneal lymph nodes , likely metastatic disease. There is diffuse subcutaneous edema, consistent with anasarca. Colonic diverticulosis without definite acute diverticulitis. There is a small amount of vascular gas in the right lower abdomen extending into the femoral vessels, of uncertain significance. No focal b owel thickening or pneumatosis is identified. IMPRESSION: 1. Extensive patchy bilateral groundglass opacity in both lungs, consistent with pneumonia. Moderate pleural effusions. 2: Complex right renal mass, consistent with renal cell carcinoma with metastatic disease to the lung s, bones, abdominal lymph nodes and left adrenal gland. 3: Cholelithiasis with gallbladder distention. 4: Postoperative change consistent with partial sigmoidectomy with left lower quadrant end colostomy. 5: Focal vascular gas right lower abdomen extending into the pelvis, nonspecific. No secondary findin gs of abnormal bowel is identified. No portal venous gas. If there is concern for bowel ischemia, rec ommend surgical consultation. Reviewed, dictated and finalized at location D. IMPRESSION: 1. Extensive patchy bilateral groundglass opacity in both lungs, consistent wit h pneumonia. Moderate pleural effusions. 2: Complex right renal mass, consistent with renal cell carcinoma with metastat ic disease to the lungs, bones, abdominal lymph nodes and left adrenal gland. 3: Cholelithiasis with gallbladder distention. 4: Postoperative change consistent with partial sigmoidectomy with left lower q uadrant end colostomy. 5: Focal vascular gas right lower abdomen extending into the pelvis, nonspecifi c. No secondary findings of abnormal bowel is identified. No portal venous gas. If there is concern for bowel ischemia, recommend surgical consultation.
--- NOTE | ~2022-01-21 | CT_ITS ---
EXAMINATION: CT abdomen pelvis wo con DATE: 01/21/2022 17:53 INDICATION: hypotension, ostomy, failur to thrive diffuse pain TECHNIQUE: Computed tomography (CT) of the abdomen and pelvis was performed without intravenous contr ast. Automated exposure control and iterative reconstruction technique were employed. The dose-length product was 1025.64 mGy-cm. COMPARISON: 11/02/2021 FINDINGS: Lower thorax: Worsening pulmonary metastases. Liver: Steatosis and hepatomegaly. Biliary/Gallbladder: Gallbladder enlargement. Cholelithiasis. No bile duct dilation. Pancreas: Fatty atrophy. No mass or duct dilation. Spleen: Splenic enlargement. Adrenals:Thickening, likely hyperplasia. Stable left adrenal nodule. Kidneys: 10 mm x 5 mm left UPJ stone with mild to moderate pelvic caliectasis. Moderate perinephric s tranding on the left. Interval enlargement of the complex cystic and solid calcified right renal mass up to 19.3 cm. GI tract: No bowel dilation or wall thickening. Left lower quadrant colostomy. Decreased presacral th ickening with similar perirectal edema. Normal appendix. Mesentery/Peritoneum: No ascites, mass, or free air. Retroperitoneum: No mass. Pelvis: Pelvic organs are within normal limits. Soft Tissues: Soft tissues and body wall unremarkable. Bones: No acute osseous finding. Stable moderate T11 compression deformity. Worsening lytic lesions in the pelvis. IMPRESSION: 10 x 5 mm left UPJ stone causing moderate obstructive uropathy. Right renal carcinoma, with worsening pulmonary/osseous metastatic disease. Lytic pelvic lesions place this patient at risk for pathologic fracture, although none are seen at this time. Reviewed, dictated and finalized at location K. IMPRESSION: 10 x 5 mm left UPJ stone causing moderate obstructive uropathy. Right renal car cinoma, with worsening pulmonary/osseous metastatic disease. Lytic pelvic lesio ns place this patient at risk for pathologic fracture, although none are seen a t this time.
--- NOTE | ~2022-01-21 | XR_ITS ---
EXAMINATION: XR retrograde pyelo w/stent LT DATE: 01/21/2022 23:04 INDICATION: Left internal ureteral stent placement TECHNIQUE: Fluoroscopic images from a left internal ureteral stent placement are submitted for review . 17 seconds of fluoroscopy time. FINDINGS: There is a left double-J internal ureteral stent projecting in expected position, with proximal [place] loop at the level of the renal pelvis and distal loop is not visualized. IMPRESSION: 1. Left internal ureteral stent placement. Please refer to real-time procedural findings for detail s. Reviewed, dictated and finalized at location A. IMPRESSION: 1. Left internal ureteral stent placement. Please refer to real-time procedur al findings for details.
--- NOTE | ~2022-01-21 | XR_ITS ---
EXAMINATION: XR chest 1V portable DATE: 01/24/2022 05:54 INDICATION: Severe sepsis TECHNIQUE: frontal view of the chest was obtained. COMPARISON: Chest radiograph dated 01/13/[address] dated 01/21/2022 FINDINGS: Small bilateral pleural effusions. Patchy airspace opacities in bilateral lower lung zones which coul d represent associated atelectasis or pneumonia. There are also few scattered nodular opacities suspi cious for metastatic disease. Peripheral opacity at the lateral left midlung zone new since prior rad iographs and with less dense groundglass appearance on the intervening CT. No pneumothorax. The cardi omediastinal silhouette is normal. IMPRESSION: 1. Small bilateral pleural effusions with associated atelectasis and/or pneumonia in the bilateral lo wer lung zones. 2. Additional new peripheral airspace opacity in the lateral left midlung zone which given CT appeara nce and relatively rapid progression would favor pneumonia including COVID pneumonia or pulmonary inf arct. 3. Pulmonary nodules consistent with metastatic disease. Reviewed, dictated and finalized at location A. IMPRESSION: 1. Small bilateral pleural effusions with associated atelectasis and/or pneumon ia in the bilateral lower lung zones. 2. Additional new peripheral airspace opacity in the lateral left midlung zone which given CT appearance and relatively rapid progression would favor pneumoni a including COVID pneumonia or pulmonary infarct. 3. Pulmonary nodules consistent with metastatic disease.
[2022-01-21] MEDS: SODIUM CHLORIDE 0.9% IV 1,000 ML 999 ML IV CONT ×3 (16:20→20:54)
[2022-01-21 17:23] LABS: Basophils Percent Auto 0.2 % (0.2-1.2); Eosinophils Percent Auto 0.2 % (0-4.4); Hemoglobin 10.5 g/dL (14.0-18.0); Immature Granulocyte Absolute 0.07 K/mm3 (0.00-0.031); Immature Granulocyte Percent A 1.1 % (0-0.5); Lymphocytes Absolute Auto 0.51 K/mm3 (0.9-3.2); Lymphocytes Percent Auto 7.7 % (18.3-44.2); Mean Corpuscular Hemoglobin 23.4 pg (26-34); Mean Corpuscular Volume 78.1 fl (80-100); Mean Platelet Volume 9.3 fl (7.4-10.4); Monocytes Absolute Auto 0.2 K/mm3 (0.1-0.6); Monocytes Percent Auto 3.6 % (2.6-8.5); Neutrophils Absolute Auto 5.8 K/mm3 (1.3-6.7); Neutrophils Percent Auto 87.2 % (45.5-73.1); Platelet Count Result 121 k/mm3 (150-375); Red Blood Count 4.48 M/mm3 (4.6-6.20); Red Cell Distribution Width 19.9 % (11.5-14.5); White Blood Count 6.6 K/mm3 (4.5-10.0)
[2022-01-21 17:32] LABS: Alanine Aminotransferase 18 U/L (6-50); Alkaline Phosphatase 638 U/L (38-126); Anion Gap 4 mmol/L (8-16); Aspartate Amino Transferase 46 U/L (17-59); Bilirubin,Total 2.7 mg/dL (0.2-1.3); Blood Urea Nitrogen 30 mg/dL (9-20); Calcium 9.9 mg/dL (8.4-10.2); Carbon Dioxide 27 mmol/L (22-30); Chloride 99 mmol/L (98-107); Estimated Glomerular Filt Rate 27; Glucose 86 mg/dL (65-110); Potassium 4.3 mmol/L (3.4-5.0); Sodium 130 mmol/L (137-145)
[2022-01-21 17:33] LABS: Lactic Acid Reflex 2.5 mmol/L (0.7-2.0)
--- NOTE | 2022-01-21 17:35 | PC.NURSE ---
Pt refused to be straight cath, not able to urinate at this time.
--- NOTE | 2022-01-21 17:41 | PC.NURSE ---
called lab and spoke to Sherrie torres on a MG at [id number]
[2022-01-21 17:54] LABS: Magnesium 2.4 mg/dL (1.6-2.3)
[2022-01-21] MEDS: MORPHINE SULFATE (*CRX) 4 MG/ML INJ IV PUSH ×2 (18:45→19:49)
--- NOTE | 2022-01-21 18:53 | ED.WEAKNESS ---
HPI - Weakness General Chief complaint: Weakness Stated complaint: weakness, abnormal vitals Time Seen by Provider: 01/21/22 15:35 Source: patient History of Present Illness HPI Narrative: Patient brought in from home as he is not doing well . Patient had a recent hospitalization and perforation due to diverticulitis. He has a known metastatic renal cell carcinoma. Has been most recently at a rehab facility and was discharged yesterday over the past 24-hour family reports he has not been doing well. They report he has been complaining of pain particularly on his left side he also ports he is decreased his p.o. intake. He seems to be in some mild distress due to pain so he came to the ER for further evaluation. Related Data Home Medications Medication Instructions Recorded Confirmed bisacodyl 10 mg rectal suppository 10 mg RECTAL DAILY PRN 12/04/21 12/05/21 magnesium citrate 150 ml PO ONCE 12/04/21 12/05/21 magnesium hydroxide 400 mg/5 mL 5 ml PO DAILY PRN 12/04/21 12/05/21 oral suspension sodium phosphates 19 gram-7 118 ml RECTAL ONCE 12/04/21 12/05/21 gram/118 mL enema Allergies Allergy/AdvReac Type Severity Reaction Status Date / Time No Known Allergies Allergy Verified 01/21/22 15:27 Review of Systems Review of Systems: ROS unobtainable: Yes other (Patient moans in response to questions) PMFSH Past Medical History Medical History Anxiety BMI 30.0-30.9,adult Diabetes Erectile dysfunction Hypertension 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 Mother No problems noted. Sibling No problems noted. 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 EYES: PERRLA and EOMI. ENT: Nares clear, no rhinorrhea or epistaxis. Mucous membranes moist. NECK: Supple. No masses. No JVD CHEST: Clear to auscultation. No respiratory distress. No wheezes rales or rhonchi HEART: Regular tachycardia. No murmur heard. Normal peripheral pulses. ABDOMEN: Moans with diffuse palpation of the abdomen soft, nondistended. Ostomy in place wound site. VAC EXTREMITIES: Normal range of motion. No edema. SKIN: Warm, dry, no rash. NEURO: No focal deficits. Alert and oriented Course Reevaluation(s) Reevaluation #1: Case cussed with hospitalist team as well as urology. Patient will be admitted for stent reassessment of his kidney for dysfunction. Results and plan reviewed with patient and family patient family are comfortable inpatient plan. Date: 01/21/22 Time: 19:46 Vital Signs Vital signs: Vital Signs Temperature 36.2 C L 01/21/22 15:05 Pulse Rate 115 H 01/21/22 15:05 Respiratory Rate 14 01/21/22 15:05 Blood Pressure 115/81 01/21/22 15:05 Pulse Oximetry 95 01/21/22 15:05 Temperature 36.2 C L 01/21/22 15:05 Pulse Rate 107 H 01/21/22 19:48 Respiratory Rate 14 01/21/22 19:48 Blood Pressure 101/54 L 01/21/22 1
--- NOTE | 2022-01-21 19:33 | PC.NURSE ---
Assumed care of pt at this time. Pt alert and upright on stretcher, family at bedside.
[2022-01-21] MEDS: LIDOCAINE HCL 2% GEL UROJET 10 ML PKG (19:49)
[2022-01-21 20:20] LABS: Appearance Urine Cloudy (Clear); Bilirubin Urine 2+ (Negative); Blood Urine 3+ (Negative); Glucose Urine UA Negative (Negative); Ketones Urine Trace mg/dL (Negative); Leukocyte Esterase Ur 3+ LEU/UL (Negative); Nitrate Urine Negative (Negative); Protein Urine 3+ mg/dL (Negative); Urobilinogen Urine 0.2 mg/dL (<2.0); pH Urine 8.5 (5.0-9.0)
[2022-01-21 20:20] LABS: Reflex Lactic Acid Yes or No Add Lactic
--- NOTE | 2022-01-21 20:21 | PM.IMHP ---
H&P: HPI History of Present Illness Date/Time: 01/21/22 20:21 Chief Complaint: ?not feeling well? Narrative: 57-year-old male with past medical history of hypertension, diabetes, BPH, 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 The patient had been complaining of left side pain and had decreased oral intake. Source of information is past medical records in the patient's son's report. The patient himself is somnolent and not following commands after receiving pain medications in the ER. The patient's son reports the patient was discharged from senior living facility on the because he insurance company quit paying for his stay 1 month ago and they could not afford the care anymore. He has taken his father home and as per been providing 1 on 1 care. He reports that for the 1st few days his father was doing well and is tolerating Ensure and mostly liquid nutrition. However on the he had decreased oral intake and on the he had no oral intake. He had no urine output on the and had only 1 void on the 15. He did not think that his father had a fever. He reports that his father had been complaining of pain in his buttocks. He does still have an open wound in his lower abdomen from his prior surgery. His son reports he has been changing the dressing once a day sometimes twice a day. He has not noticed any significant increase in drainage from the wound. The patient's ostomy output has remained stable. He reports that his father is been reporting some pain in his lower abdomen but he felt that it was due to his wound. He has not noticed his father having any respiratory symptoms. His father is been pretty much bed-bound since he returned home. Patient has been afebrile since arrival to the ER. The patient was initially admitted to the medical floor but before he could leave the ER the patient became hypotensive. I have ordered as an additional L of IV fluids and started antibiotic therapy with Rocephin. Urology has been contacted to update them on the patient's change in condition and the patient is going to be taken directly to the OR for cystoscopy and stent placement. The patient's blood pressure did improve after another L fluid bolus in the patient's fluids were increased to 250 mL an hour preoperatively. With the fluid bolus patient's heart rate had improved down to the low 90s. His blood pressure improved to 100 systolic. Review of Systems Review of Systems: 12 systems were reviewed with pertinent positives and negatives per HPI. Except as documented in the HPI, all other systems were reviewed and are negative. [facility] Past Medical History Medical History (Updated 01/21/22 @ 23:50 by Paige Becerril DO) Anxiety BMI 33.0-33.9,adult Bowel perforation (~10/23/21) Diabetes Erectile dysfunction Hypertension Metastatic renal cell carcinoma to brain (~08/20/21) With additional Mets to the lung, adrenal, retroperitoneal and bone Perforation of sigmoid colon due to diverticulitis (10/20/21) Surgical History Surgical History Colostomy in place colostomy revision 10/20/2021 H/O exploratory laparotomy exploratory laparotomy; Hartmans' procedure, mobilization of splenic flexure, extensive intraabdominal washout 10/19/2021 History of tonsillectomy and adenoidectomy Family History Family History Father No problems noted. Mother No problems noted. Sibling No problems noted. Other Hypertension Social History Social History (Updated 01/21/22 @ 23:52 by Paige Becerril DO) Social History: Patient was independent in activities of daily living until his prolonge
[2022-01-21 20:26] LABS: Mucus Urine Rare /lpf; RBC Urine >75 /hpf (0-2); WBC Urine >75 /hpf
[2022-01-21 20:28] LABS: Add Urine Microscopic? YES; Color Urine Dark Yellow (Yellow)
--- NOTE | 2022-01-21 20:36 | PC.NURSE ---
per dr zavala - 1lns bolus
[2022-01-21 21:04] LABS: Lactic Acid 2.2 mmol/L (0.7-2.0)
[2022-01-21 21:07] LABS: INR 1.5; Prothrombin Time 17.4 Seconds (11.1-14.7)
[2022-01-21 21:08] LABS: Partial Thromboplastin Time 39.6 SECONDS (22.3-36.8)
--- NOTE | 2022-01-21 21:14 | PC.NURSE ---
Dr. Becerril at bedside.
--- NOTE | 2022-01-21 21:35 | WPDANESEPP ---
Anes - Eval Pre Procedure Procedure: Cystoureteroscopy with stent placement Date/Time: 01/21/22 21:35 Surgeon: Bridget Preop Diagnosis: Left UPJ stone Pre Op Diagnosis: Ureteral Stone Patient Data Age: 57 Gender: M Height: 1.83 m Weight: Last Vital Signs Temp 97.2 F L 01/21/22 15:05 Pulse 103 H 01/21/22 21:15 Resp 13 01/21/22 21:15 BP 102/71 01/21/22 21:15 Pulse Ox 100 01/21/22 21:15 Allergies Allergy/AdvReac Type Severity Reaction Status Date / Time No Known Allergies Allergy Verified 01/21/22 15:27 Home Medications Medication Instructions Recorded Confirmed Type prednisone 5 mg PO DAILY #70 tablet 11/20/21 12/05/21 Rx tolnaftate 1 applic TOPICAL Q12HR 14 Days #0 g 11/20/21 12/05/21 Rx zolpidem 5 mg PO HS PRN #15 tablet 11/20/21 12/05/21 Rx bisacodyl 10 mg rectal suppository 10 mg RECTAL DAILY PRN 12/04/21 12/05/21 History magnesium citrate 150 ml PO ONCE 12/04/21 12/05/21 History magnesium hydroxide 400 mg/5 mL 5 ml PO DAILY PRN 12/04/21 12/05/21 History oral suspension sodium phosphates 19 gram-7 118 ml RECTAL ONCE 12/04/21 12/05/21 History gram/118 mL enema oxycodone 5 mg tablet 10 mg PO Q4H PRN #150 tablet 01/11/22 Rx alprazolam 0.5 mg tablet 0.5 mg PO Q8H PRN #60 tablet 01/17/22 Rx calcium alginate 4 X 4 bandage #50 ea 01/17/22 Rx collagen (bovine) 100 % topical 1 applic TOPICAL DAILY #10 g 01/17/22 Rx powder fentanyl 25 mcg/hr transdermal 1 patch TRANSDERMAL Q72H #10 ea 01/17/22 Rx patch levetiracetam 500 mg tablet 500 mg PO BID #60 tablet 01/17/22 Rx pantoprazole 40 mg tablet,delayed 40 mg PO QAM #30 tablet 01/17/22 Rx release silver sulfadiazine 1 % topical 1 applic TOPICAL DAILY #400 g 01/17/22 Rx cream simethicone 125 mg chewable tablet 125 mg PO QID PRN #60 tablet 01/17/22 Rx tamsulosin 0.4 mg capsule 0.4 mg PO DAILY #30 cap 01/17/22 Rx Laboratory Tests 01/21/22 01/21/22 01/21/22 17:15 17:15 17:15 WBC 6.6 K/mm3 K/mm3 (4.5-10.0) RBC 4.48 M/mm3 L M/mm3 (4.6-6.20) Hgb 10.5 g/dL L g/dL (14.0-18.0) Hct 35.0 % L % (42.0-52.0) MCV 78.1 fl L fl (80-100) MCH 23.4 pg L pg (26-34) MCHC 30.0 g/dl L g/dl (32-36) RDW 19.9 % H % (11.5-14.5) Plt Count 121 k/mm3 L k/mm3 (150-375) MPV 9.3 fl fl (7.4-10.4) Immature Gran % (Auto) 1.1 % H % (0-0.5) Neut % (Auto) 87.2 % H % (45.5-73.1) Lymph % (Auto) 7.7 % L % (18.3-44.2) [place] % (Auto) 3.6 % % (2.6-8.5) Eos % (Auto) 0.2 % % (0-4.4) Baso % (Auto) 0.2 % % (0.2-1.2) Lymph # (Auto) 0.51 K/mm3 L K/mm3 (0.9-3.2) [place] # (Auto) 0.2 K/mm3 K/mm3 (0.1-0.6) Eos # (Auto) 0.0 K/mm3 K/mm3 (0-0.3) Baso # (Auto) 0.0 K/mm3 K/mm3 (0.0-0.1) Abs Immat Gran (auto) 0.07 K/mm3 H K/mm3 (0.00-0.031) Absolute Neuts (auto) 5.8 K/mm3 K/mm3 (1.3-6.7) Absolute Nucleated RBC 0.0 K/mm3 K/mm3 (0.0-0.012) Nucleated RBC % 0.0 % % (0.0-0.2) PT INR APTT Sodium 130 mmol/L L mmol/L (137-145) Potassium 4.3 mmol/L mmol/L (3.4-5.0) Chloride 99 mmol/L mmol/L (98-107) Carbon Dioxide 27 mmol/L mmol/L (22-30) Anion Gap 4 mmol/L L mmol/L (8-16) BUN 30 mg/dL H D mg/dL (9-20) Creatinine 2.50 mg/dL H mg/dL (0.7-1.3) Estim Creat Clear Calc Not Reportable Estimated GFR 27 L (59 - ) Glucose 86 mg/dL mg/dL (65-110) Lactic Acid 2.5 mmol/L H mmol/L (0.7-2.0) Calcium 9.9 mg/dL mg/dL (8.4-10.2) Magnesium Total Bilirubin 2.7 mg/dL H mg/dL (0.2-1.3) AST 46 U/L U/L (17-59) ALT 18 U/L U/L (6-50) Alkaline Phosphatase 638 U/L H U/L (38-126) Total Protein
[2022-01-21] MEDS: SODIUM CHLORIDE 0.9% IV 1,000 ML 250 ML IV CONT (21:41)
--- NOTE | 2022-01-21 22:12 | PC.NURSE ---
Report given to Radha VOGT in OR
--- NOTE | 2022-01-21 22:25 | WPDURCON ---
Assessment and Plan Assessment and plan (1) EDSON (acute kidney injury): Code(s): N17.9 - Acute kidney failure, unspecified Status: Acute (2) Hydronephrosis with urinary obstruction due to renal calculus: Code(s): N13.2 - Hydronephrosis with renal and ureteral calculous obstruction Status: Acute Assessment and Plan: 57M with met RCC with obstructive 1 cm left UPJ stone and suspected pyelonephritis - long discussion with son about goals of care and obstructive pyelo; one option certainly is to let this process play out given his overall clinical picture. his son says that yesterday he was enjoying tv, playing games on his phone, and having a reasonable quality of life. he would like to pursue treatment. discussed stent placement with delayed stone treatment; how it is performed, treatment of infection, etc. all questions answered and they elect to proceed with left stent placement - broad spectrum abx until cultures finalize Bridget REICH (3) UTI (urinary tract infection): Qualifiers: Urinary tract infection type: acute pyelonephritis Qualified Code(s): N10 - Acute pyelonephritis Code(s): N39.0 - Urinary tract infection, site not specified Status: Acute (4) Severe sepsis: Code(s): A41.9 - Sepsis, unspecified organism; R65.20 - Severe sepsis without septic shock Status: Acute Urology Consult Note HPI Date Seen: 01/21/22 Requesting Physician: Alexandr Gill MD Primary Care Provider: Ottoniel Cline MD Consult Narrative Narrative: Jeffry Shaffer is a 57 year old male with metastatic RCC of the right kidney and recent perforated diverticulitis s/p ostomy. His son brought him to ED today due to sudden increase in lethargy and rapid worsening of his cognition. Passed a stone a few years ago, unsure what phenotype. CT: 10 mm proximal left ureteral stone with mild hydro and stranding Creat up from 0.7 to 2.5 WBC 6 UA with RBCs,WBCs, LE Condition worsening in the ED with tachycardia and hypotension despite multiple fluid boluses; decision was made to stent emergently due to suspected obstructive pyelonephritis. Review of Systems Review of Systems: ROS unobtainable: Yes unobtainable due to medical condition PMFSH Past Medical History Medical History EDSON (acute kidney injury) Anxiety BMI 30.0-30.9,adult BMI 33.0-33.9,adult Bowel perforation (~10/23/21) Diabetes Erectile dysfunction Hydronephrosis with urinary obstruction due to renal calculus Hypertension Metastatic renal cell carcinoma to brain (~08/20/21) With additional Mets to the lung, adrenal, retroperitoneal and bone Perforation of sigmoid colon due to diverticulitis (10/20/21) Septic shock Severe sepsis Tachycardia UTI (urinary tract infection) Surgical History Surgical History Colostomy in place colostomy revision 10/20/2021 H/O exploratory laparotomy exploratory laparotomy; Hartmans' procedure, mobilization of splenic flexure, extensive intraabdominal washout 10/19/2021 History of tonsillectomy and adenoidectomy Family History Family History Father No problems noted. Mother No problems noted. Sibling No problems noted. 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
--- NOTE | 2022-01-21 23:10 | W.PM.PROC2 ---
Procedure Note - Detailed Date of Procedure 01/21/22 Pre-op Diagnosis Ureteral Stone Post-op Diagnosis Same Procedure Performed cystoscopy, left retrograde pyelogram, left ureteral stent placement, castillo catheter placement Surgeon Alexandr Gill MD Anesthesia General Indications left obstructive pyelonephritis Findings pus poured out of kidney upon stent placement stone was radio opaque stent in appropriate position fluoro showed mild hydro, visible stone, good proximal curl of JJ stent Description of Procedure patient was brought back to the OR. he was prepped, draped, padded per protocol. had previously received ceftriaxone. castillo was removed. bladder was entered with rigid cystoscope. urethra unremarkable, prostate minimally obstructive. bladder obviously infected, no obvious masses. left uo identified and a guidewire was advanced. stone was seen at the left upj. open ended ureteral catheter advanced over the wire to the mid ureter. retrograde pyelogram was performed outlining anatomy. wire advanced up into kidney. once stone was dislodged, pus poured out of kidney. over the wire a 6F variable length stent was advanced under fluoroscopic guidance. good curl noticed in bladder. scope removed and castillo placed. patient was sent to recovery. Urine Output 100
[2022-01-21] MEDS: LACTATED RINGERS 1,000 ML 30 ML IV CONT (23:23)
--- NOTE | 2022-01-21 23:51 | WPDANESEFPP ---
Anes - Eval Final PreProcedure Day of Procedure 01/21/22 23:51 ASA classification: V Emergent: yes Anesthetic plan: proceed Anesthesia type and monitoring: general ETT and standard monitoring Other findings: exam per TRIP Results Review: All pre-operative results and documents have been reviewed as part of the pre-operative evaluation. Informed Consent: The patient's anesthetic plan and its attendant risks and benefits were discussed with the patient/family/POA. Questions were solicited and answers provided to the satisfaction of the patient/family/POA.
[2022-01-22] VITALS (24 sets, daily range): BP systolic 77–134; BP diastolic 52–108; PULSE 89–125; RESP 11–23; TEMP 35.8–36.9; O2SAT 92–100; BMI 25.9
[2022-01-22] MEDS: LACTATED RINGERS 1,000 ML 30 ML IV CONT (00:01)
[2022-01-22 00:21] LABS: Glucose Point of Care 109 mg/dl (65-105)
--- NOTE | 2022-01-22 00:30 | PC.NURSE ---
This patient, Jeffry Shaffer, was admitted to Intensive Care Unit-10. Patient/family oriented to hospital policies and general routines including ID bracelet, bed and alarms, visiting hours, pain management, procedures, bathroom and other care routines, personal items, smoking policy, room service/diet, and visiting hours. Information on how to activate the Rapid Response Team has been discussed. Patient/Family are encouraged to report perceived risks to care and to ask questions if they do not understand what they are told or what they should do.
--- NOTE | 2022-01-22 00:31 | P.PNCROSS_ITS ---
Event Note Event Note Event Note: 01/22/2022 at 12:17 a.m. The patient returned from cystoscopy with stent placement. Intraoperatively, the patient's bladder was noted to be obviously infected stone was noted at the left UPJ, are once the stone was removed patient had +4 out of the kidney the patient had multiple facet hypotension and received total of 500 mcg of phenylephrine. In postoperative cover the patient's heart rate spiked to the 170s. The patient received a dose of esmolol and adenosine. Patient became more hypotensive after that point. He did receive another 1 L bolus. The patient has at least 6 L in bolus total between the ER in OR. Patient's heart rate did improve down to the 80s to 110s. Immediately upon arrival to the ICU the patient's blood pressures were low normal. After have been in the ICU for hot 2 hours patient again became hypotensive with systolic blood pressures in t he 70s. Subsequently a right femoral central line was placed. Levophed has been ordered. The patient's ABG was reviewed and was within normal limits. GENERAL: Acutely ill-appearing, appears older than stated age HEENT: Mucous membranes dry, pupils are equal and reactive, head is normocephalic atraumatic CARDIOVASCULAR: Sinus tachycardia, 2+ bilateral radial and pedal pulses RESPIRATORY: Mild tachypnea, no increased work breathing, BiPAP in place ABDOMEN: Abdominal wound as described previously, abdomen remains soft, positive bowel sounds INTEGUMENT: Generalized pallor, cool to touch, 2nd cap refill, reduced mottling NEUROLOGIC: Moaning 2 physical stimuli, reaching for instruments, not following commands PSYCHIATRIC: Confused, restless EXTREMITIES: New pitting edema to upper thighs and buttocks, no cyanosis : Higgins catheter in place with purulent red tinged urine 1. Septic shock due left obstructive pyelonephritis--patient is in started on antibiotic therapy with Rocephin. Blood cultures and urine cultures pending. Patient had refractory hypotension despite more than adequate IV fluid resuscitation. Patient was starting to demonstrate evidence of dependent edema and pressures were no longer responsive to fluid therapy. Subsequently right femoral central line has been placed and patient been placed on Levophed. Will decrease IV fluids from 200 mL an hour did back down to 125 an hour. Repeat CBC, CMP, coag panel and lactic acid have been ordered. 2. stress ulcer prophylaxis-Protonix IV daily 3. Seizures due to brain metastases--the patient's oral Keppra has been placed on hold while NPO. Will give IV Keppra 500 mg b.i.d.. 40 minute spent in critical care activities in exclusion of procedures. Due to a high probability of clinically significant, life threatening deterioration, the patient required my highest level of preparedness to intervene emergently and I personally spent this critical care time directly and personally managing the patient. This critical care time included obtaining a history; examining the patient; pulse oximetry; ordering and review of studies; arranging urgent treatment with development of a management plan; evaluation of patient's response to treatment; frequent reassessment; and discussions with other providers. It was exclusive of separately billable procedures and treating other patients and teaching time. Please see Assessment and Plan section and the rest of the note for further information on patient assessment and treatment.
[2022-01-22 01:10] LABS: Alveolar/Arterial O2 Gradient 255.6 mmHg; Base Excess ABG -0.5 mEq/l (+/-2.0); Carboxyhemoglobin 0.3 % THb (0-2.0); Fractional Inspired Oxygen 55 %; HCO3 ABG 24.1 mEq/l (22.0-26.0); Methemoglobin ABG 0.2 %THb (0-1.5); Oxygen Content ABG 14.4 %vol (16.0-22.0); Oxygen Saturation ABG 97.1 % (95.0-100.0); Oxyhemoglobin 95.6 % THb (90.0-100.0); PCO2 ABG 39.4 mmHg (35.0-45.0); PO2 ABG 92.7 mmHg (80.0-100.0); PO2 FiO2 Ratio Arterial Blood 1.69 %; Reduced Hemoglobin 3.9 %THb (0-5.0); Total Hemoglobin 10.6 g/dL (12.0-18.0); pH ABG 7.405 (7.350-7.450)
[2022-01-22 01:11] LABS: Device NON-INVASIVE VENT; Modified Allen's Test Pass; Non-Invasive Expiratory Pressure 6 CMH2O; Non-Invasive Inspiratory Pressure 12 CMH2O; Non-Invasive Vent Rate 14 /MIN; Site Drawn RIGHT RADIAL
--- NOTE | 2022-01-22 02:48 | WPDPROCEDUR ---
Procedures Central Line Placement Right Femoral: Central Line Date: 01/22/22 Central Line Time: 02:15 Discussed w/ the patient/family/POA,the placement of a central venous catheter, including its clinical necessity/indication & associated potential risks, benifits and alternatives.: Yes The patient/family/POA understand(s) and acknowledge(s) the need to proceed with central venous catheter insertion as an important element of the patient's clinical management.: Yes Time Out Performed: Yes Patient Position: trendelenburg Patient placed on monitor/pulse ox: Yes Provider Prep: mask, sterile gown, sterile gloves, Max. sterile barrier precautions, cap and hand hygiene with conventional soap/water or alcohol based hand rub Central line prep: 2% Chlorhexidine scrub and sterile full body sheet applied Local anesthesia used: lidocaine 1% Amount of anesthesia used (ml): 5 Sterile US Technique with sterile gel/sterile probe covers: Yes Central line lumen inserted: triple Micronesian: 7 Length (cm): 16 Depth of Insertion (cm): 15 Post Procedure: sutured in place, good blood return, all ports aspirated, flushed, capped, transparent dressing, securement product and aseptic technique maintained throughout procedure Patient tolerated procedure: well Complications: none
--- NOTE | 2022-01-22 02:55 | PC.NURSE ---
0205 Dr. Becerril informed of Bp 77/52. Orders received to increase iv fluids to 200ml/hr and resume [place] [facility] [place]
--- NOTE | 2022-01-22 02:56 | PC.NURSE ---
0219 Dr. Becerril at bedside for central line insertion
--- NOTE | 2022-01-22 02:57 | PC.NURSE ---
0250 Neosynephrine discontinued as ordered and levophed started at 5mcgs/min
[2022-01-22] MEDS: SODIUM CHLORIDE 0.9% IV 1,000 ML 125 ML IV CONT ×3 (03:06→18:22)
[2022-01-22] MEDS: NOREPINEPHRINE 8 MG/D5W 250 ML 8 MG/250 ML BAG 9.38 MG IV CONT (03:07)
[2022-01-22 05:14] LABS: Basophils Percent Auto 0.1 % (0.2-1.2); Eosinophils Percent Auto 0.1 % (0-4.4); Hematocrit 29.3 % (42.0-52.0); Hemoglobin 9.1 g/dL (14.0-18.0); Immature Granulocyte Absolute 0.03 K/mm3 (0.00-0.031); Immature Granulocyte Percent A 0.3 % (0-0.5); Lymphocytes Percent Auto 4.8 % (18.3-44.2); Mean Corpuscular HGB Conc 31.1 g/dl (32-36); Mean Corpuscular Hemoglobin 23.6 pg (26-34); Mean Corpuscular Volume 76.1 fl (80-100); Mean Platelet Volume 9.6 fl (7.4-10.4); Monocytes Absolute Auto 0.3 K/mm3 (0.1-0.6); Monocytes Percent Auto 2.4 % (2.6-8.5); Neutrophils Absolute Auto 9.5 K/mm3 (1.3-6.7); Neutrophils Percent Auto 92.3 % (45.5-73.1); Platelet Count Result 127 k/mm3 (150-375); Red Blood Count 3.85 M/mm3 (4.6-6.20); Red Cell Distribution Width 19.8 % (11.5-14.5); White Blood Count 10.3 K/mm3 (4.5-10.0)
[2022-01-22 05:23] LABS: Lactic Acid Reflex 2.8 mmol/L (0.7-2.0)
[2022-01-22 05:24] LABS: Alanine Aminotransferase 18 U/L (6-50); Albumin Level 1.8 g/dL (3.5-5.1); Alkaline Phosphatase 536 U/L (38-126); Anion Gap 6 mmol/L (8-16); Aspartate Amino Transferase 46 U/L (17-59); Bilirubin,Total 2.5 mg/dL (0.2-1.3); Blood Urea Nitrogen 28 mg/dL (9-20); Calcium 9.4 mg/dL (8.4-10.2); Carbon Dioxide 23 mmol/L (22-30); Chloride 104 mmol/L (98-107); Estimated CRCL calculation 37 ml/min; Estimated Glomerular Filt Rate 31; Glucose 85 mg/dL (65-110); INR 1.5; Potassium 3.7 mmol/L (3.4-5.0); Prothrombin Time 17.5 Seconds (11.1-14.7); Sodium 133 mmol/L (137-145)
[2022-01-22 05:25] LABS: Fibrinogen 254 mg/dl (215-510); Partial Thromboplastin Time 40.7 SECONDS (22.3-36.8)
[2022-01-22] MEDS: CENTRAL LINE FLUSH 10 ML IV PUSH ×4 (05:48→21:48)
[2022-01-22] MEDS: levETIRAcetam 500MG/NACL 100ML 500 MG/100 ML BAG 400 MG IVPB ×2 (08:43→20:32)
[2022-01-22] MEDS: PANTOPRAZOLE SODIUM IV 40 MG VIAL IV PUSH (08:44)
[2022-01-22] MEDS: SILVER SULFADIAZINE 1% CR 400 GM JAR (*BKC) 1 APPLIC TOPICAL (08:44)
--- NOTE | 2022-01-22 09:56 | WPDCNINT ---
Assessment and Plan Assessment and plan (1) Septic shock: Code(s): A41.9 - Sepsis, unspecified organism; R65.21 - Severe sepsis with septic shock Status: Acute Assessment and Plan: Septic shock likely related to pyelonephritis, left ureteral stone -since will switch ceftriaxone to imipenem and vancomycin (01/22) since patient is critically ill -cultures have been obtained and pending -has received adequate amount of IV fluids (approximately 6 L in all this admission) -continue maintenance IV fluids and monitor urine output (2) Hydronephrosis with urinary obstruction due to renal calculus: Code(s): N13.2 - Hydronephrosis with renal and ureteral calculous obstruction Status: Acute Assessment and Plan: Due to left ureteral stone, pyelonephritis - 01/21: status post cystoscopy and left ureteral stent placement, pus was seen by the surgeon was a stone was dislodged as documented in the operation report -appreciate urology evaluation (3) EDSON (acute kidney injury): Code(s): N17.9 - Acute kidney failure, unspecified Status: Acute Assessment and Plan: Acute kidney injury likely related to pyelonephritis, hypotension, septic shock -received adequate IV fluids -continue maintenance IV fluids -creatinine improving -continue to monitor renal function, electrolytes and urine output (4) History of seizures: Code(s): Z87.898 - Personal history of other specified conditions Status: Acute Assessment and Plan: 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 -continue IV Keppra (5) DVT prophylaxis: Code(s): Z29.9 - Encounter for prophylactic measures, unspecified Status: Acute Assessment and Plan: Will start heparin SQ given renal dysfunction Additional Plan Discussed with son, Warren and updated with patient's condition and plan of care. He is aware that patient has severe infection in his left kidney call pyelonephritis, septic shock, acute kidney injury. I did tell him that his antibiotics were switched, as a received adequate IV fluids, will continue to monitor closely. I also told him that is creatinine is gradually improving. I answered all his questions Code status: Full code Critical care time spent: 46 minutes This dictation may have been done utilizing a voice recognition system. Attempts have been made to correct errors. However, there may be uncorrected grammatical, spelling, and recognition errors present. Due to a high probability of clinically significant, life threatening deterioration, the patient required my highest level of preparedness to intervene emergently and I personally spent this critical care time directly and personally managing the patient. This critical care time included obtaining a history; examining the patient; pulse oximetry; ordering and review of studies; arranging urgent treatment with development of a management plan; evaluation of patient's response to treatment; frequent reassessment; and discussions with other providers. It was exclusive of separately billable procedures and treating other patients and teaching time. Please see Assessment and Plan section and the rest of the note for further information on patient assessment and treatment Airplane Navigator Consult Note Consult date: 01/22/22 Time Seen: 07:03 Reason for consult: Septic shock, pyelonephritis, left ureteral stone, hydronephrosis status post cystoscopy with left retrograde pyelogram, left ureteral stent placement HPI: Jeffry Shaffer is a 57 year old male with past medical history of hypertension, diabetes, BPH, renal cell carcinoma with Mets to the brain, lungs, adrenals, bone and retroperitoneal, his history of sigmoid colon perforation secondary to diverticulitis status post ex lap with Porfirio's procedure and colostomy placement in October 2021 presented the ER on 01/21/2022 with complains of not feeling well. Patient was found to have
--- NOTE | 2022-01-22 10:05 | WPDANESPN ---
Anes - Prog Note Post-Op Date/Time: 01/22/22 10:05 Cardiovascular status: other (pt remians on vasopressors (levophed)) Respiratory status: normal Airway patency: baseline Mental status: baseline (pt arousable to tactile, but does not respond to verbal) Post-Op hydration status: normal (ivf's infusiing. mucus membranes dried) Vital Signs: Last Vital Signs Temp 98.1 F 01/22/22 08:00 Pulse 97 01/22/22 08:10 Resp 16 01/22/22 08:10 BP 101/62 01/22/22 08:00 Pulse Ox 100 01/22/22 08:10 Pain Score (VAS): 0 I/O: Intake & Output 01/21/22 01/22/22 01/22/22 23:59 07:59 15:59 Intake Total 3150 1200 1000 Output Total 200 250 Balance 2950 950 1000 Laboratory Tests 01/22/22 05:06 01/22/22 05:06 01/21/22 01/21/22 01/21/22 17:15 17:15 17:15 WBC 6.6 RBC 4.48 L Hgb 10.5 L Hct 35.0 L MCV 78.1 L MCH 23.4 L MCHC 30.0 L RDW 19.9 H Plt Count 121 L MPV 9.3 Immature Gran % (Auto) 1.1 H Neut % (Auto) 87.2 H Lymph % (Auto) 7.7 L Nicholas % (Auto) 3.6 Eos % (Auto) 0.2 Baso % (Auto) 0.2 Lymph # (Auto) 0.51 L Nicholas # (Auto) 0.2 Eos # (Auto) 0.0 Baso # (Auto) 0.0 Abs Immat Gran (auto) 0.07 H Absolute Neuts (auto) 5.8 Absolute Nucleated RBC 0.0 Nucleated RBC % 0.0 PT INR APTT Fibrinogen Puncture Site ABG pH ABG pCO2 ABG pO2 ABG PO2/FiO2 Ratio ABG HCO3 ABG O2 Saturation ABG O2 Content ABG Base Excess A-a Gradient Oxyhemoglobin Carboxyhemoglobin Methemoglobin Reduced Hemoglobin Total Hemoglobin O2 Delivery Device O2 Liters/Min Vent Rate FiO2 Expiratory Pressure Inspiratory Pressure Sodium 130 L Potassium 4.3 Chloride 99 Carbon Dioxide 27 Anion Gap 4 L BUN 30 H D Creatinine 2.50 H Estim Creat Clear Calc Not Reportable Estimated GFR 27 L Glucose 86 POC Capillary Glucose Lactic Acid 2.5 H Calcium 9.9 Magnesium Total Bilirubin 2.7 H AST 46 ALT 18 Alkaline Phosphatase 638 H Total Protein 5.0 L Albumin 2.0 L Urine Color Urine Appearance Urine pH Ur Specific [place] Urine Protein Urine Glucose (UA) Urine Ketones Ur Blood (Man) Urine Nitrate Urine Bilirubin Urine Urobilinogen Leukocyte Esterase Rfl Urine RBC Urine WBC Urine Mucus 01/21/22 01/21/22 01/21/22 17:15 20:01 20:51 WBC RBC Hgb Hct MCV MCH MCHC RDW Plt Count MPV Immature Gran % (Auto) Neut % (Auto) Lymph % (Auto) Nicholas % (Auto) Eos % (Auto) Baso % (Auto) Lymph # (Auto) Nicholas # (Auto) Eos # (Auto) Baso # (Auto) Abs Immat Gran (auto) Absolute Neuts (auto) Absolute Nucleated RBC Nucleated RBC % PT INR APTT Fibrinogen Puncture Site ABG pH ABG pCO2 ABG pO2 ABG PO2/FiO2 Ratio ABG HCO3 ABG O2 Saturation ABG O2 Content ABG Base Excess A-a Gradient Oxyhemoglobin Carboxyhemoglobin Methemoglobin Reduced Hemoglobin Total Hemoglobin O2 Delivery Device O2 Liters/Min Vent Rate FiO2 Expiratory Pressure Inspiratory Pressure Sodium Potassium Chloride Carbon Dioxide Anion Gap BUN Creatinine Estim Creat Clear Calc Estimated GFR Glucose POC Capillary Glucose Lactic Acid 2.2 H Calcium Magnesium 2.4 H Total Bilirubin AST ALT Alkaline Phosphatase Total Protein Albumin Urine Color Dark yellow Urine Appearance Cloudy H Urine pH 8.5 Ur Specific [place] 1.020 Urine Protein 3+ H Urine Glucose (UA) Negative Urine Ketones Trace Ur Blood (Man) 3+ H Urine Nitrate Negative Urine Bilirubin 2+ H Urine Urobilinogen 0.2 Leukocyte Esterase Rfl 3+ H Urine RBC >75 H Urine WBC >75 H Urine Mucus Rare 01/21/2201/06
--- NOTE | 2022-01-22 10:10 | PC.NURSE ---
SON GIVEN UPDATE ON PATIENT'S CONDITION. ALL QUESTIONS ANSWERED.
[2022-01-22] MEDS: HYDROmorphone HCL INJ (*CRX) 1 MG/ML SYR IV PUSH ×2 (11:07→16:31)
--- NOTE | 2022-01-22 11:53 | PM.IMPN ---
Progress Note: A&P Assessment and Plan (1) Septic shock: Code(s): A41.9 - Sepsis, unspecified organism; R65.21 - Severe sepsis with septic shock Status: Acute Assessment and Plan: Secondary to acute pyelonephritis secondary to left ureter stone causing obstructive uropathy status post urology consult and stent placement on 01/22/2022 Follow culture results Continue IV hydration as tolerated Continue broad-spectrum IV antibiotic (2) UTI (urinary tract infection): Qualifiers: Urinary tract infection type: acute pyelonephritis Qualified Code(s): N10 - Acute pyelonephritis Code(s): N39.0 - Urinary tract infection, site not specified Status: Acute Assessment and Plan: As above (3) Hydronephrosis with urinary obstruction due to renal calculus: Code(s): N13.2 - Hydronephrosis with renal and ureteral calculous obstruction Status: Acute Assessment and Plan: Follow Urology recommendation Status post cystoscopy and stent placement on 01/22/2022 (4) EDSON (acute kidney injury): Code(s): N17.9 - Acute kidney failure, unspecified Status: Acute Assessment and Plan: Secondary to above continue IV fluid IV antibiotics (5) History of seizures: Code(s): Z87.898 - Personal history of other specified conditions Status: Acute Assessment and Plan: Continue Keppra Patient has history of renal cell cancer neuroma with metastasis (6) Diabetes: Qualifiers: Diabetes mellitus type: type 2 Diabetes mellitus correction insulin use: without correction use Diabetes mellitus complication status: without complication Qualified Code(s): E11.9 - Type 2 diabetes mellitus without complications Code(s): E11.9 - Type 2 diabetes mellitus without complications Status: Acute Assessment and Plan: Insulin sliding scale (7) Respiratory failure: Qualifiers: Chronicity: acute Respiratory failure complication: unspecified whether with hypoxia or hypercapnia Qualified Code(s): J96.00 - Acute respiratory failure, unspecified whether with hypoxia or hypercapnia Code(s): J96.90 - Respiratory failure, unspecified, unspecified whether with hypoxia or hypercapnia Status: Acute Assessment and Plan: Acute hypoxemic respiratory failure secondary to septic shock status post BiPAP management by diesel service journeyman Subjective Date/time seen: 01/22/22 11:53 Interval history: 7-year-old male with past medical history of hypertension, diabetes, BPH, 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 The patient had been complaining of left side pain and had decreased oral intake. Source of information is past medical records in the patient's son's report. The patient himself is somnolent and not following commands after receiving pain medications in the ER. The patient's son reports the patient was discharged from long-term facility on the because he insurance company quit paying for his stay 1 month ago and they could not afford the care anymore. He has taken his father home and as per been providing 1 on 1 care. He reports that for the 1st few days his father was doing well and is tolerating Ensure and mostly liquid nutrition. However on the he had decreased oral intake and on the he had no oral intake. He had no urine output on the and had only 1 void on the . He did not think that his father had a fever. He reports that his father had been complaining of pain in his buttocks. He does still have an open wound in his lower abdomen from his prior surgery. His son reports he has been changing the dressing once a day sometimes twice a day. He has not noticed any significant in
--- NOTE | 2022-01-22 12:41 | WPDUROPN2 ---
Progress Note: A&P Assessment and Plan (1) Severe sepsis: Code(s): A41.9 - Sepsis, unspecified organism; R65.20 - Severe sepsis without septic shock Status: Acute Assessment and Plan: Urine culture and blood cultures are pending, tailor antibiotics to culture sensitivity. (2) EDSON (acute kidney injury): Code(s): N17.9 - Acute kidney failure, unspecified Status: Acute Assessment and Plan: Improved slightly s/p stent, continue to monitor. (3) Renal cell carcinoma of right kidney metastatic to other site: Code(s): C64.1 - Malignant neoplasm of right kidney, except renal pelvis Status: Acute Assessment and Plan: Patient is non responsive at this time, recommend initiating comfort measures. Patient was previously receiving Chemotherapy, it is unclear as to when his last treatment was. Subjective Subjective Date/Time Seen: 01/22/22 12:41 POD #1 cystoscopy, left retrograde pyelogram, left ureteral stent placement, castillo catheter placement Patient is responsive to sound, but doesn't interact and cannot talk. His creatinine seems to be slightly improved s/p stent placement to 2.20 from 2.50, his baseline on 01/13/22 was 0.70. Urine culture is pending, blood cultures are preliminarily showing no growth. The patient is overall very weak and moaning as he appears to be in pain, his vitals are stable at this time. His catheter is draining riu urine to gravity. Review of Systems Review of Systems: ROS unobtainable: Yes unobtainable due to medical condition Exam Resp: Effort & Inspection: labored Cardio: Rate: regular rate GI: GI Palp: Yes Soft to palpation and No Tenderness to palpation present (GI) : General: Yes no CVA tenderness Urinary Catheter: Urinary Catheter: patent and draining, urine clear and urine dark Extrem: General: edema bilateral Objective Data Vital Signs Vital Signs: Vital Signs - 24 hr 01/21/22 15:05 01/21/22 15:11 01/21/22 15:12 Temperature 97.2 F L Pulse Rate 115 H 124 H 124 H Respiratory Rate 14 21 H 23 H Blood Pressure 115/81 107/89 Pulse Oximetry 95 93 01/21/22 15:15 01/21/22 15:16 01/21/22 15:17 Temperature Pulse Rate 116 H 108 H 108 H Respiratory Rate 12 16 Blood Pressure 115/81 Pulse Oximetry 93 93 01/21/22 15:30 01/21/22 15:31 01/21/22 15:45 Temperature Pulse Rate 117 H 115 H 115 H Respiratory Rate 14 16 21 H Blood Pressure 89/63 L Pulse Oximetry 93 92 92 01/21/22 15:46 01/21/22 15:56 01/21/22 16:00 Temperature Pulse Rate 117 H 119 H 121 H Respiratory Rate 21 H 14 17 Blood Pressure 82/61 L 91/59 L Pulse Oximetry 90 91 93 01/21/22 16:01 01/21/22 16:11 01/21/22 16:15 Temperature Pulse Rate 121 H 121 H 122 H Respiratory Rate 17 16 14 Blood Pressure 93/65 L 93/65 L Pulse Oximetry 92 92 94 01/21/22 16:16 01/21/22 16:30 01/21/22 16:31 Temperature Pulse Rate 118 H 117 H 110 H Respiratory Rate 12 17 14 Blood Pressure 88/60 L 95/71 L Pulse Oximetry 92 94 93 01/21/22 16:49 01/21/22 17:00 01/21/22 17:15 Temperature Pulse Rate 101 H 112 H 76 Respiratory Rate 12 14 14 Blood Pressure 116/65 Pulse Oximetry 95 01/21/22 17:30 01/21/22 17:31 01/21/22 17:51 Temperature Pulse Rate 114 H 112 H 105 H Respiratory Rate 19 14 12 Blood Pressure 91/46 L Pulse Oximetry 87 L 01/21/22 17:52 01/21/22 18:00 01/21/22 18:01 Temperature Pulse Rate 106 H 99 106 H Respiratory Rate 12 11 L 12 Blood Pressure 96/72 L 100/63 Pulse Oximetry 92 91 93 01/21/22 18:15 01/21/22 18:16 01/21/22 18:30 Temperature Pulse Rate 111 H 100 91 Respiratory Rate 17 15 14 Blood Pressure 107/71 Pulse Oximetry 95 92 94 01/21/22 18:31 01/21/22 18:45 01/21/22 18:46 Temperature Pulse Rate 109 H 112 H 113 H Respiratory Rate 7 L 29 H 22 H Blood Pressure 103/73 118/84 Pulse Oximetry 96 95 97 01/21/22 18:50 01/21/22 19:14 01/21/22 19:15 Temperature Pulse R
[2022-01-22] MEDS: HEPARIN SODIUM 5,000 UNITS/ML VIAL 5000 UNITS SUB-Q (20:32)
[2022-01-23] VITALS (24 sets, daily range): BP systolic 87–123; BP diastolic 49–95; PULSE 92–114; RESP 14–95; TEMP 36.6–36.9; O2SAT 94–100
[2022-01-23] MEDS: HYDROmorphone HCL INJ (*CRX) 1 MG/ML SYR IV PUSH ×2 (01:41→13:57)
[2022-01-23] MEDS: SODIUM CHLORIDE 0.9% IV 1,000 ML 125 ML IV CONT (01:45)
[2022-01-23] MEDS: NOREPINEPHRINE 8 MG/D5W 250 ML 8 MG/250 ML BAG 7.5 MG IV CONT (05:38)
[2022-01-23] MEDS: CENTRAL LINE FLUSH 10 ML IV PUSH ×4 (05:39→21:20)
[2022-01-23 07:45] LABS: Basophils Percent Auto 0.2 % (0.2-1.2); Eosinophils Percent Auto 0.5 % (0-4.4); Hematocrit 30.9 % (42.0-52.0); Hemoglobin 9.1 g/dL (14.0-18.0); Immature Granulocyte Absolute 0.09 K/mm3 (0.00-0.031); Lymphocytes Percent Auto 8.1 % (18.3-44.2); Mean Corpuscular HGB Conc 29.4 g/dl (32-36); Mean Corpuscular Hemoglobin 23.3 pg (26-34); Mean Platelet Volume 9.3 fl (7.4-10.4); Monocytes Absolute Auto 0.3 K/mm3 (0.1-0.6); Monocytes Percent Auto 3.7 % (2.6-8.5); Neutrophils Absolute Auto 7.5 K/mm3 (1.3-6.7); Neutrophils Percent Auto 86.5 % (45.5-73.1); Platelet Count Result 95 k/mm3 (150-375); Red Blood Count 3.91 M/mm3 (4.6-6.20); Red Cell Distribution Width 20.1 % (11.5-14.5); White Blood Count 8.6 K/mm3 (4.5-10.0)
[2022-01-23 07:56] LABS: Alanine Aminotransferase 14 U/L (6-50); Albumin Level 1.8 g/dL (3.5-5.1); Alkaline Phosphatase 505 U/L (38-126); Anion Gap 7 mmol/L (8-16); Aspartate Amino Transferase 33 U/L (17-59); Bilirubin,Total 2.3 mg/dL (0.2-1.3); Blood Urea Nitrogen 25 mg/dL (9-20); Calcium 9.3 mg/dL (8.4-10.2); Carbon Dioxide 21 mmol/L (22-30); Chloride 109 mmol/L (98-107); Estimated CRCL calculation 54 ml/min; Estimated Glomerular Filt Rate 48; Glucose 78 mg/dL (65-110); Magnesium 2.1 mg/dL (1.6-2.3); Phosphorus 1.3 mg/dL (2.5-4.5); Potassium 3.1 mmol/L (3.4-5.0); Sodium 137 mmol/L (137-145)
[2022-01-23 07:57] LABS: Lactic Acid Reflex 1.6 mmol/L (0.7-2.0)
[2022-01-23 08:03] LABS: Burr Cells 1+ (NORMAL); Hypochromasia 1+ (NORMAL); Ovalocytes 1+ (NORMAL); Platelet Estimate Decreased (Adequate); Poikilocytosis 1+ (NORMAL)
[2022-01-23] MEDS: levETIRAcetam 500MG/NACL 100ML 500 MG/100 ML BAG 400 MG IVPB ×2 (08:41→21:09)
[2022-01-23] MEDS: PANTOPRAZOLE SODIUM IV 40 MG VIAL IV PUSH (08:41)
[2022-01-23] MEDS: SILVER SULFADIAZINE 1% CR 400 GM JAR (*BKC) 1 APPLIC TOPICAL (08:41)
--- NOTE | 2022-01-23 09:04 | WPDINTPN ---
Progress Note: A&P Assessment and Plan (1) Septic shock: Code(s): A41.9 - Sepsis, unspecified organism; R65.21 - Severe sepsis with septic shock Status: Acute Assessment and Plan: Septic shock likely related to pyelonephritis, left ureteral stone -switched ceftriaxone to imipenem and vancomycin (01/22) since patient is critically ill - 01/21: Blood cultures growing Gram-negative bacilli 10/10 bottles - 01/21: Urine culture obtained and pending -has received adequate amount of IV fluids (approximately 6 L in all this admission) -decrease maintenance IV fluids to 75 mL/hour -urine output has been adequate -Levophed requirements trending down, continue to maintain MAP > 65 mmHg (2) Hydronephrosis with urinary obstruction due to renal calculus: Code(s): N13.2 - Hydronephrosis with renal and ureteral calculous obstruction Status: Acute Assessment and Plan: Due to left ureteral stone, pyelonephritis - 01/21: status post cystoscopy and left ureteral stent placement, pus was seen by the surgeon was a stone was dislodged as documented in the operation report -appreciate urology evaluation (3) EDSON (acute kidney injury): Code(s): N17.9 - Acute kidney failure, unspecified Status: Acute Assessment and Plan: Acute kidney injury likely related to pyelonephritis, hypotension, septic shock -received adequate IV fluids -decrease maintenance IV fluids -creatinine improving -continue to monitor renal function, electrolytes and urine output (4) History of seizures: Code(s): Z87.898 - Personal history of other specified conditions Status: Acute Assessment and Plan: 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 He is aware that patient has severe infection in his left kidney call pyelonephritis, septic shock, acute kidney injury. I did tell him that his antibiotics were switched, as a received adequate IV fluids, will continue to monitor closely. I also told him that is creatinine is gradually improving. I answered all his questions Code status: Full code Critical care time spent: 34 minutes This dictation may have been done utilizing a voice recognition system. Attempts have been made to correct errors. However, there may be uncorrected grammatical, spelling, and recognition errors present. Due to a high probability of clinically significant, life threatening deterioration, the patient required my highest level of preparedness to intervene emergently and I personally spent this critical care time directly and personally managing the patient. This critical care time included obtaining a history; examining the patient; pulse oximetry; ordering and review of studies; arranging urgent treatment with development of a management plan; evaluation of patient's response to treatment; frequent reassessment; and discussions with other providers. It was exclusive of separately billable procedures and treating other patients and teaching time. Please see Assessment and Plan section and the rest of the note for further information on patient assessment and treatment Subjective Date/time seen: 01/23/22 09:04 Interval history: Reason for consult: Septic shock, pyelonephritis, left ureteral stone, hydronephrosis status post cystoscopy with left retrograde pyelogram, left ureteral stent placement, Gram-negative bacteremia 01/23/2022: Patient seen and examined, benjamin
[2022-01-23] MEDS: POTASSIUM PHOS,M-BASIC-D-BASIC 40 MMOL in SODIUM CHLORIDE 0.9% IV 250 ML 43.89 MMOL IVPB (09:43)
[2022-01-23] MEDS: fentaNYL (*CRX) 25 MCG PATCH TRANSDERM (10:29)
[2022-01-23] MEDS: HEPARIN SODIUM 5,000 UNITS/ML VIAL 5000 UNITS SUB-Q (11:16)
--- NOTE | 2022-01-23 11:25 | PCFNICU ---
ICU Rounding Note: Pt current nutrition is NPO. Last recorded weight is 82.6 kg, down from 86.8 kg on admit. Bowel Motility: colostomy Labs Reviewed: Cr 1.5,GFR 48, BUN 25, Alb 1.8,Hct 30.9,Hgb 9.1 Meds Noted:Levophed, Vancomycin, Keppra, Heparin, Protonix. Skin: right lower ab puncture, Jon foot wound. Additional Notes: Patient currently NPO x 3 days. Very weak. Discussions regarding plan of care. We will continue to monitor and follow recommendations per [employer] Vehicle Supervisor. Following daily in ICU rounds.
[2022-01-23] MEDS: SODIUM CHLORIDE 0.9% IV 1,000 ML 75 ML IV CONT (12:18)
--- NOTE | 2022-01-23 12:42 | PM.IMPN ---
Progress Note: A&P Assessment and Plan (1) Septic shock: Code(s): A41.9 - Sepsis, unspecified organism; R65.21 - Severe sepsis with septic shock Status: Acute Assessment and Plan: Secondary to acute pyelonephritis secondary to left ureter stone causing obstructive uropathy status post urology consult and stent placement on 01/22/2022 Follow culture results Continue IV hydration as tolerated Continue broad-spectrum IV antibiotic Blood culture positive for Gram-negative bacilli Follow final blood culture (2) UTI (urinary tract infection): Qualifiers: Urinary tract infection type: acute pyelonephritis Qualified Code(s): N10 - Acute pyelonephritis Code(s): N39.0 - Urinary tract infection, site not specified Status: Acute Assessment and Plan: As above (3) Hydronephrosis with urinary obstruction due to renal calculus: Code(s): N13.2 - Hydronephrosis with renal and ureteral calculous obstruction Status: Acute Assessment and Plan: Follow Urology recommendation Status post cystoscopy and stent placement on 01/22/2022 (4) EDSON (acute kidney injury): Code(s): N17.9 - Acute kidney failure, unspecified Status: Acute Assessment and Plan: Secondary to above continue IV fluid IV antibiotics (5) History of seizures: Code(s): Z87.898 - Personal history of other specified conditions Status: Acute Assessment and Plan: Continue Kera Patient has history of renal cell cancer neuroma with metastasis (6) Diabetes: Qualifiers: Diabetes mellitus type: type 2 Diabetes mellitus watermelon harvesting supervisor insulin use: without watermelon harvesting supervisor use Diabetes mellitus complication status: without complication Qualified Code(s): E11.9 - Type 2 diabetes mellitus without complications Code(s): E11.9 - Type 2 diabetes mellitus without complications Status: Acute Assessment and Plan: Insulin sliding scale (7) Respiratory failure: Qualifiers: Chronicity: acute Respiratory failure complication: unspecified whether with hypoxia or hypercapnia Qualified Code(s): J96.00 - Acute respiratory failure, unspecified whether with hypoxia or hypercapnia Code(s): J96.90 - Respiratory failure, unspecified, unspecified whether with hypoxia or hypercapnia Status: Acute Assessment and Plan: Acute hypoxemic respiratory failure secondary to septic shock status post BiPAP management by behavioral therapist Subjective Date/time seen: 01/23/22 12:42 Interval history: 7-year-old male with past medical history of hypertension, diabetes, BPH, 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 The patient had been complaining of left side pain and had decreased oral intake. Source of information is past medical records in the patient's son's report. The patient himself is somnolent and not following commands after receiving pain medications in the ER. The patient's son reports the patient was discharged from senior living facility on the because he insurance company quit paying for his stay 1 month ago and they could not afford the care anymore. He has taken his father home and as per been providing 1 on 1 care. He reports that for the 1st few days his father was doing well and is tolerating Ensure and mostly liquid nutrition. However on the he had decreased oral intake and on the he had no oral intake. He had no urine output on the and had only 1 void on the 15. He did not think that his father had a fever. He reports that his father had been complaining of pain in his buttocks. He does still have an open wound in his lower abdomen from his prior surgery. His son reports he has been changing the dressi
[2022-01-23 12:44] LABS: Glucose Point of Care 72 mg/dl (65-105)
[2022-01-23 18:43] LABS: Glucose Point of Care 61 mg/dl (65-105)
[2022-01-23] MEDS: DEXTROSE 50% 25 GM/50 ML SYRINGE IV PUSH (18:44)
[2022-01-23 19:00] LABS: Glucose Point of Care 152 mg/dl (65-105)
[2022-01-23 22:07] LABS: Glucose Point of Care 70 mg/dl (65-105)
[2022-01-23 23:49] LABS: Glucose Point of Care 70 mg/dl (65-105)
[2022-01-24] VITALS (23 sets, daily range): BP systolic 78–106; BP diastolic 56–70; PULSE 85–111; RESP 14–27; TEMP 36.5–37.3; O2SAT 92–97
[2022-01-24] MEDS: DEXTROSE 50% 25 GM/50 ML SYRINGE IV PUSH ×2 (02:29→07:50)
[2022-01-24 02:30] LABS: Glucose Point of Care 66 mg/dl (65-105)
[2022-01-24] MEDS: SODIUM CHLORIDE 0.9% IV 1,000 ML 75 ML IV CONT (02:34)
[2022-01-24 03:39] LABS: Glucose Point of Care 102 mg/dl (65-105)
[2022-01-24] MEDS: CENTRAL LINE FLUSH 10 ML IV PUSH ×4 (06:10→20:15)
[2022-01-24] MEDS: ALTEPLASE 2 MG VIAL (CATHFLO) IV PUSH ×3 (06:44→22:46)
[2022-01-24 07:44] LABS: Glucose Point of Care 62 mg/dl (65-105)
[2022-01-24 07:47] LABS: Hematocrit 28.8 % (42.0-52.0); Hemoglobin 8.2 g/dL (14.0-18.0); Immature Platelet Fraction Pct 2.4 % (0.9-11.2); Mean Corpuscular HGB Conc 28.5 g/dl (32-36); Mean Corpuscular Hemoglobin 23.1 pg (26-34); Mean Corpuscular Volume 81.1 fl (80-100); Mean Platelet Volume 10.1 fl (7.4-10.4); Platelet Count Result 78 k/mm3 (150-375); Red Blood Count 3.55 M/mm3 (4.6-6.20); Red Cell Distribution Width 20.4 % (11.5-14.5); White Blood Count 6.2 K/mm3 (4.5-10.0)
[2022-01-24 07:55] LABS: Alanine Aminotransferase 12 U/L (6-50); Albumin Level 1.5 g/dL (3.5-5.1); Alkaline Phosphatase 456 U/L (38-126); Anion Gap 9 mmol/L (8-16); Aspartate Amino Transferase 34 U/L (17-59); Bilirubin,Total 2.5 mg/dL (0.2-1.3); Blood Urea Nitrogen 24 mg/dL (9-20); Calcium 8.6 mg/dL (8.4-10.2); Carbon Dioxide 20 mmol/L (22-30); Chloride 112 mmol/L (98-107); Estimated CRCL calculation 67 ml/min; Estimated Glomerular Filt Rate > 60; Glucose 69 mg/dL (65-110); Magnesium 1.8 mg/dL (1.6-2.3); Phosphorus 2.4 mg/dL (2.5-4.5); Potassium 2.9 mmol/L (3.4-5.0); Sodium 141 mmol/L (137-145)
[2022-01-24 07:58] LABS: Lactic Acid Reflex 2.2 mmol/L (0.7-2.0)
[2022-01-24 08:45] LABS: Anisocytosis 1+ (NORMAL); Band Neutrophils Percent 1 % (0-6); Burr Cells 2+ (NORMAL); Hypochromasia 1+ (NORMAL); Lymphocytes Absolute Manual 0.31 K/mm3 (1.1-4.5); Monocytes Absolute Manual 0.12 K/mm3 (0.1-0.90); Monocytes Percent Manual 2 % (3-9); Neutrophils Absolute Manual 5.76 K/mm3 (1.3-6.7); Neutrophils Percent Manual 92 % (46-73); Platelet Estimate Decreased (Adequate); Poikilocytosis 1+ (NORMAL); Total Cells Counted 100
[2022-01-24 08:46] LABS: Ovalocytes 1+ (NORMAL)
[2022-01-24] MEDS: KCL 40 MEQ/WATER 100 ML 100 ML 25 ML IVPB (09:25)
[2022-01-24] MEDS: levETIRAcetam 500MG/NACL 100ML 500 MG/100 ML BAG 400 MG IVPB ×2 (09:26→20:13)
[2022-01-24] MEDS: PANTOPRAZOLE SODIUM IV 40 MG VIAL IV PUSH (09:28)
[2022-01-24] MEDS: SILVER SULFADIAZINE 1% CR 400 GM JAR (*BKC) 1 APPLIC TOPICAL (09:42)
[2022-01-24 10:41] LABS: Reflex Lactic Acid Yes or No Add Lactic
[2022-01-24 11:18] LABS: Lactic Acid 3.1 mmol/L (0.7-2.0)
--- NOTE | 2022-01-24 11:47 | PCFNICU ---
ICU Rounding Note: Pt current nutrition is NPO x 4 days. Last recorded weight is 84.4 kg, down from 86.8 kg on admit. Bowel Motility: +Bm reported 01/23 Labs Reviewed: Meds Noted: Potassium Chloride, Vancomycin, Keppra,Levophed, NS Skin: Stoma Additional Notes: Patient remains NPO, full code at this time. Plans for [employer] Operator to discuss plan of care with family. Nutrition Intervention will be decided based on outcome. Following daily in ICU rounds. Will monitor every 3 days.
[2022-01-24] MEDS: DEXTROSE 5%/0.9% SOD CHL 1,000 ML 75 ML IV CONT (12:00)
[2022-01-24 12:30] LABS: Glucose Point of Care 74 mg/dl (65-105)
[2022-01-24] MEDS: ALBUMIN HUMAN 25% 25 GM/100 ML 100 ML IVPB ×3 (13:07→23:24)
[2022-01-24] MEDS: hetaSTARCH 6%/NACL 500 ML 250 ML IV CONT (13:08)
--- NOTE | 2022-01-24 13:38 | WPDINTPN ---
Progress Note: A&P Assessment and Plan (1) Septic shock: Code(s): A41.9 - Sepsis, unspecified organism; R65.21 - Severe sepsis with septic shock Status: Acute Assessment and Plan: Septic shock likely related to pyelonephritis, left ureteral stone -switched ceftriaxone to imipenem and vancomycin (01/22) since patient is critically ill - 01/21: Blood and urine cultures growing Proteus mirabilis (resistant to gentamicin and imipenem) -will switch imipenem to CEFEPIME (01/24) -will discontinue vancomycin -lactic trending up will give has pain and albumin -urine output has been adequate, creatinine has improved -Levophed Levophed had to be restarted early this morning, currently Levophed is at 2 mcg/min, will maintain MAP > 65 mmHg (2) Hydronephrosis with urinary obstruction due to renal calculus: Code(s): N13.2 - Hydronephrosis with renal and ureteral calculous obstruction Status: Acute Assessment and Plan: Due to left ureteral stone, pyelonephritis - 01/21: status post cystoscopy and left ureteral stent placement, pus was seen by the surgeon was a stone was dislodged as documented in the operation report -appreciate urology evaluation (3) EDSON (acute kidney injury): Code(s): N17.9 - Acute kidney failure, unspecified Status: Acute Assessment and Plan: Acute kidney injury likely related to pyelonephritis, hypotension, septic shock -received adequate IV fluids -will give Hespan and albumin due to serum albumin and elevated lactic acid and hypotension -creatinine has improved -continue to monitor renal function, electrolytes and urine output (4) History of seizures: Code(s): Z87.898 - Personal history of other specified conditions Status: Acute Assessment and Plan: 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 -continue IV Keppra (5) Electrolyte imbalance: Code(s): E87.8 - Other disorders of electrolyte and fluid balance, not elsewhere classified Status: Acute Assessment and Plan: Replace potassium (6) DVT prophylaxis: Code(s): Z29.9 - Encounter for prophylactic measures, unspecified Status: Acute Assessment and Plan: heparin SQ currently on hold given thrombocytopenia (7) Thrombocytopenia: Code(s): D69.6 - Thrombocytopenia, unspecified Status: Acute Assessment and Plan: Likely related to septic shock, Proteus infection -continue to monitor (8) Hypoglycemia: Code(s): E16.2 - Hypoglycemia, unspecified Status: Acute Assessment and Plan: Hypoglycemia due to septic shock, decreased p.o. intake -start D5 NS maintenance IV fluids Additional Plan 01/24: Discussed with Warren, the son, updated with patient's condition and plan of care. I told him that is going a resistant bacteria and that we have switched antibiotics. Also touched on what his wishes would have been, he stated that the patient wants everything to be done fundal. Warren is unsure about the oncologist pursuing more chemotherapy. The son stated that once the patient is more awake he would sit down with somebody and discuss goals of care and advanced directives 01/22: Discussed with son, Warren and updated with patient's condition and plan of care. He is aware that patient has severe infection in his left kidney call pyelonephritis, septic shock, acute kidney injury. I did tell him that his antibiotics were switched, as a received adequate IV fluids, will continue to monitor closely. I also told him that is creatinine is gradually improving. I answered all his questions Code status: Full code Critical care time spent: 33 minutes This dictation may have been done utilizing a voice recognition system. Attempts have been made to correct errors. However, there may be uncorrected grammatical, spelling, and recognition errors present. Due to a high probability of clinically significant, life threa
--- NOTE | 2022-01-24 16:38 | PM.IMPN ---
Progress Note: A&P Assessment and Plan (1) Septic shock: Code(s): A41.9 - Sepsis, unspecified organism; R65.21 - Severe sepsis with septic shock Status: Acute Assessment and Plan: Secondary to acute pyelonephritis secondary to left ureter stone causing obstructive uropathy status post urology consult and stent placement on 01/22/2022 Follow culture results Continue IV hydration as tolerated Continue broad-spectrum IV antibiotic (cefepime) and vancomycin is discontinued Blood culture positive for Proteus mirabilis with urine culture positive (2) UTI (urinary tract infection): Qualifiers: Urinary tract infection type: acute pyelonephritis Qualified Code(s): N10 - Acute pyelonephritis Code(s): N39.0 - Urinary tract infection, site not specified Status: Acute Assessment and Plan: Urine culture positive for Proteus mirabilis (3) Hydronephrosis with urinary obstruction due to renal calculus: Code(s): N13.2 - Hydronephrosis with renal and ureteral calculous obstruction Status: Acute Assessment and Plan: Follow Urology recommendation Status post cystoscopy and stent placement on 01/22/2022 (4) EDSON (acute kidney injury): Code(s): N17.9 - Acute kidney failure, unspecified Status: Acute Assessment and Plan: Secondary to above continue IV fluid IV antibiotics EDSON has resolved Admission creatinine 2.5 baseline creatinine 0.7 (5) History of seizures: Code(s): Z87.898 - Personal history of other specified conditions Status: Acute Assessment and Plan: Continue Kera Patient has history of renal cell cancer neuroma with metastasis (6) Diabetes: Qualifiers: Diabetes mellitus type: type 2 Diabetes mellitus terminal operator insulin use: without snf use Diabetes mellitus complication status: without complication Qualified Code(s): E11.9 - Type 2 diabetes mellitus without complications Code(s): E11.9 - Type 2 diabetes mellitus without complications Status: Acute Assessment and Plan: Insulin sliding scale (7) Respiratory failure: Qualifiers: Chronicity: acute Respiratory failure complication: unspecified whether with hypoxia or hypercapnia Qualified Code(s): J96.00 - Acute respiratory failure, unspecified whether with hypoxia or hypercapnia Code(s): J96.90 - Respiratory failure, unspecified, unspecified whether with hypoxia or hypercapnia Status: Acute Assessment and Plan: Acute hypoxemic respiratory failure secondary to septic shock status post BiPAP management by security professional Additional Plan DVT prophylaxis heparin subQ Code status full code Subjective Date/time seen: 01/24/22 16:38 Interval history: 57-year-old male with past medical history of hypertension, diabetes, BPH, 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 The patient had been complaining of left side pain and had decreased oral intake. Source of information is past medical records in the patient's son's report. The patient himself is somnolent and not following commands after receiving pain medications in the ER. The patient's son reports the patient was discharged from longterm facility on the because he insurance company quit paying for his stay 1 month ago and they could not afford the care anymore. He has taken his father home and as per been providing 1 on 1 care. He reports that for the 1st few days his father was doing well and is tolerating Ensure and mostly liquid nutrition. However on the he had decreased oral intake and on the he had no oral intake. He had no urine output on the and had only 1 void on the . He did not think that his father h
[2022-01-24 18:28] LABS: Glucose Point of Care 77 mg/dl (65-105)
[2022-01-24 19:30] LABS: Potassium 3.1 mmol/L (3.4-5.0)
[2022-01-24 23:32] LABS: Glucose Point of Care 85 mg/dl (65-105)
[2022-01-25] VITALS (11 sets, daily range): BP systolic 93–107; BP diastolic 62–77; PULSE 94–117; RESP 19–30; TEMP 36.1–36.6; O2SAT 91–95
[2022-01-25 02:28] LABS: Vancomycin Trough 20.9 ug/mL (10.0-20.0)
[2022-01-25] MEDS: DEXTROSE 5%/0.9% SOD CHL 1,000 ML 75 ML IV CONT (02:58)
[2022-01-25 05:04] LABS: Basophils Percent Auto 0.1 % (0.2-1.2); Eosinophils Percent Auto 0.4 % (0-4.4); Hemoglobin 7.4 g/dL (14.0-18.0); Immature Granulocyte Absolute 0.05 K/mm3 (0.00-0.031); Immature Granulocyte Percent A 0.7 % (0-0.5); Immature Platelet Fraction Pct 1.5 % (0.9-11.2); Lymphocytes Absolute Auto 0.88 K/mm3 (0.9-3.2); Lymphocytes Percent Auto 12.1 % (18.3-44.2); Mean Corpuscular HGB Conc 29.6 g/dl (32-36); Mean Corpuscular Volume 77.6 fl (80-100); Mean Platelet Volume 10.3 fl (7.4-10.4); Monocytes Absolute Auto 0.2 K/mm3 (0.1-0.6); Monocytes Percent Auto 2.9 % (2.6-8.5); Neutrophils Absolute Auto 6.1 K/mm3 (1.3-6.7); Neutrophils Percent Auto 83.8 % (45.5-73.1); Platelet Count Result 71 k/mm3 (150-375); Red Blood Count 3.22 M/mm3 (4.6-6.20); Red Cell Distribution Width 20.3 % (11.5-14.5); White Blood Count 7.3 K/mm3 (4.5-10.0)
[2022-01-25 05:15] LABS: Lactic Acid Reflex 5.3 mmol/L (0.7-2.0)
[2022-01-25 05:19] LABS: Alanine Aminotransferase 12 U/L (6-50); Albumin Level 1.8 g/dL (3.5-5.1); Alkaline Phosphatase 336 U/L (38-126); Anion Gap 11 mmol/L (8-16); Aspartate Amino Transferase 31 U/L (17-59); Bilirubin,Total 3.1 mg/dL (0.2-1.3); Blood Urea Nitrogen 20 mg/dL (9-20); Calcium 8.9 mg/dL (8.4-10.2); Carbon Dioxide 16 mmol/L (22-30); Chloride 116 mmol/L (98-107); Estimated CRCL calculation 72 ml/min; Estimated Glomerular Filt Rate > 60; Glucose 95 mg/dL (65-110); Magnesium 1.6 mg/dL (1.6-2.3); Potassium 2.8 mmol/L (3.4-5.0); Sodium 143 mmol/L (137-145)
[2022-01-25] MEDS: ALBUMIN HUMAN 25% 25 GM/100 ML 100 ML IVPB (05:23)
[2022-01-25] MEDS: CENTRAL LINE FLUSH 10 ML IV PUSH (05:23)
[2022-01-25 05:33] LABS: Hypochromasia 1+ (NORMAL); Platelet Estimate Decreased (Adequate)
[2022-01-25 05:34] LABS: Anisocytosis 1+ (NORMAL); Poikilocytosis 1+ (NORMAL)
[2022-01-25] MEDS: MAGNESIUM SULF 2 GM/WATER 50ML 2 GM/50 ML BAG IVPB (06:33)
[2022-01-25 08:00] LABS: Reflex Lactic Acid Yes or No Add Lactic
[2022-01-25] MEDS: KCL 40 MEQ/WATER 100 ML 100 ML 25 ML IVPB (08:00)
[2022-01-25] MEDS: PANTOPRAZOLE SODIUM IV 40 MG VIAL IV PUSH (08:15)
[2022-01-25] MEDS: levETIRAcetam 500MG/NACL 100ML 500 MG/100 ML BAG 400 MG IVPB (08:17)
[2022-01-25] MEDS: POTASSIUM PHOS,M-BASIC-D-BASIC 40 MMOL in SODIUM CHLORIDE 0.9% IV 250 ML 43.89 MMOL IVPB (08:21)
[2022-01-25 08:22] LABS: Immature Platelet Fraction Pct 2.4 % (0.9-11.2); Mean Platelet Volume 10.5 fl (7.4-10.4); Platelet Count Result 55 k/mm3 (150-375)
[2022-01-25 08:27] LABS: Mucus Urine Heavy /lpf; RBC Urine >75 /hpf (0-2); WBC Clumps Urine Present /HPF; WBC Urine >75 /hpf
[2022-01-25 08:30] LABS: Magnesium 1.9 mg/dL (1.6-2.3)
[2022-01-25 08:35] LABS: Lactic Acid 5.4 mmol/L (0.7-2.0)
[2022-01-25 08:36] LABS: Add Urine Microscopic? YES; Appearance Urine Cloudy (Clear); Bilirubin Urine 2+ (Negative); Blood Urine 3+ (Negative); Color Urine Yellow (Yellow); Glucose Urine UA Negative (Negative); Ketones Urine Trace mg/dL (Negative); Leukocyte Esterase Ur 3+ LEU/UL (Negative); Nitrate Urine Positive (Negative); Protein Urine 2+ mg/dL (Negative); Specific Grav Ur 1.015 (1.001-1.035); pH Urine 5.5 (5.0-9.0)
[2022-01-25 08:42] LABS: INR 2.3; Prothrombin Time 24.6 Seconds (11.1-14.7)
[2022-01-25 08:43] LABS: Partial Thromboplastin Time 44.8 SECONDS (22.3-36.8)
[2022-01-25 08:49] LABS: Fibrinogen 129 mg/dl (215-510)
[2022-01-25 09:40] LABS: D Dimer 3.44 ug/mL (<0.48)
--- NOTE | 2022-01-25 09:57 | WPDINTPN ---
Progress Note: A&P Assessment and Plan (1) Septic shock: Code(s): A41.9 - Sepsis, unspecified organism; R65.21 - Severe sepsis with septic shock Status: Acute Assessment and Plan: Septic shock likely related to pyelonephritis, left ureteral stone, Now also related to pneumonia, gall bladder disease as bilirubin is trending up -switched ceftriaxone to imipenem and vancomycin (01/22) since patient is critically ill - 01/21: Blood and urine cultures growing Proteus mirabilis (resistant to gentamicin and imipenem) -switched imipenem to CEFEPIME (01/24) - vancomycin discontinued on 01/24/2021 -lactic trending up -urine output has been adequate, creatinine has improved -patient off Levophed early this morning, will maintain MAP > 65 mmHg (2) Hydronephrosis with urinary obstruction due to renal calculus: Code(s): N13.2 - Hydronephrosis with renal and ureteral calculous obstruction Status: Acute Assessment and Plan: Due to left ureteral stone, pyelonephritis - 01/21: status post cystoscopy and left ureteral stent placement, pus was seen by the surgeon was a stone was dislodged as documented in the operation report -appreciate urology evaluation (3) EDSON (acute kidney injury): Code(s): N17.9 - Acute kidney failure, unspecified Status: Acute Assessment and Plan: Acute kidney injury likely related to pyelonephritis, hypotension, septic shock -received adequate IV fluids -will give Hespan and albumin due to serum albumin and elevated lactic acid and hypotension -creatinine has improved -continue to monitor renal function, electrolytes and urine output (4) History of seizures: Code(s): Z87.898 - Personal history of other specified conditions Status: Acute Assessment and Plan: 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 -continue IV Keppra (5) Electrolyte imbalance: Code(s): E87.8 - Other disorders of electrolyte and fluid balance, not elsewhere classified Status: Acute Assessment and Plan: Replace potassium and phosphorous (6) DVT prophylaxis: Code(s): Z29.9 - Encounter for prophylactic measures, unspecified Status: Acute Assessment and Plan: Hold heparin SQ currently given thrombocytopenia (7) Thrombocytopenia: Code(s): D69.6 - Thrombocytopenia, unspecified Status: Acute Assessment and Plan: Likely related to septic shock, Proteus infection -continue to monitor (8) Hypoglycemia: Code(s): E16.2 - Hypoglycemia, unspecified Status: Acute Assessment and Plan: Hypoglycemia due to septic shock, decreased p.o. intake -continue D5 NS maintenance IV fluids -likely DIC, will give platelets and fibrinogen (9) Acute anemia: Code(s): D64.9 - Anemia, unspecified Status: Acute Assessment and Plan: Patient dropped his hemoglobin to 7.4 this morning, -stool occult is positive -no obvious bleed noted -currently in DIC with low fibrinogen and low platelet count -will transfuse 1 unit of packed RBCs, 1 unit of platelets and 1 unit of cryoprecipitate Additional Plan Discussed with son Warren and updated with patient's condition, he is aware that patient is deteriorating. I did explain to him regarding the bilateral pneumonias, elevated lactic acid, distended gallbladder and probably gallbladder disease. He is also aware of the anemia, thrombocytopenia and low fibrinogen level and that he probably is in DIC. The surgeon also discussed with him regarding the elevated lactic acid and the patient is not a candidate for surgery at this time. Warren decided and has requested for a DNR and comfort measures. He is waiting for his sister to come by and will be willing to talk to hospice. 01/24: Discussed with Warren, the son, updated with patient's condition and plan of care. I told him that is going a resistant bacteria and that we have switched antibiotics. Also t
[2022-01-25 11:03] LABS: IFOB Positive Control Positive; Immunochemical Fecal Occult Bl Positive (N)
[2022-01-25 12:41] LABS: Glucose Point of Care 81 mg/dl (65-105)
--- NOTE | 2022-01-25 13:48 | PCNFU ---
Nutrition Follow-Up Complete: Inadequate Oral Intake as related to surgery as evidenced by NPO. Goal: Meet estimated nutritional needs Patient has limited progress towards. Pt current nutrition is NPO. Last recorded weight is 86.8 kg, no new weight to report. Bowel Motility: colostomy Labs Reviewed: K 2.8,Hgb 7.4,Hct 25.0, Alb 1.8 Meds Noted:Keppra, Maxipime Skin: Stoma Additional Notes: Patient currently NPO x 5 days. Patient DNR. Family meeting today, plans for hospice care. Will monitor in ICU rounds.
[2022-01-25] MEDS: LORazepam INJ (*CRX) 2 MG/ML VIAL IV PUSH (16:04)
[2022-01-25] MEDS: MORPHINE SULFATE (*CRX) 2 MG/ML INJ IV PUSH (16:04)
--- NOTE | 2022-01-25 16:28 | PM.CNGS ---
Assessment and Plan Assessment and plan (1) Severe sepsis: Code(s): A41.9 - Sepsis, unspecified organism; R65.20 - Severe sepsis without septic shock Status: Acute Assessment and Plan: Long discussion with patient's son regarding poor prognosis, patient not a surgical candidate, recommend comfort care/hospice (2) Renal cell carcinoma of right kidney metastatic to other site: Code(s): C64.1 - Malignant neoplasm of right kidney, except renal pelvis Status: Acute Assessment and Plan: see above History of Present Illness Consult details Consult date: 01/25/22 Reason for consult: abdominal pain Requesting physician: Suly Bill MD Narrative: The patient is a 57-year-old male well known to my service from previous sigmoid colectomy for perforated diverticulitis and widely metastatic renal cell cancer presenting to the hospital with sepsis. The patient was noted to have likely urosepsis from an obstructed ureter. The patient was admitted to the ICU and a subsequent stent was placed in the ureter. The patient has continued to deteriorate including requiring pressors. The patient has had worsening mental status but complained of some diffuse abdominal pain. CT scan obtained earlier today was significant for possible ischemic bowel. 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 Mother No problems noted. Sibling No problems noted. Other Hypertension Social History Social History Social History: Patient was independent in activities of daily living until his prolonged hospitalization in October 2021 after diverticulitis with bowel perforation abscess. He has had significant decline in function since that time and is now dependent for all cares and is bedbound. 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[place] Gender identity (if verbalized by the patient): Male Spiritual care concerns: No Meds Home Medications and Allergies Home Medications Medication Instructions Recorded Confirmed Type bisacodyl 10 mg rectal suppository 10 mg RECTAL DAILY PRN 12/04/21 01/22/22 History magnesium hydroxide 400 mg/5 mL 30 ml PO HS PRN 12/04/21 01/22/22 History oral suspension alprazolam 0.5 mg tablet 0.5 mg PO Q8H PRN #60 tablet 01/17/22 01/22/22 Rx calcium alginate 4 X 4 bandage #50 ea 01/17/22 01/22/22 Rx fentanyl 25 mcg/hr transdermal 1 patch TRANSDERMAL Q72H #10 ea 01/17/22 01/22/22 Rx patch levetiracetam 500 mg tablet 500 mg PO BID #60 tablet 01/17/22 01/22/22 Rx pantoprazole 40 mg tablet,delayed 40 mg PO QAM #30 tablet 01/17/22 01/22/22 Rx release silver sulfadiazine 1 % topical 1 applic TOPICAL DAILY #400 g 01/17/22 01/22/22 Rx cream simethicone 125 mg chewable tablet 125 mg PO QID PRN
--- NOTE | 2022-01-25 16:34 | PM.DS ---
DS: Admitting Diagnosis Discharge Date 01/25/2022 Admitting Diagnosis Septic shock DS: Discharge Diagnosis Discharge Diagnosis (1) Septic shock: Code(s): A41.9 - Sepsis, unspecified organism; R65.21 - Severe sepsis with septic shock Status: Acute Assessment and Plan: Patient presented with septic shock related old left-sided pyelonephritis and obstructive uropathy with left ureteral stone. During the hospital stay he was also noted to have pneumonia, gallbladder disease with bilirubin trending up. Have been started on broad-spectrum antibiotics with vancomycin imipenem Blood culture urine culture positive for Proteus mirabilis resistant to gentamicin and imipenem Switched imipenem to cefepime on 01/24, vancomycin discontinued 01/24/2022 Lactic acid trending up with evidence of DIC Patient required vasopressors for septic shock Further discussed with the family to move to comfort measures Discharged to hospice care inpatient (2) Hydronephrosis with urinary obstruction due to renal calculus: Code(s): N13.2 - Hydronephrosis with renal and ureteral calculous obstruction Status: Acute Assessment and Plan: Due to left ureteral stone, pyelonephritis - 01/21: status post cystoscopy and left ureteral stent placement, pus was seen by the surgeon was a stone was dislodged as documented in the operation report -appreciate urology evaluation (3) EDSON (acute kidney injury): Code(s): N17.9 - Acute kidney failure, unspecified Status: Acute Assessment and Plan: Acute kidney injury likely related to pyelonephritis, hypotension, septic shock -received adequate IV fluids Received Hespan and albumin due to serum albumin and elevated lactic acid and hypotension -creatinine has improved -continue to monitor renal function, electrolytes and urine output (4) History of seizures: Code(s): Z87.898 - Personal history of other specified conditions Status: Acute Assessment and Plan: 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 -continue IV Keppra (5) Electrolyte imbalance: Code(s): E87.8 - Other disorders of electrolyte and fluid balance, not elsewhere classified Status: Acute Assessment and Plan: Replace potassium and phosphorous (6) DVT prophylaxis: Code(s): Z29.9 - Encounter for prophylactic measures, unspecified Status: Acute Assessment and Plan: Hold heparin SQ currently given thrombocytopenia (7) Thrombocytopenia: Code(s): D69.6 - Thrombocytopenia, unspecified Status: Acute Assessment and Plan: Likely related to septic shock, Proteus infection and DIC -continue to monitor (8) Hypoglycemia: Code(s): E16.2 - Hypoglycemia, unspecified Status: Acute Assessment and Plan: Hypoglycemia due to septic shock, decreased p.o. intake -continue D5 NS maintenance IV fluids -likely DIC, will give platelets and fibrinogen (9) Acute anemia: Code(s): D64.9 - Anemia, unspecified Status: Acute Assessment and Plan: Patient dropped his hemoglobin to 7.4 -stool occult is positive -no obvious bleed noted -currently in DIC with low fibrinogen and low platelet count Supportive treatment with transfusion DS: Summary Hospital Course Hospital Course: See above Time Spent with Patient Time attestation: Total time spent providing and/or coordinating discharge services: 45 minutes Exam Narrative: General: Patient lying in bed, lethargic Respiratory: In mild respiratory distress Abdomen: Soft, distended, colostomy in place with brown stool, midline wound with Mepilex Extremities: Bilateral lower extremity edema, warm Neuro: Patient lethargic DS: Data Data Completed and Pending Labs on day of discharge: Labs from last 24 hours 01/25/22 01/25/22 01/25/22 12:32 10:47 08:11 WBC RBC Hgb Hct MCV MCH MCHC RDW Plt Count
== END 2022-01-25 16:43 | disposition hospice, inpatient (51) | DRG 853 ==
LOC: ANHED 19:48 → ANHSURGERY 21:12 → ANHICU 01-22 00:35
PROVIDERS: Internal Medicine; Urology; Admitting Provider Internal Medicine; Emergency Provider Emergency Medicine; PCP Family Medicine; Visit Provider Internal Medicine
PROC: 0T778DZ Dilation of Left Ureter with Intraluminal Device, Via Natural or Artificial Opening Endoscopic (ICD-10-PCS; CPT 52352; principal; 2022-01-21 22:15)
DX: A41.9 Sepsis, unspecified organism (principal); J96.01 Acute respiratory failure with hypoxia; D65 Disseminated intravascular coagulation [defibrination syndrome]; N17.9 Acute kidney failure, unspecified; C64.9 Malignant neoplasm of unspecified kidney, except renal pelvis; C78.00 Secondary malignant neoplasm of unspecified lung; C79.31 Secondary malignant neoplasm of brain; C79.70 Secondary malignant neoplasm of unspecified adrenal gland; C79.51 Secondary malignant neoplasm of bone; N13.6 Pyonephrosis; R65.20 Severe sepsis without septic shock; E87.8 Other disorders of electrolyte and fluid balance, not elsewhere classified; E11.649 Type 2 diabetes mellitus with hypoglycemia without coma; F41.9 Anxiety disorder, unspecified; I10 Essential (primary) hypertension; Z79.899 Other long term (current) drug therapy; Z93.3 Colostomy status; Z87.898 Personal history of other specified conditions; Z79.52 Long term (current) use of systemic steroids
CPT/HCPCS: 36415; 36600; 51701; 71045; 71260; 74176; 74177; 74420; 80053; 80202; 81001; 82274; 82375; 82805; 82948; 83050; 83605; 83735; 84100; 84132; 85025; 85049; 85055; 85380; 85384; 85610; 85730; 86850; 86880; 86900; 86901; 86902; 87040; 87077; 87086; 87088; 87186; 94002; 94003; 94660; 96361; 96365; 96366; 96367; 96368; 96375; 96376; 99285; A9270; C1751; C1758; C1769; C2617; C9113; G0378; J0131; J0153; J0330; J0692; J0696; J0743; J1170; J1644; J1953; J2060; J2270; J2370; J2704; J2997; J3370; J3475; J3480; J7030; J7042; J7050; J7120; P9047; Q9966; Q9967

== ENCOUNTER 2022-01-25 14:30 | HOS | payer OTHER, SELFPAY ==
[2022-01-25 17:11] VITALS: BMI 25.9
--- NOTE | 2022-01-25 17:38 | PM.IMHP ---
H&P: HPI History of Present Illness Date/Time: 01/25/22 17:38 Chief Complaint: Uncontrolled dyspnea and discomfort Narrative: This unfortunate 57-year-old gentleman has metastatic renal cell cancer. He was hospitalized with a left ureteral stone and left pyelonephritis. Despite broad-spectrum antibiotics and pressors he continued to decline. His family opted for comfort care only due to his poor functional status, lack of improvement with appropriate care, and poor prognosis due to his cancer. 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 Mother No problems noted. Sibling No problems noted. Other Hypertension Social History Social History (Updated 01/25/22 @ 17:39 by Arnie Chris MD) Social History: Patient was independent in activities of daily living until his prolonged hospitalization in October 2021 after diverticulitis with bowel perforation abscess. He has had significant decline in function since that time and is now dependent for all care and is bedbound. Code status: DNR Surrogate decision maker: Son Smoking status: Unknown if ever smoked Second hand tobacco smoke exposure: Yes Alcohol intake: unknown Substance use: unknown Substance use type: marijuana Additional occupation/education comments: [employer] Gender identity (if verbalized by the patient): Male Spiritual care concerns: No Meds Home Medications and Allergies Home Medications Medication Instructions Recorded Confirmed Type No Home Medications 01/25/22 01/25/22 History Allergies Allergy/AdvReac Type Severity Reaction Status Date / Time No Known Allergies Allergy Verified 01/21/22 15:27 Exam Narrative: Late middle-aged gentleman who appears much older than his stated age is lying comfortably in his hospital bed Neck without JVD Chest coarse breath sounds Heart regular rate Abdomen hypoactive bowel sounds soft Extremities no edema Musculoskeletal without gross deformities to visual inspection Neurologic cranial nerves symmetric to visual inspection Psychiatric sleeping soundly without response to auditory or tactile stimuli Assessment and Plan Assessment and plan (1) Palliative care by specialist: Code(s): Z51.5 - Encounter for palliative care Status: Acute Assessment and Plan: [facility] hospice criteria due to requiring continuous IV narcotic for control of dyspnea and discomfort Remainder palliative regimen as ordered (2) Renal cell carcinoma of right kidney metastatic to other site: Code(s): C64.1 - Malignant neoplasm of right kidney, except renal pelvis Status: Acute (3) EDSON (acute kidney injury): Code(s): N17.9 - Acute kidney failure, unspecified Status: Acute (4) Severe sepsis: Code(s): A41.9 - Sepsis, unspecified organism; R65.20 - Severe sepsis without septic shock Status: Acute (5) Hydronephrosis with urinary obstruction due to renal calculus: Code(s): N13.2 - Hydronephrosis with renal and ureteral calculou
--- NOTE | 2022-01-25 18:13 | PC.NURSE ---
This patient, Jeffry Shaffer, was transferred to [[id number] ] on 01/25/22 at 1813. Personal belongings sent with patient. Report given to [TORIE Bone @ [id number]]. Appropriate documentation sent with patient.
--- NOTE | 2022-01-25 19:07 | PC.NURSE ---
PT arrived on 2 medical at 1850 from ICU 10, report received from nurse. Pt in room with family at bedside.
[2022-01-25 19:29] VITALS: PULSE 102; RESP 18
[2022-01-25] MEDS: HYDROmorphone HCL/PF (*CRX) 50 MG in SODIUM CHLORIDE 0.9% IV 95 ML IV CONT (19:29)
--- NOTE | 2022-01-26 11:41 | P.DN_ITS ---
Discharge Summary Date and Time Date of : 01/26/22 Time of : 04:45 Provider Pronounced By: Adele Olson RN Probable Cause of Probable Cause of : Left pyelonephritis with severe sepsis in the setting of metastatic renal cell carcinoma Summary Hospital Course: Admitted inpatient hospice service for symptom management. Medications titrated to comfort. Patient peacefully. Additional Data Confirmation of as documented by pronouncing clinician: Pupillary Reflex, Palpable Pulses, Response to Stimuli, Heart Tones and Breath Sounds Name of Provider Notified: Dr. Chris Time Provider Notified: 05:15 Provider Requests Autopsy: No Labor Relations Manager Notified: Yes Date [facility] Notified of : 01/26/22 Time [facility] Notified of : 05:07
== END 2022-01-26 04:45 | disposition expired | DRG 951 ==
LOC: ANH2MED 01-31 15:00 → ANHICU 01-31 15:00
PROVIDERS: Admitting Provider Internal Medicine; PCP Family Medicine; Visit Provider Internal Medicine
DX: Z51.5 Encounter for palliative care (principal); A41.9 Sepsis, unspecified organism; R65.20 Severe sepsis without septic shock; C64.1 Malignant neoplasm of right kidney, except renal pelvis; C78.00 Secondary malignant neoplasm of unspecified lung; C78.6 Secondary malignant neoplasm of retroperitoneum and peritoneum; C79.31 Secondary malignant neoplasm of brain; C79.51 Secondary malignant neoplasm of bone; C79.70 Secondary malignant neoplasm of unspecified adrenal gland; N17.9 Acute kidney failure, unspecified; N13.6 Pyonephrosis; Z66 Do not resuscitate
CPT/HCPCS: A9270; J1170